=== PATIENT | female | born 1950 | race Caucasian/White ===

== ENCOUNTER 2020-07-24 23:59 | Inpatient (IN) | payer MEDICARE, BC ==
[2020-07-25] MEDS ORDERED: NALOXONE 0.4 MG/ML 1 ML VIAL IV PRN (01:22)
[2020-07-25] MEDS ORDERED: ACETAMINOPHEN TAB 325 MG TAB PO PRN (01:22)
--- NOTE | 2020-07-25 01:29 | ED ---
General Adult HPI - General Chief complaint: Recheck/Abnormal Lab/Rx Stated complaint: Arm pain Time Seen by Provider: 07/25/20 00:25 Source: patient, EMS, RN notes reviewed, old records reviewed Mode of arrival: EMS Limitations: no limitations - History of Present Illness Initial comments: 70-year-old female presented to outside hospital for evaluation of bilateral arm weakness which is been present for the past 4 or 5 days. There is no head or neck trauma. Patient denied central chest pain. She had an extensive workup including chest x-ray, CT of the abdomen pelvis, and laboratory testing. She was found to have multiple lab abnormalities including hyperkalemia, leukocytosis, troponin elevation. There was concern for pyelonephritis as well as uterine mass on CT. She was transferred for further evaluation and treatment. - Related Data Allergies Allergy/AdvReac Type Severity Reaction Status Date / Time No Known Allergies Allergy Verified 07/25/20 01:25 Review of Systems ROS Statement: Those systems with pertinent positive or pertinent negative responses have been documented in the HPI. ROS Other: All systems not noted in ROS Statement are negative. Past Medical History Additional Past Medical History / Comment(s): vertigo History of Any Multi-Drug Resistant Organisms: None Reported Past Surgical History: Cholecystectomy, Tubal Ligation Past Psychological History: No Psychological Hx Reported Smoking Status: Never smoker Past Alcohol Use History: None Reported Past Drug Use History: None Reported General Exam Limitations: no limitations General appearance: alert, in no apparent distress Head exam: Present: atraumatic, normocephalic Eye exam: Present: normal appearance, PERRL ENT exam: Present: normal exam Neck exam: Present: normal inspection. Absent: tenderness, meningismus Respiratory exam: Present: normal lung sounds bilaterally. Absent: respiratory distress, wheezes Cardiovascular Exam: Present: regular rate, irregular rhythm GI/Abdominal exam: Present: soft. Absent: distended, tenderness, guarding Extremities exam: Present: normal inspection Neurological exam: Present: motor sensory deficit (Patient has bilateral upper extremity weakness in the proximal musculature. This is symmetrical. 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 Absent: cyanosis, diaphoretic Course Vital Signs 07/25/20 00:11 Temperature 97.9 F Pulse Rate 91 Respiratory 20 Rate Blood Pressure 170/97 Medical Decision Making - Medical Decision Making 70-year-old female transferred from outside hospital with multiple laboratory abnormalities, physical exam findings, and CT findings. Initial complaint was bilateral arm weakness. Patient has proximal weakness of both upper extremities, no head or neck trauma. She was found to have CT concerning for pyelonephritis, uterine mass. She had elevated white blood cell count 18,000. She had potassium 6.4 which is treated medically. She had an elevated troponin 0.27. She has no active chest pain. She had received ceftriaxone, aspirin, treatment of hyperkalemia prior to transfer. Her laboratory testing will be rep eated. She will be admitted to Dr. Alcaraz who is aware of the patient. Neurology is placed on consult. All repeat lab testing is pending at this time. Disposition Clinical Impression: Hyperkalemia, Bilateral arm weakness, Elevated troponin Disposition: ADMITTED IP TO THIS HOSP Condition: Stable Is patient prescribed a controlled substance at d/c from ED?: No Referrals: None,Stated [Primary Care Provider] - 1-2 days
[2020-07-25] MEDS ORDERED: SODIUM CHLORIDE 0.9% 1,000 ML IV SCH (01:30)
[2020-07-25 02:07] LABS: Basophils % (A) 0 %; Eosinophils % (A) 0 %; HCT 44.6 % (34.0-46.0); HGB 14.7 gm/dL (11.4-16.0); Lymphocytes # (A) 0.8 k/uL (1.0-4.8); Lymphocytes % (A) 5 %; MCH 27.4 pg (25.0-35.0); MCHC 33.1 g/dL (31.0-37.0); Mean Platelet Volume 8.2; Monocytes # (A) 0.7 k/uL (0-1.0); Monocytes % (A) 4 %; Neutrophils # (A) 14.6 k/uL (1.3-7.7); Neutrophils % (A) 90 %; Platelet Count 258 k/uL (150-450); RBC 5.37 m/uL (3.80-5.40); RDW 15.2 % (11.5-15.5); WBC 16.2 k/uL (3.8-10.6)
[2020-07-25 02:40] LABS: Albumin 3.1 g/dL (3.5-5.0); Calcium 8.7 mg/dL (8.4-10.2); Magnesium 2.5 mg/dL (1.6-2.3); Total Bilirubin 0.7 mg/dL (0.2-1.3); Total Protein 6.6 g/dL (6.3-8.2)
[2020-07-25 02:58] LABS: Potassium 6.6 mmol/L (3.5-5.1)
[2020-07-25] MEDS ORDERED: SODIUM CHLORIDE 0.9% 500 ML 500 ML IV ONE (02:59)
[2020-07-25] MEDS ORDERED: CALCIUM GLUCONATE 1 GM in SODIUM CHLORIDE 0.9% 100 ML IVPB ONE ×2 (03:30→07:44)
[2020-07-25] MEDS: SODIUM CHLORIDE 0.9% 1,000 ML IV SCH ×2 (03:46→10:21)
[2020-07-25] MEDS ORDERED: SODIUM POLYSTYRENE SULFONATE 15 GM/60 ML BOTTLE PO ONE (04:40)
--- NOTE | 2020-07-25 04:46 | P.HPIM ---
History of Present Illness H&P Date: 07/25/20 Patient is a 70-year-old female with no known PMH who was transferred from [facility] where she had presented earlier today with complaints of bilateral upper extremity weakness and pain. Patient reports that she was in her usual state of health until about 5-6 days ago when she developed gradually worsening bilateral arm and shoulder pain and weakness. Patient notes that she had been out shopping and was able to lift bags and carry her on objects without difficulty last week though as a symptoms worsened, she is currently not able to lift her arms. She also reports subjective fevers over the past 2 days along with a decrease in her urine output. She also notes that she has not been drinking or eating as much as she normally does. Patient also reports experiencing spotting over the past 1 month which is very unusual for her. She denied any additional complaints. She denied headaches, visual disturbances, numbness, or tingling. Also denied chest pain, shortness of breath, nausea, vomiting, abdominal pain, or dysuria. The patient had undergone extensive evaluation at [facility] which was all reviewed. CT abdomen and pelvis without contrast had revealed fat stranding in the left hemipelvis along the course of the distal ureter suspicious for possible pyelonephritis with acute left adnexal pathology not excluded; bladder wall thickening possibly secondary to cystitis or underdistention; hypodense mass within the uterus with mild to moderate pelvic adenopathy with findings likely due to endometrial mass with further evaluation with an ultrasound recommended; cystic mass in the pancreas with a follow-up nonemergent MRI recommended. Laboratory evaluation at [facility] revealed a sodium of 125, potassium 6.6, chloride 96, CO2 19, BUN 47, creatinine 2.58, magnesium 2.5, AST 3421, ALT 1002, troponin less than 0.012, and WBC count 16.[address] [facility] head revealed A. fib at 83 bpm with a left anterior fascicular block. Review of Systems Pertinent positives and negatives as discussed in HPI, a complete review of systems was performed and all other systems are negative. Past Medical History Additional Past Medical History / Comment(s): vertigo History of Any Multi-Drug Resistant Organisms: None Reported Past Surgical History: Cholecystectomy, Tubal Ligation Past Psychological History: No Psychological Hx Reported Smoking Status: Never smoker Past Alcohol Use History: None Reported Past Drug Use History: None Reported Medications and Allergies Allergies Allergy/AdvReac Type Severity Reaction Status Date / Time No Known Allergies Allergy Verified 07/25/20 01:25 Physical Exam Vitals: Vital Signs Temp Pulse Resp BP Pulse Ox 07/25/20 03:26 97.8 F 75 18 168/90 98 07/25/20 00:11 97.9 F 91 20 170/97 Intake and Output 07/24/20 07/24/20 07/25/20 14:59 22:59 06:59 Other: Weight 122.47 kg General: non toxic, no distress, appears at stated age, morbidly obese Derm: no unusual rashes/lesions no unusual ecchymoses, warm, dry Head: atraumatic, normocephalic, symmetric Eyes: EOMI, no lid lag, anicteric sclera, pupils equal round reactive to light ENT: Nose and ears atraumatic, no thrush, no pharyngeal erythema Neck: No thyromegaly, no cervical lymphadenopathy, trachea midline, supple Mouth: no lip lesion, mucus membranes moist Cardiovascular: S1S2 reg, no murmur, positive posterior tibial pulse bilateral, no edema, capillary refill less than 2 seconds Lungs: CTA bilateral, no rhonchi, no rales , no accessory muscle use Abdominal: soft, nontender to palpation, no guarding, no appreciable organomegaly, normal bowel sounds Ext: no gross muscle atrophy, bilateral proximal upper extremity strength 2 out of 5 at the level of the shoulder, biceps, and triceps with mild tenderness on palpation of biceps and triceps bilaterally, 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 intact at 5 out of 5, lower extremity strength 5 out of 5 bilaterally, no contractures, Neuro: CN II-XI grossly intact, light touch intact all 4 extremities Psych: Alert, oriented, appropriate affect Results CBC & Chem 7: 07/25/20 01:28 07/25/20 01:28 Labs: Abnormal Lab Results - Last 24 Hours (Table) 07/25/20 07/25/20 Range/Units 01:28 01:28 WBC 16.2 H (3.8-10.6) k/uL Neutrophils # 14.6 H (1.3-7.7) k/uL Lymphocytes # 0.8 L (1.0-4.8) k/uL Sodium 125 L (137-145) mmol/L Potassium 6.6 H* (3.5-5.1) mmol/L Chloride 96 L (98-107) mmol/L Carbon Dioxide 19 L (22-30) mmol/L BUN 47 H (7-17) mg/dL Creatinine 2.58 H (0.52-1.04) mg/dL Glucose 135 H (74-99) mg/dL Magnesium 2.5 H (1.6-2.3) mg/dL AST 3421 H (14-36) U/L ALT 1002 H (4-34) U/L Albumin 3.1 L (3.5-5.0) g/dL Assessment and Plan Plan: Bilateral proximal upper extremity weakness, highly suspicious for polymyositis secondary to underlying malignancy (uterine mass) -Obtain CK levels -PROFESSOR OF MEDICINE consult for biopsy -Abdominal US for further evaluation Suspected pyelonephritis in setting of subjective fevers, urinary complaints, leukocytosis, CT scan findings -Continue with ceftriaxone 1 g daily -Follow up urine cultures Acute kidney injury versus chronic kidney disease -Nephrology consult -Monitor BMP Hyperkalemia -Status post Kayexalate 60 mg by mouth and calcium gluconate 1 g -Monitor BMP -Cardiac monitoring Cystic pancreatic mass -Patient will need MRI for further characterization Abnormal LFTs, unclear etiology -Consider contrast abdominal imaging to rule out hepatic metastases DVT prophylaxis -Heparin subq The patient is admitted with an anticipated greater than 2 midnight stay for evaluation of UE weakness CODE STATUS: Full Code Discussed with: Patient Anticipated discharge date: 4-[address]: Home A total of 40 minutes was spent on the care of this complex patient more than 50% of the time was spent in counseling and care coordination.
[2020-07-25 05:36] LABS: Albumin 2.9 g/dL (3.5-5.0); Calcium 8.7 mg/dL (8.4-10.2); Total Bilirubin 0.7 mg/dL (0.2-1.3); Total Protein 6.3 g/dL (6.3-8.2)
[2020-07-25] MEDS ORDERED: SODIUM POLYSTYRENE SULFONATE 15 GM/60 ML BOTTLE PO STA (05:42)
[2020-07-25 05:50] LABS: Potassium 6.4 mmol/L (3.5-5.1)
[2020-07-25] MEDS ORDERED: SODIUM CHLORIDE 0.9% 2,000 ML IV ONE (07:40)
[2020-07-25] MEDS ORDERED: DEXTROSE 50% SYRINGE 50 ML IVP STA ×2 (07:44→23:44)
[2020-07-25] MEDS ORDERED: INSULIN REGULAR 100 UNIT/ML VIAL IV ONE ×2 (07:44→23:44)
[2020-07-25 08:12] LABS: HCT 43.5 % (34.0-46.0); HGB 14.2 gm/dL (11.4-16.0); MCH 27.1 pg (25.0-35.0); MCHC 32.6 g/dL (31.0-37.0); MCV 83.2 fL (80.0-100.0); Mean Platelet Volume 9.6; Platelet Count 264 k/uL (150-450); RBC 5.23 m/uL (3.80-5.40); RDW 15.2 % (11.5-15.5); WBC 17.6 k/uL (3.8-10.6)
[2020-07-25] MEDS: HYDROcodone/APAP 5-325MG 1 EACH TAB PO PRN (08:57)
[2020-07-25] MEDS ORDERED: FUROSEMIDE 10 MG/ML 10 ML VIAL IV SCH (09:00)
[2020-07-25] MEDS: HEPARIN SODIUM,PORCINE 5,000 UNIT/ML 1 ML VIAL SQ SCH ×2 (09:00→18:10)
[2020-07-25 09:40] LABS: Phosphorus 8.8 mg/dL (2.5-4.5); Uric Acid 8.9 mg/dL (3.7-7.4)
[2020-07-25 09:56] LABS: Amorphous Sediment,Urine Rare /hpf; Appearance,Urine Turbid (Clear); Bacteria,Urine Occasional /hpf; Bilirubin,Urine Negative (Negative); Blood,Urine Large (Negative); Color,Urine Red; Glucose,Urine (UA) Trace (Negative); Ketones,Urine Trace (Negative); Leukocyte Esterase,Urine Small (Negative); Nitrite,Urine Negative (Negative); PH, Urine 5.5 (5.0-8.0); Protein,Urine 2+ (Negative); RBC,Urine 1 /hpf (0-5); Squamous Epithelial Cell,Urine 2 /hpf (0-4); Urobilinogen,Urine <2.0 mg/dL (<2.0); WBC,Urine 7 /hpf (0-5)
[2020-07-25] MEDS ORDERED: hydrALAZINE HCL 20 MG/ML 1 ML VIAL IVP PRN (11:39)
[2020-07-25] MEDS ORDERED: SODIUM BICARB 8.4% 50 ML SYR (1 MEQ/ML) IV STA ×2 (11:40→12:10)
[2020-07-25] MEDS: MORPHINE SULFATE 4 MG/ML SYRINGE IVP PRN (12:17)
--- NOTE | 2020-07-25 12:18 | P.NPCON ---
History of Present Illness - Reason for Consult acute renal failure, hyperkalemia - History of Present Illness Reason for consultation: Acute kidney injury and electrolyte imbalance History of present illness: Patient is a 70-year-old female seen in renal consultation for acute kidney injury and electrolyte imbalance. Patient came to the hospital due to weakness of both her upper extremities. Patient states about 5-6 days ago she noticed weakness of her arms as well as pain. Patient does do heavy lifting. She denies any trauma or injuries. She has been taking nonsteroidals 4 times daily over the last 3-4 days. Potassium level was 6.6 on admission and was 6.4 this morning. This was medically treated with 2 g of IV calcium, 10 units of IV insulin with D50, as well as Kayexalate. Repeat potassium level is being drawn now. She denies chest pain or shortness of breath. No history of diabetes. Denies family history of renal disease. Patient's AST and ALT were quite elevated. Patient's CK level was elevated at 154,161. She is currently maintained on normal saline at 200 mL an hour. She did receive 2-1/2 L of normal saline bolus so far. She did have workup done at a different hospital prior to she was transported here. CAT scan of the abdomen and pelvis was done which revealed possibly polynephritis with acute left adnexal pathology not excluded. There was bladder wall thickening noted. A hypodense mass within the uterus with pelvic adenopathy was noted. A cystic mass in the pancreas was noted as well. She currently has a Whaley catheter. Urine output since this morning has been about 350-400 mL. Vital signs are stable. General: The patient appeared well nourished and normally developed. HEENT: Head exam is unremarkable. Neck is without jugular venous distension. LUNGS: Breath sounds decreased. HEART: Rate and Rhythm are regular. ABDOMEN: Soft, nontender. Obese. EXTREMITITES: No edema. Past Medical History Additional Past Medical History / Comment(s): vertigo History of Any Multi-Drug Resistant Organisms: None Reported Past Surgical History: Cholecystectomy, Tubal Ligation Past Psychological History: No Psychological Hx Reported Smoking Status: Never smoker Past Alcohol Use History: None Reported Past Drug Use History: None Reported Medications and Allergies Home Medications Medication Instructions Recorded Confirmed Type No Known Home Medications 07/25/20 07/25/20 History Allergies Allergy/AdvReac Type Severity Reaction Status Date / Time No Known Allergies Allergy Verified 07/25/20 07:37 Physical Exam Vitals: Vital Signs Temp Pulse Resp BP Pulse Ox 07/25/20 10:19 76 18 177/89 07/25/20 07:34 97.3 F L 74 18 164/100 95 07/25/20 06:32 97.4 F L 72 18 170/102 96 07/25/20 03:26 97.8 F 75 18 168/90 98 07/25/20 00:11 97.9 F 91 20 170/97 Intake and Output 07/24/20 07/25/20 07/25/20 22:59 06:59 14:59 Other: Weight 122.47 kg Results - Lab Results Most recent lab results Calcium 8.7 mg/dL (8.4-10.2) 07/25/20 04:40 Phosphorus 8.8 mg/dL (2.5-4.5) H 07/25/20 04:40 Magnesium 2.5 mg/dL (1.6-2.3) H 07/25/20 01:28 07/25/20 04:40 07/25/20 04:40 Assessment and Plan Plan: Assessment: 1. Acute kidney injury secondary to ATN secondary to rhabdomyolysis. Rule out obstructive uropathy. Creatinine stable at 2.59 this morning. Unknown baseline renal function. 2. Rhabdomyolysis. Patient was not on a statin therapy. No IVDA or alcohol abuse. No evidence of crush injury or trauma. ? Inflammatory myopathy vs immobility. 3. Bilateral upper extremity weakness. ? Etiology. 4. Uterine mass. CIS COORDINATOR consulted. 5. Cystic pancreatic mass. 6. Proteinuria. Can be nonspecific in the setting of acute kidney injury. 7. Hyponatremia secondary to acute kidney injury. 8. Metabolic acidosis secondary to acute kidney injury. 9. Transaminitis. Plan: Stop normal saline. Start isotonic bicarbonate drip to be run at 200 mL an hour. Maintain Whaley catheter. Strict I's and O's. 2 A of sodium bicarbonate IV push. Monitor CK levels. Repeat potassium level was just drawn and the results are pending. Continue to assess daily for need for renal replacement therapy. Check renal ultrasound. Quantify proteinuria. Repeat BMP in 4 hours. Thank you for the consultation. I will continue to follow the patient with you during her hospital stay.
[2020-07-25] MEDS: DEXTROSE 5% IN WATER 1,000 ML with SODIUM BICARB (1 MEQ/ML) 150 ML IV SCH ×2 (14:22→20:35)
[2020-07-25 15:01] LABS: Creatinine,Urine Random 15.9 mg/dL; Protein/Creatinine Ratio,Urine 3.208
--- NOTE | 2020-07-25 16:12 | US ---
EXAMINATION TYPE: US kidneys/renal and bladder DATE OF EXAM: 07/25/2020 COMPARISON: Outside institution [facility] CT abdomen pelvis 07/24/2020 CLINICAL HISTORY: Acute kidney injury. EXAM MEASUREMENTS: Right Kidney: 11.6 x 5.0 x 5.0 cm Left Kidney: 10.6 x 5.9 x 5.9 cm There is suboptimal evaluation of the bilateral kidneys due to overlying bowel gas and patient body h abitus. Right Kidney: No hydronephrosis. There is lobular contour of the kidney. 1.5 x 1.7 x 1.4 cm iso to hy poechoic region of the lateral interpolar kidney. Left Kidney: No hydronephrosis. There is lobular contour of the kidney. Prominent Column of Corey is noted. Hypoechoic region of the medial interpolar kidney measures 1.3 x 1.4 x 1.3 cm . Bladder: Urinary bladder is incompletely with Whaley Catheter. IMPRESSION: 1. No hydronephrosis bilaterally. 2. Somewhat limited evaluation of the kidneys due to bowel gas and body habitus. 3. Right interpolar kidney indeterminate 1.7 cm iso to hypoechoic region may represent lesion versus lobular parenchymal contour. Consider nonemergent repeat renal ultrasound for reproducibility or MRI of the kidneys. 4. Left renal 1.4 cm likely peripelvic or cortical cyst. 5. Nondistended urinary bladder with Whaley catheter.
[2020-07-25 16:37] LABS: Calcium 7.7 mg/dL (8.4-10.2); Potassium 5.8 mmol/L (3.5-5.1)
--- NOTE | 2020-07-25 20:44 | P.CONS ---
History of Present Illness - Reason for Consult Consult date: 07/25/20 Uterine mass, pelvic adenopathy, rhabdomyolysis - History of Present Illness The patient is a 70-year-old white female, who has not seen a physician for many years. She is on no medications and denies any known history of ongoing medical problems. She is overall sedentary but not immobilized in any way. She reports development of new onset of shoulder and upper arm pain bilaterally, starting about 5-6 days ago. This was initially gradual in onset but became progressively more severe. She states that this was associated with marked weakness in her shoulder and upper arms to where she could not lift her arms above her head. She also started experiencing decrease in appetite, as well as some lower extremity proximal muscle weakness. This was much less significant than the upper extremity and was mostly associated with standing up from lying or sitting down. The patient states that once she was upright, she was able to walk without any problems. The patient presented to [facility] with these complaints. She had imaging done including CT of the abdomen and pelvis without contrast. This showed possibility of some medical renal disease without hydronephrosis. In the uterus the patient had a hypodense mass 6.5 cm, left-sided pelvic adenopathy with largest node about 2.5 cm and borderline right-sided pelvic adenopathy at about 1 cm. Patient's labs showed markedly increased CPKs, evidence of kidney injury with creatinine in the 2.5 range, as well as low sodium in the 120 range and hyperkalemia. The patient was admitted for further management and then transferred here. Salt was placed for possibility of malignancy. Patient denies any prior history of cancer. Last mammogram was more than 10 years ago. She does not recall ever having a colonoscopy. She has not had a Pap smear for many years either. She denies any ongoing systemic symptoms such as chronic fevers, weight loss, or lymph node enlargement. She denied any respiratory complaints, blood in the stool or urine or change in bowel habits. However she does report bloody discharge from the vagina every 1-2 months for the past several years. She has however never sought attention for the same. She was on no medications at home. She had started taking aspirin only after the onset of the above symptoms. Review of Systems Constitutional: Reports poor appetite, Reports weakness Eyes: denies blurred vision, denies pain Ears: deny: decreased hearing, ear discharge, earache, tinnitus Ears, nose, mouth and throat: Denies headache, Denies sore throat Cardiovascular: Reports decreased exercise tolerance Respiratory: Denies cough Gastrointestinal: Denies abdominal pain, Denies diarrhea, Denies nausea, Denies vomiting Genitourinary: Reports abnormal vaginal bleeding Menstruation: Reports postmenopausal Musculoskeletal: Reports as per HPI, Reports muscle weakness Musculoskeletal: bilateral: shoulder pain, shoulder stiffness Integumentary: Denies pruritus, Denies rash Neurological: Reports weakness Psychiatric: Denies anxiety, Denies depression Endocrine: Reports fatigue Hematologic/Lymphatic: Reports as per HPI Past Medical History Additional Past Medical History / Comment(s): vertigo History of Any Multi-Drug Resistant Organisms: None Reported Past Surgical History: Cholecystectomy, Tubal Ligation Past Psychological History: No Psychological Hx Reported Smoking Status: Never smoker Past Alcohol Use History: None Reported Past Drug Use History: None Reported Medications and Allergies Home Medications Medication Instructions Recorded Confirmed Type No Known Home Medications 07/25/20 07/25/20 History Allergies Allergy/AdvReac Type Severity Reaction Status Date / Time No Known Allergies Allergy Verified 07/25/20 07:37 Physical Exam Vitals: Vital Signs Temp Pulse Resp BP Pulse Ox 07/25/20 19:00 98.7 F 07/25/20 17:10 73 18 152/76 97 07/25/20 12:21 78 18 184/101 98 07/25/20 10:19 76 18 177/89 07/25/20 07:34 97.3 F L 74 18 164/100 95 07/25/20 06:32 97.4 F L 72 18 170/102 96 07/25/20 03:26 97.8 F 75 18 168/90 98 07/25/20 00:11 97.9 F 91 20 170/97 Intake and Output 07/25/20 07/25/20 07/25/20 06:59 14:59 22:59 Output Total 700 195 Balance -700 -195 Output: Urine 700 195 Other: Weight 122.47 kg - Constitutional General appearance: no acute distress - EENT Eyes: EOMI, PERRLA ENT: hearing grossly normal, normal oropharynx - Neck Neck: no lymphadenopathy Thyroid: bilateral: normal size - Respiratory Respiratory: bilateral: CTA - Cardiovascular Rhythm: regular Heart sounds: normal: S1, S2 - Gastrointestinal General gastrointestinal: normal bowel sounds, soft - Integumentary Integumentary: normal - Neurologic Neurologic: CNII-XII intact - Musculoskeletal Tenderness to palpation over shoulder muscles and upper arms. Marked weakness in bilateral proximal upper extremities. Much milder decrease in strength in proximal lower extremities. - Psychiatric Psychiatric: A&O x's 3, appropriate affect Results CBC & Chem 7: 07/25/20 04:40 07/25/20 14:50 Labs: Abnormal Lab Results - Last 24 Hours (Table) 07/25/20 07/25/20 07/25/20 Range/Units 01:28 01:28 04:40 WBC 16.2 H (3.8-10.6) k/uL Neutrophils # 14.6 H (1.3-7.7) k/uL Lymphocytes # 0.8 L (1.0-4.8) k/uL Sodium 125 L 123 L (137-145) mmol/L Potassium 6.6 H* 6.4 H* (3.5-5.1) mmol/L Chloride 96 L 96 L (98-107) mmol/L Carbon Dioxide 19 L 16 L (22-30) mmol/L BUN 47 H 50 H (7-17) mg/dL Creatinine 2.58 H 2.59 H (0.52-1.04) mg/dL Glucose 135 H 167 H (74-99) mg/dL Uric Acid (3.7-7.4) mg/dL Calcium (8.4-10.2) mg/dL Phosphorus (2.5-4.5) mg/dL Magnesium 2.5 H (1.6-2.3) mg/dL AST 3421 H 3315 H (14-36) U/L ALT 1002 H 959 H (4-34) U/L Creatine Kinase 310024 H* (30-135) U/L Albumin 3.1 L 2.9 L (3.5-5.0) g/dL Urine Appearance (Clear) Urine Protein (Negative) Urine Glucose (UA) (Negative) Urine Ketones (Negative) Urine Blood (Negative) Ur Leukocyte Esterase (Negative) Urine WBC (0-5) /hpf Amorphous Sediment (None) /hpf Urine Bacteria (None) /hpf 07/25/20 07/25/20 07/25/20 Range/Units 04:40 04:40 08:30 WBC 17.6 H (3.8-10.6) k/uL Neutrophils # (1.3-7.7) k/uL Lymphocytes # (1.0-4.8) k/uL Sodium (137-145) mmol/L Potassium (3.5-5.1) mmol/L Chloride (98-107) mmol/L Carbon Dioxide (22-30) mmol/L BUN (7-17) mg/dL Creatinine (0.52-1.04) mg/dL Glucose (74-99) mg/dL Uric Acid 8.9 H (3.7-7.4) mg/dL Calcium (8.4-10.2) mg/dL Phosphorus 8.8 H (2.5-4.5) mg/dL Magnesium (1.6-2.3) mg/dL AST (14-36) U/L ALT (4-34) U/L Creatine Kinase (30-135) U/L Albumin (3.5-5.0) g/dL Urine Appearance Turbid H (Clear) Urine Protein 2+ H (Negative) Urine Glucose (UA) Trace H (Negative) Urine Ketones Trace H (Negative) Urine Blood Large H (Negative) Ur Leukocyte Esterase Small H (Negative) Urine WBC 7 H (0-5) /hpf Amorphous Sediment Rare H (None) /hpf Urine Bacteria Occasional H (None) /hpf 07/25/20 07/25/20 Range/Units 11:51 14:50 WBC (3.8-10.6) k/uL Neutrophils # (1.3-7.7) k/uL Lymphocytes # (1.0-4.8) k/uL Sodium 127 L (137-145) mmol/L Potassium 5.8 H (3.5-5.1) mmol/L Chloride (98-107) mmol/L Carbon Dioxide 20 L (22-30) mmol/L BUN 55 H (7-17) mg/dL Creatinine 2.77 H (0.52-1.04) mg/dL Glucose 134 H (74-99) mg/dL Uric Acid (3.7-7.4) mg/dL Calcium 7.7 L (8.4-10.2) mg/dL Phosphorus (2.5-4.5) mg/dL Magnesium (1.6-2.3) mg/dL AST (14-36) U/L ALT (4-34) U/L Creatine Kinase [id number] H* (30-135) U/L Albumin (3.5-5.0) g/dL Urine Appearance (Clear) Urine Protein (Negative) Urine Glucose (UA) (Negative) Urine Ketones (Negative) Urine Blood (Negative) Ur Leukocyte Esterase (Negative) Urine WBC (0-5) /hpf Amorphous Sediment (None) /hpf Urine Bacteria (None) /hpf CT scan - abdomen: report reviewed CT scan - pelvis: report reviewed US - abdomen: report reviewed Assessment and Plan Assessment: #1. Rhabdomyolysis #2. Kidney injury, presumably acute #3. Electrolyte abnormalities #4. Uterine mass and pelvic adenopathy. Abnormal vaginal bleeding Plan: #1. Rhabdomyolysis this appears to be acute in onset. Conventional risk fact ors such as symptoms suggestive of recent viral injury, or medications or trauma are not present. Therefore etiology is unknown at this time. Patient has been seen by nephrology, and is on treatment with IV hydration. - Given the patient's finding on computed tomography scan, and unknown etiology so far of the rhabdomyolysis, a paraneoplastic phenomenon can be considered. However paraneoplastic rhabdomyolysis is extremely rare. Case reports have been described of this occurring very occasionally with acute myeloid leukemia. The patient however has no evidence of the same on her CBC. There are also occasional case reports of this occurring with paraneoplastic hyponatremia as well as paraneoplastic severe polymyositis, though these are generally also rare and atypical presentations. - Continue current management per nephrology. If patient is not improving muscle biopsy can be considered. The case was also informally discussed with rheumatology. They agreed with the above management and recommended against muscle biopsy in the acute situation unless the patient showed lack of improvement with conventional treatment. They also recommended against the use of steroids, unless there was a specific indication for the same. #2. Uterine mass and pelvic adenopathyin this clinical setting this is concerning for malignancy. The patient does give a history of abnormal vaginal bleeding but that has been chronic for many years. Once renal function improves imaging with contrast will be ordered. In the meantime check transvaginal ultrasound. I will also check CA-125. CT of the chest without contrast will be ordered to check for any evidence of lung metastasis or primary lung malignancy. #3. Electrolyte abnormalitythe patient is noted to have hyponatremia and hyper kalemia. This could be secondary to renal dysfunction from rhabdomyolysis. However, a paraneoplastic phenomenon, that can cause rhabdomyolysis as noted above, is also in consideration. Imaging for malignancy as noted above. I will also check labs for hypocortisolism and SIADH #4. Leukocytosisthis is mild and appears to be reactive predominant neutrophilia. No other hematology abnormalities noted.
--- NOTE | 2020-07-25 20:52 | P.PN ---
Subjective Progress Note Date: 07/25/20 (delayed charting seen at 0905) Principal diagnosis: shoulder pain Patient is a 70-year-old female with a past medical history of vertigo who presented with complaints of bilateral severe shoulder pain and weakness. She was transferred here for [facility] due to acute kidney injury, transaminitis, and uterine mass. There she had undergone a CT abdomen and pelvis without contrast which revealed fat stranding in the left vasyl-pelvis along the course of the distal ureter ureter with possible pyelonephritis versus acute left adnexal pathology, bladder wall thickening, hypodense mass in the uterus with mild to moderate pelvic adenopathy findings likely due to endometr ial mass, and cystic mass in the pancreas but follow-up MRI recommended. On arrival here her sodium was 125, potassium 6.6, chloride 96, carbon dioxide 19, BUN 47, and creatinine 2.58. She was also found have an AST of 3421, ALT 1002, white blood cell count 16.2. Urinalysis was consistent with rhabdo but did not appear consistent with urinary tract infection, however patient had already received Rocephin. She was started on IV fluids and arrangements were made for admission. CPK was ordered which came back at 154,161. She subsequently received an additional 2 L of IV fluid and her IV fluid drip was increased. Gynecology was consulted regarding her uterine mass. Nephrology was consulted for possible AK a versus EKG in conjunction with severe rhabdo dialysis. Hematology and oncology was consulted secondary to concern for possible dermatomyositis versus polymyositis that could be related to her uterine mass. Patient seen and examined at bedside. She reports that she has never undergone menopause. She reports that she has infrequent bleeding that is sometimes a light or heavy and she sometimes goes month in between but has never had a greater than 1 year time period with out vaginal bleeding. She denies any lower abdominal pain. She complains of bilateral upper arm and shoulder pain associated with weakness. She denies any nausea or vomiting. She states that her appetite has been well. 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 She denies any traumatic events to the arms. She has not seen a primary care physician in quite some years as hers and she never saw a new one. General: [non toxic], [no distress], [appears at stated age] Derm: [warm], [dry] Head: [atraumatic], [normocephalic], [symmetric] Eyes: [EOMI], [no lid lag], [anicteric sclera] Mouth: [no lip lesion], [mucus membranes moist] Cardiovascular: [S1S2 reg], [no murmur], [positive posterior tibial pulse bilateral], Lungs: [CTA bilateral], [no rhonchi, no rales] , [no accessory muscle use] Abdominal: [soft], [ nontender to palpation], [no guarding], [no appreciable organomegaly] Ext: [no gross muscle atrophy], [no edema], [no contractures] Neuro: [ CN II-XI grossly intact], [no focal neuro deficits] Psych: [Alert], [oriented], [appropriate affect] 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 Patient does have a uterine mass as well as a cystic pancreatic mass. -Inpatient vs Outpatient rheumatolgy evaluation, consider muscle biopsy -Hold off on steroids at this time. Rhabdomyolysis -Suspect secondary to inflammatory at myositis -Case discussed with nephrology. On sodium bicarb drip. We'll follow CPKs closely. -Strict I's and O's, Whaley catheter inserted. Hyperkalemia secondary to above -Continue with sodium bicarb drip -Monitor potassium levels again at 2100, 2 AM, and in a.m. Acute hepatitis suspect secondary to underlying rhabdo and inflammatory myositis -Repeat liver enzymes in a.m. -Check acute hepatitis profile -Check REBEKA and antimitochondrial antibody -Intermediate elevated in a.m. Consult GI Possible pyelonephritis -Continue with Rocephin -Await urine culture Acute kidney injury with metabolic acidosis -Continue with IV fluids -Avoid additional nephrotoxic agents -Repeat labs in a.m. -Elevated phosphorus level which may be consistent with some form of chronic kidney disease Uterine mass with dysfunctional uterine bleeding - oncology and DIRECTOR OF FINANCIAL REPORTING consults Cystic Pancreatic mass pancreatic mass - MRI for further evaluation Morbid obesity with BMI 43.6 -Outpatient structured weight loss Elevated blood pressure without underlying diagnosis of hypertension -Continue with when necessary hydralazine -Add Norvasc if continues to be elevated in a.m. DVT prophylaxis: Heparin Discussed with: patient, nursing, nephrology Anticipated discharge: 5-[address]: home A total of 45 minutes was spent on the care of this complex patient more than 50% of the time was spent in counseling and care coordination. Objective - Vital Signs Vital signs: Vital Signs Temp 97.3 F L 07/25/20 07:34 Pulse 78 07/25/20 12:21 Resp 18 07/25/20 12:21 BP 184/101 07/25/20 12:21 Pulse Ox 98 07/25/20 12:21 Intake & Output 07/24/20 07/25/20 07/25/20 18:59 06:59 18:59 Output Total 400 Balance -400 Weight 122.47 kg Output: Urine 400 - Labs CBC & Chem 7: 07/25/20 04:40 07/25/20 14:50 Labs: Abnormal Lab Results - Last 24 Hours (Table) 07/25/20 07/25/20 07/25/20 Range/Units 01:28 01:28 04:40 WBC 16.2 H (3.8-10.6) k/uL Neutrophils # 14.6 H (1.3-7.7) k/uL Lymphocytes # 0.8 L (1.0-4.8) k/uL Sodium 125 L 123 L (137-145) mmol/L Potassium 6.6 H* 6.4 H* (3.5-5.1) mmol/L Chloride 96 L 96 L (98-107) mmol/L Carbon Dioxide 19 L 16 L (22-30) mmol/L BUN 47 H 50 H (7-17) mg/dL Creatinine 2.58 H 2.59 H (0.52-1.04) mg/dL Glucose 135 H 167 H (74-99) mg/dL Uric Acid (3.7-7.4) mg/dL Phosphorus (2.5-4.5) mg/dL Magnesium 2.5 H (1.6-2.3) mg/dL AST 3421 H 3315 H (14-36) U/L ALT 1002 H 959 H (4-34) U/L Creatine Kinase [id number] H* (30-135) U/L Albumin 3.1 L 2.9 L (3.5-5.0) g/dL Urine Appearance (Clear) Urine Protein (Negative) Urine Glucose (UA) (Negative) Urine Ketones (Negative) Urine Blood (Negative) Ur Leukocyte Esterase (Negative) Urine WBC (0-5) /hpf Amorphous Sediment (None) /hpf Urine Bacteria (None) /hpf 07/25/20 07/25/20 07/25/20 Range/Units 04:40 04:40 08:30 WBC 17.6 H (3.8-10.6) k/uL Neutrophils # (1.3-7.7) k/uL Lymphocytes # (1.0-4.8) k/uL Sodium (137-145) mmol/L Potassium (3.5-5.1) mmol/L Chloride (98-107) mmol/L Carbon Dioxide (22-30) mmol/L BUN (7-17) mg/dL Creatinine (0.52-1.04) mg/dL Glucose (74-99) mg/dL Uric Acid 8.9 H (3.7-7.4) mg/dL Phosphorus 8.8 H (2.5-4.5) mg/dL Magnesium (1.6-2.3) mg/dL AST (14-36) U/L ALT (4-34) U/L Creatine Kinase (30-135) U/L Albumin (3.5-5.0) g/dL Urine Appearance Turbid H (Clear) Urine Protein 2+ H (Negative) Urine Glucose (UA) Trace H (Negative) Urine Ketones Trace H (Negative) Urine Blood Large H (Negative) Ur Leukocyte Esterase Small H (Negative) Urine WBC 7 H (0-5) /hpf Amorphous Sediment Rare H (None) /hpf Urine Bacteria Occasional H (None) /hpf 07/25/20 Range/Units 11:51 WBC (3.8-10.6) k/uL Neutrophils # (1.3-7.7) k/uL Lymphocytes # (1.0-4.8) k/uL Sodium (137-145) mmol/L Potassium (3.5-5.1) mmol/L Chloride (98-107) mmol/L Carbon Dioxide (22-30) mmol/L BUN (7-17) mg/dL Creatinine (0.52-1.04) mg/dL Glucose (74-99) mg/dL Uric Acid (3.7-7.4) mg/dL Phosphorus (2.5-4.5) mg/dL Magnesium (1.6-2.3) mg/dL AST (14-36) U/L ALT (4-34) U/L Creatine Kinase [id number] H* (30-135) U/L Albumin (3.5-5.0) g/dL Urine Appearance (Clear) Urine Protein (Negative) Urine Glucose (UA) (Negative) Urine Ketones (Negative) Urine Blood (Negative) Ur Leukocyte Esterase (Negative) Urine WBC (0-5) /hpf Amorphous Sediment (None) /hpf Urine Bacteria (None) /hpf
[2020-07-25] MEDS ORDERED: predniSONE 20 MG TAB PO SCH (21:00)
[2020-07-25 23:09] LABS: Calcium 7.3 mg/dL (8.4-10.2); Potassium 5.8 mmol/L (3.5-5.1)
[2020-07-26] MEDS: HEPARIN SODIUM,PORCINE 5,000 UNIT/ML 1 ML VIAL SQ SCH ×3 (00:22→16:51)
[2020-07-26 01:20] LABS: Glucose,Whole Blood 124 mg/dL (75-99)
[2020-07-26 01:45] LABS: Creatine Kinase 135482 U/L (30-135)
[2020-07-26] MEDS: HYDROcodone/APAP 5-325MG 1 EACH TAB PO PRN ×2 (02:31→23:00)
[2020-07-26] MEDS: DEXTROSE 5% IN WATER 1,000 ML with SODIUM BICARB (1 MEQ/ML) 150 ML IV SCH ×3 (02:39→10:34)
[2020-07-26 03:30] LABS: HGB 11.8 gm/dL (11.4-16.0); MCH 26.8 pg (25.0-35.0); MCHC 32.7 g/dL (31.0-37.0); Mean Platelet Volume 7.8; Platelet Count 197 k/uL (150-450); RBC 4.39 m/uL (3.80-5.40); RDW 15.5 % (11.5-15.5); WBC 14.7 k/uL (3.8-10.6)
[2020-07-26 03:38] LABS: Hepatitis A Antibody IgM Non-Reactive (Non-Reactive); Hepatitis B Core IgM Non-Reactive (Non-Reactive); Hepatitis B Surface Antigen Non-Reactive (Non-Reactive); Hepatitis C IgG Antibody Non-Reactive (Non-Reactive)
[2020-07-26 03:55] LABS: Albumin 2.2 g/dL (3.5-5.0); Magnesium 2.1 mg/dL (1.6-2.3); Potassium 4.9 mmol/L (3.5-5.1); Total Bilirubin 0.5 mg/dL (0.2-1.3); Total Protein 4.9 g/dL (6.3-8.2)
--- NOTE | 2020-07-26 08:05 | US ---
EXAMINATION TYPE: US pelvis complete transvag DATE OF EXAM: 07/26/2020 COMPARISON: CT 2019 CLINICAL HISTORY: Pelvic mass. Pelvic mass seen in recent CT done at [facility], 4, pa ra 4, history of tubal ligation. TECHNIQUE: . Transabdominal sonographic images of the pelvis were acquired. Date of LMP: Unknown EXAM MEASUREMENTS: Uterus: 12.3 x 6.7 x 7.5 cm Endometrial Stripe: 0.4 cm Right Ovary: 2.7 x 1.9 x 1.6 cm Left Ovary: 2.8 x 1.8 x 1.4 cm 1. Uterus: anteverted, enlarged, bulky, heterogeneous with 5.0 x 4.5 x 6.0cm hypoechoic area right f undus and 2.4 x 2.0 x 2.6cm hyperechoic area left fundus 2. Endometrium: visualized portion appears wnl 3. Right Ovary: wnl 4. Left Ovary: wnl 5. Bilateral Adnexa: wnl 6. Posterior cul-de-sac: wnl IMPRESSION: Nonspecific heterogenous masses of the uterus. Underlying sarcoma is not excluded.
--- NOTE | 2020-07-26 08:08 | CT ---
EXAMINATION TYPE: CT chest wo con DATE OF EXAM: 07/26/2020 COMPARISON: None HISTORY: Pelvic Mass CT DLP: 911.[address] of the chest was performed with lung and mediastinal window settings submitted. The la ck of contrast limits evaluation of the vascular, mediastinal and parenchymal structures including th e upper abdomen. LUNGS: The lungs are clear and free of infiltrate. Linear basilar parenchymal scarring. No atelectasi s. No pulmonary nodule or mass is detected. No pleural effusion. No CT evidence of interstitial agapito ng disease. MEDIASTINUM/GHISLAINE: Thoracic aorta is of normal caliber with limited evaluation given lack of contrast . The heart is not enlarged. No evidence for mediastinal mass. No lymph nodes greater than 1cm. UPPER ABDOMEN: No significant abnormality is seen. OTHER: No significant other abnormality. IMPRESSION: 1. No evidence for infiltrate or metastatic disease at this time.
[2020-07-26 09:59] LABS: % Iron Saturation 14.72 (12.00-45.00); Ferritin 542.6 ng/mL (10.0-291.0)
[2020-07-26 11:53] LABS: Rheumatoid Factor, Qnt 7 IU/mL (0-15)
--- NOTE | 2020-07-26 11:58 | P.PN ---
Subjective Progress Note Date: 07/26/20 Follow-up for acute kidney injury and hyperkalemia. Urine output of 1715 in the last 24 hours. Objective - Vital Signs Vital signs: Vital Signs Temp 97 F L 07/26/20 11:25 Pulse 71 07/26/20 11:25 Resp 18 07/26/20 11:25 BP 112/57 07/26/20 11:25 Pulse Ox 94 L 07/26/20 11:25 Intake & Output 07/25/20 07/26/20 07/26/20 18:59 06:59 18:59 Output Total 895 820 Balance -895 -820 Weight 122.47 kg Output: Urine 895 820 Other: Voiding Method Indwelling Catheter Indwelling Catheter - Exam No acute distress S1-S2 heard Lungs clear Edema - Labs CBC & Chem 7: 07/26/20 03:11 07/26/20 03:11 Labs: Abnormal Lab Results - Last 24 Hours (Table) 07/25/20 07/25/20 07/25/20 Range/Units 11:51 14:50 21:53 WBC (3.8-10.6) k/uL ESR (0-20) mm/hr Sodium 127 L 124 L (137-145) mmol/L Potassium 5.8 H 5.8 H (3.5-5.1) mmol/L Chloride 95 L (98-107) mmol/L Carbon Dioxide 20 L 20 L (22-30) mmol/L BUN 55 H 57 H (7-17) mg/dL Creatinine 2.77 H 2.82 H (0.52-1.04) mg/dL Glucose 134 H 145 H (74-99) mg/dL POC Glucose (mg/dL) (75-99) mg/dL Calcium 7.7 L 7.3 L (8.4-10.2) mg/dL Iron (50-170) ug/dL TIBC (228-460) ug/dL Ferritin (10.0-291.0) ng/mL AST (14-36) U/L ALT (4-34) U/L Creatine Kinase [id number] H* (30-135) U/L Total Protein (6.3-8.2) g/dL Albumin (3.5-5.0) g/dL 07/25/20 07/25/20 07/26/20 Range/Units 22:05 22:20 01:16 WBC (3.8-10.6) k/uL ESR 35 H (0-20) mm/hr Sodium (137-145) mmol/L Potassium (3.5-5.1) mmol/L Chloride (98-107) mmol/L Carbon Dioxide (22-30) mmol/L BUN (7-17) mg/dL Creatinine (0.52-1.04) mg/dL Glucose (74-99) mg/dL POC Glucose (mg/dL) 124 H (75-99) mg/dL Calcium (8.4-10.2) mg/dL Iron (50-170) ug/dL TIBC (228-460) ug/dL Ferritin (10.0-291.0) ng/mL AST (14-36) U/L ALT (4-34) U/L Creatine Kinase [id number] H* (30-135) U/L Total Protein (6.3-8.2) g/dL Albumin (3.5-5.0) g/dL 07/26/20 07/26/20 Range/Units 03:11 03:11 WBC 14.7 H (3.8-10.6) k/uL ESR (0-20) mm/hr Sodium 122 L (137-145) mmol/L Potassium (3.5-5.1) mmol/L Chloride 90 L (98-107) mmol/L Carbon Dioxide (22-30) mmol/L BUN 58 H (7-17) mg/dL Creatinine 3.15 H (0.52-1.04) mg/dL Glucose 116 H (74-99) mg/dL POC Glucose (mg/dL) (75-99) mg/dL Calcium 7.0 L (8.4-10.2) mg/dL Iron 29 L (50-170) ug/dL TIBC 197 L (228-460) ug/dL Ferritin 542.6 H (10.0-291.0) ng/mL AST 2906 H (14-36) U/L ALT 848 H (4-34) U/L Creatine Kinase (30-135) U/L Total Protein 4.9 L (6.3-8.2) g/dL Albumin 2.2 L (3.5-5.0) g/dL Assessment and Plan Assessment: #1 nonoliguric acute kidney injury secondary to toxic ATN from rhabdomyolysis. #2 hyperkalemia multifactorial #3 rhabdo, workup in process #4 hypervolemic hyponatremia #5 metabolic alkalosis from bicarb drip Plan: #1 continue with bicarb drip at 200 ML's an hour. #2 check serum osmolality, urine electrolytes. #3 change bicarb drip to normal saline. 4 avoid nephrotoxic agents.
--- NOTE | 2020-07-26 11:59 | P.OBCN ---
History of Present Illness Consult date: 07/26/20 Requesting physician: Verito Velez Reason for consult: other (Postmenopausal bleeding with uterine mass) Chief complaint: Upper extremity weakness with hyperkalemia and multiple medical concerns History of present illness: The patient is a 70-year-old 4 para 4004 whose extensive history is well documented in previous notes from internal medicine as well as oncology. In short, she presented with weakness to an outside emergency room and was ultimately transferred here after initial evaluation for further care. She is found with multiple different medical conditions including a pancreatic mass as well as some renal failure and CT and ultrasound have demonstrated an enlarged h eterogeneous-appearing uterus with a mass present as well. The patient reports that she has never had any significant length of time in which she has stopped bleeding and never experienced menopause. She may have had a roughly 1 year. Without bleeding. She continues to have an episode of bleeding anywhere from every 1-3 months which can last anywhere from 2-5 days and will occasionally be heavy. She has not seen a usability engineer nor any other physician regarding this or any other medical conditions in some time. She denies any use of hormone replacement and has had no specific complaints of weight loss in recent times. Obstetrical history: 4 para 4004 with 4 term vaginal deliveries. Gynecologic history: Unremarkable with no history of any infections. She has not had any gynecologic care in many years, more than 20. Review of Systems Review of systems is confined history of present illness. Past Medical History Additional Past Medical History / Comment(s): vertigo History of Any Multi-Drug Resistant Organisms: None Reported Past Surgical History: Cholecystectomy, Tubal Ligation Past Anesthesia/Blood Transfusion Reactions: No Reported Reaction Past Psychological History: No Psychological Hx Reported Smoking Status: Never smoker Past Alcohol Use History: None Reported Past Drug Use History: None Reported Medications and Allergies Home Medications Medication Instructions Recorded Confirmed Type No Known Home Medications 07/25/20 07/25/20 History Allergies Allergy/AdvReac Type Severity Reaction Status Date / Time No Known Allergies Allergy Verified 07/25/20 07:37 Exam Vital Signs Temp Pulse Pulse Resp BP BP Pulse Ox 07/26/20 11:25 97 F L 71 18 112/57 94 L 07/26/20 08:00 73 18 135/63 95 07/26/20 04:00 97.8 F 69 18 150/72 96 07/26/20 02:00 18 07/26/20 00:00 97.9 F 72 18 164/73 95 07/25/20 20:00 97.6 F 79 18 127/80 95 07/25/20 19:00 98.7 F 07/25/20 17:10 73 18 152/76 97 07/25/20 12:21 78 18 184/101 98 Intake and Output 07/25/20 07/26/20 07/26/20 22:59 06:59 14:59 Output Total 195 820 Balance -195 -820 Output: Urine 195 820 Other: Voiding Method Indwelling Catheter Indwelling Catheter Indwelling Catheter Physical examination demonstrates a morbidly obese white female in no acute distress though she does have a clearly demonstrable weakness in her upper extremities. Her abdomen is obese, nondistended, has normal active bowel sounds, soft, nontender, and without any palpable masses, hepatosplenomegaly, or hernias. Pelvic examination is deferred to the operating room under anesthesia. Results Result Diagrams: 07/26/20 03:11 07/26/20 03:11 Abnormal Lab Results - Last 24 Hours (Table) 07/25/20 07/25/20 07/25/20 Range/Units 11:51 14:50 21:53 WBC (3.8-10.6) k/uL ESR (0-20) mm/hr Sodium 127 L 124 L (137-145) mmol/L Potassium 5.8 H 5.8 H (3.5-5.1) mmol/L Chloride 95 L (98-107) mmol/L Carbon Dioxide 20 L 20 L (22-30) mmol/L BUN 55 H 57 H (7-17) mg/dL Creatinine 2.77 H 2.82 H (0.52-1.04) mg/dL Glucose 134 H 145 H (74-99) mg/dL POC Glucose (mg/dL) (75-99) mg/dL Calcium 7.7 L 7.3 L (8.4-10.2) mg/dL Iron (50-170) ug/dL TIBC (228-460) ug/dL Ferritin (10.0-291.0) ng/mL AST (14-36) U/L ALT (4-34) U/L Creatine Kinase [id number] H* (30-135) U/L Total Protein (6.3-8.2) g/dL Albumin (3.5-5.0) g/dL 07/25/20 07/25/20 07/26/20 Range/Units 22:05 22:20 01:16 WBC (3.8-10.6) k/uL ESR 35 H (0-20) mm/hr Sodium (137-145) mmol/L Potassium (3.5-5.1) mmol/L Chloride (98-107) mmol/L Carbon Dioxide (22-30) mmol/L BUN (7-17) mg/dL Creatinine (0.52-1.04) mg/dL Glucose (74-99) mg/dL POC Glucose (mg/dL) 124 H (75-99) mg/dL Calcium (8.4-10.2) mg/dL Iron (50-170) ug/dL TIBC (228-460) ug/dL Ferritin (10.0-291.0) ng/mL AST (14-36) U/L ALT (4-34) U/L Creatine Kinase [id number] H* (30-135) U/L Total Protein (6.3-8.2) g/dL Albumin (3.5-5.0) g/dL 07/26/20 07/26/20 Range/Units 03:11 03:11 WBC 14.7 H (3.8-10.6) k/uL ESR (0-20) mm/hr Sodium 122 L (137-145) mmol/L Potassium (3.5-5.1) mmol/L Chloride 90 L (98-107) mmol/L Carbon Dioxide (22-30) mmol/L BUN 58 H (7-17) mg/dL Creatinine 3.15 H (0.52-1.04) mg/dL Glucose 116 H (74-99) mg/dL POC Glucose (mg/dL) (75-99) mg/dL Calcium 7.0 L (8.4-10.2) mg/dL Iron 29 L (50-170) ug/dL TIBC 197 L (228-460) ug/dL Ferritin 542.6 H (10.0-291.0) ng/mL AST 2906 H (14-36) U/L ALT 848 H (4-34) U/L Creatine Kinase (30-135) U/L Total Protein 4.9 L (6.3-8.2) g/dL Albumin 2.2 L (3.5-5.0) g/dL Assessment and Plan (1) Postmenopausal bleeding Current Visit: Yes Status: Acute Code(s): N95.0 - POSTMENOPAUSAL BLEEDING SNOMED Code(s): 49703133 (2) Uterine mass Current Visit: Yes Status: Acute Code(s): N85.8 - OTHER SPECIFIED NONINFLAMMATORY DISORDERS OF UTERUS SNOMED Code(s): 803291558376115 Plan: Biopsy is clearly indicated at this point as any bleeding at the age of 70 is abnormal. Given her ultrasound findings, there is a significant concern for malignancy. I have discussed this with the patient and recommended that she undergo diagnostic hysteroscopy with dilation and curettage. The risks and complications of this procedure have been thoroughly discussed including the risk for bleeding, bleeding requiring transfusion, infection, and injury to local structures which would specifically include uterine perforation which is a reasonable concern should the uterus have significant tumor. She has understood all this and has agreed to proceed. We will attempt to schedule this for tomorrow morning in order to try to establish a primary diagnosis which may relate to all of her other ongoing medical conditions. The case was discussed with Dr. Velez.
[2020-07-26 12:58] LABS: Albumin 2.2 g/dL (3.5-5.0); Calcium 6.9 mg/dL (8.4-10.2); Potassium 5.2 mmol/L (3.5-5.1); Total Bilirubin 0.5 mg/dL (0.2-1.3)
[2020-07-26] MEDS: SODIUM CHLORIDE 0.9% 1,000 ML IV SCH ×3 (13:39→20:35)
[2020-07-26 13:45] LABS: Basophils # (A) 0.1 k/uL (0-0.2); Basophils % (A) 1 %; Eosinophils % (A) 0 %; HCT 37.4 % (34.0-46.0); HGB 12.9 gm/dL (11.4-16.0); Lymphocytes # (A) 0.7 k/uL (1.0-4.8); Lymphocytes % (A) 4 %; MCHC 34.4 g/dL (31.0-37.0); MCV 81.4 fL (80.0-100.0); Mean Platelet Volume 9.1; Monocytes # (A) 0.8 k/uL (0-1.0); Monocytes % (A) 5 %; Neutrophils # (A) 14.1 k/uL (1.3-7.7); Neutrophils % (A) 89 %; Platelet Count 141 k/uL (150-450); RDW 15.3 % (11.5-15.5); WBC 15.7 k/uL (3.8-10.6)
--- NOTE | 2020-07-26 14:25 | P.CRDCN ---
History of Present Illness Consult date: 07/26/20 History of present illness: CHIEF COMPLAINT: A. fib HISTORY OF PRESENT ILLNESS: This is a 70-year old female who was transferred from [facility]. She initially presented with weakness and shoulder pain. Patient does not follow with a reservation agent. We have been asked to see the patient in consultation for atrial fibrillation. Patient examined at the bedside. Patient denies a history of atrial fibrillation. She denies any previous cardiac history. She currently denies chest pain or pressure. She denies shortness of breath. DIAGNOSTICS: EKG reveals atrial fibrillation with controlled ventricular rate Laboratory data: WBC 15.7. Hemoglobin 12.9. Platelet count 141. Sodium 123. Potassium 5.2. BUN 60. Creatinine 3.33. AST 2972. ALT 866. Creatinine kinase 141,975. Current home cardiac medications include none REVIEW OF SYSTEMS: At the time of my exam: CONSTITUTIONAL: Denies fever or chills. Reports significant weakness. HEENT: Denies blurred vision, vision changes, or eye pain. Denies hemoptysis CARDIOVASCULAR: Denies chest pain, orthopnea, PND or palpitations RESPIRATORY: No shortness of breath. GASTROINTESTINAL: Denies abdominal pain. Denies nausea or vomiting. HEMATOLOGIC: Denies bleeding disorders. GENITOURINARY: Denies any blood in urine. SKIN: Denies pruitis. Denies rash. PHYSICAL EXAM: VITAL SIGNS: Reviewed. GENERAL: Well-developed in no acute distress. HEENT: Head is normocephalic. Pupils are equal, round. Sclerae anicteric. Mucous membranes of the mouth are moist. Neck supple. No JVD or thyromegaly LUNGS: Respirations even and unlabored. Lungs essentially clear to auscultation bilaterally. HEART: Irregular rate and rhythm. S1 and S2 heard. ABDOMEN: Soft. Nondistended. Nontender. EXTREMITIES: Normal range of motion. No clubbing or cyanosis. Peripheral pulses intact. No lower extremity edema NEUROLOGIC: Awake and alert. Oriented x 3. ASSESSMENT: New-onset atrial fibrillation with controlled ventricular rate Rhabdomyolysis Acute hepatitis Possible pyelonephritis Acute kidney injury Hyperkalemia Probable Poly/dermatomyositis Uterine mass with vaginal bleeding Cystic pancreatic mass PLAN: Continue telemetry monitoring Obtain 2-D echo to assess cardiac structure and function Check TSH Will hold off on beta blockers as patients heart rate is currently controlled No anticoagulation at this time secondary to continued vaginal bleeding. Patient to undergo D&C tomorrow with OB. Nurse practitioner note has been reviewed by physician. Signing provider agrees with the documented findings, assessment, and plan of care. Past Medical History Additional Past Medical History / Comment(s): vertigo History of Any Multi-Drug Resistant Organisms: None Reported Past Surgical History: Cholecystectomy, Tubal Ligation Past Anesthesia/Blood Transfusion Reactions: No Reported Reaction Past Psychological History: No Psychological Hx Reported Smoking Status: Never smoker Past Alcohol Use History: None Reported Past Drug Use History: None Reported Medications and Allergies Home Medications Medication Instructions Recorded Confirmed Type No Known Home Medications 07/25/20 07/25/20 History Allergies Allergy/AdvReac Type Severity Reaction Status Date / Time No Known Allergies Allergy Verified 07/25/20 07:37 Physical Exam Vitals: Vital Signs Temp Pulse Pulse Resp BP BP Pulse Ox 07/26/20 13:45 18 07/26/20 11:25 97 F L 71 18 112/57 94 L 07/26/20 08:00 73 18 135/63 95 07/26/20 04:00 97.8 F 69 18 150/72 96 07/26/20 02:00 18 07/26/20 00:00 97.9 F 72 18 164/73 95 07/25/20 20:00 97.6 F 79 18 127/80 95 07/25/20 19:00 98.7 F 07/25/20 17:10 73 18 152/76 97 Intake and Output 07/25/20 07/26/20 07/26/20 22:59 06:59 14:59 Intake Total 1600 Output Total 195 820 Balance -195 -820 1600 Intake: IV 1600 Dextrose 5% in Water 1, 1600 000 ml @ 200 mls/hr IV . Q5H45M EVELYN with Sodium Bicarb (1 Meq/ml) 150 ml Rx#:[id number] Output: Urine 195 820 Other: Voiding Method Indwelling Catheter Indwelling Catheter Indwelling Catheter Results 07/26/20 13:14 07/26/20 12:15 Cardiac Enzymes 07/26/20 07/26/20 Range/Units 03:11 12:15 AST 2906 H 2972 H (14-36) U/L CBC 07/26/20 07/26/20 Range/Units 03:11 13:14 WBC 14.7 H 15.7 H (3.8-10.6) k/uL RBC 4.39 4.60 (3.80-5.40) m/uL Hgb 11.8 12.9 (11.4-16.0) gm/dL Hct 36.0 37.4 (34.0-46.0) % Plt Count 197 141 L (150-450) k/uL Comprehensive Metabolic Panel 07/25/20 07/25/20 07/26/20 Range/Units 14:50 21:53 03:11 Sodium 127 L 124 L 122 L (137-145) mmol/L Potassium 5.8 H 5.8 H 4.9 (3.5-5.1) mmol/L Chloride 99 95 L 90 L (98-107) mmol/L Carbon Dioxide 20 L 20 L 28 (22-30) mmol/L BUN 55 H 57 H 58 H (7-17) mg/dL Creatinine 2.77 H 2.82 H 3.15 H (0.52-1.04) mg/dL Glucose 134 H 145 H 116 H (74-99) mg/dL Calcium 7.7 L 7.3 L 7.0 L (8.4-10.2) mg/dL AST 2906 H (14-36) U/L ALT 848 H (4-34) U/L Alkaline Phosphatase 63 (38-126) U/L Total Protein 4.9 L (6.3-8.2) g/dL Albumin 2.2 L (3.5-5.0) g/dL 07/26/20 07/26/20 Range/Units 03:11 12:15 Sodium 123 L (137-145) mmol/L Potassium 4.8 5.2 H (3.5-5.1) mmol/L Chloride 89 L (98-107) mmol/L Carbon Dioxide 25 (22-30) mmol/L BUN 60 H (7-17) mg/dL Creatinine 3.33 H (0.52-1.04) mg/dL Glucose 129 H (74-99) mg/dL Calcium 6.9 L (8.4-10.2) mg/dL AST 2972 H (14-36) U/L ALT 866 H (4-34) U/L Alkaline Phosphatase 63 (38-126) U/L Total Protein 5.0 L (6.3-8.2) g/dL Albumin 2.2 L (3.5-5.0) g/dL Current Medications Generic Name Dose Route Start Last Admin Trade Name Freq PRN Reason Stop Dose Admin Acetaminophen 650 mg 07/25/20 01:22 Acetaminophen Tab 325 Mg Tab PO Q6HR PRN Mild Pain or Fever > 100.5 Hydrocodone Bitart/Acetaminophen 1 each 07/25/20 08:14 07/26/20 02:31 Hydrocodone/Apap 5-325mg 1 Each Tab PO 1 each Q6HR PRN Administration Pain Heparin Sodium (Porcine) 5,000 unit 07/25/20 08:00 07/26/20 10:22 Heparin Sodium,Porcine 5,000 Unit/Ml 1 Ml Vial SQ 5,000 unit Q8HR EVELYN Administration Hydralazine HCl 10 mg 07/25/20 11:39 07/25/20 12:20 Hydralazine Hcl 20 Mg/Ml 1 Ml Vial IVP 10 mg Q4HR PRN Administration Blood Pressure - High Ceftriaxone Sodium 1 gm/ 50 mls @ 100 mls/hr 07/25/20 09:00 07/26/20 10:22 Sodium Chloride IVPB 100 mls/hr Q24HR EVELYN Administration Sodium Chloride 1,000 mls @ 200 mls/hr 07/26/20 12:00 07/26/20 13:39 Saline 0.9% IV 200 mls/hr .Q5H EVELYN Administration Morphine Sulfate 4 mg 07/25/20 08:14 07/25/20 12:17 Morphine Sulfate 4 Mg/Ml Syringe IVP 4 mg Q4HR PRN Administration Pain Naloxone HCl 0.2 mg 07/25/20 01:22 Naloxone 0.4 Mg/Ml 1 Ml Vial IV Q2M PRN Opioid Reversal Intake and Output 07/25/20 07/26/20 07/26/20 22:59 06:59 14:59 Intake Total 1600 Output Total 195 820 Balance -195 -820 1600 Intake: IV 1600 Dextrose 5% in Water 1, 1600 000 ml @ 200 mls/hr IV . Q5H45M EVELYN with Sodium Bicarb (1 Meq/ml) 150 ml Rx#:[id number] Output: Urine 195 820 Other: Voiding Method Indwelling Catheter Indwelling Catheter Indwelling Catheter 07/26/20 13:14 07/26/20 12:15
--- NOTE | 2020-07-26 14:27 | P.CONS ---
History of Present Illness - Reason for Consult Consult date: 07/26/20 Elevated liver enzymes Requesting physician: Verito Velez - Chief Complaint Shoulder weakness and pain - History of Present Illness 70-year-old female with a medical history significant for obesity and vertigo who was transferred from outside hospital due to acute kidney injury, transaminitis, uterine mass after presenting with complaints of shoulder pain and weakness. The patient reports developing severe pain and weakness in her shoulders bilaterally. She was found to have multiple abnormal labs on presentation with a creatinine of 2.58, and markedly elevated liver enzymes with total bilirubin 0.5, alkaline phosphatase 63, AST 2906 and ALT 848. Patient was also found to have rhabdomyolysis with a significantly elevated CPK which is currently 135,482. Currently she is being seen with concern for possible malignancy with computed tomography scan performed at the outside hospital showing fat stranding in the left hemipelvis along the course of the distal ureter possibly related to pyelonephritis or left adnexal pathology with bladder wall thickening, hypodense mass in the uterus as well as moderate pelvic adenopathy and a cystic mass in the pancreas. The gastroenterology service was consult dated for elevation in the patient's liver enzymes. On questioning the patient denies any high risk behavior, reporting very rare use of alcohol, no prior history of cirrhosis or viral hepatitis. She denies any new medications or antibiotics in the past few months, no family history of liver disease or evidence of decompensated liver disease with the patient denying any prior GI bleed, ascites or encephalopathy. Review of Systems REVIEW OF SYSTEMS: CONSTITUTIONAL: Denies any fevers, chills, weight change or fatigue. CARDIOVASCULAR: Denies any chest pain, palpitations high or low blood pressures RESPIRATORY: Denies any shortness of breath, hemoptysis or cough. GENITOURINARY: No dysuria or hematuria. MUSCULOSKELETAL: Bilateral shoulder weakness and pain. SKIN: Denies any new rashes or lesions, jaundice or pallor. PSYCHIATRIC: Denies any depression or anxiety. NEUROLOGY: Denies headache, denies any new focal deficits. EARS/NOSE/THROAT: No recent hearing change, congestion, nasal discharge or sore throat. EYES: No pain in eyes, discharge or change in vision. GASTROINTESTINAL: As per HPI. Past Medical History Additional Past Medical History / Comment(s): vertigo History of Any Multi-Drug Resistant Organisms: None Reported Past Surgical History: Cholecystectomy, Tubal Ligation Past Anesthesia/Blood Transfusion Reactions: No Reported Reaction Past Psychological History: No Psychological Hx Reported Smoking Status: Never smoker Past Alcohol Use History: None Reported Past Drug Use History: None Reported Additional History: Family history: Reviewed with the patient in no significant history of liver disease. Medications and Allergies Home Medications Medication Instructions Recorded Confirmed Type No Known Home Medications 07/25/20 07/25/20 History Allergies Allergy/AdvReac Type Severity Reaction Status Date / Time No Known Allergies Allergy Verified 07/25/20 07:37 Physical Exam Vitals: Vital Signs Temp Pulse Pulse Resp BP BP Pulse Ox 07/26/20 08:00 73 18 135/63 95 07/26/20 04:00 97.8 F 69 18 150/72 96 07/26/20 02:00 18 07/26/20 00:00 97.9 F 72 18 164/73 95 07/25/20 20:00 97.6 F 79 18 127/80 95 07/25/20 19:00 98.7 F 07/25/20 17:10 73 18 152/76 97 07/25/20 12:21 78 18 184/101 98 Intake and Output 07/25/20 07/26/20 07/26/20 22:59 06:59 14:59 Output Total 195 820 Balance -195 -820 Output: Urine 195 820 Other: Voiding Method Indwelling Catheter Indwelling Catheter Indwelling Catheter On physical examination, patient appears comfortable in no apparent distress. HEAD: Normocephalic, atraumatic. EYES: No scleral icterus. No conjunctival injection. MOUTH: No lesions, tongue midline. NECK: Trachea midline, no gross abnormalities. CHEST: Clear to auscultation with no wheezing or rhonchi appreciated. HEART: Regular rate and rhythm. ABDOMEN: Soft, obese. Bowel sounds are positive. No organomegaly. No guarding or rigidity. EXTREMITIES: No pedal edema. SKIN: No rashes, no jaundice. NEUROLOGIC: Alert and oriented x3. Bilateral arm weakness secondary to rhabdomyolysis. Results CBC & Chem 7: 07/26/20 13:14 07/26/20 12:15 Labs: Abnormal Lab Results - Last 24 Hours (Table) 07/25/20 07/25/20 07/25/20 Range/Units 11:51 14:50 21:53 WBC (3.8-10.6) k/uL ESR (0-20) mm/hr Sodium 127 L 124 L (137-145) mmol/L Potassium 5.8 H 5.8 H (3.5-5.1) mmol/L Chloride 95 L (98-107) mmol/L Carbon Dioxide 20 L 20 L (22-30) mmol/L BUN 55 H 57 H (7-17) mg/dL Creatinine 2.77 H 2.82 H (0.52-1.04) mg/dL Glucose 134 H 145 H (74-99) mg/dL POC Glucose (mg/dL) (75-99) mg/dL Calcium 7.7 L 7.3 L (8.4-10.2) mg/dL Iron (50-170) ug/dL TIBC (228-460) ug/dL Ferritin (10.0-291.0) ng/mL AST (14-36) U/L ALT (4-34) U/L Creatine Kinase [id number] H* (30-135) U/L Total Protein (6.3-8.2) g/dL Albumin (3.5-5.0) g/dL 07/25/20 07/25/20 07/26/20 Range/Units 22:05 22:20 01:16 WBC (3.8-10.6) k/uL ESR 35 H (0-20) mm/hr Sodium (137-145) mmol/L Potassium (3.5-5.1) mmol/L Chloride (98-107) mmol/L Carbon Dioxide (22-30) mmol/L BUN (7-17) mg/dL Creatinine (0.52-1.04) mg/dL Glucose (74-99) mg/dL POC Glucose (mg/dL) 124 H (75-99) mg/dL Calcium (8.4-10.2) mg/dL Iron (50-170) ug/dL TIBC (228-460) ug/dL Ferritin (10.0-291.0) ng/mL AST (14-36) U/L ALT (4-34) U/L Creatine Kinase [id number] H* (30-135) U/L Total Protein (6.3-8.2) g/dL Albumin (3.5-5.0) g/dL 07/26/20 07/26/20 Range/Units 03:11 03:11 WBC 14.7 H (3.8-10.6) k/uL ESR (0-20) mm/hr Sodium 122 L (137-145) mmol/L Potassium (3.5-5.1) mmol/L Chloride 90 L (98-107) mmol/L Carbon Dioxide (22-30) mmol/L BUN 58 H (7-17) mg/dL Creatinine 3.15 H (0.52-1.04) mg/dL Glucose 116 H (74-99) mg/dL POC Glucose (mg/dL) (75-99) mg/dL Calcium 7.0 L (8.4-10.2) mg/dL Iron 29 L (50-170) ug/dL TIBC 197 L (228-460) ug/dL Ferritin 542.6 H (10.0-291.0) ng/mL AST 2906 H (14-36) U/L ALT 848 H (4-34) U/L Creatine Kinase (30-135) U/L Total Protein 4.9 L (6.3-8.2) g/dL Albumin 2.2 L (3.5-5.0) g/dL CT scan - abdomen: report reviewed (Report from outside facility reviewed.) Assessment and Plan Assessment: 1. Elevated liver enzymes: 70-year-old female with a known history of obesity and vertigo who was seen at outside hospital for bilateral shoulder weakness and pain in transfer for further evaluation. Currently the patient is being treated for elevated creatinine in the setting of rhabdomyolysis, she is also being seen for a possible pelvic mass. Liver enzymes significantly elevated on presentation predominantly in a hepatocellular pattern with total bilirubin 0.5, alkaline phosphatase 63, AST 2906 and ALT 148. Suspicion is for elevation secondary to rhabdomyolysis, full serology will be ordered to rule out other etiology, she reports any prior history of liver disease, high risk behavior or pertinent family history of liver disease. 2. Rhabdomyolysis. 3. Pancreatic cyst/mass seen on computed tomography scan. 4. Other medical comorbidities per primary team. Plan: Supportive care Appreciate recommendations from the consulting services, continue treatment of rhabdomyolysis per primary team and the recommendations Continue to monitor CBC, BMP and LFTs Full liver serology ordered to rule out intrinsic liver disease, suspicion is for elevation in liver enzymes secondary to rhabdomyolysis Computed tomography scan report from outside hospital revealed Patient will need further evaluation with MRI of the abdomen for evaluation of pancreatic mass or possible referral for endoscopic ultrasound in the future and pending clinical course Thank you for allowing us to participate in the care of the patient
[2020-07-26] MEDS: MORPHINE SULFATE 4 MG/ML SYRINGE IVP PRN ×2 (16:52→20:40)
--- NOTE | 2020-07-26 19:09 | P.PN ---
Subjective Progress Note Date: 07/26/20 (delayed charting seen at 0900) Principal diagnosis: shoulder pain Patient is a 70-year-old female with a past medical history of vertigo who presented with complaints of bilateral severe shoulder pain and weakness. She was transferred here for [facility] due to acute kidney injury, transaminitis, and uterine mass. There she had undergone a CT abdomen and pelvis without contrast which revealed fat stranding in the left vasyl-pelvis along the course of the distal ureter ureter with possible pyelonephritis versus acute left adnexal pathology, bladder wall thickening, hypodense mass in the uterus with mild to moderate pelvic adenopathy findings likely due to endometr ial mass, and cystic mass in the pancreas but follow-up MRI recommended. On arrival here her sodium was 125, potassium 6.6, chloride 96, carbon dioxide 19, BUN 47, and creatinine 2.58. She was also found have an AST of 3421, ALT 1002, white blood cell count 16.2. Urinalysis was consistent with rhabdo but did not appear consistent with urinary tract infection, however patient had already received Rocephin. She was started on IV fluids and arrangements were made for admission. CPK was ordered which came back at [id number],[phone]. She subsequently received an additional 2 L of IV fluid and her IV fluid drip was increased. Gynecology was consulted regarding her uterine mass. Nephrology was consulted for possible STEVE Vs CKD in conjunction with severe rhabdo. Hematology and oncology was consulted secondary to concern for possible dermatomyositis versus polymyositis that could be related to her uterine mass. She went into rate controlled A fib on 07/25 which was rate controlled. Cardio was consulted and recommended TSH and echo. Seen by [employer] and plan is for D and C with biopsy in AM. CT chest without metastatic disease. GI consulted for acute hepatitis. Patient seen and examined at bedside. Her arm pain is slightly less today. She is still having weakness in bilateral upper extremity. No chest pain, no shortness of breath. Having some vaginal bleeding. 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 -Aldolase level pending - Consult rheumatology in AM, if available, muscle biopsy if available -Continue to follow AST and ALT -Continue to follow CK -Heme/onc recs appreciated -Inpatient vs Outpatient rheumatolgy evaluation, consider muscle biopsy -Hold off on steroids at this time. Rhabdomyolysis - Suspect secondary to inflammatory at myositis - Sodium bicarb transitioned to NS by nephrology - Repeat labs at 1900 - Strict I's and O's, Whaley catheter inserted. Thrombocytopenia, undetermined cause and mild - follow CBC - Check INR in AM prior to surgery Hyperkalemia secondary to above -Continue with sodium bicarb drip -Monitor K again at 1900 Acute hepatitis suspect secondary to underlying rhabdo and inflammatory myositis -Repeat liver enzymes in a.m. -Acute hepatitis profile negative -REBEKA negative - antimitochondrial antibody pending - GI recs appreciated Possible pyelonephritis -Continue with Rocephin -Await urine culture Acute kidney injury with metabolic acidosis, worsening -Continue with IV fluids -Avoid additional nephrotoxic agents -Repeat labs in a.m. -Elevated phosphorus level which may be consistent with some form of chronic kidney disease Uterine mass with dysfunctional uterine bleeding - [employer] recs appreciated: biopsy in AM with D and C - Onc recs appreciated Cystic Pancreatic mass pancreatic mass - MRI for further evaluation Morbid obesity with BMI 43.6 -Outpatient structured weight loss Elevated blood pressure without underlying diagnosis of hypertension -Continue with when necessary hydralazine -Continue to monitor DVT prophylaxis: Heparin Discussed with: patient, nursing, nephrology Anticipated discharge: 5-[address]: home A total of 35 minutes was spent on the care of this complex patient more than 50% of the time was spent in counseling and care coordination. Objective - Vital Signs Vital signs: Vital Signs Temp 97.2 F L 07/26/20 16:33 Pulse 70 07/26/20 16:33 Resp 18 07/26/20 16:33 BP 135/64 07/26/20 16:33 Pulse Ox 94 L 07/26/20 16:33 Intake & Output 07/25/20 07/26/20 07/26/20 18:59 06:59 18:59 Intake Total 1850 Output Total 895 820 400 Balance -895 -820 1450 Weight 122.47 kg Intake: IV 1600 Dextrose 5% in Water 1, 1600 000 ml @ 200 mls/hr IV . Q5H45M EVELYN with Sodium Bicarb (1 Meq/ml) 150 ml Rx#:[id number] Oral 250 Output: Urine 895 820 400 Other: Voiding Method Indwelling Catheter Indwelling Catheter # Bowel Movements 2 - Labs CBC & Chem 7: 07/26/20 13:14 07/26/20 12:15 Labs: Abnormal Lab Results - Last 24 Hours (Table) 07/25/20 07/25/20 07/25/20 Range/Units 21:53 22:05 22:20 WBC (3.8-10.6) k/uL Plt Count (150-450) k/uL Neutrophils # (1.3-7.7) k/uL Lymphocytes # (1.0-4.8) k/uL ESR 35 H (0-20) mm/hr Sodium 124 L (137-145) mmol/L Potassium 5.8 H (3.5-5.1) mmol/L Chloride 95 L (98-107) mmol/L Carbon Dioxide 20 L (22-30) mmol/L BUN 57 H (7-17) mg/dL Creatinine 2.82 H (0.52-1.04) mg/dL Glucose 145 H (74-99) mg/dL POC Glucose (mg/dL) (75-99) mg/dL Calcium 7.3 L (8.4-10.2) mg/dL Iron (50-170) ug/dL TIBC (228-460) ug/dL Ferritin (10.0-291.0) ng/mL AST (14-36) U/L ALT (4-34) U/L Creatine Kinase [id number] H* (30-135) U/L Total Protein (6.3-8.2) g/dL Albumin (3.5-5.0) g/dL 07/26/20 07/26/20 07/26/20 Range/Units 01:16 03:11 03:11 WBC 14.7 H (3.8-10.6) k/uL Plt Count (150-450) k/uL Neutrophils # (1.3-7.7) k/uL Lymphocytes # (1.0-4.8) k/uL ESR (0-20) mm/hr Sodium 122 L (137-145) mmol/L Potassium (3.5-5.1) mmol/L Chloride 90 L (98-107) mmol/L Carbon Dioxide (22-30) mmol/L BUN 58 H (7-17) mg/dL Creatinine 3.15 H (0.52-1.04) mg/dL Glucose 116 H (74-99) mg/dL POC Glucose (mg/dL) 124 H (75-99) mg/dL Calcium 7.0 L (8.4-10.2) mg/dL Iron 29 L (50-170) ug/dL TIBC 197 L (228-460) ug/dL Ferritin 542.6 H (10.0-291.0) ng/mL AST 2906 H (14-36) U/L ALT 848 H (4-34) U/L Creatine Kinase (30-135) U/L Total Protein 4.9 L (6.3-8.2) g/dL Albumin 2.2 L (3.5-5.0) g/dL 07/26/20 07/26/20 07/26/20 Range/Units 09:23 12:15 13:14 WBC 15.7 H (3.8-10.6) k/uL Plt Count 141 L (150-450) k/uL Neutrophils # 14.1 H (1.3-7.7) k/uL Lymphocytes # 0.7 L (1.0-4.8) k/uL ESR (0-20) mm/hr Sodium 123 L (137-145) mmol/L Potassium 5.2 H (3.5-5.1) mmol/L Chloride 89 L (98-107) mmol/L Carbon Dioxide (22-30) mmol/L BUN 60 H (7-17) mg/dL Creatinine 3.33 H (0.52-1.04) mg/dL Glucose 129 H (74-99) mg/dL POC Glucose (mg/dL) (75-99) mg/dL Calcium 6.9 L (8.4-10.2) mg/dL Iron (50-170) ug/dL TIBC (228-460) ug/dL Ferritin (10.0-291.0) ng/mL AST 2972 H (14-36) U/L ALT 866 H (4-34) U/L Creatine Kinase 602257 H* (30-135) U/L Total Protein 5.0 L (6.3-8.2) g/dL Albumin 2.2 L (3.5-5.0) g/dL
[2020-07-26 22:44] LABS: Calcium 6.6 mg/dL (8.4-10.2); Potassium 5.4 mmol/L (3.5-5.1)
[2020-07-27] MEDS: HEPARIN SODIUM,PORCINE 5,000 UNIT/ML 1 ML VIAL SQ SCH ×4 (00:53→23:41)
[2020-07-27] MEDS: SODIUM CHLORIDE 0.9% 1,000 ML IV SCH ×5 (01:32→23:27)
[2020-07-27] MEDS: MORPHINE SULFATE 4 MG/ML SYRINGE IVP PRN ×3 (01:34→20:41)
[2020-07-27 08:56] LABS: HCT 33.7 % (34.0-46.0); HGB 11.5 gm/dL (11.4-16.0); MCH 27.8 pg (25.0-35.0); MCHC 34.1 g/dL (31.0-37.0); MCV 81.5 fL (80.0-100.0); Mean Platelet Volume 8.9; Platelet Count 174 k/uL (150-450); RBC 4.14 m/uL (3.80-5.40); RDW 15.3 % (11.5-15.5); WBC 13.1 k/uL (3.8-10.6)
[2020-07-27 09:25] LABS: Albumin 2.1 g/dL (3.5-5.0); Alkaline Phosphatase 55 U/L (38-126); Anion Gap 8 mmol/L; Bilirubin, Delta 0.6 mg/dL (0.0-0.2); Blood Urea Nitrogen 62 mg/dL (7-17); Calcium 6.6 mg/dL (8.4-10.2); Carbon Dioxide 25 mmol/L (22-30); Chloride 93 mmol/L (98-107); Glucose 80 mg/dL (74-99); Magnesium 2.1 mg/dL (1.6-2.3); Sodium 126 mmol/L (137-145); Total Bilirubin 0.6 mg/dL (0.2-1.3); Total Protein 4.8 g/dL (6.3-8.2)
[2020-07-27 09:37] LABS: Potassium 6.1 mmol/L (3.5-5.1)
[2020-07-27] MEDS ORDERED: DEXTROSE 50% SYRINGE 50 ML IVP STA (09:48)
[2020-07-27] MEDS ORDERED: INSULIN REGULAR 100 UNIT/ML VIAL IV ONE (09:48)
[2020-07-27] MEDS ORDERED: SODIUM BICARB 8.4% 50 ML SYR (1 MEQ/ML) IV STA (09:48)
[2020-07-27] MEDS ORDERED: SODIUM POLYSTYRENE SULFONATE 15 GM/60 ML BOTTLE PO STA (09:49)
--- NOTE | 2020-07-27 09:50 | P.PN ---
Subjective Progress Note Date: 07/27/20 This is a pleasant 70-year-old female who was transferred from [facility]. She initially presented there with symptoms of weakness and shoulder discomfort. Cardiology was asked to see the patient because of new onset of atrial fibrillation. Patient also has a uterine mass with vaginal b leeding and is scheduled today to undergo D&C with biopsies. Continues to be in atrial fibrillation this morning, her heart rate is under adequate control. Blood pressure 118/70 with a heart rate in the 60s, 95% on room air. White blood cell count 13.1, hemoglobin 11.5, platelet count 174. Sodium 126, potassium 6.1, BUN 62, creatinine not calculated. The patient was seen and examined this morning, she feels well, no complaints overall. She will need to be initiated on oral anticoagulation, we will await recommendations following her D&C and the biopsies today. Continue subcu heparin at this time. Review the echocardiogram with Doppler study. Objective - Vital Signs Vital signs: Vital Signs Temp 97.8 F 07/27/20 07:59 Pulse 67 07/27/20 07:59 Resp 18 07/27/20 07:59 BP 116/70 07/27/20 07:59 Pulse Ox 95 07/27/20 07:59 Intake & Output 07/26/20 07/27/20 07/27/20 18:59 06:59 18:59 Intake Total 1850 2450 Output Total 400 Balance 1450 2450 Weight 122 kg Intake: IV 1600 Dextrose 5% in Water 1, 1600 000 ml @ 200 mls/hr IV . Q5H45M EVELYN with Sodium Bicarb (1 Meq/ml) 150 ml Rx#:[id number] Intake, IV Titration 2000 Amount Sodium Chloride 0.9% 1, 2000 000 ml @ 200 mls/hr IV . Q5H EVELYN Rx#:[id number] Oral 250 450 Output: Urine 400 Other: Voiding Method Indwelling Catheter Indwelling Catheter # Bowel Movements 2 - Exam PHYSICAL EXAMINATION: GENERAL: 70-year-old female in no acute distress at the time of my examination HEENT: Head is atraumatic, normocephalic. Pupils equal, round. Sclera anicteric. Conjunctiva are clear. Mucous membranes of the mouth are moist. Neck is supple. There is no elevated jugular venous pressure. No carotid bruit is heard. HEART EXAMINATION: S1 and S2 irregularly irregular CHEST EXAMINATION: Lungs are clear to auscultation and precussion. No chest wall tenderness is noted on palpation or with deep breathing. ABDOMEN: Soft, obese, nontender. Bowel sounds are heard. No organomegaly noted. EXTREMITIES: 2+ peripheral pulses with no evidence of peripheral edema and no calf tenderness noted. NEUROLOGIC patient is awake, alert and oriented 3 . - Labs CBC & Chem 7: 07/27/20 08:19 07/27/20 08:19 Labs: Abnormal Lab Results - Last 24 Hours (Table) 07/25/20 07/26/20 07/26/20 Range/Units 01:26 03:11 09:23 WBC (3.8-10.6) k/uL Hct (34.0-46.0) % Plt Count (150-450) k/uL Neutrophils # (1.3-7.7) k/uL Lymphocytes # (1.0-4.8) k/uL Sodium (137-145) mmol/L Potassium (3.5-5.1) mmol/L Chloride (98-107) mmol/L BUN (7-17) mg/dL Creatinine (0.52-1.04) mg/dL Glucose (74-99) mg/dL Calcium (8.4-10.2) mg/dL Iron 29 L (50-170) ug/dL TIBC 197 L (228-460) ug/dL Ferritin 542.6 H (10.0-291.0) ng/mL Delta Bilirubin (0.0-0.2) mg/dL AST (14-36) U/L ALT (4-34) U/L Creatine Kinase 034231 H* (30-135) U/L Total Protein (6.3-8.2) g/dL Albumin (3.5-5.0) g/dL Aldolase 380.0 H (1.2-7.6) U/L 07/26/20 07/26/20 07/26/20 Range/Units 12:15 13:14 22:15 WBC 15.7 H (3.8-10.6) k/uL Hct (34.0-46.0) % Plt Count 141 L (150-450) k/uL Neutrophils # 14.1 H (1.3-7.7) k/uL Lymphocytes # 0.7 L (1.0-4.8) k/uL Sodium 123 L 123 L (137-145) mmol/L Potassium 5.2 H 5.4 H (3.5-5.1) mmol/L Chloride 89 L 88 L (98-107) mmol/L BUN 60 H 62 H (7-17) mg/dL Creatinine 3.33 H 3.39 H (0.52-1.04) mg/dL Glucose 129 H 120 H (74-99) mg/dL Calcium 6.9 L 6.6 L (8.4-10.2) mg/dL Iron (50-170) ug/dL TIBC (228-460) ug/dL Ferritin (10.0-291.0) ng/mL Delta Bilirubin (0.0-0.2) mg/dL AST 2972 H (14-36) U/L ALT 866 H (4-34) U/L Creatine Kinase 034470 H* (30-135) U/L Total Protein 5.0 L (6.3-8.2) g/dL Albumin 2.2 L (3.5-5.0) g/dL Aldolase (1.2-7.6) U/L 07/27/20 07/27/20 Range/Units 08:19 08:19 WBC 13.1 H (3.8-10.6) k/uL Hct 33.7 L (34.0-46.0) % Plt Count (150-450) k/uL Neutrophils # (1.3-7.7) k/uL Lymphocytes # (1.0-4.8) k/uL Sodium 126 L (137-145) mmol/L Potassium 6.1 H* (3.5-5.1) mmol/L Chloride 93 L (98-107) mmol/L BUN 62 H (7-17) mg/dL Creatinine (0.52-1.04) mg/dL Glucose (74-99) mg/dL Calcium 6.6 L (8.4-10.2) mg/dL Iron (50-170) ug/dL TIBC (228-460) ug/dL Ferritin (10.0-291.0) ng/mL Delta Bilirubin 0.6 H (0.0-0.2) mg/dL AST (14-36) U/L ALT (4-34) U/L Creatine Kinase (30-135) U/L Total Protein 4.8 L (6.3-8.2) g/dL Albumin 2.1 L (3.5-5.0) g/dL Aldolase (1.2-7.6) U/L Assessment and Plan Plan: Assessment and plan #1 persistent atrial fibrillation, rate under adequate control, A. fib appears to be new for the patient. She will need to be initiated on oral anticoagulation, she is currently having the vaginal bleeding and is scheduled today to undergo a D&C with biopsies. #2 morbid obesity #3 rhabdomyolysis #4 possible polynephritis #5 acute kidney injury #6 hyperkalemia #7 uterine mass with vaginal bleeding #8 cystic pancreatic mass #9 hyponatremia Plan We will review the patient's echocardiogram with Doppler study. TSH level is normal. Patient will need to be initiated on oral anticoagulation for stroke prevention. We will await recommendations following her D&C with biopsies today. Further recommendations to follow. DNP note has been reviewed, I agree with a documented findings and plan of care. Patient was seen and examined.
--- NOTE | 2020-07-27 10:08 | ECHOF ---
Referral Reason:LV function MEASUREMENTS -------- HEIGHT: 167.6 cm WEIGHT: 121.6 kg BP: 129/59 IVSd: 1.8 cm (0.6 - 1.1) LVIDd: 4.1 cm (3.9 - 5.3) LVPWd: 2.0 cm (0.6 - 1.1) EDV(Teich): 76 ml IVSs: 2.3 cm LVIDs: 2.5 cm LVPWs: 2.4 cm %IVS Thck: 28 % ESV(Teich): 21 ml EF(Teich): 72 % %FS: 41 % SV(Teich): 55 ml RVIDd: 3.5 cm (< 3.3) RA Diam: 4.6 cm LALs A4C: 6.0 cm LAAs A4C: 24.2 cm LAESV A-L A4C: 82 ml LAESV MOD A4C: 81 ml LALs A2C: 5.9 cm LAAs A2C: 23.8 cm LAESV A-L A2C: 81 ml LAESV MOD A2C: 76 ml LAESV(A-L): 83 ml LAESV Index (A-L): 36.34 ml/m Ao Diam: 3.3 cm (2.0 - 3.7) AV Cusp: 2.3 cm (1.5 - 2.6) EPSS: 0.2 cm LVOT Vmax: 1.51 m/s LVOT maxP.17 mmHg AV Vmax: 1.67 m/s AV maxP.11 mmHg TR Vmax: 2.79 m/s TR maxP.05 mmHg RAP: 5.00 mmHg RVSP: 36.05 mmHg MV EF SLOPE: 85.22 mm/s (70 - 150) MV EXCURSION: 15.89 mm (> 18.000) FINDINGS -------- Atrial fibrillation. This was a technically adequate study. The left ventricular size is normal. There is moderate concentric left ventricular hypertrophy. O verall left ventricular systolic function is normal with, an EF between 55 - 60 %. The right ventricle is mildly enlarged. LA is moderately dilated 34-39 ml/m2 The right atrium is mildly enlarged. Interatrial and interventricular septum intact. There is mild aortic valve sclerosis. There is no evidence of aortic regurgitation. Mild mitral annular calcification present. Mild mitral regurgitation is present. Mild tricuspid regurgitation present. There is mild pulmonary hypertension. The right ventricular systolic pressure, as measured by Doppler, is 36.05mmHg. There is no pulmonic regurgitation present. The aortic root size is normal. IVC Not well visulized. There is no pericardial effusion. CONCLUSIONS -------- 1. There is moderate concentric left ventricular hypertrophy. 2. Overall left ventricular systolic function is normal with, an EF between 55 - 60 %. 3. The right ventricle is mildly enlarged. 4. LA is moderately dilated 34-39 ml/m2 5. The right atrium is mildly enlarged. 6. There is mild aortic valve sclerosis. 7. Mild mitral regurgitation is present. 8. Mild tricuspid regurgitation present. 9. There is mild pulmonary hypertension. ASSOCIATE ACCOUNT MANAGER: Tracey Valencia RDCS
[2020-07-27] MEDS ORDERED: SODIUM POLYSTYRENE SULFONATE 15 GM/60 ML BOTTLE PO ONE (11:15)
[2020-07-27 14:14] LABS: Prothrombin Time 10.1 sec (9.0-12.0)
--- NOTE | 2020-07-27 14:57 | P.PN ---
Subjective Progress Note Date: 07/27/20 Follow-up for acute kidney injury and hyperkalemia. Urine output of 400 mls in the last 24 hours. Objective - Vital Signs Vital signs: Vital Signs Temp 97.2 F L 07/27/20 11:04 Pulse 66 07/27/20 11:04 Resp 18 07/27/20 11:04 BP 127/72 07/27/20 11:04 Pulse Ox 92 L 07/27/20 11:04 Intake & Output 07/26/20 07/27/20 07/27/20 18:59 06:59 18:59 Intake Total 1850 2450 Output Total 400 Balance 1450 2450 Weight 122 kg Intake: IV 1600 Dextrose 5% in Water 1, 1600 000 ml @ 200 mls/hr IV . Q5H45M EVELYN with Sodium Bicarb (1 Meq/ml) 150 ml Rx#:[id number] Intake, IV Titration 2000 Amount Sodium Chloride 0.9% 1, 2000 000 ml @ 200 mls/hr IV . Q5H EVELYN Rx#:[id number] Oral 250 450 Output: Urine 400 Other: Voiding Method Indwelling Catheter Indwelling Catheter # Bowel Movements 2 - Exam No acute distress S1-S2 heard Lungs clear Edema - Labs CBC & Chem 7: 07/27/20 08:19 07/27/20 08:19 Labs: Abnormal Lab Results - Last 24 Hours (Table) 07/25/20 07/26/20 07/27/20 Range/Units 01:26 22:15 08:19 WBC 13.1 H (3.8-10.6) k/uL Hct 33.7 L (34.0-46.0) % Sodium 123 L (137-145) mmol/L Potassium 5.4 H (3.5-5.1) mmol/L Chloride 88 L (98-107) mmol/L BUN 62 H (7-17) mg/dL Creatinine 3.39 H (0.52-1.04) mg/dL Glucose 120 H (74-99) mg/dL Calcium 6.6 L (8.4-10.2) mg/dL Delta Bilirubin (0.0-0.2) mg/dL Creatine Kinase [id number] H* (30-135) U/L Total Protein (6.3-8.2) g/dL Albumin (3.5-5.0) g/dL Aldolase 380.0 H (1.2-7.6) U/L 07/27/20 Range/Units 08:19 WBC (3.8-10.6) k/uL Hct (34.0-46.0) % Sodium 126 L (137-145) mmol/L Potassium 6.1 H* (3.5-5.1) mmol/L Chloride 93 L (98-107) mmol/L BUN 62 H (7-17) mg/dL Creatinine (0.52-1.04) mg/dL Glucose (74-99) mg/dL Calcium 6.6 L (8.4-10.2) mg/dL Delta Bilirubin 0.6 H (0.0-0.2) mg/dL Creatine Kinase (30-135) U/L Total Protein 4.8 L (6.3-8.2) g/dL Albumin 2.1 L (3.5-5.0) g/dL Aldolase (1.2-7.6) U/L Assessment and Plan Assessment: #1 oliguric acute kidney injury secondary to toxic ATN from rhabdomyolysis. #2 hyperkalemia multifactorial #3 rhabdo, workup in process #4 hypervolemic hyponatremia #5 metabolic alkalosis resolving Plan: #1 continue with normal saline, decreased to 125 ML's an hour. #2 start hemodialysis, with persistent hyperkalemia. #3 avoid nephrotoxic agents and hypotensive episodes..
--- NOTE | 2020-07-27 15:26 | P.GSCN ---
History of Present Illness History of present illness: 70-year-old female, I was consulted for placement of urgent dialysis catheter. Patient has history of acute kidney injury secondary to ATN, patient also has history of rhabdomyolysis, history of uterine mass, history of hyperkalemia Neck examination neck is supple no bruit appreciated Chest chest is clear good entry both lungs first second sound present Abdomen abdomen nontender no peritoneal sign Vascular examination brachial radial femoral pulses are present Plan is placement dialysis catheter risk and complication discussed Past Medical History Additional Past Medical History / Comment(s): vertigo History of Any Multi-Drug Resistant Organisms: None Reported Past Surgical History: Cholecystectomy, Tubal Ligation Past Anesthesia/Blood Transfusion Reactions: No Reported Reaction Past Psychological History: No Psychological Hx Reported Smoking Status: Never smoker Past Alcohol Use History: None Reported Past Drug Use History: None Reported Medications and Allergies Home Medications Medication Instructions Recorded Confirmed Type No Known Home Medications 07/25/20 07/25/20 History Allergies Allergy/AdvReac Type Severity Reaction Status Date / Time No Known Allergies Allergy Verified 07/25/20 07:37 Surgical - Exam Vital Signs Temp Pulse Resp BP 97.9 F 91 20 170/97 07/25/20 00:11 07/25/20 00:11 07/25/20 00:11 07/25/20 00:11 Results - Labs 07/27/20 08:19 07/27/20 13:50 Abnormal Lab Results - Last 24 Hours (Table) 07/25/20 07/26/20 07/27/20 Range/Units 01:26 22:15 08:19 WBC 13.1 H (3.8-10.6) k/uL Hct 33.7 L (34.0-46.0) % ESR (0-20) mm/hr Sodium 123 L (137-145) mmol/L Potassium 5.4 H (3.5-5.1) mmol/L Chloride 88 L (98-107) mmol/L BUN 62 H (7-17) mg/dL Creatinine 3.39 H (0.52-1.04) mg/dL Glucose 120 H (74-99) mg/dL Calcium 6.6 L (8.4-10.2) mg/dL Delta Bilirubin (0.0-0.2) mg/dL AST (14-36) U/L ALT (4-34) U/L Creatine Kinase [id number] H* (30-135) U/L Total Protein (6.3-8.2) g/dL Albumin (3.5-5.0) g/dL Aldolase 380.0 H (1.2-7.6) U/L 07/27/20 07/27/20 07/27/20 Range/Units 08:19 13:50 13:50 WBC (3.8-10.6) k/uL Hct (34.0-46.0) % ESR 47 H (0-20) mm/hr Sodium 126 L (137-145) mmol/L Potassium 6.1 H* (3.5-5.1) mmol/L Chloride 93 L (98-107) mmol/L BUN 62 H (7-17) mg/dL Creatinine 2.88 H (0.52-1.04) mg/dL Glucose (74-99) mg/dL Calcium 6.6 L (8.4-10.2) mg/dL Delta Bilirubin 0.6 H (0.0-0.2) mg/dL AST 2654 H (14-36) U/L ALT 724 H (4-34) U/L Creatine Kinase (30-135) U/L Total Protein 4.8 L (6.3-8.2) g/dL Albumin 2.1 L (3.5-5.0) g/dL Aldolase (1.2-7.6) U/L Diabetes panel 07/26/20 07/27/20 07/27/20 Range/Units 22:15 08:19 13:50 Sodium 123 L 126 L (137-145) mmol/L Potassium 5.4 H 6.1 H* (3.5-5.1) mmol/L Chloride 88 L 93 L (98-107) mmol/L Carbon Dioxide 28 25 (22-30) mmol/L BUN 62 H 62 H (7-17) mg/dL Creatinine 3.39 H [facility] 2.88 H (0.52-1.04) mg/dL Glucose 120 H 80 (74-99) mg/dL Calcium 6.6 L 6.6 L (8.4-10.2) mg/dL AST [facility] [facility] 2654 H ALT [facility] 724 H Alkaline Phosphatase 55 (38-126) U/L Total Protein 4.8 L (6.3-8.2) g/dL Albumin 2.1 L (3.5-5.0) g/dL Calcium panel 07/26/20 07/27/20 Range/Units 22:15 08:19 Calcium 6.6 L 6.6 L (8.4-10.2) mg/dL Albumin 2.1 L (3.5-5.0) g/dL Pituitary panel 07/26/20 07/27/20 07/27/20 Range/Units 22:15 08:19 13:50 Sodium 123 L 126 L (137-145) mmol/L Potassium 5.4 H 6.1 H* (3.5-5.1) mmol/L Chloride 88 L 93 L (98-107) mmol/L Carbon Dioxide 28 25 (22-30) mmol/L BUN 62 H 62 H (7-17) mg/dL Creatinine 3.39 H [employer] 2.88 H (0.52-1.04) mg/dL Glucose 120 H 80 (74-99) mg/dL Calcium 6.6 L 6.6 L (8.4-10.2) mg/dL Adrenal panel 07/26/20 07/27/20 07/27/20 Range/Units 22:15 08:19 13:50 Sodium 123 L 126 L (137-145) mmol/L Potassium 5.4 H 6.1 H* (3.5-5.1) mmol/L Chloride 88 L 93 L (98-107) mmol/L Carbon Dioxide 28 25 (22-30) mmol/L BUN 62 H 62 H (7-17) mg/dL Creatinine 3.39 H [place] 2.88 H (0.52-1.04) mg/dL Glucose 120 H 80 (74-99) mg/dL Calcium 6.6 L 6.6 L (8.4-10.2) mg/dL Total Bilirubin 0.6 (0.2-1.3) mg/dL AST [facility] 2654 H ALT [facility] 724 H Alkaline Phosphatase 55 (38-126) U/L Total Protein 4.8 L (6.3-8.2) g/dL Albumin 2.1 L (3.5-5.0) g/dL
--- NOTE | 2020-07-27 15:28 | P.PCN ---
Description of Procedure: Preoperative diagnoses is acute chronic renal failure, hyperkalemia, Postoperative same Procedure patient was seen right groin was prepped and draped applied sterile manner. 1% lidocaine for infected right groin area ultrasound-guided micropuncture introduced right femoral vein and micropuncture guidewire was passed and 4-English dilator advanced on top of the guidewire of that we placed a regular guidewire without any resistance. Then we passed the dilator and then double lumen dialysis catheter advanced. The guidewire flushed with heparin saline and Hep-Lock secured with 3-0 nylon dressing applied patient for the procedure well
--- NOTE | 2020-07-27 15:53 | P.PN ---
Subjective Progress Note Date: 07/27/20 (delayed charting) Principal diagnosis: shoulder pain Patient is a 70-year-old female with a past medical history of vertigo who presented with complaints of bilateral severe shoulder pain and weakness. She was transferred here for [facility] due to acute kidney injury, t ransaminitis, and uterine mass. There she had undergone a CT abdomen and pelvis without contrast which revealed fat stranding in the left vasyl-pelvis along the course of the distal ureter ureter with possible pyelonephritis versus acute left adnexal pathology, bladder wall thickening, hypodense mass in the uterus with mild to moderate pelvic adenopathy findings likely due to endometrial mass, and cystic mass in the pancreas but follow-up MRI recommended. On arrival here her sodium was 125, potassium 6.6, chloride 96, carbon dioxide 19, BUN 47, and creatinine 2.58. She was also found have an AST of 3421, ALT 1002, white blood cell count 16.2. Urinalysis was consistent with rhabdo but did not appear consistent with urinary tract infection, however patient had already received Rocephin. She was started on IV fluids and arrangements were made for admission. CPK was ordered which came back at 154,161. She subsequently received an additional 2 L of IV fluid and her IV fluid drip was increased. Gynecology was consulted regarding her uterine mass. Nephrology was consulted for possible STEVE Vs CKD in conjunction with severe rhabdo. Hematology and oncology was consulted secondary to concern for possible dermatomyositis versus polymyositis that could be related to her uterine mass. She went into rate controlled A fib on 07/25 which was rate controlled. Cardio was consulted and r ecommended TSH and echo. Seen by EMPLOYMENT TRAINER and plan is for D and C with biopsy. CT chest without metastatic disease. GI consulted for acute hepatitis, viral hepatitis profile negative. Other causes of hepatitis were evaluated. On the morning of 07/27 there were unable to draw her blood work secondary to her diffuse edema. She also lost IV access and when her hyperkalemia and came back we were unable to treat that emergently. She did have a midline placed. Case discussed with nephrology and plan is for urgent dialysis secondary to continued hyperkalemia, rhabdo, and worsening renal function. We attempted to give her a dose of Kayexalate however she vomited that up. Emergent sodium bicarb, insulin, dextrose were ordered to check the potassium intracellularly. Her D&C had to be postponed secondary to inadequate IV access and need to treat potassium. Case was discussed with hematology over the phone. Secondary to her continued rhabdo we will evaluate for possible other causes of myopathy with muscle biopsy. Dr. Malik consulted and case discussed over phone. Will plan for muscle biopsy. Patient seen and examined at bedside. Arm pain is slightly better and weakness is improving somewhat but still present. No chest pain or shortness of breath, no nausea or vomiting. She does note that the rash on her lower extremities is increasing. General: non toxic, no distress, appears at stated age Derm: Violaceous rash bilateral lower extremities more persistent at the knee and over the anterior alcantara, some redness with thickening over her anterior chest, no facial dermatitis noted, warm, dry Head: atraumatic, normocephalic, symmetric Eyes: EOMI, no lid lag, anicteric sclera Mouth: no lip lesion, mucus membranes moist Cardiovascular: S1S2 reg, no murmur, positive posterior tibial pulse bilateral, Lungs: CTA bilateral, no rhonchi, no rales , no accessory muscle use Abdominal: soft, nontender to palpation, no guarding, no appreciable organomegaly Ext: no gross muscle atrophy, 2+ edema bilateral upper extremities, no contractures Neuro: CN II-XI grossly intact, no focal neuro deficits Psych: Alert, oriented, appropriate affect 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 -Aldolase level > 300. - Consult rheumatology on Thursday - Muscle biopsy, Dr. Malik consulted -Continue to follow AST and ALT -Continue to follow CK -Heme/onc recs appreciated -Hold off on steroids at this time. 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 Hyperkalemia secondary to above - plan is HD today Acute hepatitis suspect secondary to underlying rhabdo and inflammatory myositis -Repeat liver enzymes in a.m. -Acute hepatitis profile negative -REBEKA negative - antimitochondrial antibody pending - GI recs appreciated Possible pyelonephritis -Continue with Rocephin -urinue culture not obtained will treat for 5 days due to severity of illness Acute kidney injury with metabolic acidosis, worsening - case discussed with nephrology plan for HD. Dr. Wright notified for temporary HD cath -Continue with IV fluids -Avoid additional nephrotoxic agents -Repeat labs in a.m. -Elevated phosphorus level which may be consistent with some form of chronic kidney disease Uterine mass with dysfunctional uterine bleeding - EMPLOYMENT TRAINER recs appreciated: biopsy in AM with D and C - Onc recs appreciated Cystic Pancreatic mass pancreatic mass - MRI for further evaluation as outpatient Morbid obesity with BMI 43.6 -Outpatient structured weight loss Elevated blood pressure without underlying diagnosis of hypertension, resolved Thrombocytopenia, resolved DVT prophylaxis: Heparin Discussed with: patient, nursing, nephrology Anticipated discharge: 5-[address]: home A total of 35 minutes was spent on the care of this complex patient more than 50% of the time was spent in counseling and care coordination. Objective - Vital Signs Vital signs: Vital Signs Temp 97.2 F L 07/27/20 11:04 Pulse 66 07/27/20 11:04 Resp 18 07/27/20 11:04 BP 127/72 07/27/20 11:04 Pulse Ox 92 L 07/27/20 11:04 Intake & Output 07/26/20 07/27/20 07/27/20 18:59 06:59 18:59 Intake Total 1850 2450 Output Total 400 Balance 1450 2450 Weight 122 kg Intake: IV 1600 Dextrose 5% in Water 1, 1600 000 ml @ 200 mls/hr IV . Q5H45M [facility] with Sodium Bicarb (1 Meq/ml) 150 ml Rx#:[id number] Intake, IV Titration 2000 Amount Sodium Chloride 0.9% 1, 2000 000 ml @ 200 mls/hr IV . Q5H [facility] Rx#:[id number] Oral 250 450 Output: Urine 400 Other: Voiding Method Indwelling Catheter Indwelling Catheter # Bowel Movements 2 - Labs CBC & Chem 7: 07/27/20 08:19 07/27/20 13:50 Labs: Abnormal Lab Results - Last 24 Hours (Table) 07/25/20 07/26/20 07/27/20 Range/Units 01:26 22:15 08:19 WBC 13.1 H (3.8-10.6) k/uL Hct 33.7 L (34.0-46.0) % ESR (0-20) mm/hr Sodium 123 L (137-145) mmol/L Potassium 5.4 H (3.5-5.1) mmol/L Chloride 88 L (98-107) mmol/L BUN 62 H (7-17) mg/dL Creatinine 3.39 H (0.52-1.04) mg/dL Glucose 120 H (74-99) mg/dL Calcium 6.6 L (8.4-10.2) mg/dL Delta Bilirubin (0.0-0.2) mg/dL AST (14-36) U/L ALT (4-34) U/L Creatine Kinase 630639 H* (30-135) U/L Total Protein (6.3-8.2) g/dL Albumin (3.5-5.0) g/dL Aldolase 380.0 H (1.2-7.6) U/L 07/27/20 07/27/20 07/27/20 Range/Units 08:19 13:50 13:50 WBC (3.8-10.6) k/uL Hct (34.0-46.0) % ESR 47 H (0-20) mm/hr Sodium 126 L (137-145) mmol/L Potassium 6.1 H* (3.5-5.1) mmol/L Chloride 93 L (98-107) mmol/L BUN 62 H (7-17) mg/dL Creatinine 2.88 H (0.52-1.04) mg/dL Glucose (74-99) mg/dL Calcium 6.6 L (8.4-10.2) mg/dL Delta Bilirubin 0.6 H (0.0-0.2) mg/dL AST 2654 H (14-36) U/L ALT 724 H (4-34) U/L Creatine Kinase (30-135) U/L Total Protein 4.8 L (6.3-8.2) g/dL Albumin 2.1 L (3.5-5.0) g/dL Aldolase (1.2-7.6) U/L
[2020-07-27 19:13] LABS: Protein, Total 4.2 g/dL (6.2-8.2)
[2020-07-27 21:18] LABS: Potassium 4.8 mmol/L (3.5-5.1)
[2020-07-27 21:24] LABS: Calcium 6.4 mg/dL (8.4-10.2)
[2020-07-28 02:12] LABS: Anti-Smith Ab Interp NEGATIVE (NEGATIVE); Hepatitis B Surface AB- Quant 3.5 mIU/mL; Hepatitis B Surface Antibody Non-Reactive (Non-Reactive)
[2020-07-28 02:54] LABS: % Iron Saturation 8.99 (12.00-45.00); Ferritin 458.7 ng/mL (10.0-291.0)
[2020-07-28] MEDS: SODIUM CHLORIDE 0.9% 1,000 ML IV SCH (07:07)
[2020-07-28 08:10] LABS: HCT 32.1 % (34.0-46.0); HGB 10.3 gm/dL (11.4-16.0); MCH 26.9 pg (25.0-35.0); MCHC 32.2 g/dL (31.0-37.0); MCV 83.6 fL (80.0-100.0); Mean Platelet Volume 7.9; Platelet Count 183 k/uL (150-450); RBC 3.84 m/uL (3.80-5.40); RDW 15.5 % (11.5-15.5); WBC 12.3 k/uL (3.8-10.6)
[2020-07-28 08:22] LABS: Calcium 6.5 mg/dL (8.4-10.2); Potassium 4.8 mmol/L (3.5-5.1); Total Bilirubin 0.4 mg/dL (0.2-1.3); Total Protein 4.6 g/dL (6.3-8.2)
--- NOTE | 2020-07-28 08:44 | P.PN ---
Subjective Progress Note Date: 07/28/20 Patient is a 70-year-old female with a past medical history of vertigo who presented with complaints of bilateral severe shoulder pain and weakness. She was transferred here for [facility] due to acute kidney injury, transaminitis, and uterine mass. There she had undergone a CT abdomen and pelvis without contrast which revealed fat stranding in the left vasyl-pelvis along the course of the distal ureter ureter with possible pyelonephritis versus acute left adnexal pathology, bladder wall thickening, hypodense mass in the uterus with mild to moderate pelvic adenopathy findings likely due to en dometrial mass, and cystic mass in the pancreas but follow-up MRI recommended. On arrival here her sodium was 125, potassium 6.6, chloride 96, carbon dioxide 19, BUN 47, and creatinine 2.58. She was also found have an AST of 3421, ALT 1002, white blood cell count 16.2. Urinalysis was consistent with rhabdo but did not appear consistent with urinary tract infection, however patient had already received Rocephin. She was started on IV fluids and arrangements were made for admission. CPK was ordered which came back at 154,161. She subsequently received an additional 2 L of IV fluid and her IV fluid drip was increased. Gynecology was consulted regarding her uterine mass. Nephrology was consulted for possible STEVE Vs CKD in conjunction with severe rhabdo. Hematology and oncology was consulted secondary to concern for possible dermatomyositis versus polymyositis that could be related to her uterine mass. She went into rate controlled A fib on 07/25 which was rate controlled. Cardio was consulted and recommended TSH and echo. Seen by LEVER TENDER and plan is for D and C with biopsy. CT chest without metastatic disease. GI consulted for acute hepatitis, viral hepatitis profile negative. Other causes of hepatitis were evaluated. On the morning of 07/27 there were unable to draw her blood work secondary to her diffuse edema. She also lost IV access and when her hyperkalemia and came b ack we were unable to treat that emergently. She did have a midline placed. Case discussed with nephrology and plan is for urgent dialysis secondary to continued hyperkalemia, rhabdo, and worsening renal function. We attempted to give her a dose of Kayexalate however she vomited that up. Emergent sodium bicarb, insulin, dextrose were ordered to check the potassium intracellularly. Her D&C had to be postponed secondary to inadequate IV access and need to treat potassium. Case was discussed with hematology over the phone. Secondary to her continued rhabdo we will evaluate for possible other causes of myopathy with muscle biopsy. Dr. Malik consulted and case discussed over phone. Will plan for muscle biopsy. Presently fine today 07/20/2020, no chest pain no nausea no vomiting no dizziness. Objective - Vital Signs Vital signs: Vital Signs Temp 98.4 F 07/28/20 04:00 Pulse 71 07/28/20 04:00 Resp 18 07/28/20 04:00 BP 147/65 07/28/20 04:00 Pulse Ox 94 L 07/28/20 04:00 Intake & Output 07/27/20 07/28/20 07/28/20 18:59 06:59 18:59 Intake Total 1630 450 Output Total 300 600 Balance 1330 -150 Weight 117.5 kg Intake: IV 1350 Sodium Chloride 0.9% 1, 1300 000 ml @ 125 mls/hr IV . Q8H [facility] Rx#:[id number] cefTRIAXone 1 gm In 50 Sodium Chloride 0.9% 50 ml @ 100 mls/hr IVPB Q24HR [facility] Rx#:[id number] Oral 280 450 Output: Urine 600 Hemodialysis 300 Other: Voiding Method Indwelling Catheter Indwelling Catheter - Exam Patient seen and examined at bedside. Arm pain better and weakness is improving. General: non toxic, no distress, appears at stated age Derm: Violaceous rash bilateral lower extremities more persistent at the knee and over the anterior alcantara, some redness with thickening over her anterior chest, no facial dermatitis noted, warm, dry Head: atraumatic, normocephalic, symmetric Eyes: EOMI, no lid lag, anicteric sclera Mouth: no lip lesion, mucus membranes moist Cardiovascular: S1S2 reg, no murmur, positive posterior tibial pulse bilateral, Lungs: CTA bilateral, no rhonchi, no rales , no accessory muscle use Abdominal: soft, nontender to palpation, no guarding, Ext: no gross muscle atrophy, 2+ edema bilateral upper extremities, no contractures Neuro: CN II-XI grossly intact, no focal neuro deficits Psych: Alert, oriented, appropriate affect - Labs CBC & Chem 7: 07/28/20 07:44 07/27/20 20:38 Labs: Abnormal Lab Results - Last 24 Hours (Table) 07/25/20 07/27/20 07/27/20 Range/Units 01:26 08:19 08:19 WBC 13.1 H (3.8-10.6) k/uL Hgb (11.4-16.0) gm/dL Hct 33.7 L (34.0-46.0) % ESR (0-20) mm/hr Sodium 126 L (137-145) mmol/L Potassium 6.1 H* (3.5-5.1) mmol/L Chloride 93 L (98-107) mmol/L BUN 62 H (7-17) mg/dL Creatinine (0.52-1.04) mg/dL Calcium 6.6 L (8.4-10.2) mg/dL Iron (50-170) ug/dL TIBC (228-460) ug/dL % Saturation (12.00-45.00) Ferritin (10.0-291.0) ng/mL Delta Bilirubin 0.6 H (0.0-0.2) mg/dL AST (14-36) U/L ALT (4-34) U/L Creatine Kinase (30-135) U/L Total Protein 4.8 L (6.3-8.2) g/dL Total Protein (PEP) (6.2-8.2) g/dL Albumin 2.1 L (3.5-5.0) g/dL Aldolase 380.0 H (1.2-7.6) U/L 07/27/20 07/27/20 07/27/20 Range/Units 13:50 13:50 13:50 WBC (3.8-10.6) k/uL Hgb (11.4-16.0) gm/dL Hct (34.0-46.0) % ESR 47 H (0-20) mm/hr Sodium (137-145) mmol/L Potassium (3.5-5.1) mmol/L Chloride (98-107) mmol/L BUN (7-17) mg/dL Creatinine 2.88 H (0.52-1.04) mg/dL Calcium (8.4-10.2) mg/dL Iron 16 L (50-170) ug/dL TIBC 178 L (228-460) ug/dL % Saturation 8.99 L (12.00-45.00) Ferritin 458.7 H (10.0-291.0) ng/mL Delta Bilirubin (0.0-0.2) mg/dL AST 2654 H (14-36) U/L ALT 724 H (4-34) U/L Creatine Kinase [id number] H* (30-135) U/L Total Protein (6.3-8.2) g/dL Total Protein (PEP) 4.2 L (6.2-8.2) g/dL Albumin (3.5-5.0) g/dL Aldolase (1.2-7.6) U/L 07/27/20 07/28/20 Range/Units 20:38 07:44 WBC 12.3 H (3.8-10.6) k/uL Hgb 10.3 L (11.4-16.0) gm/dL Hct 32.1 L (34.0-46.0) % ESR (0-20) mm/hr Sodium 128 L (137-145) mmol/L Potassium (3.5-5.1) mmol/L Chloride 97 L (98-107) mmol/L BUN 47 H (7-17) mg/dL Creatinine 2.72 H (0.52-1.04) mg/dL Calcium 6.4 L* (8.4-10.2) mg/dL Iron (50-170) ug/dL TIBC (228-460) ug/dL % Saturation (12.00-45.00) Ferritin (10.0-291.0) ng/mL Delta Bilirubin (0.0-0.2) mg/dL AST (14-36) U/L ALT (4-34) U/L Creatine Kinase [id number] H* (30-135) U/L Total Protein (6.3-8.2) g/dL Total Protein (PEP) (6.2-8.2) g/dL Albumin (3.5-5.0) g/dL Aldolase (1.2-7.6) U/L Assessment and Plan Assessment: 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 -Aldolase level > 300. - Consult rheumatology on Thursday - Muscle biopsy, Dr. Malik consulted -Continue to follow AST and ALT -Continue to follow CK -Heme/onc recs appreciated -Hold off on steroids at this time. 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 - Monitor Hyperkalemia secondary to above - now corrected Acute hepatitis suspect secondary to underlying rhabdo and inflammatory myositis -Repeat liver enzymes in a.m. -Acute hepatitis profile negative -REBEKA negative - antimitochondrial antibody pending - GI recs appreciated Possible pyelonephritis -Continue with Rocephin -urinue culture not obtained will treat for 5 days due to severity of illness, ccm Acute kidney injury with metabolic acidosis, worsening - case discussed with nephrology plan for HD. Dr. Wright notified for temporary HD cath -Continue with IV fluids -Avoid additional nephrotoxic agents -Elevated phosphorus level which may be consistent with some form of chronic kidney disease scr 2.7 Uterine mass with dysfunctional uterine bleeding - LEVER TENDER recs appreciated: biopsy in AM with D and C - Onc recs appreciated - Medically cleared for surgery Cystic Pancreatic mass pancreatic mass - MRI for further evaluation as outpatient Morbid obesity with BMI 43.6 -Outpatient structured weight loss Elevated blood pressure without underlying diagnosis of hypertension, resolved Thrombocytopenia, resolved Hyponatremia, multifactorial: Improved from 123 to 128 DVT prophylaxis: Heparin Discussed with: patient Anticipated discharge: 4-[address]: home Medically cleared for surgery today
[2020-07-28] MEDS ORDERED: PROPOFOL 10 MG/ML 20 ML VIAL IV ONE (09:04)
[2020-07-28] MEDS ORDERED: fentaNYL (PF) 50 MCG/ML 2 ML AMP ONE (09:04)
[2020-07-28] MEDS ORDERED: MIDAZOLAM 2 MG/2 ML VIAL ONE (09:04)
[2020-07-28] MEDS ORDERED: IV FLUID CONTINUATION 700 ML IV ONE (09:19)
--- NOTE | 2020-07-28 09:47 | P.OP ---
Date of Procedure: 07/28/20 Preoperative Diagnosis: #1. Postmenopausal bleeding #2. Uterine mass #3. Multiple medical issues Postoperative Diagnosis: Same Procedure(s) Performed: #1. Dilation and curettage Anesthesia: other (Conscious sedation) Surgeon: Kehinde Medina Estimated Blood Loss (ml): 5 IV fluids (ml): 100 Pathology: none sent (Endometrial curettings) Condition: stable Disposition: PACU Operative Findings: Preoperative pelvic examination demonstrated a roughly 6 week midplane to slightly anteverted normal shaped uterus with normal adnexa bilaterally. The examination was limited by the patient's abdominal habitus and atrophic vagina. Intraoperatively, hysteroscopy was not attempted as less surgery was thought to be better under the circumstances and it would be unlikely to be diagnostic. There was significant atrophy of the vagina, particularly at the apex with the cervix being flush with the apex of the vagina. The uterus sounded to approximately 8 cm. The small curette did demonstrate a significant amount of tissue which appeared to be possibly necrotic in nature. Most of the tissue was taken from the anterior wall uterus while the posterior wall felt to be somewhat gritty. Description of Procedure: The patient was prepped and draped in usual fashion after the patient was significantly sedated. The bladder was not catheterized as noted going catheter is present. A weighted speculum was placed and the cervix was very difficult to view as it was flush with the apex of the vagina. Attempts to grasp it with a single-tooth tenaculum were unsuccessful. An Allis clamp was ultimately utilized to grasp it minimally allowing a second Allis to be placed with more tenacity and remove the first. The uterus was then sounded to 8 cm as noted above. Serial dilation was carried out to admit a small endometrial curette which was utilized to thoroughly and circumferentially curet the uterine contents onto a Telfa placed in the vagina. Significant amount of granular appearing, possibly necrotic tissue was produced onto the Telfa in the vagina, primarily from the anterior uterine wall. There was noted to be some gritty relatively normal tissue in texture on the posterior wall of the uterus. After a fairly significant amount of tissue had been produced onto the Telfa, the sharp curet was set aside and the polyp forceps introduced which produced only further granular possibly necrotic tissue. As it was no significant ongoing bleeding and inadequate biopsy had been obtained, all instrumentation was removed. There is no significant ongoing bleeding either from the cervix itself or from the grasping side of the Allis clamp. Estimated blood loss for the entire case was approximate 5 mL or less. There were no complications. All sponge, instrument, and needle counts were correct. The patient tolerated the procedure well and proceeded to the recovery room in stable condition.
[2020-07-28 09:48] LABS: Ceruloplasmin 20.6 mg/dL (20.0-60.0)
[2020-07-28] MEDS: HEPARIN SODIUM,PORCINE 5,000 UNIT/ML 1 ML VIAL SQ SCH ×2 (10:28→17:04)
--- NOTE | 2020-07-28 11:16 | P.PN ---
Subjective Progress Note Date: 07/27/20 Principal diagnosis: Elevated liver enzymes Patient seen lying in bed reporting some vomiting after taking an oral medication. Otherwise feeling somewhat better with improved range of motion and decreased pain in shoulders. Objective - Vital Signs Vital signs: Vital Signs Temp 97.8 F 07/27/20 07:59 Pulse 67 07/27/20 07:59 Resp 18 07/27/20 07:59 BP 116/70 07/27/20 07:59 Pulse Ox 95 07/27/20 07:59 Intake & Output 07/26/20 07/27/20 07/27/20 18:59 06:59 18:59 Intake Total 1850 2450 Output Total 400 Balance 1450 2450 Weight 122 kg Intake: IV 1600 Dextrose 5% in Water 1, 1600 000 ml @ 200 mls/hr IV . Q5H45M [facility] with Sodium Bicarb (1 Meq/ml) 150 ml Rx#:[id number] Intake, IV Titration 2000 Amount Sodium Chloride 0.9% 1, 2000 000 ml @ 200 mls/hr IV . Q5H [facility] Rx#:[id number] Oral 250 450 Output: Urine 400 Other: Voiding Method Indwelling Catheter Indwelling Catheter # Bowel Movements 2 - Exam On physical examination, patient appears comfortable in no apparent distress. HEAD: Normocephalic, atraumatic. EYES: No scleral icterus. No conjunctival injection. MOUTH: No lesions, tongue midline. NECK: Trachea midline, no gross abnormalities. CHEST: Clear to auscultation with no wheezing or rhonchi appreciated. ABDOMEN: Soft, obese and nontender. Bowel sounds are positive. No organomegaly. No guarding or rigidity. EXTREMITIES: No pedal edema. SKIN: No rashes, no jaundice. NEUROLOGIC: Alert and oriented x3. Bilateral shoulder weakness secondary to rhabdomyolysis has persisted but somewhat improved. - Labs CBC & Chem 7: 07/28/20 07:44 07/28/20 07:44 Labs: Abnormal Lab Results - Last 24 Hours (Table) 07/25/20 07/26/20 07/26/20 Range/Units 01:26 09:23 12:15 WBC (3.8-10.6) k/uL Hct (34.0-46.0) % Plt Count (150-450) k/uL Neutrophils # (1.3-7.7) k/uL Lymphocytes # (1.0-4.8) k/uL Sodium 123 L (137-145) mmol/L Potassium 5.2 H (3.5-5.1) mmol/L Chloride 89 L (98-107) mmol/L BUN 60 H (7-17) mg/dL Creatinine 3.33 H (0.52-1.04) mg/dL Glucose 129 H (74-99) mg/dL Calcium 6.9 L (8.4-10.2) mg/dL Delta Bilirubin (0.0-0.2) mg/dL AST 2972 H (14-36) U/L ALT 866 H (4-34) U/L Creatine Kinase 678014 H* (30-135) U/L Total Protein 5.0 L (6.3-8.2) g/dL Albumin 2.2 L (3.5-5.0) g/dL Aldolase 380.0 H (1.2-7.6) U/L 07/26/20 07/26/20 07/27/20 Range/Units 13:14 22:15 08:19 WBC 15.7 H 13.1 H (3.8-10.6) k/uL Hct 33.7 L (34.0-46.0) % Plt Count 141 L (150-450) k/uL Neutrophils # 14.1 H (1.3-7.7) k/uL Lymphocytes # 0.7 L (1.0-4.8) k/uL Sodium 123 L (137-145) mmol/L Potassium 5.4 H (3.5-5.1) mmol/L Chloride 88 L (98-107) mmol/L BUN 62 H (7-17) mg/dL Creatinine 3.39 H (0.52-1.04) mg/dL Glucose 120 H (74-99) mg/dL Calcium 6.6 L (8.4-10.2) mg/dL Delta Bilirubin (0.0-0.2) mg/dL AST (14-36) U/L ALT (4-34) U/L Creatine Kinase [id number] H* (30-135) U/L Total Protein (6.3-8.2) g/dL Albumin (3.5-5.0) g/dL Aldolase (1.2-7.6) U/L 07/27/20 Range/Units 08:19 WBC (3.8-10.6) k/uL Hct (34.0-46.0) % Plt Count (150-450) k/uL Neutrophils # (1.3-7.7) k/uL Lymphocytes # (1.0-4.8) k/uL Sodium 126 L (137-145) mmol/L Potassium 6.1 H* (3.5-5.1) mmol/L Chloride 93 L (98-107) mmol/L BUN 62 H (7-17) mg/dL Creatinine (0.52-1.04) mg/dL Glucose (74-99) mg/dL Calcium 6.6 L (8.4-10.2) mg/dL Delta Bilirubin 0.6 H (0.0-0.2) mg/dL AST (14-36) U/L ALT (4-34) U/L Creatine Kinase (30-135) U/L Total Protein 4.8 L (6.3-8.2) g/dL Albumin 2.1 L (3.5-5.0) g/dL Aldolase (1.2-7.6) U/L Assessment and Plan Assessment: 1. Elevated liver enzymes: 70-year-old female with a known history of obesity and vertigo who was seen at outside hospital for bilateral shoulder weakness and pain in transfer for further evaluation. Currently the patient is being treated for elevated creatinine in the setting of rhabdomyolysis, she is also being seen for a possible pelvic mass. Liver enzymes significantly elevated on presentation predominantly in a hepatocellular pattern with total bilirubin 0.5, alkaline phosphatase 63, AST 2906 and ALT 148. Suspicion is for elevation secondary to rhabdomyolysis, full serology will be ordered to rule out other leroy ology, she reports any prior history of liver disease, high risk behavior or pertinent family history of liver disease. 2. Rhabdomyolysis. 3. Pancreatic cyst/mass seen on computed tomography scan. 4. Other medical comorbidities per primary team. Plan: Supportive care Appreciate recommendations from the consulting services, continue treatment of rhabdomyolysis per primary team and the recommendations Continue to monitor CBC, BMP and LFTs Full liver serology ordered to rule out intrinsic liver disease, suspicion is for elevation in liver enzymes secondary to rhabdomyolysis, negative to date Computed tomography scan report from outside hospital revealed Patient will need further evaluation with MRI of the abdomen for evaluation of pancreatic mass or possible referral for endoscopic ultrasound in the future and pending clinical course Thank you for allowing us to participate in the care of the patient
--- NOTE | 2020-07-28 12:15 | P.GSCN ---
History of Present Illness Consult date: 07/28/20 Reason for Consult: Muscle biopsy History of present illness: This 70-year-old female who's had some complaints of weakness. Patient is elevated CPK. I been asked see her regarding muscle biopsy. Past Medical History Additional Past Medical History / Comment(s): vertigo History of Any Multi-Drug Resistant Organisms: None Reported Past Surgical History: Cholecystectomy, Tubal Ligation Past Anesthesia/Blood Transfusion Reactions: No Reported Reaction Past Psychological History: No Psychological Hx Reported Smoking Status: Never smoker Past Alcohol Use History: None Reported Past Drug Use History: None Reported Medications and Allergies Home Medications Medication Instructions Recorded Confirmed Type No Known Home Medications 07/25/20 07/25/20 History Allergies Allergy/AdvReac Type Severity Reaction Status Date / Time No Known Allergies Allergy Verified 07/25/20 07:37 Surgical - Exam Vital Signs Temp Pulse Resp BP 97.9 F 91 20 170/97 07/25/20 00:11 07/25/20 00:11 07/25/20 00:11 07/25/20 00:11 - General well developed, well nourished, no distress - Eyes PERRL - ENT normal pinna - Neck no masses - Respiratory normal expansion - Cardiovascular Rhythm: regular - Abdomen Abdomen: soft, non tender Results - Labs 07/28/20 07:44 07/28/20 07:44 Abnormal Lab Results - Last 24 Hours (Table) 07/27/20 07/27/20 07/27/20 Range/Units 13:50 13:50 13:50 WBC (3.8-10.6) k/uL Hgb (11.4-16.0) gm/dL Hct (34.0-46.0) % ESR 47 H (0-20) mm/hr Sodium (137-145) mmol/L Chloride (98-107) mmol/L BUN (7-17) mg/dL Creatinine 2.88 H (0.52-1.04) mg/dL Calcium (8.4-10.2) mg/dL Iron 16 L (50-170) ug/dL TIBC 178 L (228-460) ug/dL % Saturation 8.99 L (12.00-45.00) Transferrin 119.0 L (204.0-354.0) mg/dL Ferritin 458.7 H (10.0-291.0) ng/mL AST 2654 H (14-36) U/L ALT 724 H (4-34) U/L Creatine Kinase [id number] H* (30-135) U/L Total Protein (6.3-8.2) g/dL Total Protein (PEP) 4.2 L (6.2-8.2) g/dL Albumin (3.5-5.0) g/dL Ugenv-2-Fsqkszcvkrq 273.0 H (99.0-242.0) mg/dL 07/27/20 07/28/20 07/28/20 Range/Units 20:38 07:44 07:44 WBC 12.3 H (3.8-10.6) k/uL Hgb 10.3 L (11.4-16.0) gm/dL Hct 32.1 L (34.0-46.0) % ESR (0-20) mm/hr Sodium 128 L 129 L (137-145) mmol/L Chloride 97 L (98-107) mmol/L BUN 47 H 46 H (7-17) mg/dL Creatinine 2.72 H 2.87 H (0.52-1.04) mg/dL Calcium 6.4 L* 6.5 L (8.4-10.2) mg/dL Iron (50-170) ug/dL TIBC (228-460) ug/dL % Saturation (12.00-45.00) Transferrin (204.0-354.0) mg/dL Ferritin (10.0-291.0) ng/mL AST 2641 H (14-36) U/L ALT 777 H (4-34) U/L Creatine Kinase [id number] H* (30-135) U/L Total Protein 4.6 L (6.3-8.2) g/dL Total Protein (PEP) (6.2-8.2) g/dL Albumin 2.0 L (3.5-5.0) g/dL Tnyeq-4-Djvvynsnzfn (99.0-242.0) mg/dL Diabetes panel 07/27/20 07/27/20 07/28/20 Range/Units 13:50 20:38 07:44 Sodium 128 L 129 L (137-145) mmol/L Potassium 4.8 4.8 (3.5-5.1) mmol/L Chloride 97 L 98 (98-107) mmol/L Carbon Dioxide 27 28 (22-30) mmol/L BUN 47 H 46 H (7-17) mg/dL Creatinine 2.88 H 2.72 H 2.87 H (0.52-1.04) mg/dL Glucose 87 83 (74-99) mg/dL Calcium 6.4 L* 6.5 L (8.4-10.2) mg/dL AST 2654 H 2641 H (14-36) U/L ALT 724 H 777 H (4-34) U/L Alkaline Phosphatase 60 (38-126) U/L Total Protein 4.6 L (6.3-8.2) g/dL Albumin 2.0 L (3.5-5.0) g/dL Calcium panel 07/27/20 07/28/20 Range/Units 20:38 07:44 Calcium 6.4 L* 6.5 L (8.4-10.2) mg/dL Albumin 2.0 L (3.5-5.0) g/dL Pituitary panel 07/27/20 07/27/20 07/28/20 Range/Units 13:50 20:38 07:44 Sodium 128 L 129 L (137-145) mmol/L Potassium 4.8 4.8 (3.5-5.1) mmol/L Chloride 97 L 98 (98-107) mmol/L Carbon Dioxide 27 28 (22-30) mmol/L BUN 47 H 46 H (7-17) mg/dL Creatinine 2.88 H 2.72 H 2.87 H (0.52-1.04) mg/dL Glucose 87 83 (74-99) mg/dL Calcium 6.4 L* 6.5 L (8.4-10.2) mg/dL Adrenal panel 07/27/20 07/27/20 07/28/20 Range/Units 13:50 20:38 07:44 Sodium 128 L 129 L (137-145) mmol/L Potassium 4.8 4.8 (3.5-5.1) mmol/L Chloride 97 L 98 (98-107) mmol/L Carbon Dioxide 27 28 (22-30) mmol/L BUN 47 H 46 H (7-17) mg/dL Creatinine 2.88 H 2.72 H 2.87 H (0.52-1.04) mg/dL Glucose 87 83 (74-99) mg/dL Calcium 6.4 L* 6.5 L (8.4-10.2) mg/dL Total Bilirubin 0.4 (0.2-1.3) mg/dL AST 2654 H 2641 H (14-36) U/L ALT 724 H 777 H (4-34) U/L Alkaline Phosphatase 60 (38-126) U/L Total Protein 4.6 L (6.3-8.2) g/dL Albumin 2.0 L (3.5-5.0) g/dL Assessment and Plan Assessment: Patient be scheduled for muscle biopsy on Thursday.
--- NOTE | 2020-07-28 14:29 | P.PN ---
Subjective Progress Note Date: 07/28/20 Follow-up for acute kidney injury and hyperkalemia. Tolerated dialysis well yesterday and seen during dialysis today. Plan again tomorrow. Objective - Vital Signs Vital signs: Vital Signs Temp 98.2 F 07/28/20 10:16 Pulse 75 07/28/20 11:31 Resp 18 07/28/20 10:16 BP 111/56 07/28/20 11:31 Pulse Ox 98 07/28/20 11:31 Intake & Output 07/27/20 07/28/20 07/28/20 18:59 06:59 18:59 Intake Total 1630 450 125 Output Total 300 600 905 Balance 1330 -150 -780 Weight 117.5 kg Intake: IV 1350 125 Sodium Chloride 0.9% 1, 1300 000 ml @ 125 mls/hr IV . Q8H [facility] Rx#:[id number] cefTRIAXone 1 gm In 50 Sodium Chloride 0.9% 50 ml @ 100 mls/hr IVPB Q24HR [facility] Rx#:[id number] Oral 280 450 Output: Urine 600 900 Hemodialysis 300 Estimated Blood Loss 5 Other: Voiding Method Indwelling Catheter Indwelling Catheter Indwelling Catheter - Exam No acute distress S1-S2 heard Lungs clear Edema - Labs CBC & Chem 7: 07/28/20 07:44 07/28/20 07:44 Labs: Abnormal Lab Results - Last 24 Hours (Table) 07/27/20 07/27/20 07/27/20 Range/Units 13:50 13:50 13:50 WBC (3.8-10.6) k/uL Hgb (11.4-16.0) gm/dL Hct (34.0-46.0) % ESR 47 H (0-20) mm/hr Sodium (137-145) mmol/L Chloride (98-107) mmol/L BUN (7-17) mg/dL Creatinine 2.88 H (0.52-1.04) mg/dL Calcium (8.4-10.2) mg/dL Iron 16 L (50-170) ug/dL TIBC 178 L (228-460) ug/dL % Saturation 8.99 L (12.00-45.00) Transferrin 119.0 L (204.0-354.0) mg/dL Ferritin 458.7 H (10.0-291.0) ng/mL AST 2654 H (14-36) U/L ALT 724 H (4-34) U/L Creatine Kinase [id number] H* (30-135) U/L Total Protein (6.3-8.2) g/dL Total Protein (PEP) 4.2 L (6.2-8.2) g/dL Albumin (3.5-5.0) g/dL Eajke-8-Vdixbykslga 273.0 H (99.0-242.0) mg/dL 07/27/20 07/28/20 07/28/20 Range/Units 20:38 07:44 07:44 WBC 12.3 H (3.8-10.6) k/uL Hgb 10.3 L (11.4-16.0) gm/dL Hct 32.1 L (34.0-46.0) % ESR (0-20) mm/hr Sodium 128 L 129 L (137-145) mmol/L Chloride 97 L (98-107) mmol/L BUN 47 H 46 H (7-17) mg/dL Creatinine 2.72 H 2.87 H (0.52-1.04) mg/dL Calcium 6.4 L* 6.5 L (8.4-10.2) mg/dL Iron (50-170) ug/dL TIBC (228-460) ug/dL % Saturation (12.00-45.00) Transferrin (204.0-354.0) mg/dL Ferritin (10.0-291.0) ng/mL AST 2641 H (14-36) U/L ALT 777 H (4-34) U/L Creatine Kinase [id number] H* (30-135) U/L Total Protein 4.6 L (6.3-8.2) g/dL Total Protein (PEP) (6.2-8.2) g/dL Albumin 2.0 L (3.5-5.0) g/dL Ispny-8-Rkckwbufwqm (99.0-242.0) mg/dL Assessment and Plan Assessment: #1 oliguric acute kidney injury secondary to toxic ATN from rhabdomyolysis. #2 hyperkalemia multifactorial #3 rhabdo, workup in process #4 hypervolemic hyponatremia #5 metabolic alkalosis resolving #6 hypocalcemia's, check ionized calcium in the morning Plan: #1 hemodialysis started yesterday, 07/27/2020. She had second treatment today plan again tomorrow. #2 stop IV fluids. #3 avoid nephrotoxic agents and hypotensive episodes..
--- NOTE | 2020-07-28 15:05 | P.PN ---
Subjective Progress Note Date: 07/28/20 CHIEF COMPLAINT: A. fib HISTORY OF PRESENT ILLNESS: Patient underwent D&C this morning with Dr. Medina. Patient examined postoperatively at the bedside. Patient denies chest pain or pressure. She denies short of breath. Patient had a dialysis catheter placed yesterday per Dr. Wright. She underwent hemodialysis yesterday. Creatinine 2.87. She remains in atrial fibrillation with a controlled rate. Hemoglobin 10.3. PHYSICAL EXAM: VITAL SIGNS: Reviewed. GENERAL: Well-developed in no acute distress. HEENT: Head is normocephalic. Pupils are equal, round. Sclerae anicteric. Mucous membranes of the mouth are moist. Neck supple. No JVD or thyromegaly LUNGS: Respirations even and unlabored. Lungs essentially clear to auscultation bilaterally. HEART: Irregular rate and rhythm. S1 and S2 heard. EXTREMITIES: Normal range of motion. No clubbing or cyanosis. Peripheral pulses intact. No lower extremity edema NEUROLOGIC: Awake and alert. Oriented x 3. ASSESSMENT: New-onset atrial fibrillation with controlled ventricular rate Rhabdomyolysis Acute hepatitis Possible pyelonephritis Acute kidney injury Hyperkalemia Probable Poly/dermatomyositis Uterine mass with vaginal bleeding Cystic pancreatic mass PLAN: Continue telemetry monitoring Patient will need to be initiated on anticoagulation when cleared by consultants Nurse practitioner note has been reviewed by physician. Signing provider agrees with the documented findings, assessment, and plan of care. Objective - Vital Signs Vital signs: Vital Signs Temp 98.2 F 07/28/20 10:16 Pulse 75 07/28/20 11:31 Resp 18 07/28/20 10:16 BP 111/56 07/28/20 11:31 Pulse Ox 98 07/28/20 11:31 Intake & Output 07/27/20 07/28/20 07/28/20 18:59 06:59 18:59 Intake Total 1630 450 125 Output Total 300 600 905 Balance 1330 -150 -780 Weight 117.5 kg Intake: IV 1350 125 Sodium Chloride 0.9% 1, 1300 000 ml @ 125 mls/hr IV . Q8H [facility] Rx#:[id number] cefTRIAXone 1 gm In 50 Sodium Chloride 0.9% 50 ml @ 100 mls/hr IVPB Q24HR [facility] Rx#:[id number] Oral 280 450 Output: Urine 600 900 Hemodialysis 300 Estimated Blood Loss 5 Other: Voiding Method Indwelling Catheter Indwelling Catheter Indwelling Catheter - Labs CBC & Chem 7: 07/28/20 07:44 07/28/20 07:44 Labs: Abnormal Lab Results - Last 24 Hours (Table) 07/27/20 07/27/20 07/27/20 Range/Units 13:50 13:50 13:50 WBC (3.8-10.6) k/uL Hgb (11.4-16.0) gm/dL Hct (34.0-46.0) % ESR 47 H (0-20) mm/hr Sodium (137-145) mmol/L Chloride (98-107) mmol/L BUN (7-17) mg/dL Creatinine (0.52-1.04) mg/dL Calcium (8.4-10.2) mg/dL Iron 16 L (50-170) ug/dL TIBC 178 L (228-460) ug/dL % Saturation 8.99 L (12.00-45.00) Transferrin 119.0 L (204.0-354.0) mg/dL Ferritin 458.7 H (10.0-291.0) ng/mL AST 2654 H (14-36) U/L ALT (4-34) U/L Creatine Kinase [id number] H* (30-135) U/L Total Protein (6.3-8.2) g/dL Total Protein (PEP) 4.2 L (6.2-8.2) g/dL Albumin (3.5-5.0) g/dL Dsldi-3-Kbwovdcxhgx 273.0 H (99.0-242.0) mg/dL 07/27/20 07/28/20 07/28/20 Range/Units 20:38 07:44 07:44 WBC 12.3 H (3.8-10.6) k/uL Hgb 10.3 L (11.4-16.0) gm/dL Hct 32.1 L (34.0-46.0) % ESR (0-20) mm/hr Sodium 128 L 129 L (137-145) mmol/L Chloride 97 L (98-107) mmol/L BUN 47 H 46 H (7-17) mg/dL Creatinine 2.72 H 2.87 H (0.52-1.04) mg/dL Calcium 6.4 L* 6.5 L (8.4-10.2) mg/dL Iron (50-170) ug/dL TIBC (228-460) ug/dL % Saturation (12.00-45.00) Transferrin (204.0-354.0) mg/dL Ferritin (10.0-291.0) ng/mL AST 2641 H (14-36) U/L ALT 777 H (4-34) U/L Creatine Kinase [id number] H* (30-135) U/L Total Protein 4.6 L (6.3-8.2) g/dL Total Protein (PEP) (6.2-8.2) g/dL Albumin 2.0 L (3.5-5.0) g/dL Pldli-2-Awmeaczwvam (99.0-242.0) mg/dL
[2020-07-28] MEDS: HYDROcodone/APAP 5-325MG 1 EACH TAB PO PRN (17:01)
--- NOTE | 2020-07-28 21:14 | PN ---
PROGRESS NOTE DATE OF SERVICE: 07/28/2020 CHIEF COMPLAINT: Suspected uterine malignancy. Bilateral shoulder weakness. Patient is seen today as a followup. She feels tired. She continues to have bilateral shoulder weakness and intermittent vaginal bleeding. She denies any fever, chills, nausea, or vomiting. CURRENT MEDICATION: Include Tylenol as needed, ceftriaxone 1 g IV piggyback every 24 hours, heparin 5000 units subcu every 8 hours, hydralazine 10 mg IV every 4 hours as needed, [place] 5/325 mg every 6 hours as needed, morphine 4 mg IV every 4 hours as needed. PHYSICAL EXAMINATION: She is alert, oriented x3. She does not appear to be in distress at this time. VITAL SIGNS: Temperature 98, afebrile, pulse 79 and regular, respiration 18, blood pressure 133/68. HEENT: Normocephalic, atraumatic. No obvious icterus. NECK: Supple. The chest equally expands bilaterally. LUNGS: Clear to auscultation. HEART: Regular rate and rhythm. ABDOMEN: Obese, soft. No obvious organomegaly or masses. EXTREMITIES: Reveal 1+ edema. SKIN :No significant bruises. LYMPHATIC SYSTEM: No peripherally enlarged cervical or supraclavicular nodes. MUSCULOSKELETAL: There is obvious bilateral proximal muscle weakness in her upper extremities. LABORATORY DATA: WBC of 12.3, hemoglobin is 10.3, hematocrit 32.1, platelets are 183. Sodium 128, potassium 4.8, chloride 98, and BUN is 46, creatinine 2.8. AST is 2641, ALT is 777. CK is . IMPRESSION: 1. Pelvic adenopathy with possible genitourinary malignancy. The patient underwent a D&C. Hysteroscopy was not attempted. There was significant atrophy of her vagina particularly at the apex. Small curette showed a significant amount of tissue which appeared to be necrotic. This tissue was taken from anterior wall of the uterus. 2. Acute the kidney injury. The patient was started on hemodialysis, possibly related to rhabdomyolysis causing abnormalities. 3. Proximal muscle weakness and myositis. This could be associated with underlying malignancy which requires further investigation. RECOMMENDATION: Continue current management. She is currently on hemodialysis. Monitor her liver enzymes, kidney function and electrolytes. Once the patient's condition stabilizes, then further workup should be considered. Thank you very much. MMODL / IJN: [id number] /
[2020-07-29] MEDS: HEPARIN SODIUM,PORCINE 5,000 UNIT/ML 1 ML VIAL SQ SCH ×3 (00:03→15:55)
[2020-07-29 06:55] LABS: HCT 30.6 % (34.0-46.0); HGB 10.1 gm/dL (11.4-16.0); MCH 27.6 pg (25.0-35.0); MCHC 33.1 g/dL (31.0-37.0); MCV 83.5 fL (80.0-100.0); Mean Platelet Volume 7.9; Platelet Count 204 k/uL (150-450); RBC 3.67 m/uL (3.80-5.40); RDW 15.4 % (11.5-15.5)
--- NOTE | 2020-07-29 10:55 | P.PN ---
Subjective Progress Note Date: 07/29/20 This is a pleasant 70-year-old female who was transferred from [facility]. She initially presented there with symptoms of weakness and shoulder discomfort and inability to raise her right arm. Cardiology was asked to see the patient because of new onset of atrial fibrillation. Patient also has a uterine mass with vaginal bleeding which she underwent D&C and biopsies on the . She continues to be in atrial fibrillation. Throughout the day yesterday she continued to have some vaginal bleeding none reported by nursing staff yet today. Vital signs of been stable. She has received a temporary dialysis cath and has been receiving dialysis daily. Also recent renal function shows a BUN of 46 and creatinine 2.87. Today's labs show a white blood cell count 15,000 and hemoglobin 10.1. Overall she's feeling fairly well. She continues to have significant weakness in her upper extremities as well as generalized edema. Echocardiogram with Doppler study done this admission showed moderate LVH, normal LV systolic function with ejection fraction between 55-60%, mildly enlarged RV, mild MR, mild TR and mild pulmonary hypertension. Objective - Vital Signs Vital signs: Vital Signs Temp 97.6 F 07/29/20 07:49 Pulse 81 07/29/20 07:49 Resp 20 07/29/20 08:10 BP 121/73 07/29/20 07:49 Pulse Ox 95 07/29/20 07:49 Intake & Output 07/28/20 07/29/20 07/29/20 18:59 06:59 18:59 Intake Total 125 250 Output Total 2405 425 Balance -2280 -425 250 Intake: IV 125 Oral 250 Output: Urine 900 425 Hemodialysis 1500 Estimated Blood Loss 5 Other: Voiding Method Indwelling Catheter Indwelling Catheter Indwelling Catheter - Exam PHYSICAL EXAMINATION: HEENT: Head is atraumatic, normocephalic. Pupils equal, round. Neck is supple. There is no elevated jugular venous pressure. HEART EXAMINATION: Heart sounds irregularly irregular, S1 and S2 normal. No murmur or gallop heard. CHEST EXAMINATION: Lungs are clear to auscultation and precussion. No chest wall tenderness is noted on palpation or with deep breathing. ABDOMEN: Soft, nontender. Bowel sounds are heard. No organomegaly noted. EXTREMITIES: 2+ peripheral pulses with evidence of generalized edema and no calf tenderness noted. NEUROLOGIC patient is awake, alert and oriented x3. . - Labs CBC & Chem 7: 07/29/20 06:26 07/28/20 07:44 Labs: Abnormal Lab Results - Last 24 Hours (Table) 07/28/20 07/29/20 07/29/20 Range/Units 07:44 06:26 06:26 WBC 15.0 H (3.8-10.6) k/uL RBC 3.67 L (3.80-5.40) m/uL Hgb 10.1 L (11.4-16.0) gm/dL Hct 30.6 L (34.0-46.0) % Creatine Kinase 147155 H* (30-135) U/L C-Reactive Protein 217.4 H (<10.0) mg/L Assessment and Plan Assessment: #1 atrial fibrillation, likely persistent, newly diagnosed, controlled ventricular response #2 rhabdomyolysis #3 acute hepatitis #4 Pyelonephritis #5 hyperkalemia #6 acute kidney injury, currently undergoing hemodialysis via a primary dialysis catheter #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 Awaiting input from consultants. We would recommend Eliquis 2.5 mg by mouth twice a day which he started once okayed by [employer] and surgical. [employer] note has been reviewed, I agree with a documented findings and plan of care. Patient was seen and examined.
--- NOTE | 2020-07-29 11:05 | P.PN ---
Subjective Progress Note Date: 07/28/20 Principal diagnosis: Elevated liver enzymes Patient seen lying in bed, status post surgery earlier in the morning. No nausea or vomiting. She states that symptoms remained stable. Objective - Vital Signs Vital signs: Vital Signs Temp 98.2 F 07/28/20 10:16 Pulse 75 07/28/20 11:31 Resp 18 07/28/20 10:16 BP 111/56 07/28/20 11:31 Pulse Ox 98 07/28/20 11:31 Intake & Output 07/27/20 07/28/20 07/28/20 18:59 06:59 18:59 Intake Total 1630 450 125 Output Total 300 600 905 Balance 1330 -150 -780 Weight 117.5 kg Intake: IV 1350 125 Sodium Chloride 0.9% 1, 1300 000 ml @ 125 mls/hr IV . Q8H [facility] Rx#:[id number] cefTRIAXone 1 gm In 50 Sodium Chloride 0.9% 50 ml @ 100 mls/hr IVPB Q24HR [facility] Rx#:[id number] Oral 280 450 Output: Urine 600 900 Hemodialysis 300 Estimated Blood Loss 5 Other: Voiding Method Indwelling Catheter Indwelling Catheter Indwelling Catheter - Exam On physical examination, patient appears comfortable in no apparent distress. HEAD: Normocephalic, atraumatic. EYES: No scleral icterus. No conjunctival injection. MOUTH: No lesions, tongue midline. NECK: Trachea midline, no gross abnormalities. CHEST: Clear to auscultation with no wheezing or rhonchi appreciated. ABDOMEN: Soft, obese and nontender. Bowel sounds are positive. No organomegaly. No guarding or rigidity. EXTREMITIES: No pedal edema. SKIN: No rashes, no jaundice. NEUROLOGIC: Alert and oriented x3. Bilateral shoulder weakness secondary to rhabdomyolysis has persisted but somewhat improved. - Labs CBC & Chem 7: 07/29/20 06:26 07/28/20 07:44 Labs: Abnormal Lab Results - Last 24 Hours (Table) 07/27/20 07/27/20 07/27/20 Range/Units 13:50 13:50 13:50 WBC (3.8-10.6) k/uL Hgb (11.4-16.0) gm/dL Hct (34.0-46.0) % ESR 47 H (0-20) mm/hr Sodium (137-145) mmol/L Chloride (98-107) mmol/L BUN (7-17) mg/dL Creatinine 2.88 H (0.52-1.04) mg/dL Calcium (8.4-10.2) mg/dL Iron 16 L (50-170) ug/dL TIBC 178 L (228-460) ug/dL % Saturation 8.99 L (12.00-45.00) Transferrin 119.0 L (204.0-354.0) mg/dL Ferritin 458.7 H (10.0-291.0) ng/mL AST 2654 H (14-36) U/L ALT 724 H (4-34) U/L Creatine Kinase [id number] H* (30-135) U/L Total Protein (6.3-8.2) g/dL Total Protein (PEP) 4.2 L (6.2-8.2) g/dL Albumin (3.5-5.0) g/dL Aktdi-5-Bxoropjtfwf 273.0 H (99.0-242.0) mg/dL 07/27/20 07/28/20 07/28/20 Range/Units 20:38 07:44 07:44 WBC 12.3 H (3.8-10.6) k/uL Hgb 10.3 L (11.4-16.0) gm/dL Hct 32.1 L (34.0-46.0) % ESR (0-20) mm/hr Sodium 128 L 129 L (137-145) mmol/L Chloride 97 L (98-107) mmol/L BUN 47 H 46 H (7-17) mg/dL Creatinine 2.72 H 2.87 H (0.52-1.04) mg/dL Calcium 6.4 L* 6.5 L (8.4-10.2) mg/dL Iron (50-170) ug/dL TIBC (228-460) ug/dL % Saturation (12.00-45.00) Transferrin (204.0-354.0) mg/dL Ferritin (10.0-291.0) ng/mL AST 2641 H (14-36) U/L ALT 777 H (4-34) U/L Creatine Kinase [id number] H* (30-135) U/L Total Protein 4.6 L (6.3-8.2) g/dL Total Protein (PEP) (6.2-8.2) g/dL Albumin 2.0 L (3.5-5.0) g/dL Ngihl-9-Vbxpxcpnpaa (99.0-242.0) mg/dL Assessment and Plan Assessment: 1. Elevated liver enzymes: 70-year-old female with a known history of obesity and vertigo who was seen at outside hospital for bilateral shoulder weakness and pain in transfer for further evaluation. Currently the patient is being treated for elevated creatinine in the setting of rhabdomyolysis, she is also being seen for a possible pelvic mass. Liver enzymes significantly elevated on presentation predominantly in a hepatocellular pattern with total bilirubin 0.5, alkaline phosphatase 63, AST 2906 and ALT 148. Suspicion is for elevation secondary to rhabdomyolysis, full serology will be ordered to rule out other etiology, she reports any prior history of liver disease, high risk behavior or pertinent family history of liver disease. 2. Rhabdomyolysis. 3. Pancreatic cyst/mass seen on computed tomography scan. 4. Other medical comorbidities per primary team. Plan: Supportive care Appreciate recommendations from the consulting services, continue treatment of rhabdomyolysis per primary team and the recommendations Continue to monitor CBC, BMP and LFTs Full liver serology ordered to rule out intrinsic liver disease, suspicion is for elevation in liver enzymes secondary to rhabdomyolysis, negative to date Computed tomography scan report from outside hospital revealed Patient will need further evaluation with MRI of the abdomen for evaluation of pancreatic mass or possible referral for endoscopic ultrasound in the future and pending clinical course Thank you for allowing us to participate in the care of the patient
[2020-07-29 11:07] LABS: ALT 730 U/L (8-44); AST 1856 U/L (13-35); African American GFR (CKD) 20.7 (60.0-200.0); Alkaline Phosphatase 70 U/L (41-126); BUN/Creat Ratio 16.54 Ratio (12.00-20.00); Calcium 7.2 mg/dL (8.7-10.3); Carbon Dioxide 26.1 mmol/L (21.6-31.8); Chloride 97 mmol/L (96-109); Glucose 93 mg/dL (70-110); Non-African American GFR(CKD) 17.8 (60.0-200.0); Phosphorus 8.5 mg/dL (2.4-5.1); Potassium 4.9 mmol/L (3.5-5.5); Sodium 133 mmol/L (135-145); Total Bilirubin 0.2 mg/dL (0.2-1.2); Total Protein 4.4 g/dL (6.2-8.2)
--- NOTE | 2020-07-29 12:00 | P.PN ---
Subjective Progress Note Date: 07/29/20 The patient reports no ongoing discomfort since D&C yesterday. She does continue to have some vaginal bleeding about report the patient cannot quantify. Objective - Vital Signs Vital signs: Vital Signs Temp 97.6 F 07/29/20 07:49 Pulse 81 07/29/20 07:49 Resp 20 07/29/20 08:10 BP 121/73 07/29/20 07:49 Pulse Ox 95 07/29/20 07:49 Intake & Output 07/28/20 07/29/20 07/29/20 18:59 06:59 18:59 Intake Total 125 250 Output Total 2405 425 Balance -2280 -425 250 Intake: IV 125 Oral 250 Output: Urine 900 425 Hemodialysis 1500 Estimated Blood Loss 5 Other: Voiding Method Indwelling Catheter Indwelling Catheter Indwelling Catheter - Exam In general, this is a well-developed, moderately obese white female in no acute distress. She does also generally appear significantly puffy consistent with her chronic renal failure. Her abdomen is nondistended, soft, nontender, without masses. Her extremities are without cyanosis or clubbing though there is some edema and are nontender to palpation bilaterally. Pelvic examination is deferred. - Labs CBC & Chem 7: 07/29/20 06:26 07/29/20 06:26 Labs: Abnormal Lab Results - Last 24 Hours (Table) 07/28/20 07/29/20 07/29/20 Range/Units 07:44 06:26 06:26 WBC 15.0 H (3.8-10.6) k/uL RBC 3.67 L (3.80-5.40) m/uL Hgb 10.1 L (11.4-16.0) gm/dL Hct 30.6 L (34.0-46.0) % Sodium (135-145) mmol/L BUN (9.0-27.0) mg/dL Creatinine (0.6-1.5) mg/dL Est GFR (CKD-EPI)AfAm (60.0-200.0) Est GFR (CKD-EPI)NonAf (60.0-200.0) Calcium (8.7-10.3) mg/dL Phosphorus (2.4-5.1) mg/dL AST (13-35) U/L ALT (8-44) U/L Creatine Kinase 656210 H* (30-135) U/L C-Reactive Protein 217.4 H (<10.0) mg/L Total Protein (6.2-8.2) g/dL Albumin (3.80-4.90) g/dL Albumin/Globulin Ratio (1.60-3.17) g/dL 07/29/20 Range/Units 06:26 WBC (3.8-10.6) k/uL RBC (3.80-5.40) m/uL Hgb (11.4-16.0) gm/dL Hct (34.0-46.0) % Sodium 133 L (135-145) mmol/L BUN 43.0 H (9.0-27.0) mg/dL Creatinine 2.6 H (0.6-1.5) mg/dL Est GFR (CKD-EPI)AfAm 20.7 L (60.0-200.0) Est GFR (CKD-EPI)NonAf 17.8 L (60.0-200.0) Calcium 7.2 L (8.7-10.3) mg/dL Phosphorus 8.5 H (2.4-5.1) mg/dL AST 1856 H (13-35) U/L ALT 730 H (8-44) U/L Creatine Kinase (30-135) U/L C-Reactive Protein (<10.0) mg/L Total Protein 4.4 L (6.2-8.2) g/dL Albumin 2.40 L (3.80-4.90) g/dL Albumin/Globulin Ratio 1.20 L (1.60-3.17) g/dL Assessment and Plan (1) Postmenopausal bleeding Current Visit: Yes Status: Acute Code(s): N95.0 - POSTMENOPAUSAL BLEEDING SNOMED Code(s): 04454689 (2) Uterine mass Current Visit: Yes Status: Acute Code(s): N85.8 - OTHER SPECIFIED NONINFLAMMATORY DISORDERS OF UTERUS SNOMED Code(s): 326117539914902 Plan: The patient is status post dilation and curettage and pathology is pending, likely for the next 2 days. Further disposition will depend upon the findings on pathology though I do suspect the likelihood of malignancy to be high. Should that be the case, she will likely only be a candidate for radiation as she is currently a poor candidate for surgical intervention.
--- NOTE | 2020-07-29 13:59 | P.PN ---
Progress Note - Text Progress Note Date: 07/29/20 Patient remains stable. She'll be scheduled for left thigh muscle biopsy in the a.m.
--- NOTE | 2020-07-29 14:01 | P.PN ---
Subjective Progress Note Date: 07/29/20 Principal diagnosis: Elevated liver enzymes Patient seen lying in bed, reporting that her condition is stable. No nausea or vomiting. She is tolerating her diet.. Objective - Vital Signs Vital signs: Vital Signs Temp 97.6 F 07/29/20 07:49 Pulse 81 07/29/20 07:49 Resp 20 07/29/20 08:10 BP 121/73 07/29/20 07:49 Pulse Ox 95 07/29/20 07:49 Intake & Output 07/28/20 07/29/20 07/29/20 18:59 06:59 18:59 Intake Total 125 250 Output Total 2405 425 Balance -2280 -425 250 Intake: IV 125 Oral 250 Output: Urine 900 425 Hemodialysis 1500 Estimated Blood Loss 5 Other: Voiding Method Indwelling Catheter Indwelling Catheter Indwelling Catheter - Exam On physical examination, patient appears comfortable in no apparent distress. HEAD: Normocephalic, atraumatic. EYES: No scleral icterus. No conjunctival injection. MOUTH: No lesions, tongue midline. NECK: Trachea midline, no gross abnormalities. CHEST: Clear to auscultation with no wheezing or rhonchi appreciated. ABDOMEN: Soft, obese and nontender. Bowel sounds are positive. No organomegaly. No guarding or rigidity. EXTREMITIES: No pedal edema. SKIN: No rashes, no jaundice. NEUROLOGIC: Alert and oriented x3. Bilateral shoulder weakness secondary to rhabdomyolysis has persisted but somewhat improved. - Labs CBC & Chem 7: 07/29/20 06:26 07/29/20 06:26 Labs: Abnormal Lab Results - Last 24 Hours (Table) 07/28/20 07/29/20 07/29/20 Range/Units 07:44 06:26 06:26 WBC 15.0 H (3.8-10.6) k/uL RBC 3.67 L (3.80-5.40) m/uL Hgb 10.1 L (11.4-16.0) gm/dL Hct 30.6 L (34.0-46.0) % Sodium (135-145) mmol/L BUN (9.0-27.0) mg/dL Creatinine (0.6-1.5) mg/dL Est GFR (CKD-EPI)AfAm (60.0-200.0) Est GFR (CKD-EPI)NonAf (60.0-200.0) Calcium (8.7-10.3) mg/dL Phosphorus (2.4-5.1) mg/dL AST (13-35) U/L ALT (8-44) U/L Creatine Kinase 410970 H* (30-135) U/L C-Reactive Protein 217.4 H (<10.0) mg/L Total Protein (6.2-8.2) g/dL Albumin (3.80-4.90) g/dL Albumin/Globulin Ratio (1.60-3.17) g/dL 07/29/20 Range/Units 06:26 WBC (3.8-10.6) k/uL RBC (3.80-5.40) m/uL Hgb (11.4-16.0) gm/dL Hct (34.0-46.0) % Sodium 133 L (135-145) mmol/L BUN 43.0 H (9.0-27.0) mg/dL Creatinine 2.6 H (0.6-1.5) mg/dL Est GFR (CKD-EPI)AfAm 20.7 L (60.0-200.0) Est GFR (CKD-EPI)NonAf 17.8 L (60.0-200.0) Calcium 7.2 L (8.7-10.3) mg/dL Phosphorus 8.5 H (2.4-5.1) mg/dL AST 1856 H (13-35) U/L ALT 730 H (8-44) U/L Creatine Kinase (30-135) U/L C-Reactive Protein (<10.0) mg/L Total Protein 4.4 L (6.2-8.2) g/dL Albumin 2.40 L (3.80-4.90) g/dL Albumin/Globulin Ratio 1.20 L (1.60-3.17) g/dL Assessment and Plan Assessment: 1. Elevated liver enzymes: 70-year-old female with a known history of obesity and vertigo who was seen at outside hospital for bilateral shoulder weakness and pain in transfer for further evaluation. Currently the patient is being treated for elevated creatinine in the setting of rhabdomyolysis, she is also being seen for a possible pelvic mass. Liver enzymes significantly elevated on presentation predominantly in a hepatocellular pattern with total bilirubin 0.5, alkaline phosphatase 63, AST 2906 and ALT 148. Suspicion is for elevation secondary to rhabdomyolysis, full serology will be ordered to rule out other etiology, she reports any prior history of liver disease, high risk behavior or pertinent family history of liver disease. Liver serology has been negative to date with no evidence of intrinsic liver disease and liver enzymes are improving as CPK trends down 2. Rhabdomyolysis. 3. Pancreatic cyst/mass seen on computed tomography scan. 4. Other medical comorbidities per primary team. Plan: Supportive care Appreciate recommendations from the consulting services, continue treatment of rhabdomyolysis per primary team and the recommendations Continue to monitor CBC, BMP and LFTs Full liver serology ordered to rule out intrinsic liver disease, suspicion is for elevation in liver enzymes secondary to rhabdomyolysis, negative to date Computed tomography scan report from outside hospital revealed Patient will need further evaluation with MRI of the abdomen for evaluation of pancreatic mass or possible referral for endoscopic ultrasound in the future and pending clinical course Thank you for allowing us to participate in the care of the patient, the GI service will stand by, please call us back with any questions or concerns
--- NOTE | 2020-07-29 15:13 | P.PN ---
Subjective Progress Note Date: 07/29/20 Follow-up for acute kidney injury and hyperkalemia. Hemodialysis started on 07/27/2020. Objective - Vital Signs Vital signs: Vital Signs Temp 97.6 F 07/29/20 07:49 Pulse 81 07/29/20 07:49 Resp 20 07/29/20 08:10 BP 121/73 07/29/20 07:49 Pulse Ox 95 07/29/20 07:49 Intake & Output 07/28/20 07/29/20 07/29/20 18:59 06:59 18:59 Intake Total 125 250 Output Total 2405 425 Balance -2280 -425 250 Intake: IV 125 Oral 250 Output: Urine 900 425 Hemodialysis 1500 Estimated Blood Loss 5 Other: Voiding Method Indwelling Catheter Indwelling Catheter Indwelling Catheter - Exam No acute distress S1-S2 heard Lungs clear Edema - Labs CBC & Chem 7: 07/29/20 06:26 07/29/20 06:26 Labs: Abnormal Lab Results - Last 24 Hours (Table) 07/28/20 07/29/20 07/29/20 Range/Units 07:44 06:26 06:26 WBC 15.0 H (3.8-10.6) k/uL RBC 3.67 L (3.80-5.40) m/uL Hgb 10.1 L (11.4-16.0) gm/dL Hct 30.6 L (34.0-46.0) % Sodium (135-145) mmol/L BUN (9.0-27.0) mg/dL Creatinine (0.6-1.5) mg/dL Est GFR (CKD-EPI)AfAm (60.0-200.0) Est GFR (CKD-EPI)NonAf (60.0-200.0) Calcium (8.7-10.3) mg/dL Phosphorus (2.4-5.1) mg/dL AST (13-35) U/L ALT (8-44) U/L Creatine Kinase 461816 H* (30-135) U/L C-Reactive Protein 217.4 H (<10.0) mg/L Total Protein (6.2-8.2) g/dL Albumin (3.80-4.90) g/dL Albumin/Globulin Ratio (1.60-3.17) g/dL 07/29/20 Range/Units 06:26 WBC (3.8-10.6) k/uL RBC (3.80-5.40) m/uL Hgb (11.4-16.0) gm/dL Hct (34.0-46.0) % Sodium 133 L (135-145) mmol/L BUN 43.0 H (9.0-27.0) mg/dL Creatinine 2.6 H (0.6-1.5) mg/dL Est GFR (CKD-EPI)AfAm 20.7 L (60.0-200.0) Est GFR (CKD-EPI)NonAf 17.8 L (60.0-200.0) Calcium 7.2 L (8.7-10.3) mg/dL Phosphorus 8.5 H (2.4-5.1) mg/dL AST 1856 H (13-35) U/L ALT 730 H (8-44) U/L Creatine Kinase >7800 H* (30-135) U/L C-Reactive Protein (<10.0) mg/L Total Protein 4.4 L (6.2-8.2) g/dL Albumin 2.40 L (3.80-4.90) g/dL Albumin/Globulin Ratio 1.20 L (1.60-3.17) g/dL Assessment and Plan Assessment: #1 oliguric acute kidney injury secondary to toxic ATN from rhabdomyolysis. #2 hyperkalemia multifactorial #3 rhabdo, workup in process #4 hypervolemic hyponatremia #5 metabolic alkalosis resolving #6 hypocalcemia, corrected with albumin within normal limits. Ionized calcium pending Plan: #1 hemodialysis started on 07/27/2020. No treatment on Thursday. #2 rhabdo workup by the primary team. Awaiting rheumatology evaluation #3 avoid nephrotoxic agents and hypotensive episodes..
[2020-07-29] MEDS: FOLIC ACID-VIT B COMPLEX-VIT C 1 CAP PO SCH (15:51)
--- NOTE | 2020-07-29 16:13 | P.PN ---
Subjective Progress Note Date: 07/27/20 Diaylsis was initiated and potassium improved. CBC stable Objective - Vital Signs Vital signs: Vital Signs Temp 97.2 F L 07/27/20 11:04 Pulse 66 07/27/20 11:04 Resp 18 07/27/20 11:04 BP 127/72 07/27/20 11:04 Pulse Ox 92 L 07/27/20 11:04 Intake & Output 07/26/20 07/27/20 07/27/20 18:59 06:59 18:59 Intake Total 1850 2450 Output Total 400 Balance 1450 2450 Weight 122 kg Intake: IV 1600 Dextrose 5% in Water 1, 1600 000 ml @ 200 mls/hr IV . Q5H45M EVELYN with Sodium Bicarb (1 Meq/ml) 150 ml Rx#:[id number] Intake, IV Titration 2000 Amount Sodium Chloride 0.9% 1, 2000 000 ml @ 200 mls/hr IV . Q5H EVELYN Rx#:[id number] Oral 250 450 Output: Urine 400 Other: Voiding Method Indwelling Catheter Indwelling Catheter # Bowel Movements 2 - Exam - Constitutional General appearance: no acute distress - EENT Eyes: EOMI, PERRLA ENT: hearing grossly normal, normal oropharynx - Neck Neck: no lymphadenopathy Thyroid: bilateral: normal size - Respiratory Respiratory: bilateral: CTA - Cardiovascular Rhythm: regular Heart sounds: normal: S1, S2 - Gastrointestinal General gastrointestinal: normal bowel sounds, soft - Integumentary Integumentary: normal - Neurologic Neurologic: CNII-XII intact - Musculoskeletal Tenderness to palpation over shoulder muscles and upper arms. Marked weakness in bilateral proximal upper extremities. Much milder decrease in strength in proximal lower extremities. - Psychiatric Psychiatric: A&O x's 3, appropriate affect - Labs CBC & Chem 7: 07/29/20 06:26 07/29/20 06:26 Labs: Abnormal Lab Results - Last 24 Hours (Table) 07/25/20 07/26/20 07/26/20 Range/Units 01:26 09:23 12:15 WBC (3.8-10.6) k/uL Hct (34.0-46.0) % Plt Count (150-450) k/uL Neutrophils # (1.3-7.7) k/uL Lymphocytes # (1.0-4.8) k/uL Sodium 123 L (137-145) mmol/L Potassium 5.2 H (3.5-5.1) mmol/L Chloride 89 L (98-107) mmol/L BUN 60 H (7-17) mg/dL Creatinine 3.33 H (0.52-1.04) mg/dL Glucose 129 H (74-99) mg/dL Calcium 6.9 L (8.4-10.2) mg/dL Delta Bilirubin (0.0-0.2) mg/dL AST 2972 H (14-36) U/L ALT 866 H (4-34) U/L Creatine Kinase 391098 H* (30-135) U/L Total Protein 5.0 L (6.3-8.2) g/dL Albumin 2.2 L (3.5-5.0) g/dL Aldolase 380.0 H (1.2-7.6) U/L 07/26/20 07/26/20 07/27/20 Range/Units 13:14 22:15 08:19 WBC 15.7 H 13.1 H (3.8-10.6) k/uL Hct 33.7 L (34.0-46.0) % Plt Count 141 L (150-450) k/uL Neutrophils # 14.1 H (1.3-7.7) k/uL Lymphocytes # 0.7 L (1.0-4.8) k/uL Sodium 123 L (137-145) mmol/L Potassium 5.4 H (3.5-5.1) mmol/L Chloride 88 L (98-107) mmol/L BUN 62 H (7-17) mg/dL Creatinine 3.39 H (0.52-1.04) mg/dL Glucose 120 H (74-99) mg/dL Calcium 6.6 L (8.4-10.2) mg/dL Delta Bilirubin (0.0-0.2) mg/dL AST (14-36) U/L ALT (4-34) U/L Creatine Kinase 527676 H* (30-135) U/L Total Protein (6.3-8.2) g/dL Albumin (3.5-5.0) g/dL Aldolase (1.2-7.6) U/L 07/27/20 Range/Units 08:19 WBC (3.8-10.6) k/uL Hct (34.0-46.0) % Plt Count (150-450) k/uL Neutrophils # (1.3-7.7) k/uL Lymphocytes # (1.0-4.8) k/uL Sodium 126 L (137-145) mmol/L Potassium 6.1 H* (3.5-5.1) mmol/L Chloride 93 L (98-107) mmol/L BUN 62 H (7-17) mg/dL Creatinine (0.52-1.04) mg/dL Glucose (74-99) mg/dL Calcium 6.6 L (8.4-10.2) mg/dL Delta Bilirubin 0.6 H (0.0-0.2) mg/dL AST (14-36) U/L ALT (4-34) U/L Creatine Kinase (30-135) U/L Total Protein 4.8 L (6.3-8.2) g/dL Albumin 2.1 L (3.5-5.0) g/dL Aldolase (1.2-7.6) U/L Assessment and Plan Plan: CT scan - abdomen: report reviewed CT scan - pelvis: report reviewed US - abdomen: report reviewed Assessment and Plan Assessment: #1. Rhabdomyolysis #2. Kidney injury, presumably acute #3. Electrolyte abnormalities #4. Uterine mass and pelvic adenopathy. Abnormal vaginal bleeding Plan: Rhabdomyolysis : - this appears to be acute in onset. Conventional risk factors such as symptoms suggestive of recent viral injury, or medications or trauma are not present. Therefore etiology is unknown at this time. Patient has been seen by nephrology, and is on treatment with IV hydration. - Given the patient's finding on computed tomography scan, and unknown etiology so far of the rhabdomyolysis, a paraneoplastic phenomenon can be considered. However paraneoplastic rhabdomyolysis is extremely rare. Case reports have been described of this occurring very occasionally with acute myeloid leukemia. The patient however has no evidence of the same on her CBC. There are also occasional case reports of this occurring with paraneoplastic hyponatremia as well as paraneoplastic severe polymyositis, though these are generally also rare and atypical presentations. - Continue current management per nephrology. If patient is not improving muscle biopsy can be considered. Uterine mass and pelvic adenopathy in this clinical setting this is concerning for malignancy. - The patient does give a history of abnormal vaginal bleeding but that has been chronic for many years. - Once renal function improves imaging with contrast will be ordered. - Transvaginal Ultrasounf and QA AUTOMATION DEVELOPER evaluated and agree with biopsy need. - Status Post D and C and biopsy 07/28 - Await Path Electrolyte abnormality - the patient is noted to have hyponatremia and hyperkalemia. - This could be secondary to renal dysfunction from rhabdomyolysis. However, a paraneoplastic phenomenon, that can cause rhabdomyolysis as noted above, is also in consideration. - Diaylysis per Nephrology and improvements seen Leukocytosisthis is mild and appears to be reactive predominant neutrophilia. No other hematology abnormalities noted.
--- NOTE | 2020-07-29 16:45 | P.PN ---
Subjective Progress Note Date: 07/29/20 (delayed charting seen at 1030) Principal diagnosis: shoulder pain Patient is a 70-year-old female with a past medical history of vertigo who presented with complaints of bilateral severe shoulder pain and weakness. She was transferred here for [facility] due to acute kidney injury, transaminitis, and uterine mass. There she had undergone a CT abdomen and pelvis without contrast which revealed fat stranding in the left vasyl-pelvis along the course of the distal ureter ureter with possible pyelonephritis versus acute left adnexal pathology, bladder wall thickening, hypodense mass in the uterus with mild to moderate pelvic adenopathy findings likely due to endometr ial mass, and cystic mass in the pancreas but follow-up MRI recommended. On arrival here her sodium was 125, potassium 6.6, chloride 96, carbon dioxide 19, BUN 47, and creatinine 2.58. She was also found have an AST of 3421, ALT 1002, white blood cell count 16.2. Urinalysis was consistent with rhabdo but did not appear consistent with urinary tract infection, however patient had already received Rocephin. She was started on IV fluids and arrangements were made for admission. CPK was ordered which came back at 154,161. She subsequently received an additional 2 L of IV fluid and her IV fluid drip was increased. Gynecology was consulted regarding her uterine mass. Nephrology was consulted for possible STEVE Vs CKD in conjunction with severe rhabdo. Hematology and oncology was consulted secondary to concern for possible dermatomyositis versus polymyositis that could be related to her uterine mass. She went into rate controlled A fib on 07/25 which was rate controlled. Cardio was consulted and recommended TSH and echo. Seen by INVOICE CONTROL CLERK and plan is for D and C with biopsy. CT chest without metastatic disease. GI consulted for acute hepatitis, viral hepatitis profile negative. Other causes of hepatitis were evaluated. On the morning of 07/27 there were unable to draw her blood work secondary to her diffuse edema. She also lost IV access and when her hyperkalemia and came back we were unable to treat that emergently. She did have a midline placed. Case discussed with nephrology and plan is for urgent dialysis secondary to continued hyperkalemia, rhabdo, and worsening renal function. We attempted to give her a dose of Kayexalate however she vomited that up. Emergent sodium bicarb, insulin, dextrose were ordered to check the potassium intracellularly. Her D&C had to be postponed secondary to inadequate IV access and need to treat potassium. Case was discussed with hematology over the phone. Secondary to her continued rhabdo we will evaluate for possible other causes of myopathy with muscle biopsy. Dr. Malik consulted and case discussed over phone. Will plan for muscle biopsy. 07/28 D and C completed with necrotic tissue, second round of dialysis 07/29 No changes overnight. Patient seen and examined at bedside. Arm weakness is slightly improving pain is better, overall feeling improved. General: non toxic, no distress, appears at stated age Derm: Violaceous rash bilateral lower extremities- continued, some redness with thickening over her anterior chest, no facial dermatitis noted, warm, dry Head: atraumatic, normocephalic, symmetric Eyes: EOMI, no lid lag, anicteric sclera Mouth: no lip lesion, mucus membranes moist Cardiovascular: S1S2 reg, no murmur, positive posterior tibial pulse bilateral, Lungs: CTA bilateral, no rhonchi, no rales , no accessory muscle use Abdominal: soft, nontender to palpation, no guarding, no appreciable org anomegaly Ext: no gross muscle atrophy, 2+ edema bilateral upper extremities, no contractures Neuro: CN II-XI grossly intact, no focal neuro deficits Psych: Alert, oriented, appropriate affect 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 - Aldolase level > 300. - RF, SS-A, SS-B, anti-valadez AB - Consult rheumatology on Thursday - Muscle biopsy 07/30, Dr. Malik consulted - Continue to follow AST and ALT - Continue to follow CK daily - Heme/onc recs appreciated - Hold off on steroids at this time. Rhabdomyolysis - Suspect secondary to inflammatory at myositis - Follow creatinine - Repeat labs in AM - Strict I's and O's, Whaley catheter inserted. Acute kidney injury with metabolic acidosis, worsening - HD 07/27 and 07/28, plan is for an additional round today -IV fluids completed -Avoid additional nephrotoxic agents -Repeat labs in a.m. -Elevated phosphorus level which may be consistent with some form of chronic kidney disease Acute hepatitis suspect secondary to underlying rhabdo and inflammatory myositis -Repeat liver enzymes in a.m. -Acute hepatitis profile negative -REBEKA negative - antimitochondrial antibody pending - GI recs appreciated Uterine mass with dysfunctional uterine bleeding - s/p D and C with biopsy - INVOICE CONTROL CLERK recs appreciated: await biopsy results - Onc recs appreciated Cystic Pancreatic mass pancreatic mass - MRI for further evaluation as outpatient Morbid obesity with BMI 43.6 -Outpatient structured weight loss Possible pyelonephritis -5 days of rocephin completed Elevated blood pressure without underlying diagnosis of hypertension, resolved Thrombocytopenia, resolved Hyperkalemia secondary to above, resolved DVT prophylaxis: Heparin Discussed with: patient, nursing, JEWEL BEARING MAKER Anticipated discharge: 5-[address]: home A total of 35 minutes was spent on the care of this complex patient more than 5 0% of the time was spent in counseling and care coordination. Objective - Vital Signs Vital signs: Vital Signs Temp 98 F 07/29/20 15:29 Pulse 72 07/29/20 15:29 Resp 16 07/29/20 15:29 BP 119/73 07/29/20 15:29 Pulse Ox 95 07/29/20 15:29 Intake & Output 07/28/20 07/29/20 07/29/20 18:59 06:59 18:59 Intake Total 125 450 Output Total 2405 425 400 Balance -2280 -425 50 Intake: IV 125 Oral 450 Output: Urine 900 425 400 Hemodialysis 1500 Estimated Blood Loss 5 Other: Voiding Method Indwelling Catheter Indwelling Catheter Indwelling Catheter - Labs CBC & Chem 7: 07/29/20 06:26 07/29/20 06:26 Labs: Abnormal Lab Results - Last 24 Hours (Table) 07/28/20 07/29/20 07/29/20 Range/Units 07:44 06:26 06:26 WBC 15.0 H (3.8-10.6) k/uL RBC 3.67 L (3.80-5.40) m/uL Hgb 10.1 L (11.4-16.0) gm/dL Hct 30.6 L (34.0-46.0) % Sodium (135-145) mmol/L BUN (9.0-27.0) mg/dL Creatinine (0.6-1.5) mg/dL Est GFR (CKD-EPI)AfAm (60.0-200.0) Est GFR (CKD-EPI)NonAf (60.0-200.0) Calcium (8.7-10.3) mg/dL Phosphorus (2.4-5.1) mg/dL AST (13-35) U/L ALT (8-44) U/L Creatine Kinase [id number] H* (30-135) U/L C-Reactive Protein 217.4 H (<10.0) mg/L Total Protein (6.2-8.2) g/dL Albumin (3.80-4.90) g/dL Albumin/Globulin Ratio (1.60-3.17) g/dL 07/29/20 Range/Units 06:26 WBC (3.8-10.6) k/uL RBC (3.80-5.40) m/uL Hgb (11.4-16.0) gm/dL Hct (34.0-46.0) % Sodium 133 L (135-145) mmol/L BUN 43.0 H (9.0-27.0) mg/dL Creatinine 2.6 H (0.6-1.5) mg/dL Est GFR (CKD-EPI)AfAm 20.7 L (60.0-200.0) Est GFR (CKD-EPI)NonAf 17.8 L (60.0-200.0) Calcium 7.2 L (8.7-10.3) mg/dL Phosphorus 8.5 H (2.4-5.1) mg/dL AST 1856 H (13-35) U/L ALT 730 H (8-44) U/L Creatine Kinase >7800 H* (30-135) U/L C-Reactive Protein (<10.0) mg/L Total Protein 4.4 L (6.2-8.2) g/dL Albumin 2.40 L (3.80-4.90) g/dL Albumin/Globulin Ratio 1.20 L (1.60-3.17) g/dL
[2020-07-30] MEDS: HEPARIN SODIUM,PORCINE 5,000 UNIT/ML 1 ML VIAL SQ SCH ×3 (00:42→17:16)
[2020-07-30] MEDS: MORPHINE SULFATE 4 MG/ML SYRINGE IVP PRN (00:42)
[2020-07-30 02:31] LABS: Herpes simplex I and/or II IgM 0.09 INDEX (<=0.90)
[2020-07-30 03:26] LABS: EBV - VCA IgM <10.0 U/mL (<36.0)
[2020-07-30 06:23] LABS: HCT 29.7 % (34.0-46.0); HGB 9.8 gm/dL (11.4-16.0); MCH 27.6 pg (25.0-35.0); MCHC 33.1 g/dL (31.0-37.0); MCV 83.3 fL (80.0-100.0); Mean Platelet Volume 7.5; Platelet Count 234 k/uL (150-450); RBC 3.56 m/uL (3.80-5.40); RDW 15.5 % (11.5-15.5); WBC 15.7 k/uL (3.8-10.6)
[2020-07-30] MEDS: FOLIC ACID-VIT B COMPLEX-VIT C 1 CAP PO SCH (07:12)
[2020-07-30 10:18] LABS: Creatine Kinase >7800 (12-186)
[2020-07-30] MEDS ORDERED: SODIUM CHLORIDE 0.9% 1,000 ML IV ONE (10:58)
[2020-07-30] MEDS ORDERED: MIDAZOLAM 2 MG/2 ML VIAL ONE (11:00)
[2020-07-30] MEDS ORDERED: fentaNYL (PF) 50 MCG/ML 2 ML AMP ONE (11:00)
[2020-07-30] MEDS ORDERED: SUCCINYLCHOLINE CHLORIDE 100 MG/5 ML SYR IV ONE (11:00)
[2020-07-30] MEDS ORDERED: LIDOCAINE 1% INJ 10MG/ML (20 ML MDV) ONE (11:00)
[2020-07-30] MEDS ORDERED: PROPOFOL 10 MG/ML 20 ML VIAL IV ONE (11:00)
[2020-07-30] MEDS ORDERED: PHENYLEPHRINE 10 MG/ML VIAL ONE (11:00)
[2020-07-30] MEDS ORDERED: LIDOCAINE 1%-EPI 1:100,000 20 ML VIAL SQ ONE (11:37)
--- NOTE | 2020-07-30 11:44 | P.OP ---
Date of Procedure: 07/30/20 Preoperative Diagnosis: Muscle weakness Postoperative Diagnosis: Muscle weakness Procedure(s) Performed: Left thigh muscle biopsy Anesthesia: DANITA Surgeon: Luis Felipe Malik Estimated Blood Loss (ml): 5 Pathology: other (Left quadriceps biopsy) Condition: stable Disposition: PACU Description of Procedure: The patient's placed on the operative table in supine position. She received general anesthesia. Her left thigh was prepped previous sterile fashion. The patient was quite obese her BMI is 42. A skin incision was made and then using cautery and subcu tissue divided. The fascia was opened. A portion of muscle was then dissected free. The muscle was suture ligated distally and proximally. With 0 Vicryl suture. The specimen was sent to pathology. The fascia closed with #1 Vicryl. Skin was closed interrupted 3-0 Monocryl suture. Dermabond was applied. Patient top she will was sent to recovery in stable condition
[2020-07-30 12:07] LABS: Liver/Kidney Microsome Antibod 1.6 UNITS (<=20)
[2020-07-30 12:29] LABS: African American GFR (CKD) 16.7 (60.0-200.0); Alkaline Phosphatase 68 U/L (41-126); BUN/Creat Ratio 16.13 Ratio (12.00-20.00); Carbon Dioxide 25.7 mmol/L (21.6-31.8); Chloride 95 mmol/L (96-109); Glucose 96 mg/dL (70-110); Non-African American GFR(CKD) 14.4 (60.0-200.0); Potassium 4.8 mmol/L (3.5-5.5); Sodium 130 mmol/L (135-145); Total Protein 4.4 g/dL (6.2-8.2)
[2020-07-30 13:26] LABS: Albumin 1.71 g/dL (3.80-4.90); Gamma Globulin 0.67 g/dL (0.70-1.50)
[2020-07-30 13:27] LABS: ALT 634 U/L (8-44); AST 1453 U/L (13-35); Calcium 7.2 mg/dL (8.7-10.3); Total Bilirubin 0.1 mg/dL (0.2-1.2)
[2020-07-30] MEDS ORDERED: HEPARIN SODIUM,PORCINE 5,000 UNIT/ML 1 ML VIAL ONE (15:00)
--- NOTE | 2020-07-30 15:38 | P.PN ---
Subjective Patient is seen in follow-up for acute kidney injury, currently hemodialysis dependent. Nonoliguric. Underwent muscle biopsy this morning. No chest pain or shortness of breath. Blood pressure stable. Vital signs are stable. General: The patient appeared well nourished and normally developed. HEENT: Head exam is unremarkable. Neck is without jugular venous distension. LUNGS: Breath sounds decreased. HEART: Rate and Rhythm are regular. ABDOMEN: Soft, nontender. Obese. EXTREMITITES: Trace edema. Objective - Vital Signs Vital signs: Vital Signs Temp 98.4 F 07/30/20 12:45 Pulse 76 07/30/20 14:30 Resp 17 07/30/20 12:45 BP 114/72 07/30/20 14:30 Pulse Ox 95 07/30/20 14:30 Intake & Output 07/29/20 07/30/20 07/30/20 18:59 06:59 18:59 Intake Total 450 300 Output Total 400 700 120 Balance 50 -700 180 Intake: IV 300 Oral 450 Output: Urine 400 700 115 Estimated Blood Loss 5 Other: Voiding Method Indwelling Catheter Indwelling Catheter Indwelling Catheter - Labs CBC & Chem 7: 07/30/20 06:01 07/30/20 06:00 Labs: Abnormal Lab Results - Last 24 Hours (Table) 07/27/20 07/29/20 07/30/20 Range/Units 13:50 06:26 06:00 WBC (3.8-10.6) k/uL RBC (3.80-5.40) m/uL Hgb (11.4-16.0) gm/dL Hct (34.0-46.0) % Sodium 130 L (135-145) mmol/L Chloride 95 L (96-109) mmol/L BUN 50.0 H (9.0-27.0) mg/dL Creatinine 3.1 H (0.6-1.5) mg/dL Est GFR (CKD-EPI)AfAm 16.7 L (60.0-200.0) Est GFR (CKD-EPI)NonAf 14.4 L (60.0-200.0) Calcium 7.2 L (8.7-10.3) mg/dL Total Bilirubin 0.1 L (0.2-1.2) mg/dL AST 1453 H (13-35) U/L ALT 634 H (8-44) U/L Creatine Kinase >7800 H* >7800 H* (12-186) Total Protein 4.4 L (6.2-8.2) g/dL Albumin 2.40 L (3.80-4.90) g/dL Albumin (PEP) 1.71 L (3.80-4.90) g/dL Albumin/Globulin Ratio 1.20 L (1.60-3.17) g/dL Beta Globulins 0.55 L (0.60-1.30) g/dL Gamma Globulins 0.67 L (0.70-1.50) g/dL 07/30/20 Range/Units 06:01 WBC 15.7 H (3.8-10.6) k/uL RBC 3.56 L (3.80-5.40) m/uL Hgb 9.8 L (11.4-16.0) gm/dL Hct 29.7 L (34.0-46.0) % Sodium (135-145) mmol/L Chloride (96-109) mmol/L BUN (9.0-27.0) mg/dL Creatinine (0.6-1.5) mg/dL Est GFR (CKD-EPI)AfAm (60.0-200.0) Est GFR (CKD-EPI)NonAf (60.0-200.0) Calcium (8.7-10.3) mg/dL Total Bilirubin (0.2-1.2) mg/dL AST (13-35) U/L ALT (8-44) U/L Creatine Kinase (12-186) Total Protein (6.2-8.2) g/dL Albumin (3.80-4.90) g/dL Albumin (PEP) (3.80-4.90) g/dL Albumin/Globulin Ratio (1.60-3.17) g/dL Beta Globulins (0.60-1.30) g/dL Gamma Globulins (0.70-1.50) g/dL Assessment and Plan Plan: Assessment: 1. Acute kidney injury secondary to ATN secondary to rhabdomyolysis. No hydronephrosis noted on kidney ultrasound. Creatinine peaked at 3.39 this admission. Currently hemodialysis dependent. Unknown baseline renal function. 2. Rhabdomyolysis. Patient was not on a statin therapy. No IVDA or alcohol abuse. No evidence of crush injury or trauma. ? Inflammatory myopathy vs immobility. Status post muscle biopsy this morning. 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 3. Bilateral upper extremity weakness. ? Etiology. 4. Uterine mass. ENGINEER/CONDUCTOR following. s/p D&C. 5. Cystic pancreatic mass. 6. Proteinuria. Can be nonspecific in the setting of acute kidney injury. 7. Hyponatremia secondary to acute kidney injury. 8. Metabolic acidosis secondary to acute kidney injury. Better. 9. Transaminitis. GI following. 10. Hyperphosphatemia secondary to acute kidney injury. Plan: Hemodialysis today. Check serologies. Continue to monitor for renal recovery. Monitor CK levels. Need to be quantified. Add PhosLo with meals.
--- NOTE | 2020-07-30 17:07 | P.PN ---
Subjective Progress Note Date: 07/30/20 (margie charting seen at 0930) Principal diagnosis: shoulder pain Patient is a 70-year-old female with a past medical history of vertigo who presented with complaints of bilateral severe shoulder pain and weakness. She was transferred here for [facility] due to acute kidney injury, transaminitis, and uterine mass. There she had undergone a CT abdomen and pelvis without contrast which revealed fat stranding in the left vasyl-pelvis along the course of the distal ureter ureter with possible pyelonephritis versus acute left adnexal pathology, bladder wall thickening, hypodense mass in the uterus with mild to moderate pelvic adenopathy findings likely due to endometri al mass, and cystic mass in the pancreas but follow-up MRI recommended. On arrival here her sodium was 125, potassium 6.6, chloride 96, carbon dioxide 19, BUN 47, and creatinine 2.58. She was also found have an AST of 3421, ALT 1002, white blood cell count 16.2. Urinalysis was consistent with rhabdo but did not appear consistent with urinary tract infection, however patient had already received Rocephin. She was started on IV fluids and arrangements were made for admission. CPK was ordered which came back at 154,161. She subsequently received an additional 2 L of IV fluid and her IV fluid drip was increased. Gynecology was consulted regarding her uterine mass. Nephrology was consulted for possible STEVE Vs CKD in conjunction with severe rhabdo. Hematology and oncology was consulted secondary to concern for possible dermatomyositis versus polymyositis that could be related to her uterine mass. She went into rate controlled A fib on 07/25 which was rate controlled. Cardio was consulted and recommended TSH and echo. Seen by PROJECT MANAGER INDUSTRIAL and plan is for D and C with biopsy. CT chest without metastatic disease. GI consulted for acute hepatitis, viral hepatitis profile negative. Other causes of hepatitis were evaluated. On the morning of 07/27 there were unable to draw her blood work secondary to her diffuse edema. She also lost IV access and when her hyperkalemia and came back we were unable to treat that emergently. She did have a midline placed. Case discussed with nephrology and plan is for urgent dialysis secondary to continued hyperkalemia, rhabdo, and worsening renal function. We attempted to give her a dose of Kayexalate however she vomited that up. Emergent sodium bicarb, insulin, dextrose were ordered to check the potassium intracellularly. Her D&C had to be postponed secondary to inadequate IV access and need to treat potassium. Case was discussed with hematology over the phone. Secondary to her continued rhabdo we will evaluate for possible other causes of myopathy with muscle biopsy. Dr. Malik consulted and case discussed over phone. Will plan for muscle biopsy. 07/28 D and C completed with necrotic tissue, second round of dialysis 07/29 No changes overnight. 07/30 Muscle biopsy of quads, d/w Dr. Malik more morbidity if biopsy of de ltoid. Purulent material noted from vaginal canal during surgery. HD today. Patient seen and examined at bedside. Arm weakness is the same, pain is unchanged, no nausea, no vomiting. General: non toxic, no distress, appears at stated age Derm: Violaceous rash bilateral lower extremities, some redness with thickening over her anterior chest, no facial dermatitis noted, warm, dry Head: atraumatic, normocephalic, symmetric Eyes: EOMI, no lid lag, anicteric sclera Mouth: no lip lesion, mucus membranes moist Cardiovascular: S1S2 reg, no murmur, positive posterior tibial pulse bilateral, Lungs: CTA bilateral, no rhonchi, no rales , no accessory muscle use Abdominal: soft, nontender to palpation, no guarding, no appreciable organomegaly Ext: no gross muscle atrophy, 2+ edema bilateral upper extremities, no contractures Neuro: CN II-XI grossly intact, no focal neuro deficits Psych: Alert, oriented, appropriate affect 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 - Aldolase level > 300. - RF, SS-A, SS-B, anti-valadez AB- negative - Muscle biopsy pending - Continue to follow AST and ALT - Continue to follow CK daily - Heme/onc recs appreciated - Hold off on steroids at this time. Rhabdomyolysis - on HD - Suspect secondary to inflammatory at myositis - Follow creatinine - Repeat labs in AM - Strict I's and O's, Whaley catheter inserted. Acute kidney injury with metabolic acidosis, worsening - HD 07/27 and 07/28, plan is for an additional round today - IV fluids completed - Avoid additional nephrotoxic agents - Repeat labs in a.m. - Elevated phosphorus level which may be consistent with some form of chronic kidney disease Acute hepatitis suspect secondary to underlying rhabdo and inflammatory myositis -Repeat liver enzymes in a.m. -Acute hepatitis profile negative -REBEKA negative - antimitochondrial antibody pending - GI recs appreciated Uterine mass with dysfunctional uterine bleeding - s/p D and C with biopsy - vaginal discharge noted during surgery. will resume rocephin and add flagyl - PROJECT MANAGER INDUSTRIAL recs appreciated: await biopsy results - Onc recs appreciated Cystic Pancreatic mass pancreatic mass - MRI for further evaluation as outpatient Morbid obesity with BMI 43.6 -Outpatient structured weight loss Possible pyelonephritis -5 days of rocephin completed Elevated blood pressure without underlying diagnosis of hypertension, resolved Thrombocytopenia, resolved Hyperkalemia secondary to above, resolved DVT prophylaxis: Heparin Discussed with: patient, nursing, Nephro, heme/onc Anticipated discharge: 5-[address]: home A total of 35 minutes was spent on the care of this complex patient more than 50% of the time was spent in counseling and care coordination. Objective - Vital Signs Vital signs: Vital Signs Temp 98.4 F 07/30/20 12:45 Pulse 76 07/30/20 14:30 Resp 17 07/30/20 12:45 BP 114/72 07/30/20 14:30 Pulse Ox 95 07/30/20 14:30 Intake & Output 07/29/20 07/30/20 07/30/20 18:59 06:59 18:59 Intake Total 450 300 Output Total 400 700 120 Balance 50 -700 180 Intake: IV 300 Oral 450 Output: Urine 400 700 115 Estimated Blood Loss 5 Other: Voiding Method Indwelling Catheter Indwelling Catheter Indwelling Catheter - Labs CBC & Chem 7: 07/30/20 06:01 07/30/20 06:00 Labs: Abnormal Lab Results - Last 24 Hours (Table) 07/27/20 07/29/20 07/30/20 Range/Units 13:50 06:26 06:00 WBC (3.8-10.6) k/uL RBC (3.80-5.40) m/uL Hgb (11.4-16.0) gm/dL Hct (34.0-46.0) % Sodium 130 L (135-145) mmol/L Chloride 95 L (96-109) mmol/L BUN 50.0 H (9.0-27.0) mg/dL Creatinine 3.1 H (0.6-1.5) mg/dL Est GFR (CKD-EPI)AfAm 16.7 L (60.0-200.0) Est GFR (CKD-EPI)NonAf 14.4 L (60.0-200.0) Calcium 7.2 L (8.7-10.3) mg/dL Total Bilirubin 0.1 L (0.2-1.2) mg/dL AST 1453 H (13-35) U/L ALT 634 H (8-44) U/L Creatine Kinase >7800 H* >7800 H* (12-186) Total Protein 4.4 L (6.2-8.2) g/dL Albumin 2.40 L (3.80-4.90) g/dL Albumin (PEP) 1.71 L (3.80-4.90) g/dL Albumin/Globulin Ratio 1.20 L (1.60-3.17) g/dL Beta Globulins 0.55 L (0.60-1.30) g/dL Gamma Globulins 0.67 L (0.70-1.50) g/dL 07/30/20 Range/Units 06:01 WBC 15.7 H (3.8-10.6) k/uL RBC 3.56 L (3.80-5.40) m/uL Hgb 9.8 L (11.4-16.0) gm/dL Hct 29.7 L (34.0-46.0) % Sodium (135-145) mmol/L Chloride (96-109) mmol/L BUN (9.0-27.0) mg/dL Creatinine (0.6-1.5) mg/dL Est GFR (CKD-EPI)AfAm (60.0-200.0) Est GFR (CKD-EPI)NonAf (60.0-200.0) Calcium (8.7-10.3) mg/dL Total Bilirubin (0.2-1.2) mg/dL AST (13-35) U/L ALT (8-44) U/L Creatine Kinase (12-186) Total Protein (6.2-8.2) g/dL Albumin (3.80-4.90) g/dL Albumin (PEP) (3.80-4.90) g/dL Albumin/Globulin Ratio (1.60-3.17) g/dL Beta Globulins (0.60-1.30) g/dL Gamma Globulins (0.70-1.50) g/dL
[2020-07-30] MEDS: CALCIUM ACETATE 667 MG TAB PO SCH (18:10)
[2020-07-30] MEDS: metroNIDAZOLE 500 MG TAB PO SCH (21:30)
[2020-07-31] MEDS: HEPARIN SODIUM,PORCINE 5,000 UNIT/ML 1 ML VIAL SQ SCH ×3 (01:03→16:40)
[2020-07-31 07:01] LABS: Creatine Kinase >7800 (12-186)
[2020-07-31] MEDS: CALCIUM ACETATE 667 MG TAB PO SCH ×3 (07:08→16:41)
[2020-07-31] MEDS: FOLIC ACID-VIT B COMPLEX-VIT C 1 CAP PO SCH (07:08)
[2020-07-31] MEDS: metroNIDAZOLE 500 MG TAB PO SCH ×2 (07:08→19:55)
[2020-07-31 07:42] LABS: HCT 29.6 % (34.0-46.0); HGB 9.7 gm/dL (11.4-16.0); MCH 27.8 pg (25.0-35.0); MCHC 32.8 g/dL (31.0-37.0); MCV 84.7 fL (80.0-100.0); Mean Platelet Volume 7.9; Platelet Count 205 k/uL (150-450); RDW 15.5 % (11.5-15.5)
[2020-07-31 07:57] LABS: Magnesium 2.2 mg/dL (1.6-2.3); Phosphorus 7.2 mg/dL (2.5-4.5)
[2020-07-31 09:34] LABS: ALT 569 U/L (4-34); African American GFR (CKD) 19 (>60 ml/min/1.73 sqM); Albumin 2.2 g/dL (3.5-5.0); Albumin/Globulin Ratio 0.8; Alkaline Phosphatase 65 U/L (38-126); Anion Gap 6 mmol/L; Blood Urea Nitrogen 41 mg/dL (7-17); Calcium 7.2 mg/dL (8.4-10.2); Carbon Dioxide 24 mmol/L (22-30); Chloride 101 mmol/L (98-107); Globulin 2.7 g/dL; Glucose 96 mg/dL (74-99); Non-African American GFR(CKD) 17 (>60 ml/min/1.73 sqM); Potassium 4.8 mmol/L (3.5-5.1); Sodium 131 mmol/L (137-145); Total Bilirubin 0.3 mg/dL (0.2-1.3); Total Protein 4.9 g/dL (6.3-8.2)
[2020-07-31 09:46] LABS: AST 1482 U/L (14-36)
[2020-07-31 10:25] LABS: Creatine Kinase 51154 U/L (30-135)
--- NOTE | 2020-07-31 10:38 | P.PN ---
Subjective Progress Note Date: 07/31/20 CHIEF COMPLAINT: A. fib HISTORY OF PRESENT ILLNESS: Patient examined this morning at the bedside. Patient denies chest pain or pressure. She denies shortness of breath. She states her weakness and fatigue is slowly improving. She underwent muscle biopsy yesterday with Dr. Malik. Hemoglobin today 9.7. Creatinine 2.77. Creatinine kinase 51,154. PHYSICAL EXAM: VITAL SIGNS: Reviewed. GENERAL: Well-developed in no acute distress. HEENT: Head is normocephalic. Pupils are equal, round. Sclerae anicteric. Mucous membranes of the mouth are moist. Neck supple. No JVD or thyromegaly LUNGS: Respirations even and unlabored. Lungs essentially clear to auscultation bilaterally. HEART: Irregular rate and rhythm. S1 and S2 heard. EXTREMITIES: Normal range of motion. No clubbing or cyanosis. Peripheral pulses intact. No lower extremity edema NEUROLOGIC: Awake and alert. Oriented x 3. ASSESSMENT: New-onset paroxysmal atrial fibrillation with controlled ventricular rate Rhabdomyolysis Acute hepatitis Possible pyelonephritis Acute kidney injury Hyperkalemia Uterine mass with vaginal bleeding Cystic pancreatic mass PLAN: Continue telemetry monitoring Patient will need to be initiated on anticoagulation when cleared by consultants: recommend Eliquis 2.5mg BID We will sign off. Please reconsult if needed Nurse practitioner note has been reviewed by physician. Signing provider agrees with the documented findings, assessment, and plan of care. Objective - Vital Signs Vital signs: Vital Signs Temp 97.8 F 07/31/20 08:00 Pulse 93 07/30/20 20:20 Resp 16 07/31/20 08:00 BP 130/72 07/31/20 08:00 Pulse Ox 95 07/31/20 08:00 Intake & Output 07/30/20 07/31/20 07/31/20 18:59 06:59 18:59 Intake Total 500 Output Total 970 3400 Balance -470 -3400 Intake: IV 300 Oral 200 Output: Urine 965 400 Hemodialysis 3000 Estimated Blood Loss 5 Other: Voiding Method Indwelling Catheter Indwelling Catheter Indwelling Catheter - Labs CBC & Chem 7: 07/31/20 06:30 07/31/20 06:30 Labs: Abnormal Lab Results - Last 24 Hours (Table) 07/27/20 07/30/20 07/31/20 Range/Units 13:50 06:00 06:30 WBC (3.8-10.6) k/uL RBC (3.80-5.40) m/uL Hgb (11.4-16.0) gm/dL Hct (34.0-46.0) % Sodium 130 L 131 L (135-145) mmol/L Chloride 95 L (96-109) mmol/L BUN 50.0 H 41 H (9.0-27.0) mg/dL Creatinine 3.1 H 2.77 H (0.6-1.5) mg/dL Est GFR (CKD-EPI)AfAm 16.7 L (60.0-200.0) Est GFR (CKD-EPI)NonAf 14.4 L (60.0-200.0) Calcium 7.2 L 7.2 L (8.7-10.3) mg/dL Phosphorus 7.2 H (2.5-4.5) mg/dL Total Bilirubin 0.1 L (0.2-1.2) mg/dL AST 1453 H 1482 H (13-35) U/L ALT 634 H 569 H (8-44) U/L Creatine Kinase >7800 H* 78361 H* (12-186) Total Protein 4.4 L 4.9 L (6.2-8.2) g/dL Albumin 2.40 L 2.2 L (3.80-4.90) g/dL Albumin (PEP) 1.71 L (3.80-4.90) g/dL Albumin/Globulin Ratio 1.20 L (1.60-3.17) g/dL Beta Globulins 0.55 L (0.60-1.30) g/dL Gamma Globulins 0.67 L (0.70-1.50) g/dL 07/31/20 Range/Units 06:30 WBC 14.0 H (3.8-10.6) k/uL RBC 3.50 L (3.80-5.40) m/uL Hgb 9.7 L (11.4-16.0) gm/dL Hct 29.6 L (34.0-46.0) % Sodium (135-145) mmol/L Chloride (96-109) mmol/L BUN (9.0-27.0) mg/dL Creatinine (0.6-1.5) mg/dL Est GFR (CKD-EPI)AfAm (60.0-200.0) Est GFR (CKD-EPI)NonAf (60.0-200.0) Calcium (8.7-10.3) mg/dL Phosphorus (2.5-4.5) mg/dL Total Bilirubin (0.2-1.2) mg/dL AST (13-35) U/L ALT (8-44) U/L Creatine Kinase (12-186) Total Protein (6.2-8.2) g/dL Albumin (3.80-4.90) g/dL Albumin (PEP) (3.80-4.90) g/dL Albumin/Globulin Ratio (1.60-3.17) g/dL Beta Globulins (0.60-1.30) g/dL Gamma Globulins (0.70-1.50) g/dL
[2020-07-31 11:22] LABS: Protein, Total 4.5 g/dL (6.2-8.2)
[2020-07-31] MEDS: HYDROcodone/APAP 5-325MG 1 EACH TAB PO PRN (11:59)
--- NOTE | 2020-07-31 12:58 | P.PN ---
Subjective Progress Note Date: 07/31/20 CHIEF COMPLAINT: Muscle weakness HISTORY OF PRESENT ILLNESS: Patient is postop day #1, status post left thigh muscle biopsy with Dr. Malik. Patient denies any pain in her left thigh. She was able to stand with physical therapy. She still feels very weak. Afebrile. WBC 14.0 creatinine kinase 51,154 Cr 2.77 PHYSICAL EXAM: VITAL SIGNS: Reviewed. GENERAL: Well-developed in no acute distress. HEENT: No sclera icterus. Extraocular movements grossly intact. Moist buccal mucosa. Head is atraumatic, normocephalic. ABDOMEN: Soft. Nondistended. Nontender. NEUROLOGIC: Alert and oriented. Cranial nerves II through XII grossly intact. Extremities: Left thigh incision clean dry and intact ASSESSMENT: 1. Muscle weakness status post left thigh muscle biopsy 2. 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 Rhabdomyolysis 4. Acute kidney injury 5. Uterine mass with uterine bleeding. Vaginal discharge noted during surgery. HOUSE PARENT following PLAN: -Path report from muscle biopsy pending -Continue supportive care -Antibiotics per medicine Physician Caramel Candy Maker note has been reviewed by physician. Signing provider agrees with the documented findings, assessment, and plan of care. Objective - Vital Signs Vital signs: Vital Signs Temp 97.8 F 07/31/20 08:00 Pulse 93 07/30/20 20:20 Resp 16 07/31/20 08:00 BP 130/72 07/31/20 08:00 Pulse Ox 95 07/31/20 08:00 Intake & Output 07/30/20 07/31/20 07/31/20 18:59 06:59 18:59 Intake Total 500 Output Total 970 3400 Balance -470 -3400 Intake: IV 300 Oral 200 Output: Urine 965 400 Hemodialysis 3000 Estimated Blood Loss 5 Other: Voiding Method Indwelling Catheter Indwelling Catheter Indwelling Catheter - Labs CBC & Chem 7: 07/31/20 06:30 07/31/20 06:30 Labs: Abnormal Lab Results - Last 24 Hours (Table) 07/27/20 07/30/20 07/31/20 Range/Units 13:50 06:00 06:30 WBC (3.8-10.6) k/uL RBC (3.80-5.40) m/uL Hgb (11.4-16.0) gm/dL Hct (34.0-46.0) % Sodium 131 L (137-145) mmol/L BUN 41 H (7-17) mg/dL Creatinine 2.77 H (0.52-1.04) mg/dL Calcium 7.2 L 7.2 L (8.7-10.3) mg/dL Phosphorus 7.2 H (2.5-4.5) mg/dL Total Bilirubin 0.1 L (0.2-1.2) mg/dL AST 1453 H 1482 H (13-35) U/L ALT 634 H 569 H (8-44) U/L Creatine Kinase >7800 H* 98428 H* (12-186) Total Protein 4.9 L (6.3-8.2) g/dL Total Protein (PEP) (6.2-8.2) g/dL Albumin 2.40 L 2.2 L (3.80-4.90) g/dL Albumin (PEP) 1.71 L (3.80-4.90) g/dL Albumin/Globulin Ratio 1.20 L (1.60-3.17) g/dL Beta Globulins 0.55 L (0.60-1.30) g/dL Gamma Globulins 0.67 L (0.70-1.50) g/dL 07/31/20 07/31/20 Range/Units 06:30 06:30 WBC 14.0 H (3.8-10.6) k/uL RBC 3.50 L (3.80-5.40) m/uL Hgb 9.7 L (11.4-16.0) gm/dL Hct 29.6 L (34.0-46.0) % Sodium (137-145) mmol/L BUN (7-17) mg/dL Creatinine (0.52-1.04) mg/dL Calcium (8.7-10.3) mg/dL Phosphorus (2.5-4.5) mg/dL Total Bilirubin (0.2-1.2) mg/dL AST (13-35) U/L ALT (8-44) U/L Creatine Kinase (12-186) Total Protein (6.3-8.2) g/dL Total Protein (PEP) 4.5 L (6.2-8.2) g/dL Albumin (3.80-4.90) g/dL Albumin (PEP) (3.80-4.90) g/dL Albumin/Globulin Ratio (1.60-3.17) g/dL Beta Globulins (0.60-1.30) g/dL Gamma Globulins (0.70-1.50) g/dL
--- NOTE | 2020-07-31 13:25 | P.PN ---
Subjective Patient is seen in follow-up for acute kidney injury, currently hemodialysis dependent. Nonoliguric. Underwent muscle biopsy jul 30. No chest pain or shortness of breath. Blood pressure stable. Tolerated hemodialysis yesterday with 3 L ultrafiltration. Vital signs are stable. General: The patient appeared well nourished and normally developed. HEENT: Head exam is unremarkable. Neck is without jugular venous distension. LUNGS: Breath sounds decreased. HEART: Rate and Rhythm are regular. ABDOMEN: Soft, nontender. Obese. EXTREMITITES: Trace edema. Objective - Vital Signs Vital signs: Vital Signs Temp 97.8 F 07/31/20 08:00 Pulse 93 07/30/20 20:20 Resp 16 07/31/20 08:00 BP 130/72 07/31/20 08:00 Pulse Ox 95 07/31/20 08:00 Intake & Output 07/30/20 07/31/20 07/31/20 18:59 06:59 18:59 Intake Total 500 Output Total 970 3400 Balance -470 -3400 Intake: IV 300 Oral 200 Output: Urine 965 400 Hemodialysis 3000 Estimated Blood Loss 5 Other: Voiding Method Indwelling Catheter Indwelling Catheter Indwelling Catheter - Labs CBC & Chem 7: 07/31/20 06:30 07/31/20 06:30 Labs: Abnormal Lab Results - Last 24 Hours (Table) 07/27/20 07/30/20 07/31/20 Range/Units 13:50 06:00 06:30 WBC (3.8-10.6) k/uL RBC (3.80-5.40) m/uL Hgb (11.4-16.0) gm/dL Hct (34.0-46.0) % Sodium 131 L (137-145) mmol/L BUN 41 H (7-17) mg/dL Creatinine 2.77 H (0.52-1.04) mg/dL Calcium 7.2 L 7.2 L (8.7-10.3) mg/dL Phosphorus 7.2 H (2.5-4.5) mg/dL Total Bilirubin 0.1 L (0.2-1.2) mg/dL AST 1453 H 1482 H (13-35) U/L ALT 634 H 569 H (8-44) U/L Creatine Kinase >7800 H* 63534 H* (12-186) Total Protein 4.9 L (6.3-8.2) g/dL Total Protein (PEP) (6.2-8.2) g/dL Albumin 2.40 L 2.2 L (3.80-4.90) g/dL Albumin (PEP) 1.71 L (3.80-4.90) g/dL Albumin/Globulin Ratio 1.20 L (1.60-3.17) g/dL Beta Globulins 0.55 L (0.60-1.30) g/dL Gamma Globulins 0.67 L (0.70-1.50) g/dL 07/31/20 07/31/20 Range/Units 06:30 06:30 WBC 14.0 H (3.8-10.6) k/uL RBC 3.50 L (3.80-5.40) m/uL Hgb 9.7 L (11.4-16.0) gm/dL Hct 29.6 L (34.0-46.0) % Sodium (137-145) mmol/L BUN (7-17) mg/dL Creatinine (0.52-1.04) mg/dL Calcium (8.7-10.3) mg/dL Phosphorus (2.5-4.5) mg/dL Total Bilirubin (0.2-1.2) mg/dL AST (13-35) U/L ALT (8-44) U/L Creatine Kinase (12-186) Total Protein (6.3-8.2) g/dL Total Protein (PEP) 4.5 L (6.2-8.2) g/dL Albumin (3.80-4.90) g/dL Albumin (PEP) (3.80-4.90) g/dL Albumin/Globulin Ratio (1.60-3.17) g/dL Beta Globulins (0.60-1.30) g/dL Gamma Globulins (0.70-1.50) g/dL Assessment and Plan Plan: Assessment: 1. Acute kidney injury secondary to ATN secondary to rhabdomyolysis. No hydronephrosis noted on kidney ultrasound. Creatinine peaked at 3.39 this admission. Currently hemodialysis dependent. Unknown baseline renal function. 2. Rhabdomyolysis. Patient was not on a statin therapy. No IVDA or alcohol abuse. No evidence of crush injury or trauma. ? Inflammatory myopathy vs immobility. Status post muscle biopsy July 30. 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 CK levels trending down. 3. Bilateral upper extremity weakness. ? Etiology. 4. Uterine mass. RAG ROOM SUPERVISOR following. s/p D&C. 5. Cystic pancreatic mass. 6. Proteinuria. Can be nonspecific in the setting of acute kidney injury. 7. Hyponatremia secondary to acute kidney injury. 8. Metabolic acidosis secondary to acute kidney injury. Better. 9. Transaminitis. GI following. 10. Hyperphosphatemia secondary to acute kidney injury maintained on PhosLo. Plan: Hold hemodialysis today. Continue to assess need for renal replacement therapy on daily basis. Follow-up serologies. Continue to monitor for renal recovery. Avoid nephrotoxins.
[2020-07-31 13:54] LABS: Anti-DNA, DS unit <1.0 IU/mL; DNA Double-Stranded NEGATIVE (NEGATIVE)
--- NOTE | 2020-07-31 14:38 | P.PN ---
Subjective Progress Note Date: 07/31/20 ([facility] chart[facility] seen at 0930) Principal diagnosis: shoulder pain Patient is a 70-year-old female with a past medical history of vertigo who presented with complaints of bilateral severe shoulder pain and weakness. She was transferred here for [facility] due to acute kidney injury, transaminitis, and uterine mass. There she had undergone a CT abdomen and pelvis without contrast which revealed fat stranding in the left vasyl-pelvis along the course of the distal ureter ureter with possible pyelonephritis versus acute left adnexal pathology, bladder wall thickening, hypodense mass in the uterus with mild to moderate pelvic adenopathy findings likely due to endometri al mass, and cystic mass in the pancreas but follow-up MRI recommended. On arrival here her sodium was 125, potassium 6.6, chloride 96, carbon dioxide 19, BUN 47, and creatinine 2.58. She was also found have an AST of 3421, ALT 1002, white blood cell count 16.2. Urinalysis was consistent with rhabdo but did not appear consistent with urinary tract infection, however patient had already received Rocephin. She was started on IV fluids and arrangements were made for admission. CPK was ordered which came back at 154,161. She subsequently received an additional 2 L of IV fluid and her IV fluid drip was increased. Gynecology was consulted regarding her uterine mass. Nephrology was consulted for possible STEVE Vs CKD in conjunction with severe rhabdo. Hematology and oncology was consulted secondary to concern for possible dermatomyositis versus polymyositis that could be related to her uterine mass. She went into rate controlled A fib on 07/25 which was rate controlled. Cardio was consulted and recommended TSH and echo. Seen by MIGRATORY GAME BIRD BIOLOGIST and plan is for D and C with biopsy. CT chest without metastatic disease. GI consulted for acute hepatitis, viral hepatitis profile negative. Other causes of hepatitis were evaluated. On the morning of 07/27 there were unable to draw her blood work secondary to her diffuse edema. She also lost IV access and when her hyperkalemia and came back we were unable to treat that emergently. She did have a midline placed. Case discussed with nephrology and plan is for urgent dialysis secondary to continued hyperkalemia, rhabdo, and worsening renal function. We attempted to give her a dose of Kayexalate however she vomited that up. Emergent sodium bicarb, insulin, dextrose were ordered to check the potassium intracellularly. Her D&C had to be postponed secondary to inadequate IV access and need to treat potassium. Case was discussed with hematology over the phone. Secondary to her continued rhabdo we will evaluate for possible other causes of myopathy with muscle biopsy. Dr. Malik consulted and case discussed over phone. Will plan for muscle biopsy. 07/28 D and C completed with necrotic tissue, second round of dialysis 07/29 No changes overnight. 07/30 Muscle biopsy of quads, d/w Dr. Malik more morbidity if biopsy of de ltoid. Purulent material noted from vaginal canal during surgery. HD today. 07/31 drainage from vaginal area slowed- appears to be old blood at this time. Patient seen and examined at bedside. Continues to have arm weakness, leg weakness, decreased vaginal discharge, no chest pain, no shortness of breath General: non toxic, no distress, appears at stated age Derm: Violaceous rash bilateral lower extremities, some redness with thickening over her anterior chest, no facial dermatitis noted, warm, dry Head: atraumatic, normocephalic, symmetric Eyes: EOMI, no lid lag, anicteric sclera Mouth: no lip lesion, mucus membranes moist Cardiovascular: S1S2 reg, no murmur, positive posterior tibial pulse bilateral, Lungs: CTA bilateral, no rhonchi, no rales , no accessory muscle use Abdominal: soft, nontender to palpation, no guarding, no appreciable organomegaly Ext: no gross muscle atrophy, 1+ edema bilateral upper extremities, no contractures Neuro: CN II-XI grossly intact, no focal neuro deficits Psych: Alert, oriented, appropriate affect 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 - Aldolase level > 300. - RF, SS-A, SS-B, anti-valadez AB- negative - Muscle biopsy pending - Continue to follow AST and ALT - Continue to follow CK daily - Heme/onc recs appreciated - Hold off on steroids at this time. Rhabdomyolysis - on HD - Suspect secondary to inflammatory at myositis - Follow creatinine - Repeat labs in AM - Strict I's and O's, Whaley catheter inserted. Acute kidney injury with metabolic acidosis, worsening - HD 07/27 and 07/28, 07/30 - d/w nephro hold HD today - IV fluids completed - Avoid additional nephrotoxic agents - Repeat labs in a.m. - Elevated phosphorus level which may be consistent with some form of chronic kidney disease Acute hepatitis suspect secondary to underlying rhabdo and inflammatory myositis -Repeat liver enzymes in a.m. -Acute hepatitis profile negative -REBEKA negative - antimitochondrial antibody pending - GI recs appreciated Uterine mass with dysfunctional uterine bleeding - s/p D and C with biopsy - vaginal discharge noted during surgery. will resume rocephin and add flagyl - MIGRATORY GAME BIRD BIOLOGIST recs appreciated: await biopsy results - Onc recs appreciated Newly discovered paroysmal A fib - hold off on eliquis until vaginal bleeding resolved. Starting with ongoing bleeding risk>benefits - cardio recs appreciated - echo EF 55-60% Anemia - due to vaginal bleeding/ IV fluids - Follow CBC - Transfuse as indicated Cystic Pancreatic mass pancreatic mass - MRI for further evaluation as outpatient Morbid obesity with BMI 43.6 -Outpatient structured weight loss Possible pyelonephritis -5 days of rocephin completed Elevated blood pressure without underlying diagnosis of hypertension, resolved Thrombocytopenia, resolved Hyperkalemia secondary to above, resolved DVT prophylaxis: Heparin Discussed with: patient, nursing, Nephro Anticipated discharge: 3-[address]: home A total of 35 minutes was spent on the care of this complex patient more than 50% of the time was spent in counseling and care coordination. Objective - Vital Signs Vital signs: Vital Signs Temp 97.8 F 07/31/20 08:00 Pulse 93 07/30/20 20:20 Resp 16 07/31/20 08:00 BP 130/72 07/31/20 08:00 Pulse Ox 95 07/31/20 08:00 Intake & Output 07/30/20 07/31/20 07/31/20 18:59 06:59 18:59 Intake Total 500 Output Total 970 3400 Balance -470 -3400 Intake: IV 300 Oral 200 Output: Urine 965 400 Hemodialysis 3000 Estimated Blood Loss 5 Other: Voiding Method Indwelling Catheter Indwelling Catheter Indwelling Catheter - Labs CBC & Chem 7: 07/31/20 06:30 07/31/20 06:30 Labs: Abnormal Lab Results - Last 24 Hours (Table) 07/30/20 07/31/20 07/31/20 Range/Units 06:00 06:30 06:30 WBC (3.8-10.6) k/uL RBC (3.80-5.40) m/uL Hgb (11.4-16.0) gm/dL Hct (34.0-46.0) % Sodium 131 L (137-145) mmol/L BUN 41 H (7-17) mg/dL Creatinine 2.77 H (0.52-1.04) mg/dL Calcium 7.2 L (8.4-10.2) mg/dL Phosphorus 7.2 H (2.5-4.5) mg/dL AST 1482 H (14-36) U/L ALT 569 H (4-34) U/L Creatine Kinase >7800 H* 79833 H* (12-186) Total Protein 4.9 L (6.3-8.2) g/dL Total Protein (PEP) 4.5 L (6.2-8.2) g/dL Albumin 2.2 L (3.5-5.0) g/dL 07/31/20 Range/Units 06:30 WBC 14.0 H (3.8-10.6) k/uL RBC 3.50 L (3.80-5.40) m/uL Hgb 9.7 L (11.4-16.0) gm/dL Hct 29.6 L (34.0-46.0) % Sodium (137-145) mmol/L BUN (7-17) mg/dL Creatinine (0.52-1.04) mg/dL Calcium (8.4-10.2) mg/dL Phosphorus (2.5-4.5) mg/dL AST (14-36) U/L ALT (4-34) U/L Creatine Kinase (12-186) Total Protein (6.3-8.2) g/dL Total Protein (PEP) (6.2-8.2) g/dL Albumin (3.5-5.0) g/dL
[2020-08-01] MEDS: HEPARIN SODIUM,PORCINE 5,000 UNIT/ML 1 ML VIAL SQ SCH ×4 (01:12→21:39)
[2020-08-01] MEDS: metroNIDAZOLE 500 MG TAB PO SCH ×2 (07:10→21:39)
[2020-08-01] MEDS: CALCIUM ACETATE 667 MG TAB PO SCH ×3 (07:10→16:39)
[2020-08-01] MEDS: FOLIC ACID-VIT B COMPLEX-VIT C 1 CAP PO SCH (07:11)
--- NOTE | 2020-08-01 10:55 | P.PN ---
Subjective Patient is seen in follow-up for acute kidney injury, currently hemodialysis dependent. Nonoliguric. Underwent muscle biopsy jul 30. No chest pain or shortness of breath. Blood pressure stable. I edema improved. Oral intake fair. Vital signs are stable. General: The patient appeared well nourished and normally developed. HEENT: Head exam is unremarkable. Neck is without jugular venous distension. LUNGS: Breath sounds decreased. HEART: Rate and Rhythm are regular. ABDOMEN: Soft, nontender. Obese. EXTREMITITES: No edema. Objective - Vital Signs Vital signs: Vital Signs Temp 97.4 F L 08/01/20 07:54 Pulse 63 08/01/20 07:54 Resp 18 08/01/20 07:54 BP 149/76 08/01/20 07:54 Pulse Ox 98 08/01/20 07:54 Intake & Output 07/31/20 08/01/20 08/01/20 18:59 06:59 18:59 Intake Total 150 Output Total 600 Balance -450 Intake: Oral 150 Output: Urine 600 Other: Voiding Method Indwelling Catheter Indwelling Catheter Indwelling Catheter # Voids 1 - Labs CBC & Chem 7: 07/31/20 06:30 07/31/20 06:30 Labs: Abnormal Lab Results - Last 24 Hours (Table) 07/31/20 07/31/20 Range/Units 06:30 06:30 Total Protein (PEP) 4.5 L (6.2-8.2) g/dL Tot Complement (CH50) >107 H (42 - 95) U/mL Assessment and Plan Plan: Assessment: 1. Acute kidney injury secondary to ATN secondary to rhabdomyolysis. No hydronephrosis noted on kidney ultrasound. Creatinine peaked at 3.39 this admission. Currently hemodialysis dependent. Unknown baseline renal function. 2. Rhabdomyolysis. Patient was not on a statin therapy. No IVDA or alcohol abuse. No evidence of crush injury or trauma. ? Inflammatory myopathy vs immobility. Status post muscle biopsy July 30. 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 CK levels trending down. 3. Bilateral upper extremity weakness. ? Etiology. 4. Uterine mass. MECHANIC SENIOR following. s/p D&C. 5. Cystic pancreatic mass. 6. Proteinuria. Can be nonspecific in the setting of acute kidney injury. 7. Hyponatremia secondary to acute kidney injury. 8. Metabolic acidosis secondary to acute kidney injury. Better. 9. Transaminitis. Possibly from rhabdo. GI following. 10. Hyperphosphatemia secondary to acute kidney injury maintained on PhosLo. Plan: Continue to assess need for renal replacement therapy on daily basis. Follow-up morning labs. Follow-up serologies - negative so far. Continue to monitor for renal recovery. Avoid nephrotoxins. Repeat urinalysis.
[2020-08-01 10:57] LABS: African American GFR (CKD) 20.7 (60.0-200.0); Anion Gap 9.4 mmol/L (4.00-12.00); BUN/Creat Ratio 20.38 Ratio (12.00-20.00); Calcium 7.4 mg/dL (8.7-10.3); Carbon Dioxide 23.6 mmol/L (21.6-31.8); Non-African American GFR(CKD) 17.8 (60.0-200.0); Potassium 4.8 mmol/L (3.5-5.5)
[2020-08-01 11:00] LABS: Amorphous Sediment,Urine Rare /hpf; Appearance,Urine Turbid (Clear); Bacteria,Urine Few /hpf; Bilirubin,Urine Negative (Negative); Blood,Urine Large (Negative); Color,Urine Yellow; Glucose,Urine (UA) Negative (Negative); Granular Casts,Urine 5 /lpf (0); Hyaline Casts,Urine 1 /lpf (0-2); Ketones,Urine Negative (Negative); Leukocyte Esterase,Urine Small (Negative); Mucus,Urine Rare /hpf; Nitrite,Urine Negative (Negative); PH, Urine 5.5 (5.0-8.0); Protein,Urine 1+ (Negative); RBC,Urine 4 /hpf (0-5); Specific Gravity,Urine 1.013 (1.001-1.035); Squamous Epithelial Cell,Urine 4 /hpf (0-4); Urobilinogen,Urine <2.0 mg/dL (<2.0); WBC,Urine 14 /hpf (0-5)
--- NOTE | 2020-08-01 11:03 | P.PN ---
Subjective Progress Note Date: 08/01/20 CHIEF COMPLAINT: Muscle weakness HISTORY OF PRESENT ILLNESS: Patient is postop day #2, status post left thigh muscle biopsy with Dr. Malik. Patient denies any pain in her left thigh. She still feels very weak. Afebrile. PHYSICAL EXAM: VITAL SIGNS: Reviewed. GENERAL: Well-developed in no acute distress. HEENT: No sclera icterus. Extraocular movements grossly intact. Moist buccal mucosa. Head is atraumatic, normocephalic. ABDOMEN: Soft. Nondistended. Nontender. NEUROLOGIC: Alert and oriented. Cranial nerves II through XII grossly intact. Extremities: Left thigh incision clean dry and intact ASSESSMENT: 1. Muscle weakness status post left thigh muscle biopsy 2. 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 Rhabdomyolysis 4. Acute kidney injury 5. Uterine mass with uterine bleeding. Vaginal discharge noted during surgery. HADOOP ANALYST following PLAN: -Path report from muscle biopsy pending -Continue supportive care -Antibiotics per medicine Physician Production Broaching Machine Operator note has been reviewed by physician. Signing provider agrees with the documented findings, assessment, and plan of care. Objective - Vital Signs Vital signs: Vital Signs Temp 97.4 F L 08/01/20 07:54 Pulse 63 08/01/20 07:54 Resp 18 08/01/20 07:54 BP 149/76 08/01/20 07:54 Pulse Ox 98 08/01/20 07:54 Intake & Output 07/31/20 08/01/20 08/01/20 18:59 06:59 18:59 Intake Total 150 Output Total 600 Balance -450 Intake: Oral 150 Output: Urine 600 Other: Voiding Method Indwelling Catheter Indwelling Catheter Indwelling Catheter # Voids 1 - Labs CBC & Chem 7: 07/31/20 06:30 08/01/20 06:00 Labs: Abnormal Lab Results - Last 24 Hours (Table) 07/31/20 07/31/20 08/01/20 Range/Units 06:30 06:30 06:00 Sodium 132 L (135-145) mmol/L BUN 53.0 H (9.0-27.0) mg/dL Creatinine 2.6 H (0.6-1.5) mg/dL Est GFR (CKD-EPI)AfAm 20.7 L (60.0-200.0) Est GFR (CKD-EPI)NonAf 17.8 L (60.0-200.0) BUN/Creatinine Ratio 20.38 H (12.00-20.00) Ratio Calcium 7.4 L (8.7-10.3) mg/dL Total Protein (PEP) 4.5 L (6.2-8.2) g/dL Urine Appearance (Clear) Urine Protein (Negative) Urine Blood (Negative) Ur Leukocyte Esterase (Negative) Urine WBC (0-5) /hpf Urine WBC Clumps (None) /hpf Amorphous Sediment (None) /hpf Urine Bacteria (None) /hpf Urine Mucus (None) /hpf Tot Complement (CH50) >107 H (42 - 95) U/mL 08/01/20 Range/Units 10:00 Sodium (135-145) mmol/L BUN (9.0-27.0) mg/dL Creatinine (0.6-1.5) mg/dL Est GFR (CKD-EPI)AfAm (60.0-200.0) Est GFR (CKD-EPI)NonAf (60.0-200.0) BUN/Creatinine Ratio (12.00-20.00) Ratio Calcium (8.7-10.3) mg/dL Total Protein (PEP) (6.2-8.2) g/dL Urine Appearance Turbid H (Clear) Urine Protein 1+ H (Negative) Urine Blood Large H (Negative) Ur Leukocyte Esterase Small H (Negative) Urine WBC 14 H (0-5) /hpf Urine WBC Clumps Few H (None) /hpf Amorphous Sediment Rare H (None) /hpf Urine Bacteria Few H (None) /hpf Urine Mucus Rare H (None) /hpf Tot Complement (CH50) (42 - 95) U/mL
[2020-08-01 14:13] LABS: C-ANCA <1:20 Titer (<1:20)
--- NOTE | 2020-08-01 15:17 | US ---
EXAMINATION TYPE: US abdomen complete DATE OF EXAM: 08/01/2020 COMPARISON: CT 07/24/2020 from outside institution, recent renal US 07/25/2020 CLINICAL HISTORY: assess liver/spleen. Gallbladder removed per patient; patient has bilateral arm and leg weakness EXAM MEASUREMENTS: Liver Length: 11.8 cm Gallbladder Wall: surgically removed CBD: 0.7 cm Spleen: 9.2 cm Right Kidney: 11.1 x 6.7 x 4.4 cm Left Kidney: 11.5 x 3.8 x 6.1 cm US exam is technically limited due to overlying bowel gas and patient's inability to turn Pancreas: hyperechoic; partially obscured by overlying bowel gas Liver: Hypoechoic focus noted left lobe of liver = 0.8 x 1.0 x 0.8cm; overall heterogeneous liver Gallbladder: surgically absent Evidence for sonographic Quiroz's sign: no CBD: wnl post laparoscopy cholecystectomy Spleen: wnl Right Kidney: mid cortical cyst seen and as noted on prior US Left Kidney: no hydro seen; mid pole cyst not seen on today's US and may be due to exam limitations as mentioned Upper IVC: wnl Abd Aorta: Size is wnl IMPRESSION: Postcholecystectomy. Heterogeneous echotexture may be due to underlying hepatocellular di sease, indeterminate subcentimeter hypoechoic focus left lobe, liver MRI may be of benefit. Limited e garry.
[2020-08-01 15:33] VITALS: BMI 41.8
--- NOTE | 2020-08-01 16:29 | P.CONS ---
History of Present Illness - Reason for Consult Consult date: 08/01/20 rhabdomyolysis Past Medical History Additional Past Medical History / Comment(s): vertigo History of Any Multi-Drug Resistant Organisms: None Reported Past Surgical History: Cholecystectomy, Tubal Ligation Past Anesthesia/Blood Transfusion Reactions: No Reported Reaction Past Psychological History: No Psychological Hx Reported Smoking Status: Never smoker Past Alcohol Use History: None Reported Past Drug Use History: None Reported Medications and Allergies Home Medications Medication Instructions Recorded Confirmed Type No Known Home Medications 07/25/20 07/30/20 History Allergies Allergy/AdvReac Type Severity Reaction Status Date / Time No Known Allergies Allergy Verified 07/30/20 09:22 Physical Exam Vitals: Vital Signs Temp Pulse Resp BP Pulse Ox 08/01/20 14:00 98.2 F 70 17 130/72 94 L 08/01/20 07:54 97.4 F L 63 18 149/76 98 08/01/20 07:45 18 08/01/20 02:10 97.8 F 16 139/77 97 07/31/20 20:05 98.2 F 17 138/75 94 L 07/31/20 20:00 18 Intake and Output 08/01/20 08/01/20 08/01/20 06:59 14:59 22:59 Output Total 600 Balance -600 Output: Urine 600 Other: Voiding Method Indwelling Catheter # Voids 1 Weight 117.5 kg Results CBC & Chem 7: 07/31/20 06:30 08/01/20 06:00 Labs: Abnormal Lab Results - Last 24 Hours (Table) 07/31/20 08/01/20 08/01/20 Range/Units 06:30 06:00 10:00 Sodium 132 L (135-145) mmol/L BUN 53.0 H (9.0-27.0) mg/dL Creatinine 2.6 H (0.6-1.5) mg/dL Est GFR (CKD-EPI)AfAm 20.7 L (60.0-200.0) Est GFR (CKD-EPI)NonAf 17.8 L (60.0-200.0) BUN/Creatinine Ratio 20.38 H (12.00-20.00) Ratio Calcium 7.4 L (8.7-10.3) mg/dL Urine Appearance Turbid H (Clear) Urine Protein 1+ H (Negative) Urine Blood Large H (Negative) Ur Leukocyte Esterase Small H (Negative) Urine WBC 14 H (0-5) /hpf Urine WBC Clumps Few H (None) /hpf Amorphous Sediment Rare H (None) /hpf Urine Bacteria Few H (None) /hpf Urine Mucus Rare H (None) /hpf Tot Complement (CH50) >107 H (42 - 95) U/mL Assessment and Plan (1) Rhabdomyolysis Current Visit: Yes Status: Acute Code(s): M62.82 - RHABDOMYOLYSIS SNOMED Code(s): 484507010 (2) Uterine malignancy Current Visit: Yes Status: Acute Code(s): C55 - MALIGNANT NEOPLASM OF UTERUS, PART UNSPECIFIED SNOMED Code(s): 042022789 Plan: This is a 70-year-old female admitted to [facility] as a transfer from [facility] on on 07/24/20 when she presented with fairly sudden onset of bilateral arm weakness over a week and she had a workup including chest x-ray, CT abdomen and pelvis and was found to have elevated muscle enzymes, elevated creatinine, high potassium, elevated liver enzymes and leukocytosis and also was noted to have a uterine mass on CT and was admitted for further evaluation. CPK on presentation on 07/25/20 was 154,161 and on July 31 was 51,154. Creatinine on 07/25/20 was 2.5 and on 08/01 was 2.6. Hemoglobin decreased from 14.7-9.7, ALT decreased from 1002-569, AST improved from 6480-5197, uric acid hi gh at 8.9, CRP high at 217.4, ferritin high at 542, aldolase high at 380, Labs from 07/25/20//07/31/20 showed negative REBEKA, negative rheumatoid factor, negative ANCA, negative SSA/SSB, negative Cali, negative double-stranded DNA him a negative antimitochondrial antibody, negative liver kidney microsomal antibody, normal complements Rheumatology has been consulted since the patient continues to have significantly elevated muscle enzymes and also seems to have developed a rash and there have been some concerns about dermatomyositis possibly paraneoplastic and oncology is on consult for that. Dr. Malik was consulted for muscle biopsy as well. SPEECH THERAPY TEACHER are also planning on a Uterine biopsy/D&C. On exam the patient can only move her arms slightly and her legs very slightly. She does have mild redness on her for head and her cheeks and mild livedo-type rash on her legs. She seems to have diffuse edema. Lungs sound clear and heart regular rate and rhythm and no murmurs. Musculoskeletal exam shows no obvious synovitis. 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 Peace has been informed. I reassured the patient and Erick that the patient's CPKs are trending downwards though continued to be quite high and it looks like she has needed dialysis for this. 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 Paraneoplastic Dermatomyositis is unlikely since her rash is not typical for this. Paraneoplastic Polymyositis is possible but unlikely as such high CPKs with severe rhabdomyolysis is quite rare in inflammatory myopathies. If the biopsy shows any inflammatory muscle disease then I will get involved with possible immunomodulators therapy. At this time she will be discussing her plan of care regarding her uterine cancer with the hand striper and oncologist. I will see the patient as an outpatient if her muscle biopsy shows inflammatory myositis. I also discussed with that she could try some IV steroids to see that helps some of his symptoms as the muscle biopsy has already been d Time with Patient: Greater than 30
[2020-08-01] MEDS: methylPREDNISolone SOD SUCCI 125 MG/2 ML VIAL IV SCH ×2 (16:39→23:23)
--- NOTE | 2020-08-01 18:04 | P.PN ---
Subjective Progress Note Date: 08/01/20 (delayed charting seen multiple times throughout the day ) Principal diagnosis: shoulder pain Patient is a 70-year-old female with a past medical history of vertigo who presented with complaints of bilateral severe shoulder pain and weakness. She was transferred here for [facility] due to acute kidney injury, transaminitis, and uterine mass. There she had undergone a CT abdomen and pelvis without contrast which revealed fat stranding in the left vasyl-pelvis along the course of the distal ureter ureter with possible pyelonephritis versus acute left adnexal pathology, bladder wall thickening, hypodense mass in the uterus with mild to moderate pelvic adenopathy findings likely due to endometrial mass, and cystic mass in the pancreas but follow-up MRI recommended. On arrival here her sodium was 125, potassium 6.6, chloride 96, carbon dioxide 19, BUN 47, and creatinine 2.58. She was also found have an AST of 3421, ALT 1002, white blood cell count 16.2. Urinalysis was consistent with rhabdo but did not appear consistent with urinary tract infection, however patient had already received Rocephin. She was started on IV fluids and arrangements were made for admission. CPK was ordered which came back at 154,161. She subsequently received an additional 2 L of IV fluid and her IV fluid drip was increased. Gynecology was consulted regarding her uterine mass. Nephrology was consulted for possible STEVE Vs CKD in conjunction with severe rhabdo. Hematolog y and oncology was consulted secondary to concern for possible dermatomyositis versus polymyositis that could be related to her uterine mass. She went into rate controlled A fib on 07/25 which was rate controlled. Cardio was consulted and recommended TSH and echo. Seen by MACHINE OPERATOR HAY STACKER and plan is for D and C with biopsy. CT chest without metastatic disease. GI consulted for acute hepatitis, viral hepatitis profile negative. Other causes of hepatitis were evaluated. On the morning of 07/27 there were unable to draw her blood work secondary to her diffuse edema. She also lost IV access and when her hyperkalemia and came back we were unable to treat that emergently. She did have a midline placed. C ase discussed with nephrology and plan is for urgent dialysis secondary to continued hyperkalemia, rhabdo, and worsening renal function. We attempted to give her a dose of Kayexalate however she vomited that up. Emergent sodium bicarb, insulin, dextrose were ordered to check the potassium intracellularly. Her D&C had to be postponed secondary to inadequate IV access and need to treat potassium. Case was discussed with hematology over the phone. Secondary to her continued rhabdo we will evaluate for possible other causes of myopathy with muscle biopsy. Dr. Malik consulted and case discussed over phone. Will plan for muscle biopsy. 07/28 D and C completed with necrotic tissue, second round of dialysis 07/29 No changes overnight. 07/30 Muscle biopsy of quads, d/w Dr. Malik more morbidity if biopsy of deltoid. Purulent material noted from vaginal canal during surgery. HD today. 07/31 drainage from vaginal area slowed- appears to be old blood at this time. no HD 08/01 Endometrial biopsy with poorly differentiated adenocarcinoma Patient seen and examined at bedside. She reports no change in her muscle weakness, she was able to stand today but it was very difficult due to her muscle weakness, was not able to walk. no chest pain, no shortness of breath General: non toxic, no distress, appears at stated age Derm: no facial dermatitis noted, warm, dry Head: atraumatic, normocephalic, symmetric Eyes: EOMI, no lid lag, anicteric sclera Mouth: no lip lesion, mucus membranes moist Cardiovascular: S1S2 reg, no murmur, positive posterior tibial pulse bilateral, Lungs: Decreased bs bilateral, no rhonchi, no rales , no accessory muscle use Abdominal: soft, nontender to palpation, no guarding, no appreciable organomegaly Ext: no gross muscle atrophy, 1+ edema bilateral upper extremities, no contractures Neuro: CN II-XI grossly intact, no focal neuro deficits Psych: Alert, oriented, appropriate affect 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 Pisano extensively. -Will start steroids now that muscle biopsy obtained to see if it can improve weakness. - Aldolase level > 300. - RF, SS-A, SS-B, anti-valadez AB- negative - Muscle biopsy pending obtained on 07/30 - Continue to follow CK daily to get it quantified order it stat timed for the next day at 6 am Poorly differentiated endometrial adenocarcinoma - D/W Dr. Peace - will need outpatient PET and Immunohematologist Onc evaluatio - Barriers include that the patient is too weak to sit or stand on her own at this time. - vaginal discharge noted during muscle biopsy started on rocephin/flagyl - MACHINE OPERATOR HAY STACKER recs appreciated Acute kidney injury with , stable - nephro recs appreciated, case discussed with Dr. Don - Last HD on 07/30. Cr improving, nephro assessing daily for HD needs - Follow creatinine - Repeat labs in AM - IV fluids completed - Avoid additional nephrotoxic agents - Repeat labs in a.m. - Elevated phosphorus level which may be consistent with some form of chronic kidney disease Acute hepatitis suspect secondary to underlying rhabdo and inflammatory myositis - Repeat liver enzymes in a.m. - Acute hepatitis profile negative - REBEKA negative - antimitochondrial antibody pending - GI recs appreciated Newly discovered paroysmal A fib - hold off on eliquis until vaginal bleeding resolved, and known if will need permanent HD cath. Starting with ongoing bleeding risk>benefits - cardio recs appreciated - echo EF 55-60% Anemia - due to vaginal bleeding/ IV fluids - Follow CBC - Transfuse as indicated Cystic Pancreatic mass pancreatic mass - MRI for further evaluation as outpatient Morbid obesity with BMI 43.6 -Outpatient structured weight loss Possible pyelonephritis -5 days of rocephin completed Elevated blood pressure without underlying diagnosis of hypertension, resolved Thrombocytopenia, resolved Hyperkalemia secondary to above, resolved metabolic acidosis, resolved Providers please update Daughter Camilla with plan for cancer treatment and care plan at [phone]. is overwhelmed DVT prophylaxis: Heparin Discussed with: patient, nursing, Nephro Anticipated discharge: 3-[address]: home A total of 35 minutes was spent on the care of this complex patient more than 50% of the time was spent in counseling and care coordination. Objective - Vital Signs Vital signs: Vital Signs Temp 98.2 F 08/01/20 14:00 Pulse 70 08/01/20 14:00 Resp 17 08/01/20 14:00 BP 130/72 08/01/20 14:00 Pulse Ox 94 L 08/01/20 14:00 Intake & Output 07/31/20 08/01/20 08/01/20 18:59 06:59 18:59 Intake Total 150 Output Total 600 800 Balance -450 -800 Weight 117.5 kg Intake: Oral 150 Output: Urine 600 800 Uretheral (Whaley) 800 Other: Voiding Method Indwelling Catheter Indwelling Catheter Indwelling Catheter # Voids 1 - Labs CBC & Chem 7: 07/31/20 06:30 08/01/20 06:00 Labs: Abnormal Lab Results - Last 24 Hours (Table) 07/31/20 08/01/20 08/01/20 Range/Units 06:30 06:00 10:00 Sodium 132 L (135-145) mmol/L BUN 53.0 H (9.0-27.0) mg/dL Creatinine 2.6 H (0.6-1.5) mg/dL Est GFR (CKD-EPI)AfAm 20.7 L (60.0-200.0) Est GFR (CKD-EPI)NonAf 17.8 L (60.0-200.0) BUN/Creatinine Ratio 20.38 H (12.00-20.00) Ratio Calcium 7.4 L (8.7-10.3) mg/dL Urine Appearance Turbid H (Clear) Urine Protein 1+ H (Negative) Urine Blood Large H (Negative) Ur Leukocyte Esterase Small H (Negative) Urine WBC 14 H (0-5) /hpf Urine WBC Clumps Few H (None) /hpf Amorphous Sediment Rare H (None) /hpf Urine Bacteria Few H (None) /hpf Urine Mucus Rare H (None) /hpf Tot Complement (CH50) >107 H (42 - 95) U/mL
--- NOTE | 2020-08-01 19:10 | P.PN ---
Subjective Progress Note Date: 08/01/20 Awaiting path result, LFTs increasing, recheck today along with liver and spleen ultrasound Objective - Vital Signs Vital signs: Vital Signs Temp 98.2 F 08/01/20 14:00 Pulse 70 08/01/20 14:00 Resp 17 08/01/20 14:00 BP 130/72 08/01/20 14:00 Pulse Ox 94 L 08/01/20 14:00 Intake & Output 08/01/20 08/01/20 08/02/20 06:59 18:59 06:59 Intake Total 150 350 Output Total 600 800 Balance -450 -450 Weight 117.5 kg Intake: Oral 150 350 Output: Urine 600 800 Uretheral (Whaley) 800 Other: Voiding Method Indwelling Catheter Indwelling Catheter # Voids 1 - Exam - Constitutional General appearance: no acute distress - EENT Eyes: EOMI, PERRLA ENT: hearing grossly normal, normal oropharynx - Neck Neck: no lymphadenopathy Thyroid: bilateral: normal size - Respiratory Respiratory: bilateral: CTA - Cardiovascular Rhythm: regular Heart sounds: normal: S1, S2 - Gastrointestinal General gastrointestinal: normal bowel sounds, soft - Integumentary Integumentary: normal - Neurologic Neurologic: CNII-XII intact - Musculoskeletal Tenderness to palpation over shoulder muscles and upper arms. Marked weakness in bilateral proximal upper extremities. Much milder decrease in strength in proximal lower extremities. - Psychiatric Psychiatric: A&O x's 3, appropriate affect - Labs CBC & Chem 7: 07/31/20 06:30 08/01/20 06:00 Labs: Abnormal Lab Results - Last 24 Hours (Table) 07/31/20 08/01/20 08/01/20 Range/Units 06:30 06:00 10:00 Sodium 132 L (135-145) mmol/L BUN 53.0 H (9.0-27.0) mg/dL Creatinine 2.6 H (0.6-1.5) mg/dL Est GFR (CKD-EPI)AfAm 20.7 L (60.0-200.0) Est GFR (CKD-EPI)NonAf 17.8 L (60.0-200.0) BUN/Creatinine Ratio 20.38 H (12.00-20.00) Ratio Calcium 7.4 L (8.7-10.3) mg/dL Urine Appearance Turbid H (Clear) Urine Protein 1+ H (Negative) Urine Blood Large H (Negative) Ur Leukocyte Esterase Small H (Negative) Urine WBC 14 H (0-5) /hpf Urine WBC Clumps Few H (None) /hpf Amorphous Sediment Rare H (None) /hpf Urine Bacteria Few H (None) /hpf Urine Mucus Rare H (None) /hpf Tot Complement (CH50) >107 H (42 - 95) U/mL Assessment and Plan Plan: CT scan - abdomen: report reviewed CT scan - pelvis: report reviewed US - abdomen: report reviewed Assessment and Plan Assessment: #1. Rhabdomyolysis #2. Kidney injury, presumably acute #3. Electrolyte abnormalities #4. Uterine mass and pelvic adenopathy. Abnormal vaginal bleeding Plan: Rhabdomyolysis Increased LFTs: - Likely secondary to above although with concern of malignancy will further evaluiate with ultrasound liver Uterine mass and pelvic adenopathy in this clinical setting this is concerning for malignancy. - The patient does give a history of abnormal vaginal bleeding but that has been chronic for many years. - Once renal function improves imaging with contrast will be ordered. - Transvaginal Ultrasounf and CAREER DEVELOPMENT COORDINATOR evaluated and agree with biopsy need. - Status Post D and C and biopsy 07/28 - Await Path - Await path result
[2020-08-02] MEDS: methylPREDNISolone SOD SUCCI 125 MG/2 ML VIAL IV SCH ×3 (05:48→17:44)
[2020-08-02 06:39] LABS: ALT 450 U/L (4-34); African American GFR (CKD) 21 (>60 ml/min/1.73 sqM); Albumin 2.2 g/dL (3.5-5.0); Albumin/Globulin Ratio 0.7; Alkaline Phosphatase 67 U/L (38-126); Anion Gap 5 mmol/L; Blood Urea Nitrogen 55 mg/dL (7-17); Calcium 7.9 mg/dL (8.4-10.2); Carbon Dioxide 24 mmol/L (22-30); Chloride 99 mmol/L (98-107); Glucose 138 mg/dL (74-99); Magnesium 2.2 mg/dL (1.6-2.3); Non-African American GFR(CKD) 18 (>60 ml/min/1.73 sqM); Potassium 5.2 mmol/L (3.5-5.1); Sodium 128 mmol/L (137-145); Total Bilirubin 0.3 mg/dL (0.2-1.3); Total Protein 5.2 g/dL (6.3-8.2)
[2020-08-02 07:30] LABS: AST 1067 U/L (14-36); Creatine Kinase 28763 U/L (30-135)
[2020-08-02] MEDS: HEPARIN SODIUM,PORCINE 5,000 UNIT/ML 1 ML VIAL SQ SCH ×2 (08:20→15:53)
[2020-08-02] MEDS: CALCIUM ACETATE 667 MG TAB PO SCH ×3 (08:20→17:44)
[2020-08-02] MEDS: metroNIDAZOLE 500 MG TAB PO SCH ×2 (08:20→21:44)
[2020-08-02] MEDS: FOLIC ACID-VIT B COMPLEX-VIT C 1 CAP PO SCH (08:27)
--- NOTE | 2020-08-02 08:40 | P.PN ---
Subjective Progress Note Date: 08/02/20 Denies any ongoing pain but reports she still has significant weakness and inability to support herself. Objective - Vital Signs Vital signs: Vital Signs Temp 97.6 F 08/02/20 08:00 Pulse 67 08/02/20 08:00 Resp 18 08/02/20 08:00 BP 123/79 08/02/20 08:00 Pulse Ox 98 08/02/20 08:00 Intake & Output 08/01/20 08/02/20 08/02/20 18:59 06:59 18:59 Intake Total 350 100 Output Total 800 900 Balance -450 -800 Weight 117.5 kg Intake: Oral 350 100 Output: Urine 800 900 Uretheral (Whaley) 800 Other: Voiding Method Indwelling Catheter Indwelling Catheter - Exam In general, this is an obese white female in no acute distress. Her abdomen is nondistended, soft, nontender, without any palpable masses. Her extremities have moderate generalized edema and are nontender to palpation bilaterally. Pelvic examination is deferred. - Labs CBC & Chem 7: 07/31/20 06:30 08/02/20 05:46 Labs: Abnormal Lab Results - Last 24 Hours (Table) 08/01/20 08/01/20 08/02/20 Range/Units 06:00 10:00 05:46 Sodium 132 L 128 L (135-145) mmol/L Potassium 5.2 H (3.5-5.1) mmol/L BUN 53.0 H 55 H (9.0-27.0) mg/dL Creatinine 2.6 H 2.60 H (0.6-1.5) mg/dL Est GFR (CKD-EPI)AfAm 20.7 L (60.0-200.0) Est GFR (CKD-EPI)NonAf 17.8 L (60.0-200.0) BUN/Creatinine Ratio 20.38 H (12.00-20.00) Ratio Glucose 138 H (74-99) mg/dL Calcium 7.4 L 7.9 L (8.7-10.3) mg/dL AST 1067 H (14-36) U/L ALT 450 H (4-34) U/L Creatine Kinase 18576 H* (30-135) U/L Total Protein 5.2 L (6.3-8.2) g/dL Albumin 2.2 L (3.5-5.0) g/dL Urine Appearance Turbid H (Clear) Urine Protein 1+ H (Negative) Urine Blood Large H (Negative) Ur Leukocyte Esterase Small H (Negative) Urine WBC 14 H (0-5) /hpf Urine WBC Clumps Few H (None) /hpf Amorphous Sediment Rare H (None) /hpf Urine Bacteria Few H (None) /hpf Urine Mucus Rare H (None) /hpf Assessment and Plan (1) Postmenopausal bleeding Current Visit: Yes Status: Acute Code(s): N95.0 - POSTMENOPAUSAL BLEEDING SNOMED Code(s): 61035155 (2) Uterine mass Current Visit: Yes Status: Acute Code(s): N85.8 - OTHER SPECIFIED NONINFLAMMATORY DISORDERS OF UTERUS SNOMED Code(s): 148658001401777 Plan: Pathology has returned and the is found with poorly differentiated adenocarcinoma which was not unanticipated. I would recommend [facility] though they do not have the services available at this hospital currently. I suspect that they would deem the patient a poor surgical candidate at this time and would recommend secondary options for treatment including possible radiation and/or chemotherapy. Dr. Peace's opinion would be appreciated. I suspect the patient will not tolerate chemotherapy to any degree either given her poor renal function. In either case, benign gynecology will sign off of the case unless further recommendations are warranted. Please feel free to call me as needed.
--- NOTE | 2020-08-02 10:17 | P.PN ---
Subjective Progress Note Date: 08/02/20 CHIEF COMPLAINT: Muscle weakness HISTORY OF PRESENT ILLNESS: Patient is status post left thigh muscle biopsy with Dr. Malik. Patient denies any pain in her left thigh. She still feels very weak. Afebrile. Patient seen by rheumatology service. PHYSICAL EXAM: VITAL SIGNS: Reviewed. GENERAL: Well-developed in no acute distress. HEENT: No sclera icterus. Extraocular movements grossly intact. Moist buccal mucosa. Head is atraumatic, normocephalic. ABDOMEN: Soft. Nondistended. Nontender. NEUROLOGIC: Alert and oriented. Cranial nerves II through XII grossly intact. Extremities: Left thigh incision clean dry and intact ASSESSMENT: 1. Muscle weakness status post left thigh muscle biopsy 2. Rhabdomyolysis 3. Acute kidney injury 4. Uterine mass with uterine bleeding. Uterine biopsy Pathology showed poorly differentiated adenocarcinoma. DIVISION HUMAN RESOURCES MANAGER and oncology following PLAN: -Path report from muscle biopsy pending -Continue supportive care -Antibiotics per medicine Physician Warp Spooler note has been reviewed by physician. Signing provider agrees with the documented findings, assessment, and plan of care. Objective - Vital Signs Vital signs: Vital Signs Temp 97.6 F 08/02/20 08:00 Pulse 67 08/02/20 08:00 Resp 18 08/02/20 08:00 BP 123/79 08/02/20 08:00 Pulse Ox 98 08/02/20 08:00 Intake & Output 08/01/20 08/02/20 08/02/20 18:59 06:59 18:59 Intake Total 350 100 Output Total 800 900 Balance -450 -800 Weight 117.5 kg Intake: Oral 350 100 Output: Urine 800 900 Uretheral (Whaley) 800 Other: Voiding Method Indwelling Catheter Indwelling Catheter Indwelling Catheter - Labs CBC & Chem 7: 07/31/20 06:30 08/02/20 05:46 Labs: Abnormal Lab Results - Last 24 Hours (Table) 08/01/20 08/01/20 08/02/20 Range/Units 06:00 10:00 05:46 Sodium 132 L 128 L (135-145) mmol/L Potassium 5.2 H (3.5-5.1) mmol/L BUN 53.0 H 55 H (9.0-27.0) mg/dL Creatinine 2.6 H 2.60 H (0.6-1.5) mg/dL Est GFR (CKD-EPI)AfAm 20.7 L (60.0-200.0) Est GFR (CKD-EPI)NonAf 17.8 L (60.0-200.0) BUN/Creatinine Ratio 20.38 H (12.00-20.00) Ratio Glucose 138 H (74-99) mg/dL Calcium 7.4 L 7.9 L (8.7-10.3) mg/dL AST 1067 H (14-36) U/L ALT 450 H (4-34) U/L Creatine Kinase 56950 H* (30-135) U/L Total Protein 5.2 L (6.3-8.2) g/dL Albumin 2.2 L (3.5-5.0) g/dL Urine Appearance Turbid H (Clear) Urine Protein 1+ H (Negative) Urine Blood Large H (Negative) Ur Leukocyte Esterase Small H (Negative) Urine WBC 14 H (0-5) /hpf Urine WBC Clumps Few H (None) /hpf Amorphous Sediment Rare H (None) /hpf Urine Bacteria Few H (None) /hpf Urine Mucus Rare H (None) /hpf
[2020-08-02 11:44] LABS: Glucose,Whole Blood 145 mg/dL (75-99)
--- NOTE | 2020-08-02 12:47 | P.PN ---
Subjective Patient is seen in follow-up for acute kidney injury, currently hemodialysis dependent. Nonoliguric. Underwent muscle biopsy jul 30. No chest pain or shortness of breath. Blood pressure stable. Oral intake fair. CK levels trending down. Renal function stable. Vital signs are stable. General: The patient appeared well nourished and normally developed. HEENT: Head exam is unremarkable. Neck is without jugular venous distension. LUNGS: Breath sounds decreased. HEART: Rate and Rhythm are regular. ABDOMEN: Soft, nontender. Obese. EXTREMITITES: No edema. Objective - Vital Signs Vital signs: Vital Signs Temp 97.6 F 08/02/20 08:00 Pulse 67 08/02/20 08:00 Resp 18 08/02/20 08:00 BP 123/79 08/02/20 08:00 Pulse Ox 98 08/02/20 08:00 Intake & Output 08/01/20 08/02/20 08/02/20 18:59 06:59 18:59 Intake Total 350 100 Output Total 800 900 Balance -450 -800 Weight 117.5 kg Intake: Oral 350 100 Output: Urine 800 900 Uretheral (Whaley) 800 Other: Voiding Method Indwelling Catheter Indwelling Catheter Indwelling Catheter - Labs CBC & Chem 7: 07/31/20 06:30 08/02/20 05:46 Labs: Abnormal Lab Results - Last 24 Hours (Table) 08/02/20 08/02/20 Range/Units 05:46 11:42 Sodium 128 L (137-145) mmol/L Potassium 5.2 H (3.5-5.1) mmol/L BUN 55 H (7-17) mg/dL Creatinine 2.60 H (0.52-1.04) mg/dL Glucose 138 H (74-99) mg/dL POC Glucose (mg/dL) 145 H (75-99) mg/dL Calcium 7.9 L (8.4-10.2) mg/dL AST 1067 H (14-36) U/L ALT 450 H (4-34) U/L Creatine Kinase 80119 H* (30-135) U/L Total Protein 5.2 L (6.3-8.2) g/dL Albumin 2.2 L (3.5-5.0) g/dL Assessment and Plan Plan: Assessment: 1. Acute kidney injury secondary to ATN secondary to rhabdomyolysis. No hydronephrosis noted on kidney ultrasound. Creatinine peaked at 3.39 this admission. Last hemodialysis July 30. Unknown baseline renal function. 2. Rhabdomyolysis. Patient was not on a statin therapy. No IVDA or alcohol abuse. No evidence of crush injury or trauma. ? Inflammatory myopathy vs immobility. Status post muscle biopsy July 30. 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 CK levels trending down. 3. Bilateral upper extremity weakness. ? Etiology. Seen by rheumatology. 4. Uterine mass. BROOMMAKING SUPERVISOR following. s/p D&C. Pathology positive for poorly differentiated adenocarcinoma. 5. Cystic pancreatic mass. 6. Proteinuria. Can be nonspecific in the setting of acute kidney injury. Serologies negative. 7. Hyponatremia secondary to acute kidney injury. TSH and cortisol level normal. 8. Metabolic acidosis secondary to acute kidney injury. Better. 9. Transaminitis. Possibly from rhabdo. GI following. 10. Hyperphosphatemia secondary to acute kidney injury maintained on PhosLo. Plan: Continue to hold hemodialysis Continue to assess need for renal replacement therapy on daily basis. Continue to monitor for renal recovery. Avoid nephrotoxins. Check urine osmolality and urine sodium level. 1200 mL fluid restriction. Encourage oral intake, particularly protein. Renal diet.
[2020-08-02 14:19] LABS: Albumin 1.62 g/dL (3.80-4.90); Gamma Globulin 0.66 g/dL (0.70-1.50)
--- NOTE | 2020-08-02 14:20 | P.PN ---
Subjective Progress Note Date: 08/02/20 Principal diagnosis: weakness 70-year-old female with a past medical history of vertigo who presented with complaints of bilateral severe shoulder pain and weakness. She was transferred here for [facility] due to acute kidney injury, transaminitis, and uterine mass. There she had undergone a CT abdomen and pelvis without contrast which revealed fat stranding in the left vasyl-pelvis along the course of the distal ureter ureter with possible pyelonephritis versus acute left adnexal pathology, bladder wall thickening, hypodense mass in the uterus with mild to moderate pelvic adenopathy findings likely due to endometrial mass, and cystic mass in the pancreas but follow-up MRI recommended. On arrival here her sodium was 125, potassium 6.6, chloride 96, carbon dioxide 19, BUN 47, and creatinine 2.58. She was also found have an AST of 3421, ALT 1002, white blood cell count 16.2. Urinalysis was consistent with rhabdo but did not appear consistent with urinary tract infection, however patient had already received Rocephin. She was started on IV fluids and arrangements were made for admission. CPK was ordered which came back at 154,161. She subsequently received an additional 2 L of IV fluid and her IV fluid drip was increased. Gynecology was consulted regarding her uterine mass. Nephrology was consulted for possible STEVE Vs CKD in conjunction with severe rhabdo. Hematology and oncology was consulted secondary to concern for possible dermatomyositis versus polymyositis that could be related to her uterine mass. She went into rate controlled A fib on 07/25 which was rate controlled. Cardio was consulted and recommended TSH and echo. Seen by ADAPTIVE PHYSICAL EDUCATOR and plan is for D and C with biopsy. CT chest without metastatic disease. GI consulted for acute hepatitis, viral hepatitis profile negative. Other causes of hepatitis were evaluated. On the morning of 07/27 there were unable to draw her blood work secondary to her diffuse edema. She also lost IV access and when her hyperkalemia and came back we were unable to treat that emergently. She did have a midline placed. Case discussed with nephrology and plan is for urgent dialysis secondary to continued hyperkalemia, rhabdo, and worsening renal function. We attempted to give her a dose of Kayexalate however she vomited that up. Emergent sodium bicarb, insulin, dextrose were ordered to check the potassium intracellularly. Her D&C had to be postponed secondary to inadequate IV access and need to treat potassium. Case was discussed with hematology over the phone. Secondary to her continued rhabdo we will evaluate for possible other causes of myopathy with muscle biopsy. Dr. Malik consulted and case discussed over phone. Will plan for muscle biopsy. 07/28 D and C completed with necrotic tissue, second round of dialysis 07/29 No changes overnight. 07/30 Muscle biopsy of quads, d/w Dr. Malik more morbidity if biopsy of deltoid. Purulent material noted from vaginal canal during surgery. HD today. 07/31 drainage from vaginal area slowed- appears to be old blood at this time. no HD 08/01 Endometrial biopsy with poorly differentiated adenocarcinoma 08/02 patient feeling slightly stronger today. She is able to raise her legs off the bed but her arms are still weak. Objective - Vital Signs Vital signs: Vital Signs Temp 97.6 F 08/02/20 08:00 Pulse 67 08/02/20 08:00 Resp 18 08/02/20 08:00 BP 123/79 08/02/20 08:00 Pulse Ox 98 08/02/20 08:00 Intake & Output 08/01/20 08/02/20 08/02/20 18:59 06:59 18:59 Intake Total 350 100 100 Output Total 800 900 Balance -450 -800 100 Weight 117.5 kg Intake: Oral 350 100 100 Output: Urine 800 900 Uretheral (Whaley) 800 Other: Voiding Method Indwelling Catheter Indwelling Catheter Indwelling Catheter - Exam General: non toxic, no distress, appears at stated age Derm: no facial dermatitis noted, warm, dry Head: atraumatic, normocephalic, symmetric Eyes: EOMI, no lid lag, anicteric sclera Mouth: no lip lesion, mucus membranes moist Cardiovascular: S1S2 reg, no murmur, positive posterior tibial pulse bilateral, Lungs: Decreased bs bilateral, no rhonchi, no rales , no accessory muscle use Abdominal: soft, nontender to palpation, no guarding, no appreciable organomegaly Ext: no gross muscle atrophy, 1+ edema bilateral upper extremities, no c ontractures Neuro: General weakness. CN II-XI grossly intact, no focal neuro deficits Psych: Alert, oriented, appropriate affect - Labs CBC & Chem 7: 07/31/20 06:30 08/02/20 05:46 Labs: Abnormal Lab Results - Last 24 Hours (Table) 08/02/20 08/02/20 Range/Units 05:46 11:42 Sodium 128 L (137-145) mmol/L Potassium 5.2 H (3.5-5.1) mmol/L BUN 55 H (7-17) mg/dL Creatinine 2.60 H (0.52-1.04) mg/dL Glucose 138 H (74-99) mg/dL POC Glucose (mg/dL) 145 H (75-99) mg/dL Calcium 7.9 L (8.4-10.2) mg/dL AST 1067 H (14-36) U/L ALT 450 H (4-34) U/L Creatine Kinase 13964 H* (30-135) U/L Total Protein 5.2 L (6.3-8.2) g/dL Albumin 2.2 L (3.5-5.0) g/dL Assessment and Plan Plan: 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 Pisano extensively. - Continue with steroids, patient noted some improvement. - Aldolase level > 300. - RF, SS-A, SS-B, anti-valadez AB- negative - Muscle biopsy pending obtained on 07/30 - Continue to follow CK daily Poorly differentiated endometrial adenocarcinoma - D/W Dr. Peace - will need outpatient PET and [employer] Consultant Onc evaluation - Barriers include that the patient is too weak to sit or stand on her own at this time. - vaginal discharge noted during muscle biopsy started on rocephin/flagyl - ADAPTIVE PHYSICAL EDUCATOR recs appreciated Acute kidney injury with , stable - nephro recs appreciated, - Last HD on 07/30. Cr improving, nephro assessing daily for HD needs - Follow creatinine - IV fluids completed - Avoid additional nephrotoxic agents - Repeat labs in a.m. - Elevated phosphorus level which may be consistent with some form of chronic kidney disease Acute hepatitis suspect secondary to underlying rhabdo and inflammatory myositis - Repeat liver enzymes in a.m. - Acute hepatitis profile negative - REBEKA negative - antimitochondrial antibody negative - GI recs appreciated Newly discovered paroysmal A fib - hold off on eliquis until vaginal bleeding resolved, and known if will need permanent HD cath. Starting with ongoing bleeding risk>benefits - cardio recs appreciated - echo EF 55-60% Anemia - due to vaginal bleeding/ IV fluids - Follow CBC - Transfuse as indicated Cystic Pancreatic mass pancreatic mass - MRI for further evaluation as outpatient Morbid obesity with BMI 43.6 -Outpatient structured weight loss Possible pyelonephritis -5 days of rocephin completed Elevated blood pressure without underlying diagnosis of hypertension, resolved Thrombocytopenia, resolved Hyperkalemia secondary to above, resolved metabolic acidosis, resolved Providers please update Daughter Camilla with plan for cancer treatment and care plan at [phone]. is overwhelmed DVT prophylaxis: Heparin Discussed with: patient, nursing, Nephro Anticipated discharge: 3-[address]: rehab A total of 35 minutes was spent on the care of this complex patient more than 50% of the time was spent in counseling and care coordination.
[2020-08-02 16:29] LABS: Glucose,Whole Blood 154 mg/dL (75-99)
[2020-08-02] MEDS: polyethylene glycoL 3350 17 GM POWD.PACK PO SCH (17:43)
[2020-08-02 21:01] LABS: Glucose,Whole Blood 146 mg/dL (75-99)
--- NOTE | 2020-08-02 21:58 | P.PN ---
Subjective Progress Note Date: 08/02/20 Principal diagnosis: new malignancy Pathology has resulted as high grade, poorly differentiated carcinoma consistent with endometrial. Discussed with patient Objective - Vital Signs Vital signs: Vital Signs Temp 97.5 F L 08/02/20 18:21 Pulse 69 08/02/20 18:21 Resp 18 08/02/20 18:21 BP 133/85 08/02/20 18:21 Pulse Ox 96 08/02/20 18:21 Intake & Output 08/02/20 08/02/20 08/03/20 06:59 18:59 06:59 Intake Total 100 300 Output Total 900 200 Balance -800 100 Intake: Oral 100 300 Output: Urine 900 200 Other: Voiding Method Indwelling Catheter Indwelling Catheter - Exam - Constitutional General appearance: no acute distress - EENT Eyes: EOMI, PERRLA ENT: hearing grossly normal, normal oropharynx - Neck Neck: no lymphadenopathy Thyroid: bilateral: normal size - Respiratory Respiratory: bilateral: CTA - Cardiovascular Rhythm: regular Heart sounds: normal: S1, S2 - Gastrointestinal General gastrointestinal: normal bowel sounds, soft - Integumentary Integumentary: normal - Neurologic Neurologic: CNII-XII intact - Musculoskeletal Tenderness to palpation over shoulder muscles and upper arms. Marked weakness in bilateral proximal upper extremities. Much milder decrease in strength in proximal lower extremities. - Psychiatric Psychiatric: A&O x's 3, appropriate affect - Labs CBC & Chem 7: 07/31/20 06:30 08/02/20 05:46 Labs: Abnormal Lab Results - Last 24 Hours (Table) 07/31/20 08/02/20 08/02/20 Range/Units 06:30 05:46 11:42 Sodium 128 L (137-145) mmol/L Potassium 5.2 H (3.5-5.1) mmol/L BUN 55 H (7-17) mg/dL Creatinine 2.60 H (0.52-1.04) mg/dL Glucose 138 H (74-99) mg/dL POC Glucose (mg/dL) 145 H (75-99) mg/dL Calcium 7.9 L (8.4-10.2) mg/dL AST 1067 H (14-36) U/L ALT 450 H (4-34) U/L Creatine Kinase 37283 H* (30-135) U/L Total Protein 5.2 L (6.3-8.2) g/dL Albumin 2.2 L (3.5-5.0) g/dL Albumin (PEP) 1.62 L (3.80-4.90) g/dL Wyicq-1-Nulazkawh 0.53 H (0.10-0.40) g/dL Gamma Globulins 0.66 L (0.70-1.50) g/dL 08/02/20 08/02/20 Range/Units 16:27 20:59 Sodium (137-145) mmol/L Potassium (3.5-5.1) mmol/L BUN (7-17) mg/dL Creatinine (0.52-1.04) mg/dL Glucose (74-99) mg/dL POC Glucose (mg/dL) 154 H 146 H (75-99) mg/dL Calcium (8.4-10.2) mg/dL AST (14-36) U/L ALT (4-34) U/L Creatine Kinase (30-135) U/L Total Protein (6.3-8.2) g/dL Albumin (3.5-5.0) g/dL Albumin (PEP) (3.80-4.90) g/dL Hsxle-8-Jqkpkquxi (0.10-0.40) g/dL Gamma Globulins (0.70-1.50) g/dL Assessment and Plan Plan: CT scan - abdomen: report reviewed CT scan - pelvis: report reviewed US - abdomen: report reviewed Assessment and Plan Pathology confirms diagnosis of high grade poorly differentiated endometrial carcinoma. - Will follow-up with PET scan as outpatient - Will need to await improved performance and renal function for consideration of treatment options Discussed in detail with patient Physician Attest: I have completed the full history and physical and agree with above dictation, dictated as A SCribe
[2020-08-03] MEDS: HEPARIN SODIUM,PORCINE 5,000 UNIT/ML 1 ML VIAL SQ SCH ×4 (00:57→23:46)
[2020-08-03] MEDS: methylPREDNISolone SOD SUCCI 125 MG/2 ML VIAL IV SCH ×5 (00:57→23:46)
[2020-08-03 07:06] LABS: Glucose,Whole Blood 149 mg/dL (75-99)
[2020-08-03 07:38] LABS: Basophils % (A) 0 %; Eosinophils % (A) 0 %; HCT 30.5 % (34.0-46.0); Lymphocytes # (A) 0.5 k/uL (1.0-4.8); Lymphocytes % (A) 3 %; MCH 27.4 pg (25.0-35.0); MCHC 32.8 g/dL (31.0-37.0); MCV 83.6 fL (80.0-100.0); Mean Platelet Volume 7.3; Monocytes # (A) 0.3 k/uL (0-1.0); Monocytes % (A) 2 %; Neutrophils # (A) 13.5 k/uL (1.3-7.7); Neutrophils % (A) 93 %; Platelet Count 304 k/uL (150-450); RBC 3.65 m/uL (3.80-5.40); RDW 15.8 % (11.5-15.5); WBC 14.5 k/uL (3.8-10.6)
[2020-08-03] MEDS: CALCIUM ACETATE 667 MG TAB PO SCH ×3 (07:38→19:10)
[2020-08-03] MEDS: FOLIC ACID-VIT B COMPLEX-VIT C 1 CAP PO SCH (07:38)
[2020-08-03] MEDS: polyethylene glycoL 3350 17 GM POWD.PACK PO SCH (07:38)
[2020-08-03] MEDS: metroNIDAZOLE 500 MG TAB PO SCH ×2 (07:38→20:31)
--- NOTE | 2020-08-03 10:40 | P.PN ---
Subjective Progress Note Date: 08/03/20 CHIEF COMPLAINT: Muscle weakness HISTORY OF PRESENT ILLNESS: Patient is status post left thigh muscle biopsy with Dr. Malik. Patient denies any pain in her left thigh. She reports having weakness. Afebrile. Patient seen by rheumatology service. PHYSICAL EXAM: VITAL SIGNS: Reviewed. GENERAL: Well-developed in no acute distress. HEENT: No sclera icterus. Extraocular movements grossly intact. Moist buccal mucosa. Head is atraumatic, normocephalic. ABDOMEN: Soft. Nondistended. Nontender. NEUROLOGIC: Alert and oriented. Cranial nerves II through XII grossly intact. Extremities: Left thigh incision clean dry and intact ASSESSMENT: 1. Muscle weakness status post left thigh muscle biopsy 2. Rhabdomyolysis 3. Acute kidney injury 4. Uterine mass with uterine bleeding. Uterine biopsy Pathology showed poorly differentiated adenocarcinoma. MEDICAL INFORMATION OFFICER and oncology following PLAN: -Path report from muscle biopsy pending -Continue supportive care Physician [employer] Superintendent note has been reviewed by physician. Signing provider agrees with the documented findings, assessment, and plan of care. Objective - Vital Signs Vital signs: Vital Signs Temp 97.7 F 08/03/20 07:00 Pulse 65 08/03/20 07:00 Resp 17 08/03/20 07:00 BP 131/75 08/03/20 07:00 Pulse Ox 97 08/03/20 07:00 Intake & Output 08/02/20 08/03/20 08/03/20 18:59 06:59 18:59 Intake Total 300 Output Total 200 1200 Balance 100 -1200 Intake: Oral 300 Output: Urine 200 1200 Uretheral (Whaley) 800 Other: Voiding Method Indwelling Catheter Indwelling Catheter - Labs CBC & Chem 7: 08/03/20 07:26 08/02/20 05:46 Labs: Abnormal Lab Results - Last 24 Hours (Table) 07/31/20 08/02/20 08/02/20 Range/Units 06:30 11:42 16:27 WBC (3.8-10.6) k/uL RBC (3.80-5.40) m/uL Hgb (11.4-16.0) gm/dL Hct (34.0-46.0) % RDW (11.5-15.5) % Neutrophils # (1.3-7.7) k/uL Lymphocytes # (1.0-4.8) k/uL POC Glucose (mg/dL) 145 H 154 H (75-99) mg/dL Albumin (PEP) 1.62 L (3.80-4.90) g/dL Faebs-0-Utmnezhbl 0.53 H (0.10-0.40) g/dL Gamma Globulins 0.66 L (0.70-1.50) g/dL 08/02/20 08/03/20 08/03/20 Range/Units 20:59 07:05 07:26 WBC 14.5 H (3.8-10.6) k/uL RBC 3.65 L (3.80-5.40) m/uL Hgb 10.0 L (11.4-16.0) gm/dL Hct 30.5 L (34.0-46.0) % RDW 15.8 H (11.5-15.5) % Neutrophils # 13.5 H (1.3-7.7) k/uL Lymphocytes # 0.5 L (1.0-4.8) k/uL POC Glucose (mg/dL) 146 H 149 H (75-99) mg/dL Albumin (PEP) (3.80-4.90) g/dL Qenjs-1-Fuoolgrfl (0.10-0.40) g/dL Gamma Globulins (0.70-1.50) g/dL
--- NOTE | 2020-08-03 11:15 | P.CONS ---
History of Present Illness - Chief Complaint Medical debility - History of Present Illness I had the opportunity to see patient for inpatient rehab consultation with regard to medical debility. She was admitted to [facility] July 25 as a transfer from [facility] with acute onset upper extremity weakness and rhabdomyolysis. Seen by Dr. Don who notes acute on chronic kidney disease and electrode abnormalities. Seen by Dr. Peace. Seen by Dr. mcgowan for elevated liver enzymes. Seen by Dr. Medina who did perform a gynecologic exam. Seen by Dr. Patel who did perform a biopsy. Abdominal ultrasound demonstrates only hepatocellular disease. Chest CT negative for mass. Pelvic ultrasound with small mass in the uterus. Abdominal ultrasound negative. It started therapies. PT and OT cotreatment due to date of 3 person assist for any mobility. Patient reluctant to stand due to leg weakness. Previous functional history as elicited from patient: 70-year-old right-handed white female is lives and 2 floor home with and grandson. 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 Patient indeed independent including driving, standing shower and gait without device. Unsure of PMD. Denies tobacco or alcohol. Family history both parents with heart disease. Review of Systems Review of systems: ENT: Denies sneezes or discharge. Eyes: Denies discharge or photophobia. Cardiac: Denies chest pain or palpitation. Pulmonary: Denies cough or shortness of breath. Breast: Denies discharge or lumps. Gastrointestinal: Denies nausea, emesis, constipation, diarrhea. Genitourinary: Denies discharge or frequency. Musculoskeletal: Still with at least minor discomfort arms and forearms. Neurologic: Derian generalized weakness. Endocrine: Denies shakes or sweats. Oncology: Denies cancers. Dermatologic: Denies rash, itching, pruritus. ALLERGY/immunology: Denies sneezes, rashes. Past Medical History Additional Past Medical History / Comment(s): vertigo History of Any Multi-Drug Resistant Organisms: None Reported Past Surgical History: Cholecystectomy, Tubal Ligation Past Anesthesia/Blood Transfusion Reactions: No Reported Reaction Past Psychological History: No Psychological Hx Reported Smoking Status: Never smoker Past Alcohol Use History: None Reported Past Drug Use History: None Reported Medications and Allergies Home Medications Medication Instructions Recorded Confirmed Type No Known Home Medications 07/25/20 07/30/20 History Allergies Allergy/AdvReac Type Severity Reaction Status Date / Time No Known Allergies Allergy Verified 07/30/20 09:22 Physical Exam Vitals: Vital Signs Temp Pulse Resp BP Pulse Ox 08/03/20 07:00 97.7 F 65 17 131/75 97 08/03/20 00:49 96.2 F L 62 16 143/80 96 08/02/20 19:46 17 08/02/20 18:21 97.5 F L 69 18 133/85 96 08/02/20 14:00 97.6 F 72 18 146/89 91 L Intake and Output 08/02/20 08/03/20 08/03/20 22:59 06:59 14:59 Intake Total 200 Output Total 1200 Balance 200 -1200 Intake: Oral 200 Output: Urine 1200 Uretheral (Whaley) 800 Other: Voiding Method Indwelling Catheter Skin: Good color, texture, turgor. General: Morbidly obese build and comfortable appearance. Head: Normocephalic, atraumatic. Eyes: Symmetric. Pupils equal round. Ears: Symmetric. Hearing within normal limits. Mouth: Clear. Neck: Supple. Carotid without bruit. Cardiac: Regular rate and rhythm. Lungs: Clear anteriorly and posteriorly. Abdomen: Soft active nontender, overweight. Extremities: Normal tone. Overweight. Neurological: Mental status: Alert, cooperative, pleasant. Cranial nerves: Symmetric facial tone and trapezius. Motor: Poor movement all 4 limbs. Sensation: Intact throughout. DTRs: Symmetric and equal throughout. Mobility: Requires physical assist for bed mobility. Results CBC & Chem 7: 08/03/20 07:26 08/02/20 05:46 Labs: Abnormal Lab Results - Last 24 Hours (Table) 07/31/20 08/02/20 08/02/20 Range/Units 06:30 11:42 16:27 WBC (3.8-10.6) k/uL RBC (3.80-5.40) m/uL Hgb (11.4-16.0) gm/dL Hct (34.0-46.0) % RDW (11.5-15.5) % Neutrophils # (1.3-7.7) k/uL Lymphocytes # (1.0-4.8) k/uL POC Glucose (mg/dL) 145 H 154 H (75-99) mg/dL Albumin (PEP) 1.62 L (3.80-4.90) g/dL Auhgg-4-Tpegahgps 0.53 H (0.10-0.40) g/dL Gamma Globulins 0.66 L (0.70-1.50) g/dL 08/02/20 08/03/20 08/03/20 Range/Units 20:59 07:05 07:26 WBC 14.5 H (3.8-10.6) k/uL RBC 3.65 L (3.80-5.40) m/uL Hgb 10.0 L (11.4-16.0) gm/dL Hct 30.5 L (34.0-46.0) % RDW 15.8 H (11.5-15.5) % Neutrophils # 13.5 H (1.3-7.7) k/uL Lymphocytes # 0.5 L (1.0-4.8) k/uL POC Glucose (mg/dL) 146 H 149 H (75-99) mg/dL Albumin (PEP) (3.80-4.90) g/dL Sotdw-4-Ovexcyzgx (0.10-0.40) g/dL Gamma Globulins (0.70-1.50) g/dL Assessment and Plan (1) Rhabdomyolysis Current Visit: Yes Status: Acute Code(s): M62.82 - RHABDOMYOLYSIS SNOMED Code(s): 141065751 (2) Uterine mass Current Visit: Yes Status: Acute Code(s): N85.8 - OTHER SPECIFIED NONINFLAMMATORY DISORDERS OF UTERUS SNOMED Code(s): 156548629196447 Plan: Impression: 1. Medical debility. 2. Rhabdomyolysis. 3. Uterine mass. 4. Multiple electrolyte and liver enzyme abnormalities. 5. Obese. Constant plan: At this time PT and OT are ongoing. Patient currently occurs 3 person assist for any mobility. Rehab prognosis currently guarded due to undefined etiology of current problem.
[2020-08-03 11:20] LABS: Glucose,Whole Blood 200 mg/dL (75-99)
[2020-08-03 12:02] LABS: African American GFR (CKD) 26.8 (60.0-200.0); Anion Gap 13.5 mmol/L (4.00-12.00); BUN/Creat Ratio 32.86 Ratio (12.00-20.00); Carbon Dioxide 21.5 mmol/L (21.6-31.8); Magnesium 1.9 mg/dL (1.5-2.4); Non-African American GFR(CKD) 23.1 (60.0-200.0); Phosphorus 5.4 mg/dL (2.4-5.1); Potassium 4.6 mmol/L (3.5-5.5)
--- NOTE | 2020-08-03 12:13 | P.PN ---
Subjective Patient is seen in follow-up for acute kidney injury, currently hemodialysis dependent. Nonoliguric. Underwent muscle biopsy jul 30. No chest pain or shortness of breath. Blood pressure stable. Oral intake fair. CK levels trending down. Renal function improving. Vital signs are stable. General: The patient appeared well nourished and normally developed. HEENT: Head exam is unremarkable. Neck is without jugular venous distension. LUNGS: Breath sounds decreased. HEART: Rate and Rhythm are regular. ABDOMEN: Soft, nontender. Obese. EXTREMITITES: No edema. Objective - Vital Signs Vital signs: Vital Signs Temp 97.7 F 08/03/20 07:00 Pulse 65 08/03/20 07:00 Resp 17 08/03/20 07:00 BP 131/75 08/03/20 07:00 Pulse Ox 97 08/03/20 07:00 Intake & Output 08/02/20 08/03/20 08/03/20 18:59 06:59 18:59 Intake Total 300 Output Total 200 1200 Balance 100 -1200 Intake: Oral 300 Output: Urine 200 1200 Uretheral (Whaley) 800 Other: Voiding Method Indwelling Catheter Indwelling Catheter Indwelling Catheter - Labs CBC & Chem 7: 08/03/20 07:26 08/03/20 07:26 Labs: Abnormal Lab Results - Last 24 Hours (Table) 07/31/20 08/02/20 08/02/20 Range/Units 06:30 16:27 20:59 WBC (3.8-10.6) k/uL RBC (3.80-5.40) m/uL Hgb (11.4-16.0) gm/dL Hct (34.0-46.0) % RDW (11.5-15.5) % Neutrophils # (1.3-7.7) k/uL Lymphocytes # (1.0-4.8) k/uL Sodium (135-145) mmol/L Carbon Dioxide (21.6-31.8) mmol/L Anion Gap (4.00-12.00) mmol/L BUN (9.0-27.0) mg/dL Creatinine (0.6-1.5) mg/dL Est GFR (CKD-EPI)AfAm (60.0-200.0) Est GFR (CKD-EPI)NonAf (60.0-200.0) BUN/Creatinine Ratio (12.00-20.00) Ratio Glucose (70-110) mg/dL POC Glucose (mg/dL) 154 H 146 H (75-99) mg/dL Calcium (8.7-10.3) mg/dL Phosphorus (2.4-5.1) mg/dL Albumin (PEP) 1.62 L (3.80-4.90) g/dL Gvgcz-5-Tmyudrueb 0.53 H (0.10-0.40) g/dL Gamma Globulins 0.66 L (0.70-1.50) g/dL 08/03/20 08/03/20 08/03/20 Range/Units 07:05 07:26 07:26 WBC 14.5 H (3.8-10.6) k/uL RBC 3.65 L (3.80-5.40) m/uL Hgb 10.0 L (11.4-16.0) gm/dL Hct 30.5 L (34.0-46.0) % RDW 15.8 H (11.5-15.5) % Neutrophils # 13.5 H (1.3-7.7) k/uL Lymphocytes # 0.5 L (1.0-4.8) k/uL Sodium 132 L (135-145) mmol/L Carbon Dioxide 21.5 L (21.6-31.8) mmol/L Anion Gap 13.50 H (4.00-12.00) mmol/L BUN 69.0 H (9.0-27.0) mg/dL Creatinine 2.1 H (0.6-1.5) mg/dL Est GFR (CKD-EPI)AfAm 26.8 L (60.0-200.0) Est GFR (CKD-EPI)NonAf 23.1 L (60.0-200.0) BUN/Creatinine Ratio 32.86 H (12.00-20.00) Ratio Glucose 149 H (70-110) mg/dL POC Glucose (mg/dL) 149 H (75-99) mg/dL Calcium 8.0 L (8.7-10.3) mg/dL Phosphorus 5.4 H (2.4-5.1) mg/dL Albumin (PEP) (3.80-4.90) g/dL Uroni-4-Vylnmiqkk (0.10-0.40) g/dL Gamma Globulins (0.70-1.50) g/dL 08/03/20 Range/Units 11:19 WBC (3.8-10.6) k/uL RBC (3.80-5.40) m/uL Hgb (11.4-16.0) gm/dL Hct (34.0-46.0) % RDW (11.5-15.5) % Neutrophils # (1.3-7.7) k/uL Lymphocytes # (1.0-4.8) k/uL Sodium (135-145) mmol/L Carbon Dioxide (21.6-31.8) mmol/L Anion Gap (4.00-12.00) mmol/L BUN (9.0-27.0) mg/dL Creatinine (0.6-1.5) mg/dL Est GFR (CKD-EPI)AfAm (60.0-200.0) Est GFR (CKD-EPI)NonAf (60.0-200.0) BUN/Creatinine Ratio (12.00-20.00) Ratio Glucose (70-110) mg/dL POC Glucose (mg/dL) 200 H (75-99) mg/dL Calcium (8.7-10.3) mg/dL Phosphorus (2.4-5.1) mg/dL Albumin (PEP) (3.80-4.90) g/dL Thsmo-5-Oivsfupwl (0.10-0.40) g/dL Gamma Globulins (0.70-1.50) g/dL Assessment and Plan Plan: Assessment: 1. Acute kidney injury secondary to ATN secondary to rhabdomyolysis. No hydronephrosis noted on kidney ultrasound. Creatinine peaked at 3.39 this admission. Last hemodialysis July 30. Unknown baseline renal function. Creatinine trending down after holding dialysis. 2. Rhabdomyolysis. Patient was not on a statin therapy. No IVDA or alcohol abuse. No evidence of crush injury or trauma. ? Inflammatory myopathy vs immobility. Status post muscle biopsy July 30. 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 CK levels trending down. 3. Bilateral upper extremity weakness. ? Etiology. Seen by rheumatology. 4. Uterine mass. DRINK WAITER following. s/p D&C. Pathology positive for poorly differentiated adenocarcinoma. 5. Cystic pancreatic mass. 6. Proteinuria. Can be nonspecific in the setting of acute kidney injury. Se rologies negative. 7. Hyponatremia secondary to acute kidney injury. TSH and cortisol level normal. Improved. Urine sodium 15 and urine osmolality 443. 8. Metabolic acidosis secondary to acute kidney injury. 9. Transaminitis. Possibly from rhabdo. GI following. 10. Hyperphosphatemia secondary to acute kidney injury maintained on PhosLo. Plan: Avoid nephrotoxins. 1200 mL fluid restriction. Encourage oral intake, particularly protein. Renal diet. Discontinue dialysis catheter. No further need for renal replacement therapy. Continue to monitor renal function and urine output.
--- NOTE | 2020-08-03 15:15 | P.PN ---
Subjective Progress Note Date: 08/03/20 Principal diagnosis: weakness Patient is not feeling significantly better today compared to the past few days. Still significantly weak. She feels both of her arms are swollen. Objective - Vital Signs Vital signs: Vital Signs Temp 97.7 F 08/03/20 07:00 Pulse 65 08/03/20 07:00 Resp 17 08/03/20 07:00 BP 131/75 08/03/20 07:00 Pulse Ox 97 08/03/20 07:00 Intake & Output 08/02/20 08/03/20 08/03/20 18:59 06:59 18:59 Intake Total 300 Output Total 200 1200 Balance 100 -1200 Intake: Oral 300 Output: Urine 200 1200 Uretheral (Whaley) 800 Other: Voiding Method Indwelling Catheter Indwelling Catheter Indwelling Catheter - Exam General: non toxic, no distress, appears at stated age Derm: no facial dermatitis noted, warm, dry Head: atraumatic, normocephalic, symmetric Eyes: EOMI, no lid lag, anicteric sclera Mouth: no lip lesion, mucus membranes moist Cardiovascular: S1S2 reg, no murmur, positive posterior tibial pulse bilateral, Lungs: Decreased bs bilateral, no rhonchi, no rales , no accessory muscle use Abdominal: soft, nontender to palpation, no guarding, no appreciable organomegaly Ext: no gross muscle atrophy, 1+ edema bilateral upper extremities, no contractures Neuro: General weakness. CN II-XI grossly intact, no focal neuro deficits Psych: Alert, oriented, appropriate affect - Labs CBC & Chem 7: 08/03/20 07:26 08/03/20 07:26 Labs: Abnormal Lab Results - Last 24 Hours (Table) 08/02/20 08/02/20 08/03/20 Range/Units 16:27 20:59 07:05 WBC (3.8-10.6) k/uL RBC (3.80-5.40) m/uL Hgb (11.4-16.0) gm/dL Hct (34.0-46.0) % RDW (11.5-15.5) % Neutrophils # (1.3-7.7) k/uL Lymphocytes # (1.0-4.8) k/uL Sodium (135-145) mmol/L Carbon Dioxide (21.6-31.8) mmol/L Anion Gap (4.00-12.00) mmol/L BUN (9.0-27.0) mg/dL Creatinine (0.6-1.5) mg/dL Est GFR (CKD-EPI)AfAm (60.0-200.0) Est GFR (CKD-EPI)NonAf (60.0-200.0) BUN/Creatinine Ratio (12.00-20.00) Ratio Glucose (70-110) mg/dL POC Glucose (mg/dL) 154 H 146 H 149 H (75-99) mg/dL Calcium (8.7-10.3) mg/dL Phosphorus (2.4-5.1) mg/dL 08/03/20 08/03/20 08/03/20 Range/Units 07:26 07:26 11:19 WBC 14.5 H (3.8-10.6) k/uL RBC 3.65 L (3.80-5.40) m/uL Hgb 10.0 L (11.4-16.0) gm/dL Hct 30.5 L (34.0-46.0) % RDW 15.8 H (11.5-15.5) % Neutrophils # 13.5 H (1.3-7.7) k/uL Lymphocytes # 0.5 L (1.0-4.8) k/uL Sodium 132 L (135-145) mmol/L Carbon Dioxide 21.5 L (21.6-31.8) mmol/L Anion Gap 13.50 H (4.00-12.00) mmol/L BUN 69.0 H (9.0-27.0) mg/dL Creatinine 2.1 H (0.6-1.5) mg/dL Est GFR (CKD-EPI)AfAm 26.8 L (60.0-200.0) Est GFR (CKD-EPI)NonAf 23.1 L (60.0-200.0) BUN/Creatinine Ratio 32.86 H (12.00-20.00) Ratio Glucose 149 H (70-110) mg/dL POC Glucose (mg/dL) 200 H (75-99) mg/dL Calcium 8.0 L (8.7-10.3) mg/dL Phosphorus 5.4 H (2.4-5.1) mg/dL Assessment and Plan Plan: 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 Dr. Pisano called earlier in the admission course. - Continue with steroids, patient noted some improvement. - Aldolase level > 300. - RF, SS-A, SS-B, anti-valadez AB- negative - Muscle biopsy pending obtained on 07/30 - Continue to follow CK daily Poorly differentiated endometrial adenocarcinoma - D/W Dr. Peace - will need outpatient PET and Airline Flight Attendant Onc evaluation - Barriers include that the patient is too weak to sit or stand on her own at this time. - vaginal discharge noted during muscle biopsy started on rocephin/flagyl - MULTI DISCIPLINED LANGUAGE ANALYST recs appreciated Acute kidney injury stable - nephro recs appreciated, - Last HD on 07/30. Cr improving, nephro discontinued cath today. HD not needed anymore. - Follow creatinine - IV fluids completed - Avoid additional nephrotoxic agents - Repeat labs in a.m. - Elevated phosphorus level which may be consistent with some form of chronic kidney disease Acute hepatitis suspect secondary to underlying rhabdo and inflammatory myositis - Repeat liver enzymes in a.m. - Acute hepatitis profile negative - REBEKA negative - antimitochondrial antibody negative - GI recs appreciated Newly discovered paroysmal A fib - Will need to be started on eliquis once more stable and once diagnosis e stablished. - cardio recs appreciated - echo EF 55-60% Anemia - due to vaginal bleeding---resolved. 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 - MRI for further evaluation as outpatient Morbid obesity with BMI 43.6 -Outpatient structured weight loss Possible pyelonephritis -5 days of rocephin completed Elevated blood pressure without underlying diagnosis of hypertension, resolved Thrombocytopenia, resolved Hyperkalemia secondary to above, resolved metabolic acidosis, resolved Providers please update Daughter Camilla with plan for cancer treatment and care plan at [phone]. is overwhelmed DVT prophylaxis: Heparin Discussed with: patient, nursing Anticipated discharge: 3-[address]: rehab A total of 35 minutes was spent on the care of this complex patient more than 50% of the time was spent in counseling and care coordination.
[2020-08-03 16:24] LABS: Glucose,Whole Blood 146 mg/dL (75-99)
--- NOTE | 2020-08-03 16:34 | US ---
EXAMINATION TYPE: US venous doppler duplex UE DATE OF EXAM: 08/03/2020 COMPARISON: NONE CLINICAL HISTORY: swelling r/o DVT. Edema exam very limited due to body habitus, swelling and unable to move arms. Left arm wrapped below the elbow unable to scan radius and ulnar. SIDE PERFORMED: Bilateral Grayscale, color doppler, spectral doppler imaging performed of the deep veins of the upper extremiti es. Visualized portions of the left and right internal jugular vein, subclavian veins, axillary vein s, brachial veins, cephalic veins, radial veins, ulnar veins, brachial veins show color flow and comp ressibility, no abnormal luminal echoes. The forearm veins on the left were not evaluated. Right Arm: Vessels scanned appear negative for DVT. Left Arm: Vessels scanned appear negative for DVT. IMPRESSION: No evident deep venous thrombosis in the upper extremities limitations as described.
[2020-08-03 21:50] LABS: Glucose,Whole Blood 138 mg/dL (75-99)
[2020-08-04] MEDS: methylPREDNISolone SOD SUCCI 125 MG/2 ML VIAL IV SCH ×4 (06:43→23:07)
[2020-08-04 07:01] LABS: Glucose,Whole Blood 150 mg/dL (75-99)
[2020-08-04] MEDS: polyethylene glycoL 3350 17 GM POWD.PACK PO SCH (09:41)
[2020-08-04] MEDS: CALCIUM ACETATE 667 MG TAB PO SCH ×3 (09:42→17:53)
[2020-08-04] MEDS: HEPARIN SODIUM,PORCINE 5,000 UNIT/ML 1 ML VIAL SQ SCH ×3 (09:42→23:07)
[2020-08-04] MEDS: FOLIC ACID-VIT B COMPLEX-VIT C 1 CAP PO SCH (09:42)
[2020-08-04] MEDS: metroNIDAZOLE 500 MG TAB PO SCH ×2 (09:42→19:52)
--- NOTE | 2020-08-04 11:41 | PCN ---
PROCEDURE NOTE PREOP DIAGNOSIS: Acute on chronic failure. PROCEDURE PERFORMED: Removal of a dialysis catheter, right femoral approach. Right groin was prepped and draped in a sterile manner. Stitches were removed. The catheter was removed and pressure was held. Patient tolerated the procedure well. GELY / INGRID: [id number] /
[2020-08-04 12:02] LABS: Glucose,Whole Blood 148 mg/dL (75-99)
--- NOTE | 2020-08-04 12:23 | P.PN ---
Subjective Patient is seen in follow-up for acute kidney injury, currently hemodialysis dependent. Nonoliguric. Underwent muscle biopsy jul 30. No chest pain or shortness of breath. Blood pressure stable. Oral intake fair. CK levels trending down. Renal function improving. Dialysis catheter removed August 03. No active complaints. Vital signs are stable. General: The patient appeared well nourished and normally developed. HEENT: Head exam is unremarkable. Neck is without jugular venous distension. LUNGS: Breath sounds decreased. HEART: Rate and Rhythm are regular. ABDOMEN: Soft, nontender. Obese. EXTREMITITES: No edema. Objective - Vital Signs Vital signs: Vital Signs Temp 97.4 F L 08/04/20 07:00 Pulse 54 L 08/04/20 07:00 Resp 17 08/04/20 07:00 BP 148/74 08/04/20 07:00 Pulse Ox 95 08/04/20 07:00 Intake & Output 08/03/20 08/04/20 08/04/20 18:59 06:59 18:59 Intake Total 118 Output Total 600 725 Balance -600 -725 118 Intake: Oral 118 Output: Urine 600 725 Other: Voiding Method Indwelling Catheter Indwelling Catheter - Labs CBC & Chem 7: 08/03/20 07:26 08/03/20 07:26 Labs: Abnormal Lab Results - Last 24 Hours (Table) 08/03/20 08/03/20 08/03/20 Range/Units 07:26 16:23 21:48 POC Glucose (mg/dL) 146 H 138 H (75-99) mg/dL Creatine Kinase >7800 H* (26-186) U/L 08/04/20 08/04/20 Range/Units 06:59 12:00 POC Glucose (mg/dL) 150 H 148 H (75-99) mg/dL Creatine Kinase (26-186) U/L Assessment and Plan Plan: Assessment: 1. Acute kidney injury secondary to ATN secondary to rhabdomyolysis. No hydronephrosis noted on kidney ultrasound. Creatinine peaked at 3.39 this admission. Last hemodialysis July 30. Unknown baseline renal function. Creatinine trending down after holding dialysis. Serologies negative. 2. Rhabdomyolysis. Patient was not on a statin therapy. No IVDA or alcohol abuse. No evidence of crush injury or trauma. ? Inflammatory myopathy vs immobility. Status post muscle biopsy July 30. 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 CK levels trending down. 3. Bilateral upper extremity weakness. ? Etiology. Seen by rheumatology. 4. Uterine mass. STARTING GATE DRIVER following. s/p D&C. Pathology positive for poorly dif ferentiated adenocarcinoma. 5. Cystic pancreatic mass. 6. Proteinuria. Can be nonspecific in the setting of acute kidney injury. Serologies negative. 7. Hyponatremia secondary to acute kidney injury. TSH and cortisol level normal. Improved. Urine sodium 15 and urine osmolality 443. Improved. 8. Metabolic acidosis secondary to acute kidney injury. 9. Transaminitis. Possibly from rhabdo. GI following. 10. Hyperphosphatemia secondary to acute kidney injury maintained on PhosLo. Plan: Avoid nephrotoxins. 1200 mL fluid restriction. Encourage oral intake, particularly protein. Dialysis catheter removed this summer. Continue to monitor renal function and urine output.
--- NOTE | 2020-08-04 14:42 | P.PN ---
Subjective Progress Note Date: 08/04/20 Patient is having some slow improvement. She states that she was able to stand by the side of the bed with assistance, and ambulate a few feet sideways. However proximal upper extremity weakness is still quite profound. Tenderness has improved. Urine output is satisfactory. No fever/chills/nausea/vomiting. Objective - Vital Signs Vital signs: Vital Signs Temp 97.4 F L 08/04/20 07:00 Pulse 54 L 08/04/20 07:00 Resp 17 08/04/20 07:00 BP 148/74 08/04/20 07:00 Pulse Ox 95 08/04/20 07:00 Intake & Output 08/03/20 08/04/20 08/04/20 18:59 06:59 18:59 Intake Total 118 Output Total 600 725 350 Balance -600 -725 -232 Intake: Oral 118 Output: Urine 600 725 350 Uretheral (Whaley) 350 Other: Voiding Method Indwelling Catheter Indwelling Catheter Indwelling Catheter - Constitutional General appearance: Present: no acute distress - EENT Eyes: Present: EOMI ENT: Present: hearing grossly normal, normal oropharynx - Respiratory Respiratory: bilateral: CTA - Cardiovascular Rhythm: regular Heart sounds: normal: S1, S2 - Gastrointestinal General gastrointestinal: Present: normal bowel sounds, soft - Integumentary Integumentary: Present: normal - Neurologic Neurologic Comment(s): Bilateral, marked proximal upper extremity weakness. Lower extremity distal strength normal Lower extremity proximal strength 3+-4/5 Neurologic: Present: CNII-XII intact - Musculoskeletal Musculoskeletal Comment(s): Weakness, as above - Psychiatric Psychiatric: Present: A&O x's 3, appropriate affect - Labs CBC & Chem 7: 08/03/20 07:26 08/03/20 07:26 Labs: Abnormal Lab Results - Last 24 Hours (Table) 08/03/20 08/03/20 08/03/20 Range/Units 07:26 16:23 21:48 POC Glucose (mg/dL) 146 H 138 H (75-99) mg/dL Creatine Kinase >7800 H* (26-186) U/L 08/04/20 08/04/20 Range/Units 06:59 12:00 POC Glucose (mg/dL) 150 H 148 H (75-99) mg/dL Creatine Kinase (26-186) U/L Assessment and Plan (1) Rhabdomyolysis Narrative/Plan: Muscle biopsy still pending. Given the clinical situation this was most likely felt to be paraneoplastic. Case discussed with rheumatology, and IM in detail. 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 This is comparatively rare, and tends to follow of relapsing and remitting course with hopefully prolonged remission if the underlying malignancy is able to be effectively treated. While paraneoplastic dermatomyositis- polymyositis is more common, it is less likely to cause severe rhabdomyolysis unless is very severe. - The patient is currently on steroids. If muscle biopsy shows polymyositis, then she'll continue on the same, with taper per rheumatology. If primary necrotic myopathy is seen, then steroids can be weaned off, and the patient will continue ongoing treatment for rhabdomyolysis. - The patient is improving with current management, with improvement in CPKs as well as creatinine. Current Visit: Yes Status: Acute Code(s): M62.82 - RHABDOMYOLYSIS SNOMED Code(s): 546125462 (2) Uterine malignancy Narrative/Plan: 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 The patient does not have any obvious evidence of metastatic disease. However staging studies so far are quite limited, as contrast has been unable to be used. Ultrasound did note a possible lesion in the liver but this is quite small and nonspecific. - Therefore at this time the plan is for a PET scan was the patient is able to be discharged. If this does not show inoperable disease, the patient will be referred to INSIDE SALES SUPERVISOR oncology Current Visit: Yes Status: Acute Code(s): C55 - MALIGNANT NEOPLASM OF UTERUS, PART UNSPECIFIED SNOMED Code(s): 901338136 (3) STEVE (acute kidney injury) Narrative/Plan: The patient's kidney function continues to improve. Dialysis was discontinued a few days ago, and access was removed yesterday. Urine output is satisfactory. CPKs are diminishing. Creatinine is further reduced today to 2.1. Continue to follow with ongoing IV hydration Current Visit: Yes Status: Acute Code(s): N17.9 - ACUTE KIDNEY FAILURE, UNSPECIFIED SNOMED Code(s): 83908602
[2020-08-04 14:46] LABS: ALT 379 U/L (8-44); AST 491 U/L (13-35); African American GFR (CKD) 30.2 (60.0-200.0); Albumin/Globulin Ratio 1.22 (1.60-3.17); Alkaline Phosphatase 65 U/L (41-126); BUN/Creat Ratio 39.47 Ratio (12.00-20.00); Calcium 8.2 mg/dL (8.7-10.3); Carbon Dioxide 22.5 mmol/L (21.6-31.8); Chloride 98 mmol/L (96-109); Globulin 2.3 g/dL (1.6-3.3); Glucose 145 mg/dL (70-110); Non-African American GFR(CKD) 26.1 (60.0-200.0); Potassium 4.5 mmol/L (3.5-5.5); Sodium 132 mmol/L (135-145); Total Bilirubin 0.2 mg/dL (0.3-1.2); Total Protein 5.1 g/dL (6.2-8.2)
--- NOTE | 2020-08-04 15:52 | P.PN ---
Subjective Progress Note Date: 08/04/20 Principal diagnosis: weakness 70-year-old female with a past medical history of vertigo who presented with complaints of bilateral severe shoulder pain and weakness. She was transferred here for [facility] due to acute kidney injury, transaminitis, and uterine mass. There she had undergone a CT abdomen and pelvis without contrast which revealed fat stranding in the left vasyl-pelvis along the course of the distal ureter ureter with possible pyelonephritis versus acute left adnexal pathology, bladder wall thickening, hypodense mass in the uterus with mild to moderate pelvic adenopathy findings likely due to endometrial mass, and cystic mass in the pancreas but follow-up MRI recommended. On arrival here her sodium was 125, potassium 6.6, chloride 96, carbon dioxide 19, BUN 47, and creatinine 2.58. She was also found have an AST of 3421, ALT 1002, white blood cell count 16.2. Urinalysis was consistent with rhabdo but did not appear consistent with urinary tract infection, however patient had already received Rocephin. She was started on IV fluids and arrangements were made for admission. CPK was ordered which came back at 154,161. She subsequently received an additional 2 L of IV fluid and her IV fluid drip was increased. Gynecology was consulted regarding her uterine mass. Nephrology was consulted for possible STEVE Vs CKD in conjunction with severe rhabdo. Hematology and oncology was consulted secondary to concern for possible dermatomyositis versus polymyositis that could be related to her uterine mass. She went into rate controlled A fib on 07/25 which was rate controlled. Cardio was consulted and recommended TSH and echo. Seen by INSURANCE SALES ASSOCIATE and plan is for D and C with biopsy. CT chest without metastatic disease. GI consulted for acute hepatitis, viral hepatitis profile negative. Other causes of hepatitis were evaluated. On the morning of 07/27 there were unable to draw her blood work secondary to her diffuse edema. She also lost IV access and when her hyperkalemia and came back we were unable to treat that emergently. She did have a midline placed. Case discussed with nephrology and plan is for urgent dialysis secondary to continued hyperkalemia, rhabdo, and worsening renal function. We attempted to give her a dose of Kayexalate however she vomited that up. Emergent sodium bicarb, insulin, dextrose were ordered to check the potassium intracellularly. Her D&C had to be postponed secondary to inadequate IV access and need to treat potassium. Case was discussed with hematology over the phone. Secondary to her continued rhabdo we will evaluate for possible other causes of myopathy with muscle biopsy. Dr. Malik consulted and case discussed over phone. Will plan for muscle biopsy. 07/28 D and C completed with necrotic tissue, second round of dialysis 07/29 No changes overnight. 07/30 Muscle biopsy of quads, d/w Dr. Malik more morbidity if biopsy of deltoid. Purulent material noted from vaginal canal during surgery. HD today. 07/31 drainage from vaginal area slowed- appears to be old blood at this time. no HD 08/01 Endometrial biopsy with poorly differentiated adenocarcinoma 08/02 patient feeling slightly stronger today. She is able to raise her legs off the bed but her arms are still weak. 08/03: Patient is not feeling significantly better today compared to the past few days. Still significantly weak. She feels both of her arms are swollen. 08/04: Patient is still not able to raise her arms. Still significantly weak. No pain. No fevers. No other overnight events. Objective - Vital Signs Vital signs: Vital Signs Temp 97.6 F 08/04/20 15:00 Pulse 65 08/04/20 15:00 Resp 17 08/04/20 15:00 BP 152/75 08/04/20 15:00 Pulse Ox 93 L 08/04/20 15:00 Intake & Output 08/03/20 08/04/20 08/04/20 18:59 06:59 18:59 Intake Total 118 Output Total 600 725 350 Balance -600 -725 -232 Intake: Oral 118 Output: Urine 600 725 350 Uretheral (Whaley) 350 Other: Voiding Method Indwelling Catheter Indwelling Catheter Indwelling Catheter - Exam General: non toxic, no distress, appears at stated age Derm: no facial dermatitis noted, warm, dry Head: atraumatic, normocephalic, symmetric Eyes: EOMI, no lid lag, anicteric sclera Mouth: no lip lesion, mucus membranes moist Cardiovascular: S1S2 reg, no murmur, positive posterior tibial pulse bilateral, Lungs: Decreased bs bilateral, no rhonchi, no rales , no accessory muscle use Abdominal: soft, nontender to palpation, no guarding, no appreciable organomegaly Ext: no gross muscle atrophy, 1+ edema bilateral upper extremities, no contractures Neuro: General weakness. CN II-XI grossly intact, no focal neuro deficits Psych: Alert, oriented, appropriate affect - Labs CBC & Chem 7: 08/03/20 07:26 08/04/20 06:50 Labs: Abnormal Lab Results - Last 24 Hours (Table) 08/03/20 08/03/20 08/03/20 Range/Units 07:26 16:23 21:48 Sodium (135-145) mmol/L BUN (9.0-27.0) mg/dL Creatinine (0.6-1.5) mg/dL Est GFR (CKD-EPI)AfAm (60.0-200.0) Est GFR (CKD-EPI)NonAf (60.0-200.0) BUN/Creatinine Ratio (12.00-20.00) Ratio Glucose (70-110) mg/dL POC Glucose (mg/dL) 146 H 138 H (75-99) mg/dL Calcium (8.7-10.3) mg/dL Total Bilirubin (0.3-1.2) mg/dL AST (13-35) U/L ALT (8-44) U/L Creatine Kinase >7800 H* (26-186) U/L Total Protein (6.2-8.2) g/dL Albumin (3.80-4.90) g/dL Albumin/Globulin Ratio (1.60-3.17) g/dL 08/04/20 08/04/20 08/04/20 Range/Units 06:50 06:59 12:00 Sodium 132 L (135-145) mmol/L BUN 75.0 H (9.0-27.0) mg/dL Creatinine 1.9 H (0.6-1.5) mg/dL Est GFR (CKD-EPI)AfAm 30.2 L (60.0-200.0) Est GFR (CKD-EPI)NonAf 26.1 L (60.0-200.0) BUN/Creatinine Ratio 39.47 H (12.00-20.00) Ratio Glucose 145 H (70-110) mg/dL POC Glucose (mg/dL) 150 H 148 H (75-99) mg/dL Calcium 8.2 L (8.7-10.3) mg/dL Total Bilirubin 0.2 L (0.3-1.2) mg/dL AST 491 H (13-35) U/L ALT 379 H (8-44) U/L Creatine Kinase >7800 H* (26-186) U/L Total Protein 5.1 L (6.2-8.2) g/dL Albumin 2.80 L (3.80-4.90) g/dL Albumin/Globulin Ratio 1.22 L (1.60-3.17) g/dL Assessment and Plan Plan: 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 - Aldolase level > 300. - RF, SS-A, SS-B, anti-valadez AB- negative - Muscle biopsy pending obtained on 07/30 - Continue to follow CK daily Poorly differentiated endometrial adenocarcinoma - D/W Dr. Peace - will need outpatient PET and Decal Applier Onc evaluation - Barriers include that the patient is too weak to sit or stand on her own at this time. - vaginal discharge noted during muscle biopsy started on rocephin/flagyl - INSURANCE SALES ASSOCIATE recs appreciated Acute kidney injury stable - improving, nephro recs appreciated, - Last HD on 07/30. Cr improving, nephro discontinued cath today. HD not needed anymore. - Follow creatinine - IV fluids completed - Avoid additional nephrotoxic agents - Repeat labs in a.m. - Elevated phosphorus level which may be consistent with some form of chronic kidney disease Acute hepatitis suspect secondary to underlying rhabdo and inflammatory myositis - Repeat liver enzymes in a.m. - Acute hepatitis profile negative - REBEKA negative - antimitochondrial antibody negative - GI recs appreciated Newly discovered paroysmal A fib - Will need to be started on eliquis once more stable and once diagnosis established. - cardio recs appreciated - echo EF 55-60% Anemia - due to vaginal bleeding---resolved. 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 - MRI for further evaluation as outpatient Morbid obesity with BMI 43.6 -Outpatient structured weight loss Possible pyelonephritis -5 days of rocephin completed Elevated blood pressure without underlying diagnosis of hypertension, resolved Thrombocytopenia, resolved Hyperkalemia secondary to above, resolved metabolic acidosis, resolved Providers please update Daughter Camilla with plan for cancer treatment and care plan at [phone]. is overwhelmed DVT prophylaxis: Heparin Discussed with: patient, nursing Anticipated discharge: 3-[address]: rehab A total of 35 minutes was spent on the care of this complex patient more than 50% of the time was spent in counseling and care coordination.
[2020-08-04 16:39] LABS: Glucose,Whole Blood 165 mg/dL (75-99)
[2020-08-04] MEDS: DOCUSATE 100 MG CAP PO PRN (19:53)
[2020-08-04 20:29] LABS: Glucose,Whole Blood 169 mg/dL (75-99)
[2020-08-05] MEDS: methylPREDNISolone SOD SUCCI 125 MG/2 ML VIAL IV SCH ×4 (05:37→23:29)
[2020-08-05 07:10] LABS: Glucose,Whole Blood 145 mg/dL (75-99)
[2020-08-05 07:45] LABS: Basophils # (A) 0.1 k/uL (0-0.2); Basophils % (A) 0 %; Eosinophils % (A) 0 %; HCT 30.6 % (34.0-46.0); Lymphocytes # (A) 0.5 k/uL (1.0-4.8); Lymphocytes % (A) 4 %; MCH 27.4 pg (25.0-35.0); MCHC 32.7 g/dL (31.0-37.0); MCV 83.6 fL (80.0-100.0); Mean Platelet Volume 7.2; Monocytes # (A) 0.5 k/uL (0-1.0); Monocytes % (A) 3 %; Neutrophils # (A) 12.6 k/uL (1.3-7.7); Neutrophils % (A) 91 %; Platelet Count 326 k/uL (150-450); RBC 3.67 m/uL (3.80-5.40); RDW 15.8 % (11.5-15.5); WBC 13.8 k/uL (3.8-10.6)
[2020-08-05] MEDS: HEPARIN SODIUM,PORCINE 5,000 UNIT/ML 1 ML VIAL SQ SCH ×3 (10:01→23:29)
[2020-08-05] MEDS: DOCUSATE 100 MG CAP PO PRN (10:01)
[2020-08-05] MEDS: CALCIUM ACETATE 667 MG TAB PO SCH ×3 (10:01→17:22)
[2020-08-05] MEDS: polyethylene glycoL 3350 17 GM POWD.PACK PO SCH (10:01)
[2020-08-05] MEDS: FOLIC ACID-VIT B COMPLEX-VIT C 1 CAP PO SCH (10:02)
[2020-08-05] MEDS: metroNIDAZOLE 500 MG TAB PO SCH (10:03)
[2020-08-05 11:23] LABS: Glucose,Whole Blood 167 mg/dL (75-99)
--- NOTE | 2020-08-05 11:29 | P.PN ---
Subjective Patient is seen in follow-up for acute kidney injury. Nonoliguric. Underwent muscle biopsy jul 30. No chest pain or shortness of breath. Blood pressure stable. Oral intake fair. CK levels trending down. Renal function improving. Dialysis catheter removed August 03. No active complaints. Awaiting muscle biopsy results. Vital signs are stable. General: The patient appeared well nourished and normally developed. HEENT: Head exam is unremarkable. Neck is without jugular venous distension. LUNGS: Breath sounds decreased. HEART: Rate and Rhythm are regular. ABDOMEN: Soft, nontender. Obese. EXTREMITITES: No edema. Objective - Vital Signs Vital signs: Vital Signs Temp 96.8 F L 08/05/20 07:24 Pulse 66 08/05/20 07:24 Resp 17 08/05/20 07:24 BP 146/82 08/05/20 07:24 Pulse Ox 96 08/05/20 07:24 Intake & Output 08/04/20 08/05/20 08/05/20 18:59 06:59 18:59 Intake Total 118 Output Total 1250 775 Balance -1132 -775 Intake: Oral 118 Output: Urine 1250 775 Uretheral (Whaley) 350 Other: Voiding Method Indwelling Catheter Indwelling Catheter - Labs CBC & Chem 7: 08/05/20 07:25 08/04/20 06:50 Labs: Abnormal Lab Results - Last 24 Hours (Table) 08/04/20 08/04/20 08/04/20 Range/Units 06:50 12:00 16:37 WBC (3.8-10.6) k/uL RBC (3.80-5.40) m/uL Hgb (11.4-16.0) gm/dL Hct (34.0-46.0) % RDW (11.5-15.5) % Neutrophils # (1.3-7.7) k/uL Lymphocytes # (1.0-4.8) k/uL Sodium 132 L (135-145) mmol/L BUN 75.0 H (9.0-27.0) mg/dL Creatinine 1.9 H (0.6-1.5) mg/dL Est GFR (CKD-EPI)AfAm 30.2 L (60.0-200.0) Est GFR (CKD-EPI)NonAf 26.1 L (60.0-200.0) BUN/Creatinine Ratio 39.47 H (12.00-20.00) Ratio Glucose 145 H (70-110) mg/dL POC Glucose (mg/dL) 148 H 165 H (75-99) mg/dL Calcium 8.2 L (8.7-10.3) mg/dL Total Bilirubin 0.2 L (0.3-1.2) mg/dL AST 491 H (13-35) U/L ALT 379 H (8-44) U/L Creatine Kinase >7800 H* (26-186) U/L Total Protein 5.1 L (6.2-8.2) g/dL Albumin 2.80 L (3.80-4.90) g/dL Albumin/Globulin Ratio 1.22 L (1.60-3.17) g/dL 08/04/20 08/05/20 08/05/20 Range/Units 20:27 07:08 07:25 WBC 13.8 H (3.8-10.6) k/uL RBC 3.67 L (3.80-5.40) m/uL Hgb 10.0 L (11.4-16.0) gm/dL Hct 30.6 L (34.0-46.0) % RDW 15.8 H (11.5-15.5) % Neutrophils # 12.6 H (1.3-7.7) k/uL Lymphocytes # 0.5 L (1.0-4.8) k/uL Sodium (135-145) mmol/L BUN (9.0-27.0) mg/dL Creatinine (0.6-1.5) mg/dL Est GFR (CKD-EPI)AfAm (60.0-200.0) Est GFR (CKD-EPI)NonAf (60.0-200.0) BUN/Creatinine Ratio (12.00-20.00) Ratio Glucose (70-110) mg/dL POC Glucose (mg/dL) 169 H 145 H (75-99) mg/dL Calcium (8.7-10.3) mg/dL Total Bilirubin (0.3-1.2) mg/dL AST (13-35) U/L ALT (8-44) U/L Creatine Kinase (26-186) U/L Total Protein (6.2-8.2) g/dL Albumin (3.80-4.90) g/dL Albumin/Globulin Ratio (1.60-3.17) g/dL 08/05/20 Range/Units 11:21 WBC (3.8-10.6) k/uL RBC (3.80-5.40) m/uL Hgb (11.4-16.0) gm/dL Hct (34.0-46.0) % RDW (11.5-15.5) % Neutrophils # (1.3-7.7) k/uL Lymphocytes # (1.0-4.8) k/uL Sodium (135-145) mmol/L BUN (9.0-27.0) mg/dL Creatinine (0.6-1.5) mg/dL Est GFR (CKD-EPI)AfAm (60.0-200.0) Est GFR (CKD-EPI)NonAf (60.0-200.0) BUN/Creatinine Ratio (12.00-20.00) Ratio Glucose (70-110) mg/dL POC Glucose (mg/dL) 167 H (75-99) mg/dL Calcium (8.7-10.3) mg/dL Total Bilirubin (0.3-1.2) mg/dL AST (13-35) U/L ALT (8-44) U/L Creatine Kinase (26-186) U/L Total Protein (6.2-8.2) g/dL Albumin (3.80-4.90) g/dL Albumin/Globulin Ratio (1.60-3.17) g/dL Assessment and Plan Plan: Assessment: 1. Acute kidney injury secondary to ATN secondary to rhabdomyolysis. No hydronephrosis noted on kidney ultrasound. Creatinine peaked at 3.39 this admission. Last hemodialysis July 30. Unknown baseline renal function. Creatinine trending down after holding dialysis. Serologies negative. 2. Rhabdomyolysis. Patient was not on a statin therapy. No IVDA or alcohol abuse. No evidence of crush injury or trauma. ? Inflammatory myopathy vs immobility. Status post muscle biopsy July 30. 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 CK levels trending down. 3. Bilateral upper extremity weakness. ? Etiology. Seen by rheumatology. 4. Uterine mass. ACCOUNTS ADMINISTRATOR following. s/p D&C. Pathology positive for poorly differentiated adenocarcinoma. 5. Cystic pancreatic mass. 6. Proteinuria. Can be nonspecific in the setting of acute kidney injury. Serologies negative. 7. Hyponatremia secondary to acute kidney injury. TSH and cortisol level normal. Improved. Urine sodium 15 and urine osmolality 443. Improved. 8. Metabolic acidosis secondary to acute kidney injury. 9. Transaminitis. Possibly from rhabdo. GI following. Trending down. 10. Hyperphosphatemia secondary to acute kidney injury maintained on PhosLo. Plan: Avoid nephrotoxins. 1200 mL fluid restriction. Encourage oral intake, particularly protein. Dialysis catheter removed August 03. Continue to monitor renal function and urine output. Morning labs pending.
[2020-08-05 12:29] LABS: Cancer Antigen 125 15.9 U/mL (0.0-30.1)
[2020-08-05 12:45] LABS: African American GFR (CKD) 34.6 (60.0-200.0); Albumin 2.8 g/dL (3.80-4.90); Albumin/Globulin Ratio 1.27 (1.60-3.17); Anion Gap 10.7 mmol/L (4.00-12.00); BUN/Creat Ratio 45.29 Ratio (12.00-20.00); Calcium 8.2 mg/dL (8.7-10.3); Carbon Dioxide 22.3 mmol/L (21.6-31.8); Globulin 2.2 g/dL (1.6-3.3); Magnesium 1.9 mg/dL (1.5-2.4); Non-African American GFR(CKD) 29.8 (60.0-200.0); Phosphorus 4.6 mg/dL (2.4-5.1); Potassium 4.7 mmol/L (3.5-5.5); Total Bilirubin 0.2 mg/dL (0.2-1.2)
--- NOTE | 2020-08-05 15:55 | P.PN ---
Subjective Progress Note Date: 08/05/20 Principal diagnosis: weakness Patient had a small bowel movement this morning. According to nursing staff there was no vagina discharge noted when the patient was cleaned up. Patient is still significantly weak. No significant pain. No fevers or chills. Objective - Vital Signs Vital signs: Vital Signs Temp 96.8 F L 08/05/20 07:24 Pulse 66 08/05/20 07:24 Resp 17 08/05/20 07:24 BP 146/82 08/05/20 07:24 Pulse Ox 96 08/05/20 07:24 Intake & Output 08/04/20 08/05/20 08/05/20 18:59 06:59 18:59 Intake Total 118 Output Total 1250 775 Balance -1132 -775 Intake: Oral 118 Output: Urine 1250 775 Uretheral (Whaley) 350 Other: Voiding Method Indwelling Catheter Indwelling Catheter Indwelling Catheter - Exam General: non toxic, no distress, appears at stated age Derm: no facial dermatitis noted, warm, dry Head: atraumatic, normocephalic, symmetric Eyes: EOMI, no lid lag, anicteric sclera Mouth: no lip lesion, mucus membranes moist Cardiovascular: S1S2 reg, no murmur, positive posterior tibial pulse bilateral, Lungs: Decreased bs bilateral, no rhonchi, no rales , no accessory muscle use Abdominal: soft, nontender to palpation, no guarding, no appreciable organomegaly Ext: no gross muscle atrophy, 1+ edema bilateral upper extremities, no contractures Neuro: General weakness. CN II-XI grossly intact, no focal neuro deficits Psych: Alert, oriented, appropriate affect - Labs CBC & Chem 7: 08/05/20 07:25 08/05/20 07:25 Labs: Abnormal Lab Results - Last 24 Hours (Table) 08/04/20 08/04/20 08/05/20 Range/Units 16:37 20:27 07:08 WBC (3.8-10.6) k/uL RBC (3.80-5.40) m/uL Hgb (11.4-16.0) gm/dL Hct (34.0-46.0) % RDW (11.5-15.5) % Neutrophils # (1.3-7.7) k/uL Lymphocytes # (1.0-4.8) k/uL Sodium (135-145) mmol/L BUN (9.0-27.0) mg/dL Creatinine (0.6-1.5) mg/dL Est GFR (CKD-EPI)AfAm (60.0-200.0) Est GFR (CKD-EPI)NonAf (60.0-200.0) BUN/Creatinine Ratio (12.00-20.00) Ratio Glucose (70-110) mg/dL POC Glucose (mg/dL) 165 H 169 H 145 H (75-99) mg/dL Calcium (8.7-10.3) mg/dL AST (13-35) U/L ALT (8-44) U/L Creatine Kinase (26-186) U/L Total Protein (6.2-8.2) g/dL Albumin (3.80-4.90) g/dL Albumin/Globulin Ratio (1.60-3.17) g/dL 08/05/20 08/05/20 08/05/20 Range/Units 07:25 07:25 11:21 WBC 13.8 H (3.8-10.6) k/uL RBC 3.67 L (3.80-5.40) m/uL Hgb 10.0 L (11.4-16.0) gm/dL Hct 30.6 L (34.0-46.0) % RDW 15.8 H (11.5-15.5) % Neutrophils # 12.6 H (1.3-7.7) k/uL Lymphocytes # 0.5 L (1.0-4.8) k/uL Sodium 131 L (135-145) mmol/L BUN 77.0 H (9.0-27.0) mg/dL Creatinine 1.7 H (0.6-1.5) mg/dL Est GFR (CKD-EPI)AfAm 34.6 L (60.0-200.0) Est GFR (CKD-EPI)NonAf 29.8 L (60.0-200.0) BUN/Creatinine Ratio 45.29 H (12.00-20.00) Ratio Glucose 151 H (70-110) mg/dL POC Glucose (mg/dL) 167 H (75-99) mg/dL Calcium 8.2 L (8.7-10.3) mg/dL AST 314 H (13-35) U/L ALT 315 H (8-44) U/L Creatine Kinase 7465 H* (26-186) U/L Total Protein 5.0 L (6.2-8.2) g/dL Albumin 2.80 L (3.80-4.90) g/dL Albumin/Globulin Ratio 1.27 L (1.60-3.17) g/dL Assessment and Plan Plan: 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 - Aldolase level > 300. - RF, SS-A, SS-B, anti-valadez AB- negative - Muscle biopsy pending obtained on 07/30 - Continue to follow CK daily Poorly differentiated endometrial adenocarcinoma - D/W Dr. Peace - will need outpatient PET and Airline Reservationist Onc evaluation - Barriers include that the patient is too weak to sit or stand on her own at this time, also she has STEVE, a contraindication for contrast.. - INFORMATION DEVELOPER recs appreciated Acute kidney injury stable - improving, nephro recs appreciated, - Last HD on 07/30. Cr improving, nephro discontinued cath today. HD not ne eded anymore. - Follow creatinine - IV fluids completed - Avoid additional nephrotoxic agents - Repeat labs in a.m. 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 - Acute hepatitis profile negative - REBEKA negative - antimitochondrial antibody negative - GI recs appreciated vaginal discharge noted during muscle biopsy: - No discharge was noted today according to nursing staff - Discontinue antibiotics, she finished 7 days of treatment with rocephin/flagyl on 08/05 Newly discovered paroysmal A fib - Will need to be started on eliquis once more stable and once diagnosis established. - cardio recs appreciated - echo EF 55-60% Anemia - due to vaginal bleeding---resolved. - CBC stable Cystic Pancreatic mass/hypoechoic focus left liver lobe <1cm. - MRI for further evaluation as outpatient Constipation - On MiraLAX - Add docusate with senna today Morbid obesity with BMI 43.6 -Outpatient structured weight loss Possible pyelonephritis -5 days of rocephin completed Elevated blood pressure without underlying diagnosis of hypertension, resolved Thrombocytopenia, resolved Hyperkalemia secondary to above, resolved metabolic acidosis, resolved Providers please update Daughter Camilla with plan for cancer treatment and care plan at [phone]. is overwhelmed Family updated on 08/04 DVT prophylaxis: Heparin Discussed with: patient, nursing Anticipated discharge: 3-[address]: rehab A total of 35 minutes was spent on the care of this complex patient more than 50% of the time was spent in counseling and care coordination.
[2020-08-05 16:49] LABS: Glucose,Whole Blood 152 mg/dL (75-99)
[2020-08-05] MEDS: SENNOSIDES-DOCUSATE SODIUM 1 EACH TAB PO SCH (20:27)
[2020-08-05 21:51] LABS: Glucose,Whole Blood 144 mg/dL (75-99)
[2020-08-06] MEDS: methylPREDNISolone SOD SUCCI 125 MG/2 ML VIAL IV SCH ×3 (05:36→18:17)
[2020-08-06 07:43] LABS: Glucose,Whole Blood 146 mg/dL (75-99)
[2020-08-06] MEDS: polyethylene glycoL 3350 17 GM POWD.PACK PO SCH (08:15)
[2020-08-06] MEDS: CALCIUM ACETATE 667 MG TAB PO SCH ×3 (08:16→18:17)
[2020-08-06] MEDS: HEPARIN SODIUM,PORCINE 5,000 UNIT/ML 1 ML VIAL SQ SCH ×2 (08:16→18:17)
[2020-08-06] MEDS: SENNOSIDES-DOCUSATE SODIUM 1 EACH TAB PO SCH ×2 (08:16→20:31)
[2020-08-06] MEDS: FOLIC ACID-VIT B COMPLEX-VIT C 1 CAP PO SCH (08:16)
[2020-08-06 09:27] LABS: African American GFR (CKD) 40.2 (60.0-200.0); Anion Gap 10.1 mmol/L (4.00-12.00); Calcium 8.3 mg/dL (8.7-10.3); Carbon Dioxide 22.9 mmol/L (21.6-31.8); Magnesium 1.8 mg/dL (1.5-2.4); Non-African American GFR(CKD) 34.7 (60.0-200.0); Potassium 4.6 mmol/L (3.5-5.5)
[2020-08-06 10:18] LABS: Creatine Kinase >7800 U/L (26-186)
--- NOTE | 2020-08-06 11:10 | P.PN ---
Subjective Progress Note Date: 08/06/20 Pt appears to be quite weak today, requiring 2 person assist, and cannot transfer from bed. CK is downtrending, still waiting on muscle biopsy results. Objective - Vital Signs Vital signs: Vital Signs Temp 97.5 F L 08/06/20 07:00 Pulse 58 L 08/06/20 07:00 Resp 17 08/06/20 07:00 BP 139/74 08/06/20 07:00 Pulse Ox 98 08/06/20 07:00 Intake & Output 08/05/20 08/06/20 08/06/20 18:59 06:59 18:59 Intake Total 480 Output Total 2750 Balance -2270 Intake: Oral 480 Output: Urine 2750 Uretheral (Joyce) 1200 Other: Voiding Method Indwelling Catheter Indwelling Catheter Indwelling Catheter - Exam Gen: awake, alert HEENT: normocephalic, atraumatic, good hearing acuity, moist mucous membranes Resp: good air exchange, no accessory muscle use CVS: good distal perfusion x 4, RRR, no murmurs, clicks, gallops GI: soft, NTTP, ND : no SPT, no CVAT, joyce catheter is present MSK: + pitting edema, no clubbing, Neuro: non-focal, no sensory deficits, appropriate tone, diffuse muscle weakness Psych: cooperative, euthymic mood - Labs CBC & Chem 7: 08/05/20 07:25 08/06/20 06:15 Labs: Abnormal Lab Results - Last 24 Hours (Table) 08/03/20 08/04/20 08/05/20 Range/Units 07:26 06:50 07:25 Sodium 131 L (135-145) mmol/L BUN 77.0 H (9.0-27.0) mg/dL Creatinine 1.7 H (0.6-1.5) mg/dL Est GFR (CKD-EPI)AfAm 34.6 L (60.0-200.0) Est GFR (CKD-EPI)NonAf 29.8 L (60.0-200.0) BUN/Creatinine Ratio 45.29 H (12.00-20.00) Ratio Glucose 151 H (70-110) mg/dL POC Glucose (mg/dL) (75-99) mg/dL Calcium 8.2 L (8.7-10.3) mg/dL AST 314 H (13-35) U/L ALT 315 H (8-44) U/L Creatine Kinase >7800 H* >7800 H* 7465 H* (26-186) U/L Total Protein 5.0 L (6.2-8.2) g/dL Albumin 2.80 L (3.80-4.90) g/dL Albumin/Globulin Ratio 1.27 L (1.60-3.17) g/dL 08/05/20 08/05/20 08/05/20 Range/Units 11:21 16:47 21:49 Sodium (135-145) mmol/L BUN (9.0-27.0) mg/dL Creatinine (0.6-1.5) mg/dL Est GFR (CKD-EPI)AfAm (60.0-200.0) Est GFR (CKD-EPI)NonAf (60.0-200.0) BUN/Creatinine Ratio (12.00-20.00) Ratio Glucose (70-110) mg/dL POC Glucose (mg/dL) 167 H 152 H 144 H (75-99) mg/dL Calcium (8.7-10.3) mg/dL AST (13-35) U/L ALT (8-44) U/L Creatine Kinase (26-186) U/L Total Protein (6.2-8.2) g/dL Albumin (3.80-4.90) g/dL Albumin/Globulin Ratio (1.60-3.17) g/dL 08/06/20 08/06/20 Range/Units 06:15 07:42 Sodium 132 L (135-145) mmol/L BUN 78.0 H (9.0-27.0) mg/dL Creatinine (0.6-1.5) mg/dL Est GFR (CKD-EPI)AfAm 40.2 L (60.0-200.0) Est GFR (CKD-EPI)NonAf 34.7 L (60.0-200.0) BUN/Creatinine Ratio 52.00 H (12.00-20.00) Ratio Glucose 150 H (70-110) mg/dL POC Glucose (mg/dL) 146 H (75-99) mg/dL Calcium 8.3 L (8.7-10.3) mg/dL AST (13-35) U/L ALT (8-44) U/L Creatine Kinase 5787 H* (26-186) U/L Total Protein (6.2-8.2) g/dL Albumin (3.80-4.90) g/dL Albumin/Globulin Ratio (1.60-3.17) g/dL Assessment and Plan Assessment: 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 - Aldolase level > 300. - RF, SS-A, SS-B, anti-valadez AB- negative - Muscle biopsy pending obtained on 07/30 - Continue to follow CK daily Poorly differentiated endometrial adenocarcinoma - D/W Dr. Peace - will need outpatient PET and Nylon Hot Wire Cutter Onc evaluation - Barriers include that the patient is too weak to sit or stand on her own at this time, also she has STEVE, a contraindication for contrast.. - ROTOGRAVURE PRESS OPERATOR recs appreciated Acute kidney injury stable - improving, nephro recs appreciated, - Last HD on 07/30. Cr improving, nephro discontinued cath today. HD not nee ded anymore. - Follow creatinine - IV fluids completed - Avoid additional nephrotoxic agents - Repeat labs in a.m. 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 - Acute hepatitis profile negative - REBEKA negative - antimitochondrial antibody negative - GI recs appreciated vaginal discharge noted during muscle biopsy: - No discharge was noted today according to nursing staff - Discontinue antibiotics, she finished 7 days of treatment with rocephin/flagyl on 08/05 Newly discovered paroysmal A fib - Will need to be started on eliquis once more stable and once diagnosis established. - cardio recs appreciated - echo EF 55-60% Anemia - due to vaginal bleeding---resolved. - CBC stable Cystic Pancreatic mass/hypoechoic focus left liver lobe <1cm. - MRI for further evaluation as outpatient Constipation - On MiraLAX - Add docusate with senna today Morbid obesity with BMI 43.6 -Outpatient structured weight loss Possible pyelonephritis -5 days of rocephin completed Elevated blood pressure without underlying diagnosis of hypertension, resolved Thrombocytopenia, resolved Hyperkalemia secondary to above, resolved metabolic acidosis, resolved Providers please update Daughter Camilla with plan for cancer treatment and care plan at [phone]. is overwhelmed Family updated on 08/04 DVT prophylaxis: Heparin Discussed with: patient, nursing Anticipated discharge: 3-[address]: rehab
[2020-08-06 11:30] LABS: Glucose,Whole Blood 186 mg/dL (75-99)
--- NOTE | 2020-08-06 12:46 | P.PN ---
Subjective Progress Note Date: 08/06/20 CHIEF COMPLAINT: A. fib HISTORY OF PRESENT ILLNESS: Patient examined this morning at the bedside. She denies chest pain or pressure. Denies shortness of breath. She denies dizziness or lightheadedness. Cardiology was re-consulted last night due to a 2 second pause noted on telemetry. Patient is asymptomatic. PHYSICAL EXAM: VITAL SIGNS: Reviewed. GENERAL: Well-developed in no acute distress. HEENT: Head is normocephalic. Pupils are equal, round. Sclerae anicteric. Mucous membranes of the mouth are moist. Neck supple. No JVD or thyromegaly LUNGS: Respirations even and unlabored. Lungs essentially clear to auscultation bilaterally. HEART: Irregular rate and rhythm. S1 and S2 heard. EXTREMITIES: Normal range of motion. No clubbing or cyanosis. Peripheral pulses intact. Trace bilateral lower extremity edema NEUROLOGIC: Awake and alert. Oriented x 3. ASSESSMENT: New-onset paroxysmal atrial fibrillation with controlled ventricular rate Rhabdomyolysis Acute hepatitis Acute kidney injury Hyperkalemia Uterine mass with vaginal bleeding, status post D&C Endometrial adenocarcinoma Cystic pancreatic mass 2 second pause noted on telemetry PLAN: Continue telemetry monitoring Patient will need to be initiated on anticoagulation when cleared by consultants Patient with a 2 second pause noted on telemetry. Avoid beta blockers. No further workup from a cardiac perspective Nurse practitioner note has been reviewed by physician. Signing provider agrees with the documented findings, assessment, and plan of care. Objective - Vital Signs Vital signs: Vital Signs Temp 97.5 F L 08/06/20 07:00 Pulse 58 L 08/06/20 07:00 Resp 17 08/06/20 07:00 BP 139/74 08/06/20 07:00 Pulse Ox 98 08/06/20 07:00 Intake & Output 08/05/20 08/06/20 08/06/20 18:59 06:59 18:59 Intake Total 480 Output Total 2750 Balance -2270 Intake: Oral 480 Output: Urine 2750 Uretheral (Whaley) 1200 Other: Voiding Method Indwelling Catheter Indwelling Catheter Indwelling Catheter - Labs CBC & Chem 7: 08/05/20 07:25 08/06/20 06:15 Labs: Abnormal Lab Results - Last 24 Hours (Table) 08/03/20 08/04/20 08/05/20 Range/Units 07:26 06:50 07:25 Sodium 131 L (135-145) mmol/L BUN 77.0 H (9.0-27.0) mg/dL Creatinine 1.7 H (0.6-1.5) mg/dL Est GFR (CKD-EPI)AfAm 34.6 L (60.0-200.0) Est GFR (CKD-EPI)NonAf 29.8 L (60.0-200.0) BUN/Creatinine Ratio 45.29 H (12.00-20.00) Ratio Glucose 151 H (70-110) mg/dL POC Glucose (mg/dL) (75-99) mg/dL Calcium 8.2 L (8.7-10.3) mg/dL AST 314 H (13-35) U/L ALT 315 H (8-44) U/L Creatine Kinase >7800 H* >7800 H* 7465 H* (26-186) U/L Total Protein 5.0 L (6.2-8.2) g/dL Albumin 2.80 L (3.80-4.90) g/dL Albumin/Globulin Ratio 1.27 L (1.60-3.17) g/dL 08/05/20 08/05/20 08/06/20 Range/Units 16:47 21:49 06:15 Sodium 132 L (135-145) mmol/L BUN 78.0 H (9.0-27.0) mg/dL Creatinine (0.6-1.5) mg/dL Est GFR (CKD-EPI)AfAm 40.2 L (60.0-200.0) Est GFR (CKD-EPI)NonAf 34.7 L (60.0-200.0) BUN/Creatinine Ratio 52.00 H (12.00-20.00) Ratio Glucose 150 H (70-110) mg/dL POC Glucose (mg/dL) 152 H 144 H (75-99) mg/dL Calcium 8.3 L (8.7-10.3) mg/dL AST (13-35) U/L ALT (8-44) U/L Creatine Kinase 5787 H* (26-186) U/L Total Protein (6.2-8.2) g/dL Albumin (3.80-4.90) g/dL Albumin/Globulin Ratio (1.60-3.17) g/dL 08/06/20 08/06/20 Range/Units 07:42 11:29 Sodium (135-145) mmol/L BUN (9.0-27.0) mg/dL Creatinine (0.6-1.5) mg/dL Est GFR (CKD-EPI)AfAm (60.0-200.0) Est GFR (CKD-EPI)NonAf (60.0-200.0) BUN/Creatinine Ratio (12.00-20.00) Ratio Glucose (70-110) mg/dL POC Glucose (mg/dL) 146 H 186 H (75-99) mg/dL Calcium (8.7-10.3) mg/dL AST (13-35) U/L ALT (8-44) U/L Creatine Kinase (26-186) U/L Total Protein (6.2-8.2) g/dL Albumin (3.80-4.90) g/dL Albumin/Globulin Ratio (1.60-3.17) g/dL
--- NOTE | 2020-08-06 12:55 | P.PN ---
Subjective Progress Note Date: 08/06/20 CHIEF COMPLAINT: Muscle weakness HISTORY OF PRESENT ILLNESS: Patient is status post left thigh muscle biopsy with Dr. Malik. Case discussed with Dr. Peace. The thigh muscle biopsy had shown only atrophy. Dr. Peace is recommending biopsy of the deltoid muscle. Patient is having more weakness in the upper extremities. She does report her weakness is still about the same. Afebrile. PHYSICAL EXAM: VITAL SIGNS: Reviewed. GENERAL: Well-developed in no acute distress. HEENT: No sclera icterus. Extraocular movements grossly intact. Moist buccal mucosa. Head is atraumatic, normocephalic. ABDOMEN: Soft. Nondistended. Nontender. NEUROLOGIC: Alert and oriented. Cranial nerves II through XII grossly intact. Extremities: Left thigh incision clean dry and intact ASSESSMENT: 1. Muscle weakness status post left thigh muscle biopsy 2. Rhabdomyolysis 3. Acute kidney injury 4. Uterine mass with uterine bleeding. Uterine biopsy Pathology showed poorly differentiated adenocarcinoma. BLOCK PRESS OPERATOR and oncology following PLAN: -Patient will be scheduled for left deltoid muscle biopsy with Dr. Malik on Thursday08/08/2020 -Continue supportive care Physician Eyeglass Frames Inspector note has been reviewed by physician. Signing provider agrees with the documented findings, assessment, and plan of care. Objective - Vital Signs Vital signs: Vital Signs Temp 97.5 F L 08/06/20 07:00 Pulse 58 L 08/06/20 07:00 Resp 17 08/06/20 07:00 BP 139/74 08/06/20 07:00 Pulse Ox 98 08/06/20 07:00 Intake & Output 08/05/20 08/06/20 08/06/20 18:59 06:59 18:59 Intake Total 480 Output Total 2750 Balance -2270 Intake: Oral 480 Output: Urine 2750 Uretheral (Whaley) 1200 Other: Voiding Method Indwelling Catheter Indwelling Catheter Indwelling Catheter - Labs CBC & Chem 7: 08/05/20 07:25 08/06/20 06:15 Labs: Abnormal Lab Results - Last 24 Hours (Table) 08/03/20 08/04/20 08/05/20 Range/Units 07:26 06:50 07:25 Sodium 131 L (135-145) mmol/L BUN 77.0 H (9.0-27.0) mg/dL Creatinine 1.7 H (0.6-1.5) mg/dL Est GFR (CKD-EPI)AfAm 34.6 L (60.0-200.0) Est GFR (CKD-EPI)NonAf 29.8 L (60.0-200.0) BUN/Creatinine Ratio 45.29 H (12.00-20.00) Ratio Glucose 151 H (70-110) mg/dL POC Glucose (mg/dL) (75-99) mg/dL Calcium 8.2 L (8.7-10.3) mg/dL AST 314 H (13-35) U/L ALT 315 H (8-44) U/L Creatine Kinase >7800 H* >7800 H* 7465 H* (26-186) U/L Total Protein 5.0 L (6.2-8.2) g/dL Albumin 2.80 L (3.80-4.90) g/dL Albumin/Globulin Ratio 1.27 L (1.60-3.17) g/dL 08/05/20 08/05/20 08/06/20 Range/Units 16:47 21:49 06:15 Sodium 132 L (135-145) mmol/L BUN 78.0 H (9.0-27.0) mg/dL Creatinine (0.6-1.5) mg/dL Est GFR (CKD-EPI)AfAm 40.2 L (60.0-200.0) Est GFR (CKD-EPI)NonAf 34.7 L (60.0-200.0) BUN/Creatinine Ratio 52.00 H (12.00-20.00) Ratio Glucose 150 H (70-110) mg/dL POC Glucose (mg/dL) 152 H 144 H (75-99) mg/dL Calcium 8.3 L (8.7-10.3) mg/dL AST (13-35) U/L ALT (8-44) U/L Creatine Kinase 5787 H* (26-186) U/L Total Protein (6.2-8.2) g/dL Albumin (3.80-4.90) g/dL Albumin/Globulin Ratio (1.60-3.17) g/dL 08/06/20 08/06/20 Range/Units 07:42 11:29 Sodium (135-145) mmol/L BUN (9.0-27.0) mg/dL Creatinine (0.6-1.5) mg/dL Est GFR (CKD-EPI)AfAm (60.0-200.0) Est GFR (CKD-EPI)NonAf (60.0-200.0) BUN/Creatinine Ratio (12.00-20.00) Ratio Glucose (70-110) mg/dL POC Glucose (mg/dL) 146 H 186 H (75-99) mg/dL Calcium (8.7-10.3) mg/dL AST (13-35) U/L ALT (8-44) U/L Creatine Kinase (26-186) U/L Total Protein (6.2-8.2) g/dL Albumin (3.80-4.90) g/dL Albumin/Globulin Ratio (1.60-3.17) g/dL
--- NOTE | 2020-08-06 16:17 | PN ---
PROGRESS NOTE Patient is seen for followup for acute kidney injury. Her renal function has improved with creatinine down to 1.5 from 2.7 and 3.1 mg/dL earlier. Patient has severe rhabdomyolysis. Her CK level has been progressively improving. It is down to 5787 today. PHYSICAL EXAMINATION: Blood pressure was 139/74, heart rate 58 per minute, she is afebrile. Examination of the heart S1, S2. Examination of the lungs, bilateral breath sounds are heard. Abdomen is soft, nontender. Examination of the lower extremities shows no significant edema EMBEDDED SYSTEMS DEVELOPER exam grossly intact. LABS: Show sodium 132, potassium 4.6, chloride 99, BUN 78, creatinine 1.5. CK 5787. ASSESSMENT: 1. Acute kidney injury associated with rhabdomyolysis, nonoliguric ATN, currently improving. Patient did have hemodialysis initially last treatment on July 30, 2020. Dialysis remains on hold. 2. Rhabdomyolysis, currently improving, statins are on hold. Muscle biopsy was performed on July 30. 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 3. 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 4. Pancreatic cyst. 5. Hyponatremia associated with acute kidney injury, currently improved. Urine osmolality was 443. PLAN: Continue to encourage increased oral intake. Continue to monitor CK levels. Repeat labs in a.m. MMODL / IJN: [id number] /
[2020-08-06 16:36] LABS: Glucose,Whole Blood 164 mg/dL (75-99)
[2020-08-06 21:46] LABS: Glucose,Whole Blood 170 mg/dL (75-99)
--- NOTE | 2020-08-06 21:54 | P.PN ---
Subjective Progress Note Date: 08/06/20 Principal diagnosis: new malignancy She was able to stand with walker today although Bilateral upper arms are still very weak. Muscle biopsy of deltoid is recommeded at this time. Prior LE biopsy with myopathy. Objective - Vital Signs Vital signs: Vital Signs Temp 97.6 F 08/06/20 15:00 Pulse 68 08/06/20 15:00 Resp 17 08/06/20 15:00 BP 147/80 08/06/20 15:00 Pulse Ox 99 08/06/20 15:00 Intake & Output 08/06/20 08/06/20 08/07/20 06:59 18:59 06:59 Intake Total 480 Output Total 2750 700 Balance -2270 -700 Intake: Oral 480 Output: Urine 2750 700 Uretheral (Whaley) 1200 Other: Voiding Method Indwelling Catheter Indwelling Catheter - Exam - Constitutional General appearance: Present: no acute distress - EENT Eyes: Present: EOMI ENT: Present: hearing grossly normal, normal oropharynx - Respiratory Respiratory: bilateral: CTA - Cardiovascular Rhythm: regular Heart sounds: normal: S1, S2 - Gastrointestinal General gastrointestinal: Present: normal bowel sounds, soft - Integumentary Integumentary: Present: normal - Neurologic Neurologic Comment(s): Bilateral, marked proximal upper extremity weakness. Lower extremity distal strength normal Lower extremity proximal strength 3+-4/5 Neurologic: Present: CNII-XII intact - Musculoskeletal Musculoskeletal Comment(s): Weakness, as above - Psychiatric Psychiatric: Present: A&O x's 3, appropriate affect - Labs CBC & Chem 7: 08/05/20 07:25 08/06/20 06:15 Labs: Abnormal Lab Results - Last 24 Hours (Table) 08/03/20 08/04/20 08/05/20 Range/Units 07:26 06:50 07:25 Sodium (135-145) mmol/L BUN (9.0-27.0) mg/dL Est GFR (CKD-EPI)AfAm (60.0-200.0) Est GFR (CKD-EPI)NonAf (60.0-200.0) BUN/Creatinine Ratio (12.00-20.00) Ratio Glucose (70-110) mg/dL POC Glucose (mg/dL) (75-99) mg/dL Calcium (8.7-10.3) mg/dL Creatine Kinase >7800 H* >7800 H* 7465 H* (26-186) U/L 08/05/20 08/06/20 08/06/20 Range/Units 21:49 06:15 07:42 Sodium 132 L (135-145) mmol/L BUN 78.0 H (9.0-27.0) mg/dL Est GFR (CKD-EPI)AfAm 40.2 L (60.0-200.0) Est GFR (CKD-EPI)NonAf 34.7 L (60.0-200.0) BUN/Creatinine Ratio 52.00 H (12.00-20.00) Ratio Glucose 150 H (70-110) mg/dL POC Glucose (mg/dL) 144 H 146 H (75-99) mg/dL Calcium 8.3 L (8.7-10.3) mg/dL Creatine Kinase 5787 H* (26-186) U/L 08/06/20 08/06/20 Range/Units 11:29 16:35 Sodium (135-145) mmol/L BUN (9.0-27.0) mg/dL Est GFR (CKD-EPI)AfAm (60.0-200.0) Est GFR (CKD-EPI)NonAf (60.0-200.0) BUN/Creatinine Ratio (12.00-20.00) Ratio Glucose (70-110) mg/dL POC Glucose (mg/dL) 186 H 164 H (75-99) mg/dL Calcium (8.7-10.3) mg/dL Creatine Kinase (26-186) U/L Assessment and Plan Plan: CT scan - abdomen: report reviewed CT scan - pelvis: report reviewed US - abdomen: report reviewed Assessment and Plan Rhabdomyolysis: - Muscle biopsy with Myopathy - Discussed with surgical team for upper extremity biopsy - Given the clinical situation this was most likely felt to be paraneoplastic. - Case discussed this hospital stay with rheumatology, and IM in detail. 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 - This is comparatively rare, and tends to follow of relapsing and remitting course with hopefully prolonged remission if the underlying malignancy is able to be effectively treated. While paraneoplastic dermatomyositis-polymyositis is more common, it is less likely to cause severe rhabdomyolysis unless is very severe. - Therefore repeat muscle biopsy of upper deltoid is recommended - Continues on current steroids. - The patient is improving with current management, with improvement in CPKs (5700s) as well as creatinine. 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 No obvious evidence of metastatic disease. However staging studies so far are quite limited, as contrast has been unable to be used. We can plan a PET scan as outpatient once patient is stable. - Ultrasound did note a possible lesion in the liver but this is quite small and nonspecific. STEVE (acute kidney injury) - Secondary to above - The patient's kidney function continues to improve. - Dialysis was discontinued a few days ago, and access was removed yesterday. - She has Urine output . - Nephrology management and following Physician Attest: I have completed the full history and physical and agree with above dictation, dictated as A SCribe
[2020-08-07] MEDS: HEPARIN SODIUM,PORCINE 5,000 UNIT/ML 1 ML VIAL SQ SCH ×4 (00:46→23:49)
[2020-08-07] MEDS: methylPREDNISolone SOD SUCCI 125 MG/2 ML VIAL IV SCH ×5 (00:46→23:49)
[2020-08-07 06:52] LABS: Glucose,Whole Blood 152 mg/dL (75-99)
[2020-08-07] MEDS: SENNOSIDES-DOCUSATE SODIUM 1 EACH TAB PO SCH ×2 (07:24→20:27)
[2020-08-07] MEDS: polyethylene glycoL 3350 17 GM POWD.PACK PO SCH (07:24)
[2020-08-07] MEDS: CALCIUM ACETATE 667 MG TAB PO SCH ×3 (07:24→17:23)
[2020-08-07] MEDS: FOLIC ACID-VIT B COMPLEX-VIT C 1 CAP PO SCH (07:24)
--- NOTE | 2020-08-07 10:02 | P.PN ---
Subjective Progress Note Date: 08/07/20 Muscle Bx from 07/30 returned significant for atrophy, but no dx. This was discussed between oncology and surgery, and plan is for repeat deltoid muscle bx tomorrow. Objective - Vital Signs Vital signs: Vital Signs Temp 97.5 F L 08/07/20 07:31 Pulse 60 08/07/20 07:31 Resp 18 08/07/20 07:31 BP 136/71 08/07/20 07:31 Pulse Ox 96 08/07/20 07:31 Intake & Output 08/06/20 08/07/20 08/07/20 18:59 06:59 18:59 Output Total 700 850 Balance -700 -850 Output: Urine 700 850 Other: Voiding Method Indwelling Catheter Indwelling Catheter - Exam Gen: awake, alert HEENT: normocephalic, atraumatic, good hearing acuity, moist mucous membranes Resp: good air exchange, no accessory muscle use CVS: good distal perfusion x 4, RRR, no murmurs, clicks, gallops GI: soft, NTTP, ND : no SPT, no CVAT, joyce catheter is present MSK: + pitting edema, no clubbing, Neuro: non-focal, no sensory deficits, appropriate tone, diffuse muscle weakness more significant in UEs Psych: cooperative, euthymic mood - Labs CBC & Chem 7: 08/05/20 07:25 08/06/20 06:15 Labs: Abnormal Lab Results - Last 24 Hours (Table) 08/04/20 08/05/20 08/06/20 Range/Units 06:50 07:25 06:15 POC Glucose (mg/dL) (75-99) mg/dL Creatine Kinase >7800 H* 7465 H* 5787 H* (26-186) U/L 08/06/20 08/06/20 08/06/20 Range/Units 11:29 16:35 21:44 POC Glucose (mg/dL) 186 H 164 H 170 H (75-99) mg/dL Creatine Kinase (26-186) U/L 08/07/20 Range/Units 06:50 POC Glucose (mg/dL) 152 H (75-99) mg/dL Creatine Kinase (26-186) U/L Assessment and Plan Assessment: 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 - Aldolase level > 300. - RF, SS-A, SS-B, anti-valadez AB- negative - Muscle biopsy obtained on 07/30 = atrophy - Muscle biopsy scheduled 08/08, pending - Continue to follow CK daily Poorly differentiated endometrial adenocarcinoma - D/W Dr. Peace - will need outpatient PET and Technical Inspector Onc evaluation - Barriers include that the patient is too weak to sit or stand on her own at this time, also she has STEVE, a contraindication for contrast.. - TECHNICAL EXPERT recs appreciated Acute kidney injury stable - improving, nephro recs appreciated, - Last HD on 07/30. Cr improving, nephro discontinued cath today. HD not needed anymore. - Follow creatinine - IV fluids completed - Avoid additional nephrotoxic agents - Repeat labs in a.m. 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 - Acute hepatitis profile negative - REBEKA negative - antimitochondrial antibody negative - GI recs appreciated vaginal discharge noted during muscle biopsy: - No discharge was noted today according to nursing staff - Discontinue antibiotics, she finished 7 days of treatment with rocephin/flagyl on 08/05 Newly discovered paroysmal A fib - Will need to be started on eliquis once more stable and once diagnosis established. - cardio recs appreciated - echo EF 55-60% Anemia - due to vaginal bleeding---resolved. - CBC stable Cystic Pancreatic mass/hypoechoic focus left liver lobe <1cm. - MRI for further evaluation as outpatient Constipation - On MiraLAX - Add docusate with senna today Morbid obesity with BMI 43.6 -Outpatient structured weight loss Possible pyelonephritis -5 days of rocephin completed Elevated blood pressure without underlying diagnosis of hypertension, resolved Thrombocytopenia, resolved Hyperkalemia secondary to above, resolved metabolic acidosis, resolved Providers please update Daughter Camilla with plan for cancer treatment and care plan at [phone]. is overwhelmed Family updated on 08/04 DVT prophylaxis: Heparin Discussed with: patient, nursing Anticipated discharge: 3-[address]: rehab
--- NOTE | 2020-08-07 10:29 | P.PN ---
Subjective Progress Note Date: 08/07/20 CHIEF COMPLAINT: Muscle weakness HISTORY OF PRESENT ILLNESS: Patient is status post left thigh muscle biopsy with Dr. Malik. Case discussed with Dr. Peace. The thigh muscle biopsy had shown myopathy. Dr. Peace is recommending biopsy of the deltoid muscle. Patient is having more weakness in the upper extremities. She does report her weakness is still about the same. Afebrile. PHYSICAL EXAM: VITAL SIGNS: Reviewed. GENERAL: Well-developed in no acute distress. HEENT: No sclera icterus. Extraocular movements grossly intact. Moist buccal mucosa. Head is atraumatic, normocephalic. ABDOMEN: Soft. Nondistended. Nontender. NEUROLOGIC: Alert and oriented. Cranial nerves II through XII grossly intact. Extremities: Left thigh incision clean dry and intact ASSESSMENT: 1. Muscle weakness 2. Rhabdomyolysis 3. Acute kidney injury followed by nephrology 4. Uterine mass with uterine bleeding. Uterine biopsy positive for endometrioid carcinoma. Followed by oncology PLAN: -Patient scheduled for left deltoid muscle biopsy with Dr. Malik tomorrow, Thursday08/08/2020 -Continue supportive care Physician Electronic Equipment Trades Worker note has been reviewed by physician. Signing provider agrees with the documented findings, assessment, and plan of care. Objective - Vital Signs Vital signs: Vital Signs Temp 97.5 F L 08/07/20 07:31 Pulse 60 08/07/20 07:31 Resp 18 08/07/20 07:31 BP 136/71 08/07/20 07:31 Pulse Ox 96 08/07/20 07:31 Intake & Output 08/06/20 08/07/20 08/07/20 18:59 06:59 18:59 Output Total 700 850 Balance -700 -850 Output: Urine 700 850 Other: Voiding Method Indwelling Catheter Indwelling Catheter Indwelling Catheter - Labs CBC & Chem 7: 08/05/20 07:25 08/06/20 06:15 Labs: Abnormal Lab Results - Last 24 Hours (Table) 08/05/20 08/06/20 08/06/20 Range/Units 07:25 06:15 11:29 POC Glucose (mg/dL) 186 H (75-99) mg/dL Creatine Kinase 7465 H* 5787 H* (26-186) U/L 08/06/20 08/06/20 08/07/20 Range/Units 16:35 21:44 06:50 POC Glucose (mg/dL) 164 H 170 H 152 H (75-99) mg/dL Creatine Kinase (26-186) U/L
[2020-08-07 11:36] LABS: Glucose,Whole Blood 154 mg/dL (75-99)
[2020-08-07 11:52] LABS: Anisocytosis Slight; Basophils # (A) 0.1 k/uL (0-0.2); Basophils % (A) 0 %; Eosinophils % (A) 0 %; HCT 30.3 % (34.0-46.0); HGB 9.8 gm/dL (11.4-16.0); Lymphocytes # (A) 0.4 k/uL (1.0-4.8); Lymphocytes % (A) 3 %; MCH 27.3 pg (25.0-35.0); MCHC 32.4 g/dL (31.0-37.0); MCV 84.4 fL (80.0-100.0); Mean Platelet Volume 7.5; Monocytes # (A) 0.5 k/uL (0-1.0); Monocytes % (A) 3 %; Neutrophils # (A) 14.7 k/uL (1.3-7.7); Neutrophils % (A) 93 %; Platelet Count 282 k/uL (150-450); RBC 3.59 m/uL (3.80-5.40); RDW 16.1 % (11.5-15.5); WBC 15.9 k/uL (3.8-10.6)
--- NOTE | 2020-08-07 16:36 | P.PN ---
Subjective Progress Note Date: 08/07/20 Principal diagnosis: new malignancy Plan is for Deltoid Biopsy, Dr. Peace has arranged with surgial team. Her creatinine is improved, 1.5 yesterday, todays pending Objective - Vital Signs Vital signs: Vital Signs Temp 97.6 F 08/07/20 14:00 Pulse 71 08/07/20 14:00 Resp 18 08/07/20 14:00 BP 135/71 08/07/20 14:00 Pulse Ox 99 08/07/20 14:00 Intake & Output 08/06/20 08/07/20 08/07/20 18:59 06:59 18:59 Output Total 700 850 Balance -700 -850 Output: Urine 700 850 Other: Voiding Method Indwelling Catheter Indwelling Catheter Indwelling Catheter - Exam - Constitutional General appearance: Present: no acute distress - EENT Eyes: Present: EOMI ENT: Present: hearing grossly normal, normal oropharynx - Respiratory Respiratory: bilateral: CTA - Cardiovascular Rhythm: regular Heart sounds: normal: S1, S2 - Gastrointestinal General gastrointestinal: Present: normal bowel sounds, soft - Integumentary Integumentary: Present: normal - Neurologic Neurologic Comment(s): Bilateral, marked proximal upper extremity weakness. Lower extremity distal strength normal Lower extremity proximal strength 3+-4/5 Neurologic: Present: CNII-XII intact - Musculoskeletal Musculoskeletal Comment(s): Weakness, as above - Psychiatric Psychiatric: Present: A&O x's 3, appropriate affect - Labs CBC & Chem 7: 08/07/20 11:35 08/06/20 06:15 Labs: Abnormal Lab Results - Last 24 Hours (Table) 08/06/20 08/06/20 08/07/20 Range/Units 16:35 21:44 06:50 WBC (3.8-10.6) k/uL RBC (3.80-5.40) m/uL Hgb (11.4-16.0) gm/dL Hct (34.0-46.0) % RDW (11.5-15.5) % Neutrophils # (1.3-7.7) k/uL Lymphocytes # (1.0-4.8) k/uL POC Glucose (mg/dL) 164 H 170 H 152 H (75-99) mg/dL CK-MB (CK-2) (0.0-2.4) ng/mL 08/07/20 08/07/20 08/07/20 Range/Units 11:33 11:35 11:35 WBC 15.9 H (3.8-10.6) k/uL RBC 3.59 L (3.80-5.40) m/uL Hgb 9.8 L (11.4-16.0) gm/dL Hct 30.3 L (34.0-46.0) % RDW 16.1 H (11.5-15.5) % Neutrophils # 14.7 H (1.3-7.7) k/uL Lymphocytes # 0.4 L (1.0-4.8) k/uL POC Glucose (mg/dL) 154 H (75-99) mg/dL CK-MB (CK-2) 8.1 H (0.0-2.4) ng/mL Assessment and Plan Plan: CT scan - abdomen: report reviewed CT scan - pelvis: report reviewed US - abdomen: report reviewed Assessment and Plan Rhabdomyolysis: - Muscle biopsy with Myopathy - Discussed with surgical team for upper extremity biopsy - Given the clinical situation this was most likely felt to be paraneoplastic. - Case discussed this hospital stay with rheumatology, and IM in detail. 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 - This is comparatively rare, and tends to follow of relapsing and remitting course with hopefully prolonged remission if the underlying malignancy is able to be effectively treated. While paraneoplastic dermatomyositis-polymyositis is more common, it is less likely to cause severe rhabdomyolysis unless is very severe. - Therefore repeat muscle biopsy of upper deltoid is recommended - Continues on current steroids. - The patient is improving with current management, with improvement in CPKs Severe muscle weakness/Myopathy - As above New Diagnosis Uterine malignancy - 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 No obvious evidence of metastatic disease. However staging studies so far are quite limited, as contrast has been unable to be used. We can plan a PET scan as outpatient once patient is stable. - Ultrasound did note a possible lesion in the liver but this is quite small and nonspecific. STEVE (acute kidney injury) - Secondary to above - The patient's kidney function continues to improve. - Last creatinine 1.5 - Nephrology management and following
[2020-08-07 16:45] LABS: Glucose,Whole Blood 155 mg/dL (75-99)
--- NOTE | 2020-08-07 17:28 | PN ---
PROGRESS NOTE Patient is seen for followup for acute kidney injury. Renal function has improved. Creatinine down to 1.5 from peak of 3.39 mg/dL as of yesterday 08/06/2020. Patient denies any significant complaints. PHYSICAL EXAMINATION: Today blood pressure was 136/71, heart rate 60 per minute, she is afebrile. Examination of the heart S1, S2. Examination of the lungs, bilateral breath sounds are heard. Decreased breath sounds at bases. Abdomen is soft, nontender. Examination of the lower extremities shows trace edema. WATER VESSEL CAPTAIN exam grossly intact. LABS: Show from 08/06/2020 sodium 132, potassium 4.6, BUN 78, creatinine 1.5. CK was 5787. ASSESSMENT: 1. Acute kidney injury secondary to rhabdomyolysis, currently improved. Recheck labs tomorrow. 2. Rhabdomyolysis, statins are currently on hold. No history of fall. CK level is down significantly to 5787 from 08/06/2020 which is down from 154,161 on initial admission. PLAN: Continue to encourage increased oral intake. Continue off IV fluids. Check phosphorus level if it is improved. I will discontinue the PhosLo. MMODL / IJN: [id number] /
[2020-08-07] MEDS: LACTATED RINGERS 1,000 ML IV SCH (18:03)
[2020-08-07 20:15] LABS: African American GFR (CKD) 47.8 (60.0-200.0); Albumin 2.8 g/dL (3.80-4.90); Albumin/Globulin Ratio 1.33 (1.60-3.17); Anion Gap 11.4 mmol/L (4.00-12.00); BUN/Creat Ratio 62.31 Ratio (12.00-20.00); Calcium 8.2 mg/dL (8.7-10.3); Carbon Dioxide 23.6 mmol/L (21.6-31.8); Globulin 2.1 g/dL (1.6-3.3); Magnesium 1.8 mg/dL (1.5-2.4); Non-African American GFR(CKD) 41.2 (60.0-200.0); Potassium 4.8 mmol/L (3.5-5.5); Total Bilirubin 0.3 mg/dL (0.2-1.2); Total Protein 4.9 g/dL (6.2-8.2)
[2020-08-07 20:38] LABS: Glucose,Whole Blood 183 mg/dL (75-99)
[2020-08-08] MEDS: methylPREDNISolone SOD SUCCI 125 MG/2 ML VIAL IV SCH ×3 (05:41→18:32)
[2020-08-08 06:17] LABS: Anisocytosis Slight; Basophils % (A) 0 %; Eosinophils % (A) 0 %; HCT 24.4 % (34.0-46.0); Lymphocytes # (A) 0.6 k/uL (1.0-4.8); Lymphocytes % (A) 3 %; MCH 27.5 pg (25.0-35.0); MCHC 32.6 g/dL (31.0-37.0); MCV 84.4 fL (80.0-100.0); Mean Platelet Volume 7.5; Monocytes # (A) 0.7 k/uL (0-1.0); Monocytes % (A) 4 %; Neutrophils # (A) 16.6 k/uL (1.3-7.7); Neutrophils % (A) 92 %; Platelet Count 320 k/uL (150-450); RBC 2.89 m/uL (3.80-5.40); RDW 16.5 % (11.5-15.5); WBC 18.1 k/uL (3.8-10.6)
[2020-08-08 07:32] LABS: Glucose,Whole Blood 160 mg/dL (75-99)
[2020-08-08] MEDS: LACTATED RINGERS 1,000 ML IV SCH ×3 (07:58→17:19)
[2020-08-08 08:05] LABS: Glucose,Whole Blood 156 mg/dL (75-99)
[2020-08-08] MEDS ORDERED: ONDANSETRON 4 MG/2 ML VIAL ONE (08:07)
[2020-08-08] MEDS ORDERED: ONDANSETRON 4 MG/2 ML VIAL IVP ONE (08:08)
[2020-08-08] MEDS ORDERED: SUCCINYLCHOLINE CHLORIDE 100 MG/5 ML SYR IV ONE (09:08)
[2020-08-08] MEDS ORDERED: MIDAZOLAM 2 MG/2 ML VIAL ONE (09:08)
[2020-08-08] MEDS ORDERED: BUPIVACAINE (PF) 0.25% 30 ML VIAL SQ ONE ×2 (09:08→09:36)
[2020-08-08] MEDS ORDERED: PROPOFOL 10 MG/ML 20 ML VIAL IV ONE (09:08)
[2020-08-08] MEDS ORDERED: LIDOCAINE 1% INJ 10MG/ML (20 ML MDV) ONE (09:08)
[2020-08-08] MEDS ORDERED: fentaNYL (PF) 50 MCG/ML 2 ML AMP ONE (09:08)
[2020-08-08] MEDS ORDERED: SODIUM CHLORIDE 0.9% 50 ML with ceFAZolin 2,000 MG IV ONE ×2 (09:35)
--- NOTE | 2020-08-08 10:01 | P.OP ---
Date of Procedure: 08/08/20 Preoperative Diagnosis: Myopathy Postoperative Diagnosis: Myopathy Procedure(s) Performed: Left deltoid muscle biopsy Anesthesia: DANITA Surgeon: Luis Felipe Malik Estimated Blood Loss (ml): 5 Pathology: other (Left deltoid muscle biopsy) Condition: stable Description of Procedure: The patient's placed on the operative table in supine position. She received general anesthesia. Her left shoulder was prepped and draped in sterile fashion. A linear incision was made over the deltoid muscle. Using left ca utery the subcutaneous tissue divided. The fascia then opened. The deltoid muscle biopsy performed. The proximal distal ends of the muscle were ligated with 0 Vicryl suture. The specimen sent to pathology. The fascia close [place]. Skin was closed interrupted 3-0 Monocryl suture. Dermabond was applied. Patient top she will was sent to recovery in stable condition
[2020-08-08 11:27] LABS: Glucose,Whole Blood 140 mg/dL (75-99)
[2020-08-08 11:29] LABS: African American GFR (CKD) 52.7 (60.0-200.0); Albumin 2.9 g/dL (3.80-4.90); Albumin/Globulin Ratio 1.38 (1.60-3.17); Anion Gap 8.1 mmol/L (4.00-12.00); BUN/Creat Ratio 67.5 Ratio (12.00-20.00); Calcium 8.5 mg/dL (8.7-10.3); Carbon Dioxide 25.9 mmol/L (21.6-31.8); Globulin 2.1 g/dL (1.6-3.3); Non-African American GFR(CKD) 45.4 (60.0-200.0); Potassium 4.7 mmol/L (3.5-5.5); Total Bilirubin 0.4 mg/dL (0.3-1.2)
[2020-08-08 11:30] LABS: Magnesium 1.8 mg/dL (1.5-2.4); Phosphorus 4.5 mg/dL (2.4-5.1)
[2020-08-08] MEDS: IOPAMIDOL CONTRAST (ORAL USE) VIAL PO PRN ×2 (12:01→13:16)
[2020-08-08] MEDS: HEPARIN SODIUM,PORCINE 5,000 UNIT/ML 1 ML VIAL SQ SCH ×2 (12:03→17:20)
[2020-08-08] MEDS: CALCIUM ACETATE 667 MG TAB PO SCH ×3 (12:04→18:22)
--- NOTE | 2020-08-08 12:58 | P.PN ---
Subjective Progress Note Date: 08/08/20 No new complaints today. Plan is for CT C/A/P to look for metastatic disease. SNF dispo planning ongoing. Objective - Vital Signs Vital signs: Vital Signs Temp 96.9 F L 08/08/20 11:15 Pulse 67 08/08/20 11:15 Resp 18 08/08/20 11:15 BP 153/81 08/08/20 11:15 Pulse Ox 95 08/08/20 11:15 Intake & Output 08/07/20 08/08/20 08/08/20 18:59 06:59 18:59 Intake Total 100 800 Output Total 1999 5 Balance -1900 795 Intake: IV 800 Oral 100 Output: Urine 1999 Estimated Blood Loss 5 Other: Voiding Method Indwelling Catheter Indwelling Catheter - Exam Gen: awake, alert HEENT: normocephalic, atraumatic, good hearing acuity, moist mucous membranes Resp: good air exchange, no accessory muscle use CVS: good distal perfusion x 4, RRR, no murmurs, clicks, gallops GI: soft, NTTP, ND : no SPT, no CVAT, joyce catheter is present MSK: + pitting edema, no clubbing, Neuro: non-focal, no sensory deficits, appropriate tone, diffuse muscle weakness more significant in UEs Psych: cooperative, euthymic mood - Labs CBC & Chem 7: 08/08/20 05:50 08/08/20 05:50 Labs: Abnormal Lab Results - Last 24 Hours (Table) 08/07/20 08/07/20 08/07/20 Range/Units 11:35 16:43 20:37 WBC (3.8-10.6) k/uL RBC (3.80-5.40) m/uL Hgb (11.4-16.0) gm/dL Hct (34.0-46.0) % RDW (11.5-15.5) % Neutrophils # (1.3-7.7) k/uL Lymphocytes # (1.0-4.8) k/uL BUN 81.0 H (9.0-27.0) mg/dL Est GFR (CKD-EPI)AfAm 47.8 L (60.0-200.0) Est GFR (CKD-EPI)NonAf 41.2 L (60.0-200.0) BUN/Creatinine Ratio 62.31 H (12.00-20.00) Ratio Glucose 158 H (70-110) mg/dL POC Glucose (mg/dL) 155 H 183 H (75-99) mg/dL Calcium 8.2 L (8.7-10.3) mg/dL AST 212 H (13-35) U/L ALT 251 H (8-44) U/L CK-MB (CK-2) (0.0-2.4) ng/mL Total Protein 4.9 L (6.2-8.2) g/dL Albumin 2.80 L (3.80-4.90) g/dL Albumin/Globulin Ratio 1.33 L (1.60-3.17) g/dL 08/08/20 08/08/20 08/08/20 Range/Units 05:50 05:50 05:50 WBC 18.1 H (3.8-10.6) k/uL RBC 2.89 L (3.80-5.40) m/uL Hgb 8.0 L D (11.4-16.0) gm/dL Hct 24.4 L (34.0-46.0) % RDW 16.5 H (11.5-15.5) % Neutrophils # 16.6 H (1.3-7.7) k/uL Lymphocytes # 0.6 L (1.0-4.8) k/uL BUN 81.0 H (9.0-27.0) mg/dL Est GFR (CKD-EPI)AfAm 52.7 L (60.0-200.0) Est GFR (CKD-EPI)NonAf 45.4 L (60.0-200.0) BUN/Creatinine Ratio 67.50 H (12.00-20.00) Ratio Glucose 162 H (70-110) mg/dL POC Glucose (mg/dL) (75-99) mg/dL Calcium 8.5 L (8.7-10.3) mg/dL AST 191 H (13-35) U/L ALT 243 H (8-44) U/L CK-MB (CK-2) 6.5 H (0.0-2.4) ng/mL Total Protein 5.0 L (6.2-8.2) g/dL Albumin 2.90 L (3.80-4.90) g/dL Albumin/Globulin Ratio 1.38 L (1.60-3.17) g/dL 08/08/20 08/08/20 08/08/20 Range/Units 07:31 08:03 11:27 WBC (3.8-10.6) k/uL RBC (3.80-5.40) m/uL Hgb (11.4-16.0) gm/dL Hct (34.0-46.0) % RDW (11.5-15.5) % Neutrophils # (1.3-7.7) k/uL Lymphocytes # (1.0-4.8) k/uL BUN (9.0-27.0) mg/dL Est GFR (CKD-EPI)AfAm (60.0-200.0) Est GFR (CKD-EPI)NonAf (60.0-200.0) BUN/Creatinine Ratio (12.00-20.00) Ratio Glucose (70-110) mg/dL POC Glucose (mg/dL) 160 H 156 H 140 H (75-99) mg/dL Calcium (8.7-10.3) mg/dL AST (13-35) U/L ALT (8-44) U/L CK-MB (CK-2) (0.0-2.4) ng/mL Total Protein (6.2-8.2) g/dL Albumin (3.80-4.90) g/dL Albumin/Globulin Ratio (1.60-3.17) g/dL Assessment and Plan Assessment: 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 - Aldolase level > 300. - RF, SS-A, SS-B, anti-valadez AB- negative - Muscle biopsy obtained on 07/30 = atrophy - Muscle biopsy scheduled 08/08, pending - Continue to follow CK daily - CT C/A/P, pending Poorly differentiated endometrial adenocarcinoma - D/W Dr. Peace - will need outpatient PET and Shipping Point Inspector Onc evaluation - Barriers include that the patient is too weak to sit or stand on her own at this time - CHAIN SAW OPERATOR recs appreciated Acute kidney injury stable - improving, nephro recs appreciated, - Last HD on 07/30. Cr improving, nephro discontinued cath today. HD not needed anymore. - Follow creatinine - IV fluids completed - Avoid additional nephrotoxic agents - Repeat labs in a.m. 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 - Acute hepatitis profile negative - REBEKA negative - antimitochondrial antibody negative - GI recs appreciated vaginal discharge noted during muscle biopsy: - No discharge was noted today according to nursing staff - Discontinue antibiotics, she finished 7 days of treatment with rocephin/flagyl on 08/05 Newly discovered paroysmal A fib - Will need to be started on eliquis once more stable and once diagnosis established. - cardio recs appreciated - echo EF 55-60% Anemia - due to vaginal bleeding---resolved. - CBC stable Cystic Pancreatic mass/hypoechoic focus left liver lobe <1cm. - MRI for further evaluation as outpatient Constipation - On MiraLAX - Add docusate with senna today Morbid obesity with BMI 43.6 -Outpatient structured weight loss Possible pyelonephritis -5 days of rocephin completed Elevated blood pressure without underlying diagnosis of hypertension, resolved Thrombocytopenia, resolved Hyperkalemia secondary to above, resolved metabolic acidosis, resolved Providers please update Daughter Camilla with plan for cancer treatment and care plan at [phone]. is overwhelmed Family updated on 08/04 DVT prophylaxis: Heparin Discussed with: patient, nursing Anticipated discharge: 3-[address]: rehab
--- NOTE | 2020-08-08 14:41 | CT ---
EXAMINATION TYPE: CT ChestAbdPelvis w con DATE OF EXAM: 08/08/2020 INDICATION: Inital staging COMPARISON: 07/26/2020 CT chest, 07/26/[address] DLP: 3832.4 mGycm CONTRAST: Performed with Oral Contrast and with IV Contrast, patient injected with 100 ml mL of Isovue 300. TECHNIQUE: Axial images at 5 mm thick sections. Reconstructed images in the coronal plane. Delayed images through the kidneys. FINDINGS: CT CHEST: Portion of the thyroid visualized is normal. No suspicious lung nodules or focal infiltrates are present. No enlarged mediastinal or hilar adenopathy is evident. The ascending aorta diameter at the level of the main pulmonary artery is 4.0 cm. The main pulmonary artery diameter at the bifurcation is 2.8 cm. Very minimal coronary artery calcification is noted. CT ABDOMEN: Liver: Normal Spleen: Normal Pancreas: Normal Adrenal glands: The adrenal glands are normal. Gallbladder: Surgically absent Kidneys: No masses are evident. No hydronephrosis is present. Peripelvic cysts may be present. No renal stones are evident. Aorta: Vascular calcification is within the aorta. Inferior vena cava: Normal. CT PELVIS: Loops of bowel within the abdomen and pelvis are normal. Fecal debris is at the rectum. There are loops of bowel which are incompletely distended or lack oral contrast limiting their evaluation. Appendix: Not identified. No dilated tubular structure inflammatory changes are evident. Urinary bladder: Decompressed with a Whaley catheter Genitourinary structures: Endometrial canal contains air and appears thickened. Additional workup is recommended. Osseous structures: No suspicious lytic or sclerotic lesions. Facet degenerative changes are within t he lumbar spine. IMPRESSIONS: 1. Thickened endometrium with air within the endometrial canal. 2. No suspicious abnormality to suggest metastatic disease.
[2020-08-08 16:45] LABS: Glucose,Whole Blood 132 mg/dL (75-99)
[2020-08-08] MEDS: SENNOSIDES-DOCUSATE SODIUM 1 EACH TAB PO SCH ×2 (17:19→21:31)
[2020-08-08] MEDS: polyethylene glycoL 3350 17 GM POWD.PACK PO SCH (17:19)
[2020-08-08] MEDS: FOLIC ACID-VIT B COMPLEX-VIT C 1 CAP PO SCH (17:19)
[2020-08-08 20:46] LABS: Glucose,Whole Blood 141 mg/dL (75-99)
--- NOTE | 2020-08-08 21:23 | P.PN ---
Subjective Progress Note Date: 08/08/20 Principal diagnosis: new malignancy CT Chest abdomen and pelvis performed inpatient as renal function improved, hydration provided after and planning for rehab at discharge. Discussed with showcase maker and primary team. Patients lower extremity strength is improving. Upper extremities are still very weak, Surgery to perform Deltoid biopsy and pland for ECF tomorrow. Now that CT has been completed and no evidence of metastatic disease we will need to set up to see [facility] for follow-up as outpatient. Objective - Vital Signs Vital signs: Vital Signs Temp 97.6 F 08/08/20 20:00 Pulse 70 08/08/20 20:00 Resp 20 08/08/20 20:00 BP 144/71 08/08/20 20:00 Pulse Ox 98 08/08/20 20:00 Intake & Output 08/08/20 08/08/20 08/09/20 06:59 18:59 06:59 Intake Total 100 2620 Output Total 2000 980 Balance -1900 1640 Intake: IV 800 Intake, IV Titration 900 Amount Lactated Ringers 1,000 ml 900 @ 125 mls/hr IV .Q8H [facility] Rx#:[id number] Oral 100 920 Output: Urine 2000 975 Estimated Blood Loss 5 Other: Voiding Method Indwelling Catheter Indwelling Catheter - Exam - Constitutional General appearance: Present: no acute distress - EENT Eyes: Present: EOMI ENT: Present: hearing grossly normal, normal oropharynx - Respiratory Respiratory: bilateral: CTA - Cardiovascular Rhythm: regular Heart sounds: normal: S1, S2 - Gastrointestinal General gastrointestinal: Present: normal bowel sounds, soft - Integumentary Integumentary: Present: normal - Neurologic Neurologic Comment(s): Bilateral, marked proximal upper extremity weakness. Lower extremity distal strength normal Lower extremity proximal strength 3+-4/5 Neurologic: Present: CNII-XII intact - Musculoskeletal Musculoskeletal Comment(s): Weakness, as above - Psychiatric Psychiatric: Present: A&O x's 3, appropriate affect - Labs CBC & Chem 7: 08/08/20 05:50 08/08/20 05:50 Labs: Abnormal Lab Results - Last 24 Hours (Table) 08/08/20 08/08/20 08/08/20 Range/Units 05:50 05:50 05:50 WBC 18.1 H (3.8-10.6) k/uL RBC 2.89 L (3.80-5.40) m/uL Hgb 8.0 L D (11.4-16.0) gm/dL Hct 24.4 L (34.0-46.0) % RDW 16.5 H (11.5-15.5) % Neutrophils # 16.6 H (1.3-7.7) k/uL Lymphocytes # 0.6 L (1.0-4.8) k/uL BUN 81.0 H (9.0-27.0) mg/dL Est GFR (CKD-EPI)AfAm 52.7 L (60.0-200.0) Est GFR (CKD-EPI)NonAf 45.4 L (60.0-200.0) BUN/Creatinine Ratio 67.50 H (12.00-20.00) Ratio Glucose 162 H (70-110) mg/dL POC Glucose (mg/dL) (75-99) mg/dL Calcium 8.5 L (8.7-10.3) mg/dL AST 191 H (13-35) U/L ALT 243 H (8-44) U/L Creatine Kinase (26-186) U/L CK-MB (CK-2) 6.5 H (0.0-2.4) ng/mL Total Protein 5.0 L (6.2-8.2) g/dL Albumin 2.90 L (3.80-4.90) g/dL Albumin/Globulin Ratio 1.38 L (1.60-3.17) g/dL 08/08/20 08/08/20 08/08/20 Range/Units 05:50 07:31 08:03 WBC (3.8-10.6) k/uL RBC (3.80-5.40) m/uL Hgb (11.4-16.0) gm/dL Hct (34.0-46.0) % RDW (11.5-15.5) % Neutrophils # (1.3-7.7) k/uL Lymphocytes # (1.0-4.8) k/uL BUN (9.0-27.0) mg/dL Est GFR (CKD-EPI)AfAm (60.0-200.0) Est GFR (CKD-EPI)NonAf (60.0-200.0) BUN/Creatinine Ratio (12.00-20.00) Ratio Glucose (70-110) mg/dL POC Glucose (mg/dL) 160 H 156 H (75-99) mg/dL Calcium (8.7-10.3) mg/dL AST (13-35) U/L ALT (8-44) U/L Creatine Kinase 3457 H* (26-186) U/L CK-MB (CK-2) (0.0-2.4) ng/mL Total Protein (6.2-8.2) g/dL Albumin (3.80-4.90) g/dL Albumin/Globulin Ratio (1.60-3.17) g/dL 08/08/20 08/08/20 08/08/20 Range/Units 11:27 16:44 20:39 WBC (3.8-10.6) k/uL RBC (3.80-5.40) m/uL Hgb (11.4-16.0) gm/dL Hct (34.0-46.0) % RDW (11.5-15.5) % Neutrophils # (1.3-7.7) k/uL Lymphocytes # (1.0-4.8) k/uL BUN (9.0-27.0) mg/dL Est GFR (CKD-EPI)AfAm (60.0-200.0) Est GFR (CKD-EPI)NonAf (60.0-200.0) BUN/Creatinine Ratio (12.00-20.00) Ratio Glucose (70-110) mg/dL POC Glucose (mg/dL) 140 H 132 H 141 H (75-99) mg/dL Calcium (8.7-10.3) mg/dL AST (13-35) U/L ALT (8-44) U/L Creatine Kinase (26-186) U/L CK-MB (CK-2) (0.0-2.4) ng/mL Total Protein (6.2-8.2) g/dL Albumin (3.80-4.90) g/dL Albumin/Globulin Ratio (1.60-3.17) g/dL Assessment and Plan Plan: CT scan - abdomen: report reviewed CT scan - pelvis: report reviewed US - abdomen: report reviewed Assessment and Plan Rhabdomyolysis: - Muscle biopsy with Myopathy - Although upper extremity weakness is persistant - Lower extremities have shown improvement Severe muscle weakness/Myopathy - As above New Diagnosis Uterine malignancy - 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 No obvious evidence of metastatic disease. However staging studies so far are quite limited, as contrast has been unable to be used. We can plan a PET scan as outpatient once patient is stable. - Ultrasound did note a possible lesion in the liver but this is quite small and nonspecific. STEVE (acute kidney injury) - resolved - Secondary to above - The patient's kidney function continues to improve. - Nephrology management and following Plan: - Deltoid Biopsy - CT CHest abdomen and pelvis with IV Hydration to ensure kidneys are well hydrated post contrast (1.[address]) - Recheck CMP in am prior to discharge - Will need to set up appointment with [facility] for Evaluation and surgical intervention within next 2 weeks secondary to what appears to be local endometrial carcinoma -Can follow-up with Dr. Peace after above 3-4 weeks - Continue on steroid with tapering dosage at discharge, please include PPI. - COntinue aggressive therapy - Discussed with case management and primary team. - I have attempted to call daughter Camillavicki voicemail today or this evening. Will call again in am to update and share plan. Physcian attest: I have completed the full history and physical and agree with above dictation, dictated as a scribe.
[2020-08-09] MEDS: methylPREDNISolone SOD SUCCI 125 MG/2 ML VIAL IV SCH ×4 (00:09→17:18)
[2020-08-09] MEDS: HEPARIN SODIUM,PORCINE 5,000 UNIT/ML 1 ML VIAL SQ SCH ×3 (00:09→17:18)
[2020-08-09] MEDS: LACTATED RINGERS 1,000 ML IV SCH ×4 (01:10→12:28)
[2020-08-09 06:55] LABS: Anisocytosis Slight; Basophils % (A) 0 %; Eosinophils % (A) 0 %; HCT 26.6 % (34.0-46.0); HGB 8.6 gm/dL (11.4-16.0); Lymphocytes # (A) 0.3 k/uL (1.0-4.8); Lymphocytes % (A) 2 %; MCH 27.6 pg (25.0-35.0); MCHC 32.5 g/dL (31.0-37.0); Mean Platelet Volume 8.1; Monocytes # (A) 0.5 k/uL (0-1.0); Monocytes % (A) 3 %; Neutrophils # (A) 14.3 k/uL (1.3-7.7); Neutrophils % (A) 93 %; Platelet Count 232 k/uL (150-450); RBC 3.12 m/uL (3.80-5.40); RDW 16.6 % (11.5-15.5); WBC 15.4 k/uL (3.8-10.6)
[2020-08-09 07:05] LABS: Glucose,Whole Blood 138 mg/dL (75-99)
[2020-08-09] MEDS: CALCIUM ACETATE 667 MG TAB PO SCH (08:41)
[2020-08-09] MEDS: polyethylene glycoL 3350 17 GM POWD.PACK PO SCH (08:41)
[2020-08-09] MEDS: SENNOSIDES-DOCUSATE SODIUM 1 EACH TAB PO SCH (08:44)
[2020-08-09] MEDS: FOLIC ACID-VIT B COMPLEX-VIT C 1 CAP PO SCH (08:45)
[2020-08-09 10:21] LABS: African American GFR (CKD) 58.5 (60.0-200.0); Albumin 2.7 g/dL (3.80-4.90); Albumin/Globulin Ratio 1.42 (1.60-3.17); Anion Gap 6.7 mmol/L (4.00-12.00); BUN/Creat Ratio 66.36 Ratio (12.00-20.00); Carbon Dioxide 26.3 mmol/L (21.6-31.8); Globulin 1.9 g/dL (1.6-3.3); Magnesium 1.7 mg/dL (1.5-2.4); Non-African American GFR(CKD) 50.5 (60.0-200.0); Potassium 4.9 mmol/L (3.5-5.5); Total Bilirubin 0.3 mg/dL (0.2-1.2); Total Protein 4.6 g/dL (6.2-8.2)
[2020-08-09 11:20] LABS: Glucose,Whole Blood 168 mg/dL (75-99)
--- NOTE | 2020-08-09 12:37 | P.PN ---
Subjective Progress Note Date: 08/09/20 CHIEF COMPLAINT: Muscle weakness HISTORY OF PRESENT ILLNESS: Patient is status post left deltoid biopsy. Patient still is reporting significant amount of weakness throughout her body. She denies any significant pain from the deltoid biopsy site. Afebrile. WBC 15.4 PHYSICAL EXAM: VITAL SIGNS: Reviewed. GENERAL: Well-developed in no acute distress. HEENT: No sclera icterus. Extraocular movements grossly intact. Moist buccal mucosa. Head is atraumatic, normocephalic. ABDOMEN: Soft. Nondistended. Nontender. NEUROLOGIC: Alert and oriented. Cranial nerves II through XII grossly intact. Extremities: Left thigh incision clean dry and intact. Left shoulder incision site clean dry and intact ASSESSMENT: 1. Muscle weakness 2. Rhabdomyolysis 3. Acute kidney injury followed by nephrology 4. Uterine mass with uterine bleeding. Uterine biopsy positive for endometrioid carcinoma. Followed by oncology PLAN: -Continue supportive care Physician Manager Of Loss Prevention Operations note has been reviewed by physician. Signing provider agrees with the documented findings, assessment, and plan of care. Objective - Vital Signs Vital signs: Vital Signs Temp 97.2 F L 08/09/20 08:00 Pulse 66 08/09/20 08:00 Resp 18 08/09/20 08:00 BP 145/73 08/09/20 08:00 Pulse Ox 95 08/09/20 08:00 Intake & Output 08/08/20 08/09/20 08/09/20 18:59 06:59 18:59 Intake Total 2620 200 Output Total 980 1125 175 Balance 1640 -925 -175 Intake: IV 800 Intake, IV Titration 900 Amount Lactated Ringers 1,000 ml 900 @ 125 mls/hr IV .Q8H [facility] Rx#:[id number] Oral 920 200 Output: Urine 975 1125 175 Uretheral (Whaley) 300 175 Estimated Blood Loss 5 Other: Voiding Method Indwelling Catheter Indwelling Catheter Indwelling Catheter # Bowel Movements 1 - Labs CBC & Chem 7: 08/09/20 06:25 08/09/20 06:25 Labs: Abnormal Lab Results - Last 24 Hours (Table) 08/08/20 08/08/20 08/08/20 Range/Units 05:50 16:44 20:39 WBC (3.8-10.6) k/uL RBC (3.80-5.40) m/uL Hgb (11.4-16.0) gm/dL Hct (34.0-46.0) % RDW (11.5-15.5) % Neutrophils # (1.3-7.7) k/uL Lymphocytes # (1.0-4.8) k/uL Sodium (135-145) mmol/L BUN (9.0-27.0) mg/dL Est GFR (CKD-EPI)AfAm (60.0-200.0) Est GFR (CKD-EPI)NonAf (60.0-200.0) BUN/Creatinine Ratio (12.00-20.00) Ratio Glucose (70-110) mg/dL POC Glucose (mg/dL) 132 H 141 H (75-99) mg/dL Calcium (8.7-10.3) mg/dL AST (13-35) U/L ALT (8-44) U/L Creatine Kinase 3457 H* (26-186) U/L CK-MB (CK-2) (0.0-2.4) ng/mL Total Protein (6.2-8.2) g/dL Albumin (3.80-4.90) g/dL Albumin/Globulin Ratio (1.60-3.17) g/dL 08/09/20 08/09/20 08/09/20 Range/Units 06:25 06:25 06:25 WBC 15.4 H (3.8-10.6) k/uL RBC 3.12 L (3.80-5.40) m/uL Hgb 8.6 L (11.4-16.0) gm/dL Hct 26.6 L (34.0-46.0) % RDW 16.6 H (11.5-15.5) % Neutrophils # 14.3 H (1.3-7.7) k/uL Lymphocytes # 0.3 L (1.0-4.8) k/uL Sodium 134 L (135-145) mmol/L BUN 73.0 H (9.0-27.0) mg/dL Est GFR (CKD-EPI)AfAm 58.5 L (60.0-200.0) Est GFR (CKD-EPI)NonAf 50.5 L (60.0-200.0) BUN/Creatinine Ratio 66.36 H (12.00-20.00) Ratio Glucose 132 H (70-110) mg/dL POC Glucose (mg/dL) (75-99) mg/dL Calcium 8.0 L (8.7-10.3) mg/dL AST 144 H (13-35) U/L ALT 183 H (8-44) U/L Creatine Kinase 2581 H* (26-186) U/L CK-MB (CK-2) 5.9 H (0.0-2.4) ng/mL Total Protein 4.6 L (6.2-8.2) g/dL Albumin 2.70 L (3.80-4.90) g/dL Albumin/Globulin Ratio 1.42 L (1.60-3.17) g/dL 08/09/20 08/09/20 Range/Units 07:03 11:19 WBC (3.8-10.6) k/uL RBC (3.80-5.40) m/uL Hgb (11.4-16.0) gm/dL Hct (34.0-46.0) % RDW (11.5-15.5) % Neutrophils # (1.3-7.7) k/uL Lymphocytes # (1.0-4.8) k/uL Sodium (135-145) mmol/L BUN (9.0-27.0) mg/dL Est GFR (CKD-EPI)AfAm (60.0-200.0) Est GFR (CKD-EPI)NonAf (60.0-200.0) BUN/Creatinine Ratio (12.00-20.00) Ratio Glucose (70-110) mg/dL POC Glucose (mg/dL) 138 H 168 H (75-99) mg/dL Calcium (8.7-10.3) mg/dL AST (13-35) U/L ALT (8-44) U/L Creatine Kinase (26-186) U/L CK-MB (CK-2) (0.0-2.4) ng/mL Total Protein (6.2-8.2) g/dL Albumin (3.80-4.90) g/dL Albumin/Globulin Ratio (1.60-3.17) g/dL
--- NOTE | 2020-08-09 12:39 | P.PN ---
Subjective Progress Note Date: 08/09/20 Principal diagnosis: new malignancy I was able to connect with daughter, although during call phone was disconnected. I did call back and leave a message. please call her on cell phone which is . Plan to send to rehab today, I have discussed with RN and will plan to arrange outpatient consultation with Dr. Rabbi Duong at [facility]. Planning for discharge today to rehab, upper extremities still weak. Lower extremities have improved. Her Hemoglobin has been slowly trending down over the past 10 days, this could be related to the work of the liver, her infla mmatory process, malignancy, +/- other. Iron saturation was low, ferritin greater than 150, therefore no iron supplementation was recommended. No s/s of bleeding. With her increased mobility and now diagnosis of cancer there is concern of a hypercoaguable state. She has been on VTE prophylaxis while inpatient, although when transferred to outpatient rehab/ECF it is resonable to continue some form of anticoagulation prophylaxis at a low dose. Her hemoglobin will need to be monitored as an outpatient. Objective - Vital Signs Vital signs: Vital Signs Temp 97.2 F L 08/09/20 08:00 Pulse 66 08/09/20 08:00 Resp 18 08/09/20 08:00 BP 145/73 08/09/20 08:00 Pulse Ox 95 08/09/20 08:00 Intake & Output 08/08/20 08/09/20 08/09/20 18:59 06:59 18:59 Intake Total 2620 200 Output Total 980 1125 175 Balance 1640 -925 -175 Intake: IV 800 Intake, IV Titration 900 Amount Lactated Ringers 1,000 ml 900 @ 125 mls/hr IV .Q8H [facility] Rx#:[id number] Oral 920 200 Output: Urine 975 1125 175 Uretheral (Whaley) 300 175 Estimated Blood Loss 5 Other: Voiding Method Indwelling Catheter Indwelling Catheter Indwelling Catheter # Bowel Movements 1 - Exam - Constitutional General appearance: Present: no acute distress - EENT Eyes: Present: EOMI ENT: Present: hearing grossly normal, normal oropharynx - Respiratory Respiratory: bilateral: CTA - Cardiovascular Rhythm: regular Heart sounds: normal: S1, S2 - Gastrointestinal General gastrointestinal: Present: normal bowel sounds, soft - Integumentary Integumentary: Present: normal - Neurologic Neurologic Comment(s): Bilateral, marked proximal upper extremity weakness. Lower extremity distal strength normal Lower extremity proximal strength 3+-4/5 Neurologic: Present: CNII-XII intact - Musculoskeletal Musculoskeletal Comment(s): Weakness, as above - Psychiatric Psychiatric: Present: A&O x's 3, appropriate affect - Labs CBC & Chem 7: 08/09/20 06:25 08/09/20 06:25 Labs: Abnormal Lab Results - Last 24 Hours (Table) 08/08/20 08/08/20 08/08/20 Range/Units 05:50 16:44 20:39 WBC (3.8-10.6) k/uL RBC (3.80-5.40) m/uL Hgb (11.4-16.0) gm/dL Hct (34.0-46.0) % RDW (11.5-15.5) % Neutrophils # (1.3-7.7) k/uL Lymphocytes # (1.0-4.8) k/uL Sodium (135-145) mmol/L BUN (9.0-27.0) mg/dL Est GFR (CKD-EPI)AfAm (60.0-200.0) Est GFR (CKD-EPI)NonAf (60.0-200.0) BUN/Creatinine Ratio (12.00-20.00) Ratio Glucose (70-110) mg/dL POC Glucose (mg/dL) 132 H 141 H (75-99) mg/dL Calcium (8.7-10.3) mg/dL AST (13-35) U/L ALT (8-44) U/L Creatine Kinase 3457 H* (26-186) U/L CK-MB (CK-2) (0.0-2.4) ng/mL Total Protein (6.2-8.2) g/dL Albumin (3.80-4.90) g/dL Albumin/Globulin Ratio (1.60-3.17) g/dL 08/09/20 08/09/20 08/09/20 Range/Units 06:25 06:25 06:25 WBC 15.4 H (3.8-10.6) k/uL RBC 3.12 L (3.80-5.40) m/uL Hgb 8.6 L (11.4-16.0) gm/dL Hct 26.6 L (34.0-46.0) % RDW 16.6 H (11.5-15.5) % Neutrophils # 14.3 H (1.3-7.7) k/uL Lymphocytes # 0.3 L (1.0-4.8) k/uL Sodium 134 L (135-145) mmol/L BUN 73.0 H (9.0-27.0) mg/dL Est GFR (CKD-EPI)AfAm 58.5 L (60.0-200.0) Est GFR (CKD-EPI)NonAf 50.5 L (60.0-200.0) BUN/Creatinine Ratio 66.36 H (12.00-20.00) Ratio Glucose 132 H (70-110) mg/dL POC Glucose (mg/dL) (75-99) mg/dL Calcium 8.0 L (8.7-10.3) mg/dL AST 144 H (13-35) U/L ALT 183 H (8-44) U/L Creatine Kinase 2581 H* (26-186) U/L CK-MB (CK-2) 5.9 H (0.0-2.4) ng/mL Total Protein 4.6 L (6.2-8.2) g/dL Albumin 2.70 L (3.80-4.90) g/dL Albumin/Globulin Ratio 1.42 L (1.60-3.17) g/dL 08/09/20 08/09/20 Range/Units 07:03 11:19 WBC (3.8-10.6) k/uL RBC (3.80-5.40) m/uL Hgb (11.4-16.0) gm/dL Hct (34.0-46.0) % RDW (11.5-15.5) % Neutrophils # (1.3-7.7) k/uL Lymphocytes # (1.0-4.8) k/uL Sodium (135-145) mmol/L BUN (9.0-27.0) mg/dL Est GFR (CKD-EPI)AfAm (60.0-200.0) Est GFR (CKD-EPI)NonAf (60.0-200.0) BUN/Creatinine Ratio (12.00-20.00) Ratio Glucose (70-110) mg/dL POC Glucose (mg/dL) 138 H 168 H (75-99) mg/dL Calcium (8.7-10.3) mg/dL AST (13-35) U/L ALT (8-44) U/L Creatine Kinase (26-186) U/L CK-MB (CK-2) (0.0-2.4) ng/mL Total Protein (6.2-8.2) g/dL Albumin (3.80-4.90) g/dL Albumin/Globulin Ratio (1.60-3.17) g/dL Assessment and Plan Plan: CT scan - abdomen: report reviewed CT scan - pelvis: report reviewed US - abdomen: report reviewed Assessment and Plan Rhabdomyolysis: - Muscle biopsy with Myopathy - LFTs improving - Although upper extremity weakness is persistant - Lower extremities have shown improvement - Prednisone taper and PT/OT at discharge. 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 No obvious evidence of metastatic disease. However staging studies so far are quite limited, as contrast has been unable to be used. We can plan a PET scan as outpatient once patient is stable. - Ultrasound did note a possible lesion in the liver but this is quite small and nonspecific. STEVE (acute kidney injury) - resolved - Secondary to above - The patient's kidney function continues to improve. - Nephrology management and following Plan: - Deltoid Biopsy - CT without signs of Metastatic disease - PLan is to transfer to tertiary hospital for [facility] Evaluation for surgical intervention for local new diagnosis of Uterine Cancer. Then will continue with plan of rehabilitation after discharge from surgery. -Can follow-up with Dr. Peace after above 3-4 weeks - Continue on steroid with tapering dosage at discharge, please include PPI. I will add to discharge instructions. - I have discussed all with daughter Camilla, questions answered and case management to call her as well.
--- NOTE | 2020-08-09 15:28 | P.PN ---
Subjective Progress Note Date: 08/09/20 No new complaints. Pt has been accepted for transfer to [facility] by Dr. Chau, bed pending. CT C/A/P negative for malignancy. Objective - Vital Signs Vital signs: Vital Signs Temp 98.4 F 08/09/20 14:00 Pulse 61 08/09/20 14:00 Resp 19 08/09/20 14:00 BP 135/66 08/09/20 14:00 Pulse Ox 96 08/09/20 14:00 Intake & Output 08/08/20 08/09/20 08/09/20 18:59 06:59 18:59 Intake Total 2620 200 Output Total 980 1125 700 Balance 1640 -925 -700 Intake: IV 800 Intake, IV Titration 900 Amount Lactated Ringers 1,000 ml 900 @ 125 mls/hr IV .Q8H [facility] Rx#:[id number] Oral 920 200 Output: Urine 975 1125 700 Uretheral (Joyce) 300 175 Estimated Blood Loss 5 Other: Voiding Method Indwelling Catheter Indwelling Catheter Indwelling Catheter # Bowel Movements 1 - Exam Gen: awake, alert HEENT: normocephalic, atraumatic, good hearing acuity, moist mucous membranes Resp: good air exchange, no accessory muscle use CVS: good distal perfusion x 4, RRR, no murmurs, clicks, gallops GI: soft, NTTP, ND : no SPT, no CVAT, joyce catheter is present MSK: + pitting edema, no clubbing, Neuro: non-focal, no sensory deficits, appropriate tone, diffuse muscle weakness more significant in UEs Psych: cooperative, euthymic mood - Labs CBC & Chem 7: 08/09/20 06:25 08/09/20 06:25 Labs: Abnormal Lab Results - Last 24 Hours (Table) 08/08/20 08/08/20 08/08/20 Range/Units 05:50 16:44 20:39 WBC (3.8-10.6) k/uL RBC (3.80-5.40) m/uL Hgb (11.4-16.0) gm/dL Hct (34.0-46.0) % RDW (11.5-15.5) % Neutrophils # (1.3-7.7) k/uL Lymphocytes # (1.0-4.8) k/uL Sodium (135-145) mmol/L BUN (9.0-27.0) mg/dL Est GFR (CKD-EPI)AfAm (60.0-200.0) Est GFR (CKD-EPI)NonAf (60.0-200.0) BUN/Creatinine Ratio (12.00-20.00) Ratio Glucose (70-110) mg/dL POC Glucose (mg/dL) 132 H 141 H (75-99) mg/dL Calcium (8.7-10.3) mg/dL AST (13-35) U/L ALT (8-44) U/L Creatine Kinase 3457 H* (26-186) U/L CK-MB (CK-2) (0.0-2.4) ng/mL Total Protein (6.2-8.2) g/dL Albumin (3.80-4.90) g/dL Albumin/Globulin Ratio (1.60-3.17) g/dL 08/09/20 08/09/20 08/09/20 Range/Units 06:25 06:25 06:25 WBC 15.4 H (3.8-10.6) k/uL RBC 3.12 L (3.80-5.40) m/uL Hgb 8.6 L (11.4-16.0) gm/dL Hct 26.6 L (34.0-46.0) % RDW 16.6 H (11.5-15.5) % Neutrophils # 14.3 H (1.3-7.7) k/uL Lymphocytes # 0.3 L (1.0-4.8) k/uL Sodium 134 L (135-145) mmol/L BUN 73.0 H (9.0-27.0) mg/dL Est GFR (CKD-EPI)AfAm 58.5 L (60.0-200.0) Est GFR (CKD-EPI)NonAf 50.5 L (60.0-200.0) BUN/Creatinine Ratio 66.36 H (12.00-20.00) Ratio Glucose 132 H (70-110) mg/dL POC Glucose (mg/dL) (75-99) mg/dL Calcium 8.0 L (8.7-10.3) mg/dL AST 144 H (13-35) U/L ALT 183 H (8-44) U/L Creatine Kinase 2581 H* (26-186) U/L CK-MB (CK-2) 5.9 H (0.0-2.4) ng/mL Total Protein 4.6 L (6.2-8.2) g/dL Albumin 2.70 L (3.80-4.90) g/dL Albumin/Globulin Ratio 1.42 L (1.60-3.17) g/dL 08/09/20 08/09/20 Range/Units 07:03 11:19 WBC (3.8-10.6) k/uL RBC (3.80-5.40) m/uL Hgb (11.4-16.0) gm/dL Hct (34.0-46.0) % RDW (11.5-15.5) % Neutrophils # (1.3-7.7) k/uL Lymphocytes # (1.0-4.8) k/uL Sodium (135-145) mmol/L BUN (9.0-27.0) mg/dL Est GFR (CKD-EPI)AfAm (60.0-200.0) Est GFR (CKD-EPI)NonAf (60.0-200.0) BUN/Creatinine Ratio (12.00-20.00) Ratio Glucose (70-110) mg/dL POC Glucose (mg/dL) 138 H 168 H (75-99) mg/dL Calcium (8.7-10.3) mg/dL AST (13-35) U/L ALT (8-44) U/L Creatine Kinase (26-186) U/L CK-MB (CK-2) (0.0-2.4) ng/mL Total Protein (6.2-8.2) g/dL Albumin (3.80-4.90) g/dL Albumin/Globulin Ratio (1.60-3.17) g/dL Assessment and Plan Assessment: 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 - Aldolase level > 300. - RF, SS-A, SS-B, anti-valadez AB- negative - Muscle biopsy obtained on 07/30 = atrophy - Muscle biopsy scheduled 08/08, pending - Continue to follow CK daily - CT C/A/P, negative for metastatic disease - [facility] (Dr. Chau) accepted patient for transfer - Florent[facility] (physician to physician = pending) - (Dr. Chawla will return phone call after our initial discussion; he wants to touch base with his [facility]-Onc team) Poorly differentiated endometrial adenocarcinoma - D/W Dr. Peace - will need outpatient PET and [facility] Onc evaluation - Barriers include that the patient is too weak to sit or stand on her own at this time - [employer] recs appreciated Acute kidney injury stable - improving, nephro recs appreciated, - Last HD on 07/30. Cr improving, nephro discontinued cath today. HD not needed anymore. - Follow creatinine - IV fluids completed - Avoid additional nephrotoxic agents - Repeat labs in a.m. 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 - Acute hepatitis profile negative - REBEKA negative - antimitochondrial antibody negative - GI recs appreciated vaginal discharge noted during muscle biopsy: - No discharge was noted today according to nursing staff - Discontinue antibiotics, she finished 7 days of treatment with rocephin/flagyl on 08/05 Newly discovered paroysmal A fib - Will need to be started on eliquis once more stable and once diagnosis established. - cardio recs appreciated - echo EF 55-60% Anemia - due to vaginal bleeding---resolved. - CBC stable Cystic Pancreatic mass/hypoechoic focus left liver lobe <1cm. - MRI for further evaluation as outpatient Constipation - On MiraLAX - Add docusate with senna today Morbid obesity with BMI 43.6 -Outpatient structured weight loss Possible pyelonephritis -5 days of rocephin completed Elevated blood pressure without underlying diagnosis of hypertension, resolved Thrombocytopenia, resolved Hyperkalemia secondary to above, resolved metabolic acidosis, resolved Providers please update Daughter Camilla with plan for cancer treatment and care plan at [phone]. is overwhelmed Family updated on 08/04 DVT prophylaxis: Heparin Discussed with: patient, nursing Anticipated discharge: 3-[address]: rehab
--- NOTE | 2020-08-09 15:53 | PN ---
PROGRESS NOTE Patient is seen for followup for acute kidney injury. Renal function has improved, with creatinine down to 1.1 mg/dL. However, patient did have a CT with IV contrast done yesterday. She continues to have good urine output. She is currently lying flat. Denies any significant complaints. The CT scan shows evidence of thickened endometrium. No other suspicious changes of metastatic disease noted. PHYSICAL EXAMINATION: On examination today, blood pressure is 145/73, heart rate 66 per minute. She is afebrile. EXAMINATION OF THE HEART: S1 and S2. EXAMINATION OF LUNGS: Bilateral breath sounds are heard. ABDOMEN: Soft, non-tender. Examination of lower extremities shows edema 1+ bilaterally. LINOTYPE MECHANIC exam is grossly intact. LABS: Labs show sodium 134, potassium 4.9, chloride 101, BUN 73, creatinine 1.1, hemoglobin 8.6 g/dL. ASSESSMENT: 1. Acute kidney injury secondary to rhabdomyolysis, currently resolved. 2. Rhabdomyolysis, status post discontinuation of statins. There is no history of fall. Suggestion of possible myositis associated with underlying malignancy, status post muscle biopsy. 3. Volume overload. IV fluids are currently discontinued. Continue to monitor for now. Patient is fairly asymptomatic from pulmonary standpoint. PLAN: Repeat labs in a.m. Encourage increased oral intake. Can use loop diuretics if volume status is worse tomorrow. MMODL / IJN: [id number] /
[2020-08-09 16:17] LABS: Glucose,Whole Blood 157 mg/dL (75-99)
[2020-08-09] MEDS ORDERED: PANTOPRAZOLE 40 MG TABLET PO SCH (17:30)
[2020-08-09 18:20] VITALS: BP 134/55; PULSE 69; RESP 18; TEMP 97.8
[2020-08-10] MEDS: LACTATED RINGERS 1,000 ML IV SCH (00:12)
[2020-08-10] MEDS: SENNOSIDES-DOCUSATE SODIUM 1 EACH TAB PO SCH (00:12)
== END 2020-08-10 00:25 | disposition short-term general hospital (02) | DRG 500 ==
LOC: EC 23:59 → 3SCARD 07-25 01:22 → 4SSUR 07-28 17:21
PROVIDERS: ADMIT Internal Medicine; ATTEND Internal Medicine
PROC: 06HM33Z Insertion of Infusion Device into Right Femoral Vein, Percutaneous Approach (ICD-10-PCS; 2020-07-27)
PROC: 05HD33Z Insertion of Infusion Device into Right Cephalic Vein, Percutaneous Approach (ICD-10-PCS; 2020-07-27)
PROC: 0UDB7ZX Extraction of Endometrium, Via Natural or Artificial Opening, Diagnostic (ICD-10-PCS; 2020-07-28)
PROC: 5A1D70Z Performance of Urinary Filtration, Intermittent, Less than 6 Hours Per Day (ICD-10-PCS; 2020-07-30)
PROC: 06PYX3Z Removal of Infusion Device from Lower Vein, External Approach (ICD-10-PCS; 2020-08-04)
PROC: 0KB60ZX Excision of Left Shoulder Muscle, Open Approach, Diagnostic (ICD-10-PCS; principal; 2020-08-08 09:20)
DX: M62.82 Rhabdomyolysis (principal); N17.0 Acute kidney failure with tubular necrosis; E87.1 Hypo-osmolality and hyponatremia; B17.9 Acute viral hepatitis, unspecified; E87.4 Mixed disorder of acid-base balance; I48.19 Other persistent atrial fibrillation; K86.2 Cyst of pancreas; N12 Tubulo-interstitial nephritis, not specified as acute or chronic; Z68.41 Body mass index [BMI] 40.0-44.9, adult; C54.1 Malignant neoplasm of endometrium; E83.51 Hypocalcemia; E87.5 Hyperkalemia; D64.9 Anemia, unspecified; D69.6 Thrombocytopenia, unspecified; Z20.828 Contact with and (suspected) exposure to other viral communicable diseases; E66.01 Morbid (severe) obesity due to excess calories; E83.39 Other disorders of phosphorus metabolism; E87.70 Fluid overload, unspecified; I27.20 Pulmonary hypertension, unspecified; I44.4 Left anterior fascicular block; K59.00 Constipation, unspecified; N18.9 Chronic kidney disease, unspecified; N95.0 Postmenopausal bleeding; N89.8 Other specified noninflammatory disorders of vagina; R59.0 Localized enlarged lymph nodes; R42 Dizziness and giddiness; Z90.49 Acquired absence of other specified parts of digestive tract; Z98.51 Tubal ligation status; Z72.3 Lack of physical exercise
CPT/HCPCS: 36410; 36415; 51702; 71250; 71260; 74177; 76700; 76770; 76856; 76937; 80048; 80053; 80074; 81001; 82085; 82103; 82248; 82390; 82533; 82550; 82553; 82565; 82570; 82607; 82728; 83516; 83540; 83550; 83735; 83921; 83930; 83935; 84100; 84132; 84133; 84156; 84165; 84300; 84443; 84450; 84460; 84466; 84484; 84550; 85025; 85027; 85610; 85652; 86038; 86140; 86160; 86162; 86225; 86235; 86255; 86304; 86334; 86335; 86376; 86431; 86645; 86665; 86694; 86704; 86706; 87635; 88305; 90935; 93005; 93306; 93970; 96361; 96365; 96367; 96372; 96374; 96375; 99285